=== PATIENT | female | born 1975 | race Caucasian/White ===

== ENCOUNTER 2017-05-19 18:51 | Emergency (ER) | payer MEDICAID ==
[~2017-05-19] VITALS: Ht 170.2 cm; Wt 104.3 kg
[~2017-05-19 18:51] MED LIST: BUSPAR 5MG TAB5 MG PO; CIPRO 500MG TA500 MG PO; COLCRYS0.6 M1 PO; CYMBALTA30 MG PO; DARVOCET-N 1001 EACH PO; DOXEPIN 25MG CA25 MG PO; FIORICET1 CAP PO; FLAGYL500 M1 PO; FLEXERIL10 MG PO; GABAPENTIN 400400 MG PO; GABAPENTIN 600600 MG PO; GABAPENTIN300 MG PO; HYDROCODONE/ACE1 TA5 PO; INDOMETHACIN50 MG PO; KETOROLAC 10MG10 MG PO; LAMICTAL 100 M100 MG PO; LEVOTHYROXINE0.05 MG PO; LISINOPRIL/HCTZ1 TA3 PO; LITHIUM CARB 1150 MG PO; LORTAB 5/500 501 TAB PO; LYRICA 100 MG100 MG PO; MACROBID100 M3 PO; MEDROL 4MG. DOSE4 MG PO; METOPROLOL SUCC50 M1 PO; MOBIC15 MG PO; NAPROSYN 500MG500 MG PO; NEURONTIN400 M1 PO; NEXIUM40 MG PO; NORCO 325 MG-51 TAB PO; PERCOCET1 TAB PO; PHENERGAN 25MG.25 M1 PO; PREDNISONE 20MG20 MG PO; PRILOSEC40 MG PO; TESSALON PERLE100 MG PO; TIZANIDINE HCL 44 MG NG; TOPROL XL 100M100 MG PO; TRAMADOL 50MG T50 M1 PO; TYLENOL W/CODEI1 TA2 PO; VALIUM 10MG TAB10 MG PO; VALIUM2 MG PO; VIBRAMYCIN 100100 MG PO; VOLTAREN50 MG PO; XANAX 1MG TABLET1 MG PO; ZOFRAN4 MG PO; Zofran4 MG PO
--- NOTE | 2017-05-19 18:57 | Emergency Room Report ---
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 Clinical Suspician of Infection? Mental Status: Sepsis Risk: Have you (or family members/close friends) recently traveled outside the [place]? If Yes, where/when: Have you had exposure to infectious disease within the past month? TB? Other? Specify: Source patient, RN notes reviewed Exam Limitations no limitations ALLERGIES Coded Allergies: amoxicillin (From AUGMENTIN) (Mild, 06/30/16) clavulanic acid (From AUGMENTIN) (Mild, 06/30/16) morphine (06/30/16) Home Medications Reported Medications Gabapentin (Neurontin) 400 MG PO TID Metoprolol Succinate Xl (Metoprolol ER 50MG) 50 MG PO BID Omeprazole (Prilosec 40mg Cap) 40 MG PO DAILY Diazepam (Valium 10MG) 10 MG PO TID Lisinopril & Hctz (Lisinopril-Hctz 10-12.5 MG Tab) 1 TAB PO DAILY DULOXETINE HCL (Cymbalta 30MG) 60 MG PO DAILY [place] Carbonate ([place] Carb 150MG. Capsule) 150 MG PO TID Levothyroxine Sodium (Levothyroxine) 0.25 MG PO DAILY TIZANIDINE HCL (Tizanidine Hcl 4 Mg Tablet) 4 MG NG Q8H History Medical History General CAD? No Angina: No MO: No Hypertension? Yes Hyperlipidemia? Yes CHF? No DVT? No PE? No COPD? No Asthma? No Anemia? No GERD? Yes Gastric ulcers? No GI Bleed? No Hernia? No Thyroid Problems? No Hypothyroidism? No CVA? No Seizures? No Diabetes? No Renal Insuffiency? No End Stage Renal Disease? No UTI? Yes Stones? No BPH? No GB Disease: Yes Nephritic Syndrome? No Asplenia? No Hepatitis? No Sickle Cell Disease? No Arthritis? No Migraines? No Cataracts? No Glaucoma? No MRSA? No HIV? No TB? No Anxiety? Yes Depression? Yes Cancer? Yes Site: CERVICAL More? Yes Additional hx: PREVIOUS DRUG ADDICTION Immunization Hx DT/Tetanus Unknown Flu 2YRSorMore Pneumonia NEVER Surgical Hx Previous Surgery?Y T&A APPY D&C X 2 LAP X 2 CYSTO X 2 Cholecystectomy Hysterect BLADDER TACK KNEE SURGERY COLONOSCOPY Family History Family Hx Diabetes Yes CAD Yes Hypertension Yes Hyperlipidemia Yes Cancer Yes TB No Social History Smoking Hx Packs/day 1 1/2 - 2 Packs Alcohol Alcohol: No Review of Systems All Other Systems Reviewed and Negative Physical Exam Vital Signs Vital Signs Date Time Temp Pulse Resp B/P Pulse O2 O2 Flow FiO2 Ox Delivery Rate 05/19 1928 20 05/19 1855 98.5 11 20 167/79 98 General Appearance normal appearance, WD/WN, mild distress Respiratory Status No: respiratory distress. 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 Yes Garth was queried for this patient? Yes Reference #: [id number] Reason not queried - Garth system downtime Risks/benefits of using a controlled substance for treatment were not discussed w/pt Results/Orders Current Medication Orders Sig/Fatemeh Start time Last Medication Dose Route Stop Time Status Admin Lidocaine HCl 10 ML ONCE ONE 05/19 1930 DC SC 05/19 1931 Lidocaine HCl 0 .STK-MED ONE 05/19 1925 DC .ROUTE Ondansetron HCl 0 .STK-MED ONE 05/19 1925 DC .ROUTE Hydromorphone HCl 0 .STK-MED ONE 05/19 1924 DCr .ROUTE Hydromorphone HCl 1 MG ONCE ONE 05/19 1915 DCr 05/19 IM 05/19 Ondansetron HCl 4 MG ONCE ONE 05/19 1915 DC 05/19 IM 05/19 Orders Procedure Date/time Status PROCEDURE TRAY SET UP 05/19 1918 Active PREPARE CONSENT 05/19 1918 Active CULTURE, WOUND 05/19 1918 Active Procedures Incision and Drainage Incision and Drainage Risks/benefits discussed with pt/guardian? Yes Problem type Abcess, Cyst Location pubic mons Size cm 3.0 Anesthesia Lidocaine 1% Blade Size 11 I & D Procedure Simple. Progress Anesthetized with 1% lidocaine and incised with # 11 Blade. Wound was cultured and then packed with 1" Iodoform gauze about 4 inches and sterile dressing applied Eye Procedure Eye Procedure Risks/benefits discussed with pt/guardian? Yes Departure Departure Time of Disposition 2008 Disposition DC Home or Self Care(routine) Clinical Impression Primary Impression: Abscess of abdominal wall Condition STABLE Referrals [facility], [facility] (Family): 2 Days-Call Office Additional Instructions advised to change dressing daily and return to the ED in 2 days to remove packing. Advised that she may still have to see a surgeon to remove the entire cyst Discharge Counseling Counseled pt/family regarding diagnosis, medications/RX, home care, follow up needs Prescriptions Current Visit Scripts HYDROCODONE 5MG/APAP 325MG (Hydrocodon-Acetaminophen 5-325) 1 TAB PO Q4HP PRN pain #12 TAB SULFAMETHOXAZOLE W/TRIMETHOPRI (Bactrim Ds Tab) 1 TABLET PO BID #10 TAB ED Critical Care Critical Care No If Critical Care minutes are documented, the time involved in the performance of seperately reportable procedures was not counted toward critical care time documented. I directly delivered medical care to this critically ill and/or injured patient. Timely evaluation and treatment was necessary to address the significant organ system(s) dysfunction present in this patient. at 2013
--- NOTE | 2017-05-19 18:57 | Emergency Room Report ---
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 Clinical Suspician of Infection? Mental Status: Sepsis Risk: Have you (or family members/close friends) recently traveled outside the [place]? If Yes, where/when: Have you had exposure to infectious disease within the past month? TB? Other? Specify: Source patient, RN notes reviewed Exam Limitations no limitations ALLERGIES Coded Allergies: amoxicillin (From AUGMENTIN) (Mild, 06/30/16) clavulanic acid (From AUGMENTIN) (Mild, 06/30/16) morphine (06/30/16) Home Medications Reported Medications Gabapentin (Neurontin) 400 MG PO TID Metoprolol Succinate Xl (Metoprolol ER 50MG) 50 MG PO BID Omeprazole (Prilosec 40mg Cap) 40 MG PO DAILY Diazepam (Valium 10MG) 10 MG PO TID Lisinopril & Hctz (Lisinopril-Hctz 10-12.5 MG Tab) 1 TAB PO DAILY DULOXETINE HCL (Cymbalta 30MG) 60 MG PO DAILY [place] Carbonate ([place] Carb 150MG. Capsule) 150 MG PO TID Levothyroxine Sodium (Levothyroxine) 0.25 MG PO DAILY TIZANIDINE HCL (Tizanidine Hcl 4 Mg Tablet) 4 MG NG Q8H History Medical History General CAD? No Angina: No CT: No Hypertension? Yes Hyperlipidemia? Yes CHF? No DVT? No PE? No COPD? No Asthma? No Anemia? No GERD? Yes Gastric ulcers? No GI Bleed? No Hernia? No Thyroid Problems? No Hypothyroidism? No CVA? No Seizures? No Diabetes? No Renal Insuffiency? No End Stage Renal Disease? No UTI? Yes Stones? No BPH? No GB Disease: Yes Nephritic Syndrome? No Asplenia? No Hepatitis? No Sickle Cell Disease? No Arthritis? No Migraines? No Cataracts? No Glaucoma? No MRSA? No HIV? No TB? No Anxiety? Yes Depression? Yes Cancer? Yes Site: CERVICAL More? Yes Additional hx: PREVIOUS DRUG ADDICTION Immunization Hx DT/Tetanus Unknown Flu 2YRSorMore Pneumonia NEVER Surgical Hx Previous Surgery?Y T&A APPY D&C X 2 LAP X 2 CYSTO X 2 Cholecystectomy Hysterect BLADDER TACK KNEE SURGERY COLONOSCOPY Family History Family Hx Diabetes Yes CAD Yes Hypertension Yes Hyperlipidemia Yes Cancer Yes TB No Social History Smoking Hx Packs/day 1 1/2 - 2 Packs Alcohol Alcohol: No Review of Systems All Other Systems Reviewed and Negative Physical Exam Vital Signs Vital Signs Date Time Temp Pulse Resp B/P Pulse O2 O2 Flow FiO2 Ox Delivery Rate 05/19 1928 20 05/19 1855 98.5 11 20 167/79 98 General Appearance normal appearance, WD/WN, mild distress Respiratory Status No: respiratory distress. 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 Yes Garth was queried for this patient? Yes Reference #: [id number] Reason not queried - Garth system downtime Risks/benefits of using a controlled substance for treatment were not discussed w/pt Results/Orders Current Medication Orders Sig/Fatemeh Start time Last Medication Dose Route Stop Time Status Admin Lidocaine HCl 10 ML ONCE ONE 05/19 1930 DC SC 05/19 1931 Lidocaine HCl 0 .STK-MED ONE 05/19 1925 DC .ROUTE Ondansetron HCl 0 .STK-MED ONE 05/19 1925 DC .ROUTE Hydromorphone HCl 0 .STK-MED ONE 05/19 1924 DCr .ROUTE Hydromorphone HCl 1 MG ONCE ONE 05/19 1915 DCr 05/19 IM 05/19 Ondansetron HCl 4 MG ONCE ONE 05/19 1915 DC 05/19 IM 05/19 Orders Procedure Date/time Status PROCEDURE TRAY SET UP 05/19 1918 Active PREPARE CONSENT 05/19 1918 Active CULTURE, WOUND 05/19 1918 Active Procedures Incision and Drainage Incision and Drainage Risks/benefits discussed with pt/guardian? Yes Problem type Abcess, Cyst Location pubic mons Size cm 3.0 Anesthesia Lidocaine 1% Blade Size 11 I & D Procedure Simple. Progress Anesthetized with 1% lidocaine and incised with # 11 Blade. Wound was cultured and then packed with 1" Iodoform gauze about 4 inches and sterile dressing applied Eye Procedure Eye Procedure Risks/benefits discussed with pt/guardian? Yes Departure Departure Time of Disposition 2008 Disposition DC Home or Self Care(routine) Clinical Impression Primary Impression: Abscess of abdominal wall Condition STABLE Referrals [facility], [facility] (Family): 2 Days-Call Office Additional Instructions advised to change dressing daily and return to the ED in 2 days to remove packing. Advised that she may still have to see a surgeon to remove the entire cyst Discharge Counseling Counseled pt/family regarding diagnosis, medications/RX, home care, follow up needs Prescriptions Current Visit Scripts HYDROCODONE 5MG/APAP 325MG (Hydrocodon-Acetaminophen 5-325) 1 TAB PO Q4HP PRN pain #12 TAB SULFAMETHOXAZOLE W/TRIMETHOPRI (Bactrim Ds Tab) 1 TABLET PO BID #10 TAB ED Critical Care Critical Care No If Critical Care minutes are documented, the time involved in the performance of seperately reportable procedures was not counted toward critical care time documented. I directly delivered medical care to this critically ill and/or injured patient. Timely evaluation and treatment was necessary to address the significant organ system(s) dysfunction present in this patient. at 2013
--- OUTSIDE RECORDS SUMMARY | 2017-05-19 19:27 | External Medical Summary Rpt ---
Author Author , RADHA Mendenhall FRANCEJUAN Address Unknown Phone [email or web address] Care Team Providers Care Medical Reviewer Name Role Phone [employer] Unavailable Unavailable INC, [employer] Unavailable Unavailable INC, [employer] ALLRAN JR MAGO, ALLRAN Unavailable Unavailable JR MAGO ELLY WILKERSON MD, PSC, Unavailable Unavailable ELLY WILKERSON MD, PSC ARNOLD THEODORE, ARNOLD Unavailable Unavailable THEODORE ARNOLD THEODORE, ARNOLD Unavailable Unavailable THEODORE Naun Magdaleno MD, Unavailable Unavailable YVETTE Garnica MD Unavailable Unavailable YVETTE FRANKLIN Unavailable Unavailable MAUREEN GARCIA TER, GARCIA TER Unavailable Unavailable BELLA ALL, BELLA ALL Unavailable Unavailable CASE JUS, CASE JUS Unavailable Unavailable CHEESEYUNIER VLADIMIR, Unavailable Unavailable [facility] Unavailable Unavailable ADAMS, ORONO [facility] Unavailable Unavailable [facility], Unavailable [facility], Unavailable Unavailable [facility] CECILIA DENNIS, Unavailable Unavailable CECILIA DENNIS CECILIA DENNIS, Unavailable Unavailable CECILIA DENNIS TRISTEN HINDS PA-C Unavailable Unavailable TRISTEN RAMSEY PA-C DUFF FRED, DUFF FRED Unavailable Unavailable FRYMAN EUG, FRYMAN Unavailable Unavailable EUG PRICE LAURENCE, PRICE Unavailable Unavailable LAURENCE [facility], Unavailable Unavailable [facility] GILBERT SYD, GILBERT Unavailable Unavailable SYD NI DAWSON, NI Unavailable Unavailable DAWSON [facility] Unavailable Unavailable INC, [facility] Unavailable Unavailable HOSPITAL P, [facility], Unavailable Unavailable [facility] BELLO CEC, BELLO Unavailable Unavailable CEC DUKE TRA, DUKE TRA Unavailable Unavailable RADHA FRED, RADHA Unavailable Unavailable FRED KEDING, KEDING Unavailable Unavailable KEDING, KEDING Unavailable Unavailable KEDING FRED, KEDING Unavailable Unavailable FRED KEDING FRED, KEDING Unavailable Unavailable FRED [facility] Un[facility] Unavailable GROUP PS, [facility] Un[facility], [facility] KEMP BECK, KEMP Unavailable Unavailable BECK ELKE JR DWI, ELKE Unavailable Unavailable JR DWI SEYMOUR THEODORE, SEYMOUR Unavailable Unavailable THEODORE ELIAS GRE, Unavailable Unavailable ELIAS GRE ELIAS GRE, Unavailable Unavailable ELI[facility] GRE [facility]available [facility], [facility] PICKLESIMER JR JOSSELINE, Unavailable Unavailable PICKLESIMER JR JOSSELINE RENUSCH SUMMER, RENUSCH Unavailable Unavailable SUMMER SCALF, SCALF Unavailable Unavailable AARON, AARON Unavailable Unavailable BEAUCHAMP VLADIMIR, BEAUCHAMP VLADIMIR Unavailable Unavailable BEAUCHAMP OMER, BEAUCHAMP OMER Unavailable Unavailable HALEY, HALEY Unavailable Unavailable [facility] Unavailable [facility], [facility], Unavailable Unavailable [facility] STONE ROX[facility], [facility] Unavailable Unavailable [facility] Un[facility] Unavailable [facility], [facility] Unavailable Unavailable CENTER, [facility] WALKER FOR, WALKER Unavailable Unavailable FOR Purpose Continuity of Care Document - 02-03-2008 through 2016 Problems Code Diagnosis DOS Provider Status [id number] OTHER LONG 02-28-2017 [facility] CURRENT INC DRUG THERAPY M545 LOW BACK 12-21-2016 [facility] PAIN E039 HYPOTHYROID 11-20-2016 [facility] UNSPECIFIED INC E559 VITAMIN D 11-20-2016 [facility] UNSPECIFIED INC R05 COUGH 10-19-2016 [facility] R1030 LOWER 10-04-2016 [facility]IN UNSPECIFIED R109 UNSPECIFIED 10-04-2016 [facility] PS R197 DIARRHEA 10-04-2016 [facility] PS R1032 LEFT LOWER 07-24-2016 [facility] PAIN GROUP K5909 OTHER 07-10-2016 [facility] DIGESTIVE [facility] CENTER N1330 UNSPECIFIED 06-30-2016 [facility] HYDRONEPHRO IMAGING ASS SIS N134 HYDROURETER 06-30-2016 [facility] N289 DISORDER OF 06-30-2016 [facility] URETER [facility] UNSPECIFIED N3000 ACUTE 06-30-2016 [facility] CYSTITIS [facility] WITHOUT PLLC HEMATURIA N390 URINARY 06-30-2016 [facility]CT [facility] INFECTION PLLC SITE NOT SPECIFIED R1031 RIGHT LOWER 06-30-2016 [facility] K529 NONINFECTIV 06-19-2016 [facility] CARE CENTER ITIS & COLITIS UNS K635 POLYP OF 06-19-2016 [facility] E118 TYPE 2 05-06-2016 [facility] MELLITUS INC W/UNS COMPLICATIO NS E876 HYPOKALEMIA 05-06-2016 [facility] I10 ESSENTIAL 05-06-2016 [facility] HYPERTENSIO INC N R1012 LEFT UPPER 05-06-2016 [facility] PAIN PLLC Z720 TOBACCO USE 05-06-2016 [facility] INC M5416 RADICULOPAT 04-25-2016 [facility] IBARRA HY LUMBAR REGION R194 CHANGE IN 03-21-2016 [facility] BOWEL HABIT PHYSICIANS GROUP [id number] PERSONAL 03-21-2016 [facility] HISTORY OF PHYSICIANS COLONIC GROUP POLYPS K219 GASTRO-ESOP 03-14-2016 [facility] P WITHOUT ESOPHAGITIS R1084 GENERALIZED 03-14-2016 [facility] K5792 DIVERTICULI 03-12-2016 [facility] T[facility] PART PHYSICIANS, UNS W/O PLLC PERF/ABSC W/O BLEED Z0100 ENCOUNTER 03-08-2016 [facility] EXAM EYES & GRE VISION W/O ABNORMAL FIND B370 CANDIDAL 02-21-2016 [facility] STOMATITIS PHYSICIANS GROUP Z23 ENCOUNTER 02-21-2016 [facility] FOR PHYSICIANS IMMUNIZATIO GROUP N M542 CERVICALGIA 02-16-2016 [facility] IBARRA R51 HEADACHE 02-02-2016 [facility] T04446 HEMIPLEGIC 01-05-2016 [facility] MIGRAINE PHYSICIANS INTRACT W/O GROUP STAT MIGRAINOSUS [id number] MIGRAINE 12-28-2015 [facility] NOT [facility] INTRACT W/O INC STATUS MIGRAINOSUS [id number] MIGRAINE 12-20-2015 [facility] W/O AURA PHYSICIANS, NOT INTRACT PLLC W/STAT MIGRAINOSUS B25181 PAIN IN 12-08-2015 [facility] RIGHT KNEE PHYSICIANS GROUP B97111 PAIN IN 12-08-2015 [facility] LEFT KNEE PHYSICIANS GROUP J0190 ACUTE 11-27-2015 [facility] SINUSITIS PHYSICIANS UNSPECIFIED GROUP R112 NAUSEA WITH 11-27-2015 [facility] VOMITING PHYSICIANS UNSPECIFIED GROUP M461 SACROILIITI 11-23-2015 ELLY WILKERSON S NOT , PSC ELSEWHERE CLASSIFIED M5116 INTERVERTEB 11-23-2015 [facility] D/O INC W/RADICULOP ATHY LUMB RGN M5136 OTH 11-23-2015 ELLY WILKERSON INTERVERTEB , PSC RAL DISC DEGEN LUMBAR REGION M797 FIBROMYALGI 09-21-2015 [facility] A PHYSICIANS GROUP 7231 CERVICALGIA 07-01-2015 [place] FRED 7242 LUMBAGO 07-01-2015 [place] FRED 7246 DISORDERS 07-01-2015 [place] FRED OF SACRUM 85050 DISPLCMT 06-28-2015 [facility] INTERVERT NEUROSURGIC DISC W/O AL MYELOPATHY 11354 DEGEN 06-28-2015 [facility]/L[facility]B [facility]RA[facility] OSACRAL NEUROSURGIC INTERVERTEB AL RAL DISC 9532 INJURY TO 06-28-2015 [facility] [place] [address] ALTERED 05-23-2015 [facility] PHYSICIANS, STATUS PLLC 4019 UNSPECIFIED 05-17-2015 [facility] ESSENTIAL [facility] HYPERTENSIO INC N 49259 PAIN IN 05-17-2015 [facility] JOINT, PHYSICIANS LOWER LEG GROUP V5869 LONG-TERM 05-17-2015 [facility] (CURRENT) [facility] USE OF INC OTHER MEDICATIONS 39482 OTHER 05-06-2015 [facility] ABNORMAL [facility] GLUCOSE INC 7243 SCIATICA 04-21-2015 [place] FRED 9597 INJURY 02-23-2015 [facility] OTHER&UNSPE TECHNOLOGIE CIFIED KNEE S INC LEG ANKLE&FOOT 30292 UNSPECIFIED 02-11-2015 [facility] VAGINITIS PHYSICIANS AND GROUP VULVOVAGINI TIS V7231 ROUTINE 02-11-2015 [facility] AL EXAMINATION V7641 SCREENING 02-11-2015 [facility] FOR PHYSICIANS MALIGNANT GROUP NEOPLASM OF THE RECTUM 4610 ACUTE 01-23-2015 [facility] MAXILLARY PHYSICIANS SINUSITIS GROUP 4659 ACUTE URIS 01-23-2015 [facility] OF PHYSICIANS UNSPECIFIED GROUP SITE 78405 ABDOMINAL 12-22-2014 [facility] PAIN, LEFT MEDICAL UPPER IMAGING ASS QU[facility]RANT 80928 ABDOMINAL 12-22-2014 [facility] TENDERNESS MEDICAL LEFT UPPER IMAGING ASS QUADRANT 4619 ACUTE 11-23-2014 [facility] SINUSITIS, PHYSICIANS UNSPECIFIED GROUP 92894 WHEEZING 11-23-2014 [facility] PHYSICIANS GROUP 7862 COUGH 11-23-2014 [facility] PHYSICIANS GROUP 4611 ACUTE 11-20-2014 [facility] FRONTAL PHYSICIANS SINUSITIS GROUP 4660 ACUTE 10-16-2014 [facility] BRONCHITIS PHYSICIANS GROUP 4240 MITRAL 10-02-2014 [place] [facility] DISORDERS INC 7852 UNDIAGNOSED 10-02-2014 [facility] 7244 THORACIC/EM 05-20-[address] MBOSACRAL SURGERY NEURITIS/RA CENTER DICULITIS UNSPEC 52994 GENERALIZED 04-05-2014 [facility] ANXIETY [facility] DISORDER 7291 UNSPECIFIED 04-05-2014 [facility] MYALGIA [facility] MYOSITIS 7245 UNSPECIFIED 04-04-2014 [facility] BACKACHE 38765 PAIN IN 03-31-2014 [facility] JOINT PELVIC REGION AND THIGH 88351 SPINAL STEN 03-28-2014 [facility] LUMB REG DENNIS W/O NEUROGENIC CLAUDICATIO N 274.00 274.00 03-29-2013 [facility] Allergies, Adverse Reactions, Alerts Type Allergy to substance Adverse Reaction to Substance Substance Reaction Severity NO KNOWN ALLERGIES Unknown Unknown Clinical Alert Notifications Alert Diabetes: no A1C in the last 6 months Diabetes: no eye exam in the last 365 days Diabetes: no influenza vaccine in the last 365 days Diabetes: no lipid panel in the last 365 days Diabetes: no urine protein screening in the last 365 days Medications Na ND Rx Da Fi Fi Am Da Di Ph RX Ph St me C No te ll ll ou ys ag ar # ys at rm s nt no ma ic us Or Da si cy ia de te s n re d 00 05 06 30 30 00 HO Ac TA 53 -2 -3 .0 00 ME ti IA 63 5- 0- 00 06 TO ve N 33 20 20 07 WN D3 40 17 17 95 1 31 PH 1, AR 00 MA 0 CY UN IT OF TA CY BL NT ET HI AN A TI 29 05 06 90 30 00 HO Ac ZA 30 -2 -3 .0 00 ME ti NI 00 5- 0- 00 06 TO ve DI 16 20 20 07 WN NE 91 17 17 91 0 39 PH HC AR L MA 4 CY MG OF TA BL CY ET NT HI AN A GA 45 05 06 90 30 00 HO Ac BA 96 -2 -3 .0 00 ME ti PE 30 5- 0- 00 06 TO ve NT 55 20 20 08 WN IN 75 17 17 53 0 81 PH 40 AR 0 MA MG CY CA OF PS UL CY E NT HI AN A TO 68 05 06 30 30 00 HO Ac PI 46 -2 -3 .0 00 ME ti RA 20 5- 0- 00 06 TO ve MA 10 20 20 08 WN TE 96 17 17 53 0 80 PH 10 AR 0 MA MG CY TA OF BL ET CY NT HI AN A DI 51 05 06 38 19 00 HO Ac AZ 86 -2 -3 .0 00 ME ti EP 20 6- 0- 00 04 TO ve AM 06 20 20 02 WN 5 31 17 17 29 0 50 PH MG AR MA TA CY BL ET OF CY NT HI AN A DU 68 05 06 30 30 00 HO Ac LO 00 -2 -3 .0 00 ME ti XE 10 5- 0- 00 06 TO ve TI 25 20 20 08 WN NE 70 17 17 53 4 79 PH HC AR L MA DR CY 60 OF MG CY NT CA HI P AN A LE 00 05 06 30 30 00 HO Ac VO 52 -2 -3 .0 00 ME ti TH 71 5- 0- 00 06 TO ve YR 34 20 20 08 WN OX 10 17 17 53 IN 1 78 PH E AR 25 MA CY MC G OF TA BL CY ET NT HI AN A ME 68 05 06 30 30 00 HO Ac TO 00 -1 -1 .0 00 ME ti AK 10 2- 6- 00 06 TO ve OL 11 20 20 08 WN OL 90 17 17 53 0 76 PH [place] AR CC MA CY ER OF 10 0 CY MG NT HI TA AN B A LI 68 05 06 30 30 00 HO Ac SI 18 -1 -1 .0 00 ME ti NO 00 2- 6- 00 06 TO ve AK 51 20 20 08 WN IL 80 17 17 53 -H [address] AR Z MA 10 CY -1 2. OF 5 MG CY NT TA HI B AN A QU 68 05 06 30 30 00 HO Ac ET 00 -1 -1 .0 00 ME ti IA 10 2- 6- 00 06 TO ve PI 18 20 20 08 WN NE 40 17 17 53 0 83 PH FU AR MA MA RA CY TE OF 10 0 CY MG NT HI TA AN B A LI 68 05 06 90 30 00 HO Ac TH 46 -1 -1 .0 00 ME ti IU 20 2- 6- 00 06 TO ve M 22 20 20 08 WN CA 00 17 17 53 RB 1 82 PH ON AR AT MA E CY 15 0 OF MG CY CA NT P HI AN A HY 43 04 05 18 30 00 HO Ac OS 19 -2 -2 0. 00 ME ti CY 90 6- 6- 00 06 TO ve AM 01 20 20 0 08 WN IN 10 17 17 12 E 1 22 PH 0. AR 12 MA 5 CY MG OF TA B CY SL NT HI AN A GA 45 04 05 90 30 00 HO Ac BA 96 -2 -2 .0 00 ME ti PE 30 6- 6- 00 06 TO ve NT 55 20 20 08 WN IN 75 17 17 53 0 81 PH 40 AR 0 MA MG CY CA OF PS UL CY E NT HI AN A TO 68 04 05 30 30 00 HO Ac PI 46 -2 -2 .0 00 ME ti RA 20 6- 6- 00 06 TO ve MA 10 20 20 08 WN TE 96 17 17 53 0 80 PH 10 AR 0 MA MG CY TA OF BL ET CY NT HI AN A LE 00 04 05 30 30 00 HO Ac VO 52 -2 -2 .0 00 ME ti TH 71 6- 6- 00 06 TO ve YR 34 20 20 08 WN OX 10 17 17 53 IN 1 78 PH E AR 25 MA CY MC G OF TA BL CY ET NT HI AN A DU 68 04 05 30 30 00 HO Ac LO 00 -2 -2 .0 00 ME ti XE 10 6- 6- 00 06 TO ve TI 25 20 20 08 WN NE 70 17 17 53 4 79 PH HC AR L MA DR CY 60 OF MG CY NT CA HI P AN A 51 04 05 8. 28 00 HO Ac T 99 -2 -2 00 00 ME ti D2 10 6- 6- 0 06 TO ve 60 20 20 07 WN 1. 40 17 17 95 25 1 30 PH AR MG MA CY (5 0, OF 00 0 CY UN NT IT HI ) AN A 00 04 05 30 30 00 HO Ac TA 53 -2 -2 .0 00 ME ti IA 63 6- 6- 00 06 TO ve N 33 20 20 07 WN D3 40 17 17 95 1 31 PH 1, AR 00 MA 0 CY UN IT OF TA CY BL NT ET HI AN A OM 46 04 05 60 30 00 HO Ac EP 12 -2 -2 .0 00 ME ti RA 20 6- 6- 00 06 TO ve ZO 02 20 20 08 WN LE 90 17 [address] AR MA 20 CY MG OF TA CY BL NT ET HI AN A DI 51 04 05 60 30 00 HO Ac AZ 86 -1 -1 .0 00 ME ti EP 20 9- 9- 00 04 TO ve AM 06 20 20 02 WN 5 31 17 17 23 0 56 PH MG AR MA TA CY BL ET OF CY NT HI AN A QU 68 04 05 30 30 00 HO Ac ET 00 -1 -1 .0 00 ME ti IA 10 0- 2- 00 06 TO ve PI 18 20 20 08 WN NE 40 17 17 47 0 18 PH FU AR MA MA RA CY TE OF 10 0 CY MG NT HI TA AN B A LI 68 04 05 90 30 00 HO Ac TH 46 -1 -1 .0 00 ME ti IU 20 0- 2- 00 06 TO ve M 22 20 20 08 WN CA 00 17 17 47 RB 1 17 PH ON AR AT MA E CY 15 0 OF MG CY CA NT P HI AN A LI 68 04 05 30 30 00 HO Ac SI 18 -1 -1 .0 00 ME ti NO 00 0- 2- 00 06 TO ve AK 51 20 20 08 WN IL 80 17 17 47 -H [address] AR Z MA 10 CY -1 2. OF 5 MG CY NT TA HI B AN A ME 68 04 05 30 30 00 HO Ac TO 00 -1 -1 .0 00 ME ti AK 10 0- 2- 00 06 TO ve OL 11 20 20 08 WN OL 90 17 17 47 0 04 PH [place] AR CC MA CY ER OF 10 0 CY MG NT HI TA AN B A 51 03 04 8. 28 00 HO Ac T 99 -2 -2 00 00 ME ti D2 10 8- 8- 0 06 TO ve 60 20 20 07 WN 1. 40 17 17 95 25 1 30 PH AR MG MA CY (5 0, OF 00 0 CY UN NT IT HI ) AN A DU 68 03 04 30 30 00 HO Ac LO 00 -2 -2 .0 00 ME ti XE 10 8- 8- 00 06 TO ve TI 25 20 20 07 WN NE 70 17 17 91 4 42 PH HC AR L MA DR CY 60 OF MG CY NT CA HI P AN A LE 00 03 04 30 30 00 HO Ac VO 52 -2 -2 .0 00 ME ti TH 71 8- 8- 00 06 TO ve YR 34 20 20 07 WN OX 10 17 17 91 IN 1 43 PH E AR 25 MA CY MC G OF TA BL CY ET NT HI AN A GA 45 03 04 90 30 00 HO Ac BA 96 -2 -2 .0 00 ME ti PE 30 8- 8- 00 06 TO ve NT 55 20 20 07 WN IN 75 17 17 91 0 41 PH 40 AR 0 MA MG CY CA OF PS UL CY E NT HI AN A TO 68 03 04 30 30 00 HO Ac PI 46 -2 -2 .0 00 ME ti RA 20 8- 8- 00 06 TO ve MA 10 20 20 07 WN TE 96 17 17 91 0 40 PH 10 AR 0 MA MG CY TA OF BL ET CY NT HI AN A OM 46 03 04 60 30 00 HO Ac EP 12 -2 -2 .0 00 ME ti RA 20 8- 8- 00 06 TO ve ZO 02 20 20 07 WN LE 90 17 [address] AR MA 20 CY MG OF TA CY BL NT ET HI AN A HY 43 03 04 18 30 00 HO Ac OS 19 -2 -2 0. 00 ME ti CY 90 8- 8- 00 06 TO ve AM 01 20 20 0 08 WN IN 10 17 17 12 E 1 22 PH 0. AR 12 MA 5 CY MG OF TA B CY SL NT HI AN A 00 03 04 30 30 00 HO Ac TA 53 -2 -2 .0 00 ME ti IA 63 8- 8- 00 06 TO ve N 33 20 20 07 WN D3 40 17 17 95 1 31 PH 1, AR 00 MA 0 CY UN IT OF TA CY BL NT ET HI AN A QU 68 03 04 30 30 00 HO Ac ET 00 -1 -1 .0 00 ME ti IA 10 0- 4- 00 06 TO ve PI 18 20 20 07 WN NE 40 17 17 91 0 31 PH FU AR MA MA RA CY TE OF 10 0 CY MG NT HI TA AN B A DI 51 03 04 90 30 00 HO Ac AZ 86 -1 -1 .0 00 ME ti EP 20 0- 4- 00 04 TO ve AM 06 20 20 02 WN 41 17 17 09 10 0 52 PH AR MG MA CY TA BL OF ET CY NT HI AN A LI 68 03 04 90 30 00 HO Ac TH 46 -1 -1 .0 00 ME ti IU 20 0- 4- 00 06 TO ve M 22 20 20 07 WN CA 00 17 17 91 RB 1 33 PH ON AR AT MA E CY 15 0 OF MG CY CA NT P HI AN A 51 02 03 8. 28 00 HO Ac T 99 -2 -3 00 00 ME ti D2 10 8- 1- 0 06 TO ve 60 20 20 07 WN 1. 40 17 17 95 25 1 30 PH AR MG MA CY (5 0, OF 00 0 CY UN NT IT HI ) AN A GA 45 02 03 90 30 00 HO Ac BA 96 -2 -3 .0 00 ME ti PE 30 8- 1- 00 06 TO ve NT 55 20 20 07 WN IN 75 17 17 91 0 41 PH 40 AR 0 MA MG CY CA OF PS UL CY E NT HI AN A DU 68 02 03 30 30 00 HO Ac LO 00 -2 -3 .0 00 ME ti XE 10 8- 1- 00 06 TO ve TI 25 20 20 07 WN NE 70 17 17 91 4 42 PH HC AR L MA DR CY 60 OF MG CY NT CA HI P AN A TO 68 02 03 30 30 00 HO Ac PI 46 -2 -3 .0 00 ME ti RA 20 8- 1- 00 06 TO ve MA 10 20 20 07 WN TE 96 17 17 91 0 40 PH 10 AR 0 MA MG CY TA OF BL ET CY NT HI AN A LE 00 02 03 30 30 00 HO Ac VO 52 -2 -3 .0 00 ME ti TH 71 8- 1- 00 06 TO ve YR 34 20 20 07 WN OX 10 17 17 91 IN 1 43 PH E AR 25 MA CY MC G OF TA BL CY ET NT HI AN A 00 02 03 30 30 00 HO Ac TA 53 -2 -3 .0 00 ME ti IA 63 8- 1- 00 06 TO ve N 33 20 20 07 WN D3 40 17 17 95 1 31 PH 1, AR 00 MA 0 CY UN IT OF TA CY BL NT ET HI AN A DI 51 02 03 90 30 00 HO Ac AZ 86 -1 -1 .0 00 ME ti EP 20 0- 7- 00 04 TO ve AM 06 20 20 02 WN 41 17 17 09 10 0 52 PH AR MG MA CY TA BL OF ET CY NT HI AN A HY 51 02 03 18 30 00 HO Ac OS 52 -1 -1 0. 00 ME ti CY 50 0- 7- 00 06 TO ve AM 11 20 20 0 08 WN IN 30 17 17 12 E 1 22 PH 0. AR 12 MA 5 CY MG OF TA B CY SL NT HI AN A OM 46 02 03 60 30 00 HO Ac EP 12 -0 -1 .0 00 ME ti RA 20 9- 06 TO ve ZO 02 20 20 07 WN LE 90 17 [address] AR MA 20 CY MG OF TA CY BL NT ET HI AN A QU 60 02 03 30 30 00 HO Ac ET 50 -0 -1 .0 00 ME ti IA 53 9- 7- 06 TO ve PI 13 20 20 07 WN NE 30 17 17 91 1 31 PH FU AR MA MA RA CY TE OF 10 0 CY MG NT HI TA AN B A LI 68 02 03 90 30 00 HO Ac TH 46 -0 -1 .0 00 ME ti IU 20 9- 7- 06 TO ve M 22 20 20 07 WN CA 00 17 17 91 RB 1 33 PH ON AR AT MA E CY 15 0 OF MG CY CA NT P HI AN A ME 68 02 03 30 30 00 HO Ac TO 00 -0 -0 .0 00 ME ti AK 10 1- 3- 06 TO ve OL 11 20 20 07 WN OL 90 17 17 37 0 36 PH [place] AR CC MA CY ER OF 10 0 CY MG NT HI TA AN B A TO 68 02 03 30 30 00 HO Ac PI 46 -0 -0 .0 00 ME ti RA 20 1- 3- 06 TO ve MA 10 20 20 07 WN TE 96 17 17 91 0 40 PH 10 AR 0 MA MG CY TA OF BL ET CY NT HI AN A LE 00 02 03 30 30 00 HO Ac VO 52 -0 -0 .0 00 ME ti TH 71 1- 3- 06 TO ve YR 34 20 20 07 WN OX 10 17 17 91 IN 1 43 PH E AR 25 MA CY MC G OF TA BL CY ET NT HI AN A GA 45 02 03 90 30 00 HO Ac BA 96 -0 -0 .0 00 ME ti PE 30 1- 3- 06 TO ve NT 55 20 20 07 WN IN 75 17 17 91 0 41 PH 40 AR 0 MA MG CY CA OF PS UL CY E NT HI AN A LI 68 02 03 30 30 00 HO Ac SI 18 -0 -0 .0 00 ME ti NO 00 1- 3- 06 TO ve AK 51 20 20 07 WN IL 80 17 17 37 -H [address] AR Z MA 10 CY -1 2. OF 5 MG CY NT TA HI B AN A TI 29 02 03 90 30 00 HO Ac ZA 30 -0 -0 .0 00 ME ti NI 00 1- 3- 06 TO ve DI 16 20 20 07 WN NE 91 17 17 37 0 37 PH HC AR L MA 4 CY MG OF TA BL CY ET NT HI AN A DU 47 02 03 30 30 00 HO Ac LO 33 -0 -0 .0 00 ME ti XE 50 1- 3- 00 06 TO ve TI 38 20 20 07 WN NE 31 17 17 91 8 42 PH HC AR L MA DR CY 60 OF MG CY NT CA HI P AN A PO 62 01 02 52 30 00 HO Ac LY 17 -1 -1 7. 00 ME ti ET 50 3- 7- 00 06 TO ve HY 44 20 20 0 07 WN LE 23 17 17 94 NE 1 72 PH AR GL MA YC CY OL OF 33 50 CY NT PO HI WD AN A LI 68 01 02 90 30 00 HO Ac TH 46 -1 -1 .0 00 ME ti IU 20 3- 7- 00 06 TO ve M 22 20 20 07 WN CA 00 17 17 91 RB 1 33 PH ON AR AT MA E CY 15 0 OF MG CY CA NT P HI AN A 51 01 02 8. 28 00 HO Ac T 99 -1 -1 00 00 ME ti D2 10 6- 7- 0 06 TO ve 60 20 20 07 WN 1. 40 17 17 95 25 1 30 PH AR MG MA CY (5 0, OF 00 0 CY UN NT IT HI ) AN A 00 01 02 30 30 00 HO Ac TA 53 -1 -1 .0 00 ME ti IA 63 6- 7- 00 06 TO ve N 33 20 20 07 WN D3 40 17 17 95 1 31 PH 1, AR 00 MA 0 CY UN IT OF TA CY BL NT ET HI AN A DI 51 01 02 90 30 00 HO Ac AZ 86 -1 -1 .0 00 ME ti EP 20 3- 7- 00 04 TO ve AM 06 20 20 02 WN 41 17 17 09 10 0 52 PH AR MG MA CY TA BL OF ET CY NT HI AN A QU 60 01 02 30 30 00 HO Ac ET 50 -0 -1 .0 00 ME ti IA 53 9- 0- 00 06 TO ve PI 13 20 20 07 WN NE 30 17 17 91 1 31 PH FU AR MA MA RA CY TE OF 10 0 CY MG NT HI TA AN B A FL 68 01 02 10 10 00 HO Ac UC 00 -0 -1 .0 00 ME ti ON 10 9- 0- 00 06 TO ve AZ 25 20 20 07 WN OL 40 17 17 91 E 4 30 PH 20 AR 0 MA MG CY TA OF BL ET CY NT HI AN A OM 46 01 02 60 30 00 HO Ac EP 12 -0 -1 .0 00 ME ti RA 20 9- 0- 00 06 TO ve ZO 02 20 20 07 WN LE 90 17 [address] AR MA 20 CY MG OF TA CY BL NT ET HI AN A LI 68 01 02 30 30 00 HO Ac SI 18 -0 -0 .0 00 ME ti NO 00 3- 3- 00 06 TO ve AK 51 20 20 07 WN IL 80 17 17 37 -H [address] AR Z MA 10 CY -1 2. OF 5 MG CY NT TA HI B AN A QU 60 01 02 30 30 00 HO Ac ET 50 -0 -0 .0 00 ME ti IA 53 3- 3- 00 06 TO ve PI 13 20 20 07 WN NE 20 17 17 88 1 11 PH FU AR MA MA RA CY TE OF 50 CY MG NT HI TA AN B A TO 68 01 02 30 30 00 HO Ac PI 46 -0 -0 .0 00 ME ti RA 20 3- 3- 00 06 TO ve MA 10 20 20 07 WN TE 96 17 17 37 0 38 PH 10 AR 0 MA MG CY TA OF BL ET CY NT HI AN A DU 47 01 02 30 30 00 HO Ac LO 33 -0 -0 .0 00 ME ti XE 50 3- 3- 00 06 TO ve TI 38 20 20 07 WN NE 31 17 17 37 8 42 PH HC AR L MA DR CY 60 OF MG CY NT CA HI P AN A GA 45 01 02 90 30 00 HO Ac BA 96 -0 -0 .0 00 ME ti PE 30 3- 3- 00 06 TO ve NT 55 20 20 07 WN IN 75 17 17 37 0 39 PH 40 AR 0 MA MG CY CA OF PS UL CY E NT HI AN A ME 68 01 02 30 30 00 HO Ac TO 00 -0 -0 .0 00 ME ti AK 10 3- 3- 00 06 TO ve OL 11 20 20 07 WN OL 90 17 17 37 0 36 PH [place] AR CC MA CY ER OF 10 0 CY MG NT HI TA AN B A LE 00 01 02 30 30 00 HO Ac VO 52 -0 -0 .0 00 ME ti TH 71 3- 3- 00 06 TO ve YR 34 20 20 07 WN OX 10 17 17 37 IN 1 43 PH E AR 25 MA CY MC G OF TA BL CY ET NT HI AN A AK 68 12 01 20 5 00 HO Ac OM 38 -2 -2 .0 00 ME ti ET 20 8- 7- 00 06 TO ve GARCIA 04 20 20 07 WN ZI 00 16 17 84 NE 1 25 PH AR 12 MA .5 CY MG OF TA CY BL NT ET HI AN A LI 68 12 01 60 30 00 HO Ac TH 46 -1 -2 .0 00 ME ti IU 20 5- 0- 00 06 TO ve M 22 20 20 07 WN CA 00 16 17 37 RB 1 41 PH ON AR AT MA E CY 15 0 OF MG CY CA NT P HI AN A TI 29 12 01 90 30 00 HO Ac ZA 30 -1 -2 .0 00 ME ti NI 00 5- 0- 00 06 TO ve DI 16 20 20 07 WN NE 91 16 17 37 0 37 PH HC AR L MA 4 CY MG OF TA BL CY ET NT HI AN A DI 51 12 01 90 30 00 HO Ac AZ 86 -1 -2 .0 00 ME ti EP 20 5- 0- 00 04 TO ve AM 06 20 20 02 WN 41 16 17 06 10 0 66 PH AR MG MA CY TA BL OF ET CY NT HI AN A AK 59 12 01 10 5 00 HO Ac ED 74 -0 -1 .0 00 ME ti NI 60 8- 3- 00 06 TO ve SO 17 20 20 07 WN NE 50 16 17 71 9 94 PH 20 AR MA MG CY TA OF BL ET CY NT HI AN A AZ 68 12 01 6. 5 00 HO Ac IT 18 -0 -1 00 00 ME ti HR 00 8- 3- 0 06 TO ve OM 16 20 20 07 WN YC 01 16 17 71 IN 3 93 PH AR 25 MA 0 CY MG OF TA BL CY ET NT HI AN A AK 00 12 01 20 10 00 HO Ac OM 60 -0 -1 0. 00 ME ti ET 31 8- 3- 00 04 TO ve GARCIA 58 20 20 0 02 WN ZI 55 16 17 05 NE 8 76 PH -C AR OD MA EI CY NE OF SY RU CY P NT HI AN A DI 00 12 01 20 10 00 HO Ac PH 18 -0 -1 .0 00 ME ti EN 50 8- 3- 00 06 TO ve HY 64 [address] 81 16 17 71 AM 0 92 PH IN AR E MA 25 CY MG OF CA CY PS NT UL HI E AN A QU 60 12 01 30 30 00 HO Ac ET 50 -0 -0 .0 00 ME ti IA 53 06 TO ve PI 13 20 20 07 WN NE 20 16 17 49 1 25 PH FU AR MA MA RA CY TE OF 50 CY MG NT HI TA AN B A GA 45 12 01 90 30 00 HO Ac BA 96 -0 -0 .0 00 ME ti PE 30 06 TO ve NT 55 20 20 07 WN IN 75 16 17 37 0 39 PH 40 AR 0 MA MG CY CA OF PS UL CY E NT HI AN A AK 68 12 01 20 5 00 HO Ac OM 38 -0 -0 .0 00 ME ti ET 20 06 TO ve GARCIA 04 20 20 07 WN ZI 00 16 17 68 NE 1 43 PH AR 12 MA .5 CY MG OF TA CY BL NT ET HI AN A ME 68 12 30 30 00 HO Ac TO 00 -0 -0 .0 00 ME ti AK 10 06 TO ve OL 11 20 20 07 WN OL 90 16 17 37 0 36 PH [place] AR CC MA CY ER OF 10 0 CY MG NT HI TA AN B A DU 47 12 30 30 00 HO Ac LO 33 -0 -0 .0 00 ME ti XE 50 06 TO ve TI 38 20 20 07 WN NE 31 16 17 37 8 [address] PH HC AR L MA DR CY 60 OF MG CY NT CA HI P AN A LE 00 12 30 30 00 HO Ac VO 52 -0 -0 .0 00 ME ti TH 71 06 TO ve YR 34 20 20 07 WN OX 10 16 17 37 IN 1 43 PH E AR 25 MA CY MC G OF TA BL CY ET NT HI AN A LI 68 12 30 30 00 HO Ac SI 18 -0 -0 .0 00 ME ti NO 00 06 TO ve AK 51 20 20 07 WN IL 80 16 17 37 -H [address] AR Z MA 10 CY -1 2. OF 5 MG CY NT TA HI B AN A TO 68 12 30 30 00 HO Ac PI 46 -0 -0 .0 00 ME ti RA 20 06 TO ve MA 10 20 20 07 WN TE 96 16 17 37 0 38 PH 10 AR 0 MA MG CY TA OF BL ET CY NT HI AN A BU 55 05 0 No TO 39 -1 RP 00 8- Lo GARCIA 18 20 ng NO 40 13 er L 1 2 Ac MG ti /M ve L AL De 00 05 0 No xa 51 -1 me 74 8- Lo th 90 20 ng as 12 13 er on 5 e Ac 4M ti G/ ve Ml Sd v 53 02 04 00 90 30 CL 16 No Ac 74 -2 -0 .0 IN 57 t ti 60 7- 7- 00 IC 50 Av ve 13 20 20 ai 70 08 08 PH la 5 AR bl MA e CY 00 02 04 00 60 20 CL 16 No Ac 55 -2 -0 .0 IN 57 t ti 50 7- 7- 00 IC 51 Av ve 58 20 20 ai 50 08 08 PH la 2 AR bl MA e CY AK 68 02 03 00 15 2 CL 16 No Ac OM 38 -0 -2 .0 IN 38 t ti ET 20 1- 6- 00 IC 27 Av ve GARCIA 04 20 20 ai ZI 00 08 08 PH la NE 1 AR bl MA e 12 CY .5 MG TA BL ET AM 00 01 03 00 30 10 CL 16 No Ac OX 78 -3 -2 .0 IN 37 t ti IC 12 1- 6- 00 IC 62 Av ve IL 61 20 20 ai LI 30 08 08 PH la N 5 AR bl 50 MA e 0 CY MG CA PS UL E AL 59 02 03 00 90 30 CL 16 No Ac AK 76 -0 -2 .0 IN 44 t ti AZ 23 8- 6- 00 IC 53 Av ve OL 72 20 20 ai AM 00 08 08 PH la 3 AR bl 0. MA e 5 CY MG TA BL ET AL 59 01 03 00 90 30 CL 16 No Ac AK 76 -0 -2 .0 IN 20 t ti AZ 23 4- 4- 00 IC 38 Av ve OL 72 20 20 ai AM 00 08 08 PH la 3 AR bl 0. MA e 5 CY MG TA BL ET Immunization Name Date Rout CVX Reac Dose Comm Prov Is Faci e tion ent ider Refu lity Give sed n TDAP 04-1 115 GAIN No HMH 1-20 EY PHYS VACC 16 LAURENCE ICIA INE NS 7 GROU YRS/ P > IM Vital Signs 03-29-2013 19:10 Name Value Interpretat Reference Comment ion Range Body 98.1 [degF] Temperature BP 81 mm[Hg] Diastolic BP Systolic 133 mm[Hg] Heart 102 /min Rate/Pulse O2% 95 % Respiratory 19 /min Rate 03-29-2013 19:09 Name Value Interpretat Reference Comment ion Range Body 98.1 [degF] Temperature BP 81 mm[Hg] Diastolic BP Systolic 133 mm[Hg] Heart 102 /min Rate/Pulse O2% 95 % Respiratory 19 /min Rate Results Labs Lab Lab Date Result Refere Interp Status Commen Order Detail nces retati t Range on URIC ACID (03-29-2013 18:50) URIC 4.3 2.6-7.2 complet ACID 013 mg/dL ed 18:50 Procedures Procedure DOS Code Location Performer Comment DRUG TEST G0480 [facility] [address] [facility] INC METH P DAY 1-7 DRUG CL DRUG TEST 05369 [facility] PRSMV [facility] QUAL DIR INC INC OPTICAL OBS PER DAY DRUG TEST 13724 [facility] PRSMV [facility] INSTRMNT INC INC CHEMISTRY ANALYZERS COMPREHEN 84105 [facility] SIVE 7 [facility] [address] [facility] THYROID 7 [facility] STIMULATI INC INC NG HORMONE TSH DRUG TEST G0480 [facility] DEFINITV [address] ID INC INC METH P DAY 1-7 DRUG CL 25 97456 [facility] HYDROXY 7 [facility] INCLUDES INC [place] [address] [facility] FREE [facility] THYROXINE INC INC BLOOD 37833 [facility] COUNT 7 [facility] COMPLETE INC INC AUTO&AUTO DIFRNTL WBC INJECTION J0696 [facility] STONE ROXY 6 PHYSICIAN CEFTRIAXO S GROUP NE SODIUM PER 250 MG RADIOLOGI 41654 [place] CECILIA C EXAM 6 MEDICAL DENNIS CHEST 2 IMAGING VIEWS ASS FRONTAL&L ATERAL INJECTION J1040 [facility] STONE ROXY 6 PHYSICIAN METHYLPRE S GROUP DNISOLONE ACETATE 80 MG THERAPEUT 10044 [facility] STONE ROXY IC 6 PHYSICIAN PROPHYLAC S GROUP TIC/DX INJECTION SUBQ/IM ANES 14934 [place] AARON LOWER 6 ANESTHESI INTESTINE A [place] [address] [facility] [place] SCALF ABDOMEN & 6 RADIOLOGY PELVIS W/O CONTRAST MATERIAL IMMUNOASS 08343 [facility] AY 6 [facility] ANALYTE INC INC QUAL/SEMI QUAL MULTIPLE STEP BLOOD 23504 [facility] COUNT 6 [facility] COMPLETE INC INC AUTO&[place] [address] L[facility] PA[facility] THYROID 6 [facility] STIMULATI INC INC NG HORMONE TSH COMPREHEN 43620 [facility] SIVE 6 [facility] METABOLIC INC INC PANEL FLUORESCE 21355 [facility] NT 6 [facility] NONNFCT INC INC AGT ANTB SCREEN EA ANTIBODY RADEX 45667 [facility] [place] NI ABDOMEN 1 6 RADIOLOGY [place] ANTEROPOS TERIOR VIEW DRUG TST G0477 [facility] L[facility]A PRESUMP;C 6 [facility] PBL BEING [place] [address] [place] [facility] & 6 MEDICAL PELVIS IMAGING W/[place] [address] [facility]IVAS ABDOMEN & 6 REGIONAL REGIONAL PELVIS MEDICAL MEDICAL W/CONTRAS CENTE CENTE T MATERIAL HI OSM Q9963 [facility] CONTRST 6 REGIONAL REGIONAL MATL MEDICAL MEDICAL [phone] CENTE CENTE MG/ML IODINE CONC ML LOCM Q9967 ROB RIVAS [phone] REGIONAL REGIONAL MG/ML MEDICAL MEDICAL IODINE CENTE CENT[place] [address] P&[facility] LABS, [place] SURG 6 [facility] PATHOLOGY GROSS&LAURENCE ROSCOPIC EXAM UNCLASSIF J3490 L[facility]A PAULINO IED DRUGS 6 [facility] INC INC ANES 01577 [facility] 6 ANESTH INTESTINE OF THE BLUE ENDOSCOPY DISTAL [place] 52333 [facility] MICHELLE RAMIRES PY 6 PHYSICIAN MAGO W/BIOPSY S GROUP SINGLE/MU LTIPLE DRUG TST G0477 [facility] PA[facility]INO PRESUMP;C 6 [facility] PBL BEING INC [place] [address] L[facility] PA[facility]INO LIPASE 6 [facility] INC INC BLOOD 47263 [facility] PA[facility]INO COUNT 6 [facility] COMPLETE INC INC AUTO&AUTO DIFRNTL WBC INJECTION J2405 [facility] PA[facility]INO 6 [facility] ONDANSETR INC INC ON HCL PER 1 MG THER 56942 L[facility] PAULINO PROPH/DX 6 [facility] NJX IV INC INC PUSH SINGLE/1S T SBST/DRUG THERAPEUT 28074 L[facility] PAULINO IC 6 [facility] INJECTION INC INC IV PUSH EACH NEW DRUG COMPREHEN 34873 [facility]INO SIVE 6 [facility] [place] [address] L[facility] PA[facility]INO AMYLASE 6 [facility] INC INC UNCLASSIF J3490 L[facility] PAULINO IED DRUGS 6 [facility] INC INC CHIROPRAC 32222 [place] TIC 6 FRED FRED MANIPULAT HORACIO [place] SPINAL 1-2 REGIONS CHIROPRAC 27581 [place] TIC 6 FRED FRED MANIPULAT HORACIO [place] SPINAL 1-2 REGIONS CHIROPRAC 26883 [place] TIC 6 FRED FRED MANIPULAT HORACIO [place] SPINAL 1-2 REGIONS CHIROPRAC 62614 [place] TIC 6 FRED FRED MANIPULAT HORACIO [place] SPINAL 1-2 REGIONS CHIROPRAC 79820 [place] TIC 6 FRED FRED MANIPULAT HORACIO [place] SPINAL 1-2 REGIONS CHIROPRAC 95060 [place] TIC 6 FRED FRED MANIPULAT HORACIO TX SPINAL 1-2 REGIONS ECG 08205 LORA BEDOYA JR ROUTINE 6 [facility] W/LEAST P 12 LDS I&[place] [address] PSYCHIATRIC ALL ABDOMEN & 6 MEDICAL PELVIS IMAGING W/O ASS CONTRAST MATERIAL DETERMINA 15954 [facility] 6 GRE GRE REFRACTIV E STATE OPHTH 86052 [facility] 6 GRE GRE XM&EVAL COMPRE NEW PT 1/> VST IM ADM 38294 [facility] PRICE PRQ ID 6 PHYSICIAN LAURENCE SUBQ/IM S GROUP NJXS 1 VACCINE TDAP 88447 [facility] VACCINE 7 6 PHYSICIAN LAUR[place] YRS/> IM S GROUP CHIROPRA 88941 WILLIAM GONGORACYN TIC 6 FRED FRED MANIPULAT HORACIO [place] SPINAL 1-2 REGIONS CHIROPRA 37530 ROLANCYN WILLIAM TIC 6 FRED FRED MANIPULAT [place]ORACIO [place] SPINAL 1-2 [place] [address] L[facility] PAULINO INFUSION 6 [facility] THERAPY/P INC INC ROPHYLAXI S /DX 1ST TO 1 HR UNCLASSIF J3490 L[facility]A PAULINO IED DRUGS 6 [facility] INC INC MRI BRAIN 49692 L[facility] PA[facility]INO BRAIN 6 [facility] STEM W/O INC INC CONTRAST MATERIAL THERAPEUT 77489 [facility] PRICE IC 6 PHYSICIAN [place] PROPHYLAC S GROUP TIC/DX INJECTION SUBQ/IM INJECTION J1885 [facility] PRICE 6 PHYSICIAN [place] KETOROLAC S GROUP TROMETHAM INE PER 15 MG INJECTION J2550 [facility] PRICE 6 PHYSICIAN [place]UR[place] PROMETHAZ S GROUP INE HCL UP TO 50 MG INJECTION J1040 [facility] PRICE 6 PHYSICIAN [place]UR[place] METHYLPRE S GROUP DNISOLONE ACETATE 80 MG [facility] 04459 WILLIAM THOMAS TIC 6 FRED FRED MANIPULAT HORACIO TX SPINAL 1-2 REGIONS UNCLASSIF J3490 LORA PAULINO IED DRUGS 6 [facility] INC INC THERAPEUT 33319 L[facility] PAULINO IC 6 [facility] PROPHYLAC INC INC TIC/DX INJECTION SUBQ/IM THERAPEUT 95895 [facility] PRICE IC 6 PHYSICIAN LAUR[place] PROPHYLAC S GROUP TIC/DX INJECTION SUBQ/IM INJECTION J1885 [facility] PRICE 6 PHYSICIAN LAURENCE KETOROLAC S GROUP TROMETHAM INE PER 15 MG INJECTION J2550 [facility] PRICE 6 PHYSICIAN LAURENCE PROMETHAZ S GROUP INE HCL UP TO 50 MG INJECTION J2550 [facility] RAMON 6 PHYSICIAN STONE PROMETHAZ S GROUP PA-C ROXY INE HCL UP TO 50 MG INJECTION J1040 [facility] TRISTEN 6 PHYSICIAN STONE METHYLPRE S GROUP PA-C ROXY DNISOLONE ACETATE 80 MG INJECTION J1885 [facility] RAMON 6 PHYSICIAN STONE KETOROLAC S GROUP PA-C ROXY TROMETHAM INE PER 15 MG INJECTION J1200 [facility] RAMON 6 PHYSICIAN STONE DIPHENHYD S GROUP PA-C ROXY RAMINE HCL UP TO 50 MG THERAPEUT 13506 [facility] RAMON IC 6 PHYSICIAN STONE PROPHYLAC S GROUP PA-C ROXY TIC/DX INJECTION SUBQ/IM CHIROPRAC 61690 WILLIAM THOMAS TIC 6 FRED FRED MANIPULAT HORACIO [place] SPINAL 1-2 REGIONS THERAPEUT 83513 [facility] PRICE IC 6 PHYSICIAN LAURENCE PROPHYLAC S GROUP TIC/DX INJECTION SUBQ/IM INJECTION J1200 [facility] PRICE 6 PHYSICIAN [place]URENCE DIPHENHYD S GROUP RAMINE HCL UP TO 50 MG INJECTION J1885 [facility] PRICE 6 PHYSICIAN LAURENCE KETOROLAC S GROUP TROMETHAM INE PER 15 MG INJECTION J2550 [facility] PRICE 6 PHYSICIAN LAURENCE PROMETHAZ S GROUP INE HCL UP TO 50 MG CHIROPRAC 87353 WILLIAM THOMAS TIC 6 FRED FRED MANIPULAT HORACIO TX SPINAL 1-2 REGIONS INJECTION J1885 [facility] PRICE 6 PHYSICIAN LAURENCE KETOROLAC S GROUP TROMETHAM INE PER 15 MG THERAPEUT 72251 [facility] PRICE IC 6 PHYSICIAN LAURENCE PROPHYLAC S GROUP TIC/DX INJECTION SUBQ/IM THERAPEUT 37216 [facility] GARCIA TER IC 6 PHYSICIAN PROPHYLAC S GROUP TIC/DX INJECTION SUBQ/IM INJECTION J1040 [facility] GARCIA TER 6 PHYSICIAN METHYLPRE S GROUP DNISOLONE ACETATE 80 MG THERAPEUT 68734 [facility] PRICE IC 6 PHYSICIAN LAURENCE PROPHYLAC S GROUP TIC/DX INJECTION SUBQ/IM INJECTION J1885 [facility] PRICE 6 PHYSICIAN LAURENCE KETOROLAC S GROUP TROMETHAM INE PER 15 MG CHIROPRAC 40506 WILLIAM THOMAS TIC 6 FRED FRED MANIPULAT HORACIO TX SPINAL 1-2 REGIONS RADIOLOGI 35012 L[facility] Doherty EXAM 5 [facility] KNEE INC INC COMPLETE 4/MORE VIEWS INJECTION J1885 [facility] PRICE 5 PHYSICIAN LAURENCE KETOROLAC S GROUP TROMETHAM INE PER 15 MG THERAPEUT 63747 [facility] PRICE IC 5 PHYSICIAN LAURENCE PROPHYLAC S GROUP TIC/DX INJECTION SUBQ/IM CHIROPRA 91568 [place] TIC 5 FRED FRED MANIPULAT HORACIO TX SPINAL 1-2 REGIONS CHIROPRA 14724 [place] TIC 5 FRED FRED MANIPULAT HORACIO TX SPINAL 1-2 REGIONS CHIROPRA 59664 [place] TIC 5 FRED FRED MANIPULAT HORACIO TX SPINAL 1-2 REGIONS CHIROPRA 64372 [place] TIC 5 FRED FRED MANIPULAT HORACIO TX SPINAL 1-2 REGIONS CHIROPRA 16087 [place] TIC 5 FRED FRED MANIPULAT HORACIO TX SPINAL 1-2 REGIONS CHIROPRA 47041 [place] TIC 5 FRED FRED MANIPULAT HORACIO TX SPINAL 3-4 REGIONS CHIROPRA 22353 [place] TIC 5 FRED FRED MANIPULAT HORACIO TX SPINAL 3-4 REGIONS CHIROPRA 22852 [place] TIC 5 FRED FRED MANIPULAT HORACIO TX SPINAL 3-4 REGIONS CHIROPRA 67787 [place] TIC 5 FRED FRED MANIPULAT HORACIO TX SPINAL 3-4 REGIONS APPL 97412 [place] MODALITY 5 FRED FRED 1/> AREAS TRACTION MECHANICA L THERAPEUT 40443 [place] IC PX 1/> 5 FRED FRED AREAS EACH 15 MIN EXERCISES THERAPEUT 38170 [place] IC PX 1/> 5 FRED FRED AREAS EACH 15 MIN EXERCISES APPL 64226 [place] MODALITY 5 FRED FRED 1/> AREAS TRACTION MECHANICA L CHIROPRAC 64668 [place] TIC 5 FRED FRED MANIPULAT HORACIO TX SPINAL 3-4 REGIONS APPL 62618 [place] MODALITY 5 FRED FRED 1/> AREAS TRACTION MECHANICA L INJECTION J1885 [facility] PRICE 5 PHYSICIAN LAURENCE KETOROLAC S GROUP TROMETHAM INE PER 15 MG THERAPEUT 93763 [facility] IC 5 PHYSICIAN LAURENCE PROPHYLAC S GROUP TIC/DX INJECTION SUBQ/IM THERAPEUT 98709 [place] IC PX 1/> 5 FRED FRED AREAS EACH 15 MIN EXERCISES COLLECTIO 54012 L[facility] PA[facility]INO N VENOUS 5 [facility] BLOOD INC INC VENIPUNCT URE POTASSIUM 71183 L[facility] PAULINO SERUM 5 [facility] PLASMA/WH INC INC OLE BLOOD THERAPEUT 31162 [place] IC PX 1/> 5 FRED FRED AREAS EACH 15 MIN EXERCISES CHIROPRAC 02292 [place] TIC 5 FRED FRED MANIPULAT HORACIO TX SPINAL 3-4 REGIONS APPL 02610 [place] MODALITY 5 FRED FRED 1/> AREAS TRACTION MECHANICA L APPL 99560 [place] MODALITY 5 FRED FRED 1/> AREAS TRACTION MECHANICA L CHIROPRAC 26603 [place] TIC 5 FRED FRED MANIPULAT HORACIO TX SPINAL 3-4 REGIONS THERAPEUT 36799 [place] IC PX 1/> 5 FRED FRED AREAS EACH 15 MIN EXERCISES COMPREHEN 92964 [facility]INO SIVE 5 [facility] METABOLIC INC INC PANEL BLOOD 80492 L[facility] PAULINO COUNT 5 [facility] COMPLETE INC INC AUTO&AUTO DIFRNTL WBC LIPID 89337 L[facility] PAULINO PANEL 5 [facility] INC INC HEMOGLOBI 52645 L[facility] PAULINO N 5 [facility] GLYCOSYLA INC INC MEENA A1C APPL 50150 [place] MODALITY 5 FRED FRED 1/> AREAS TRACTION MECHANICA L THERAPEUT 02184 [place] IC PX 1/> 5 FRED FRED AREAS EACH 15 MIN EXERCISES CHIROPRAC 90518 [place] TIC 5 FRED FRED MANIPULAT HORCAIO TX SPINAL 3-4 REGIONS CHIROPRAC 78846 [place] TIC 5 FRED FRED MANIPULAT HORACIO TX SPINAL 3-4 REGIONS THERAPEUT 92258 [place] IC PX 1/> 5 FRED FRED AREAS EACH 15 MIN EXERCISES APPL 60040 [place] MODALITY 5 FRED FRED 1/> AREAS TRACTION MECHANICA L THERAPEUT 90320 [place] IC PX 1/> 5 FRED FRED AREAS EACH 15 MIN EXERCISES APPL 37638 [place] MODALITY 5 FRED FRED 1/> AREAS TRACTION MECHANICA L APPL 27600 [place] MODALITY 5 FRED FRED 1/> AREAS TRACTION MECHANICA L THERAPEUT 11651 [place] IC PX 1/> 5 FRED FRED AREAS EACH 15 MIN EXERCISES THERAPEUT 36053 [place] IC PX 1/> 5 FRED FRED AREAS EACH 15 MIN EXERCISES CHIROPRAC 17362 [place] TIC 5 FRED FRED MANIPULAT HORACIO TX SPINAL 3-4 REGIONS APPL 21005 [place] MODALITY 5 FRED FRED 1/> AREAS TRACTION MECHANICA L CHIROPRAC 62167 [place] TIC 5 FRED FRED MANIPULAT HORACIO TX SPINAL 3-4 REGIONS CHIROPRAC 93753 [place] TIC 5 FRED FRED MANIPULAT HORACIO TX SPINAL 3-4 REGIONS CHIROPRAC 29369 [place] TIC 5 FRED FRED MANIPULAT HORACIO TX SPINAL 3-4 REGIONS CHIROPRA 39850 [place] TIC 5 FRED FRED MANIPULAT HORACIO TX SPINAL 3-4 REGIONS CHIROPRAC 85944 [place] TIC 5 FRED FRED MANIPULAT HORACIO TX SPINAL 3-4 REGIONS APPL 79663 [place] MODALITY 5 FRED FRED 1/> AREAS TRACTION MECHANICA L THERAPEUT 38474 [place] IC PX 1/> 5 FRED FRED AREAS EACH 15 MIN EXERCISES THERAPEUT 81266 [place] IC PX 1/> 5 FRED FRED AREAS EACH 15 MIN EXERCISES APPL 80466 [place] MODALITY 5 FRED FRED 1/> AREAS TRACTION MECHANICA L CHIROPRAC 28351 [place] TIC 5 FRED FRED MANIPULAT HORACIO TX SPINAL 3-4 REGIONS CHIROPRAC 09599 [place] TIC 5 FRED FRED MANIPULAT HORACIO TX SPINAL 3-4 REGIONS APPL 63888 [place] MODALITY 5 FRED FRED 1/> AREAS TRACTION MECHANICA L THERAPEUT 60266 [place] IC PX 1/> 5 FRED FRED AREAS EACH 15 MIN EXERCISES THERAPEUT 55917 [place] IC PX 1/> 5 FRED FRED AREAS EACH 15 MIN EXERCISES APPL 63707 [place] MODALITY 5 FRED FRED 1/> AREAS TRACTION MECHANICA L CHIROPRAC 12079 [place] TIC 5 FRED FRED MANIPULAT HORACIO TX SPINAL 3-4 REGIONS CHIROPRA 63017 [place] TIC 5 FRED FRED MANIPULAT HORACIO TX SPINAL 3-4 REGIONS APPL 39968 [place] MODALITY 5 FRED FRED 1/> AREAS TRACTION MECHANICA L THERAPEUT 93987 [place] IC PX 1/> 5 FRED FRED AREAS EACH 15 MIN EXERCISES THERAPEUT 60596 [place] IC PX 1/> 5 FRED FRED AREAS EACH 15 MIN EXERCISES APPL 43265 [place] MODALITY 5 FRED FRED 1/> AREAS TRACTION MECHANICA L CHIROPRAC 82488 [place] TIC 5 FRED FRED MANIPULAT HORACIO TX SPINAL 3-4 REGIONS CHIROPRA 87055 [place] TIC 5 FRED FRED MANIPULAT HORACIO TX SPINAL 3-4 REGIONS APPL 50059 [place] MODALITY 5 FRED FRED 1/> AREAS TRACTION MECHANICA L THERAPEUT 68509 [place] IC PX 1/> 5 FRED FRED AREAS EACH 15 MIN EXERCISES THERAPEUT 70983 [place] IC PX 1/> 5 FRED FRED AREAS EACH 15 MIN EXERCISES APPL 37894 [place] MODALITY 5 FRED FRED 1/> AREAS TRACTION MECHANICA L CHIROPRAC 52380 [place] TIC 5 FRED FRED MANIPULAT HORACIO TX SPINAL 3-4 REGIONS BASIC 60022 L[facility]A PAULINO METABOLIC 5 [facility] PANEL INC INC CALCIUM TOTAL CHIROPRAC 17345 [place] TIC 5 FRED FRED MANIPULAT HORACIO TX SPINAL 3-4 REGIONS APPL 52276 [place] MODALITY 5 FRED FRED 1/> AREAS TRACTION MECHANICA L THERAPEUT 54653 [place] IC PX 1/> 5 FRED FRED AREAS EACH 15 MIN EXERCISES THERAPEUT 90728 [place] IC PX 1/> 5 FRED FRED AREAS EACH 15 MIN EXERCISES RADEX 78643 [place] SPINE 5 FRED FRED CERVICAL 2 OR 3 VIEWS APPL 24618 [place] MODALITY 5 FRED FRED 1/> AREAS TRACTION MECHANICA L CHIROPRAC 19753 [place] TIC 5 FRED FRED MANIPULAT HORACIO TX SPINAL 3-4 REGIONS INJECTION J1885 [facility] PRICE 5 PHYSICIAN LAURENCE KETOROLAC S GROUP TROMETHAM INE PER 15 MG THERAPEUT 17927 [facility] IC 5 PHYSICIAN LAURENCE PROPHYLAC S GROUP TIC/DX INJECTION SUBQ/IM RADIOLOGI 49287 [place] [facility] MEDICAL MAUREEN EXAMINATI IMAGING ON KNEE 3 ASS VIEWS KNEE L1830 [facility] 5 TECHNOLOG TECHNOLOG IMMOBLIZE IES INC IES INC R CANVAS LONGTUDNL PREFAB BASIC 32702 LORA PAULINO METABOLIC 5 [facility] [place] [address] LORA PAULINO THYROID 5 [facility] STIMULATI INC INC NG HORMONE TSH BLOOD 84865 [facility] OCCULT 5 PHYSICIAN PHYSICIAN PEROXIDAS S GROUP S GROUP E ACTV QUAL FECES 1-3 SPEC HEMOGLOBI 50300 L[facility]A PAULINO N 5 [facility] GLYCOSYLA INC INC MEENA A1C CYTP C/V 43604 [facility], PICKLESIM [employer] ER JR JOSSELINE LYR [place] [address] L[facility] PAULINO FREE 5 [facility] THYROXINE INC INC INJECTION J1100 [facility] PRICE 5 PHYSICIAN LAURENCE DEXAMETHO S GROUP SONE SODIUM PHOSPHATE 1 MG THERAPEUT 09274 [facility] IC 5 PHYSICIAN LAURENCE PROPHYLAC S GROUP TIC/DX INJECTION SUBQ/[place] [address] L[facility] PAULINO THYROID 5 [facility] STIMULATI INC INC NG HORMONE TSH COMPREHEN 88465 [facility] PA[facility]INO SIVE 5 [facility] [address] [facility] PAULINO FREE 5 [facility] THYROXINE INC INC HEPATITIS 64401 [facility] A 5 [facility] ANTIBODY INC INC HAAB BLOOD 67015 [facility] PAULINO COUNT 5 [facility] COMPLETE INC INC AUTO&AUTO DIFRNTL WBC HEPATITIS 40218 L[facility] PAULINO B CORE 5 [facility] ANTIBODY INC INC HBCAB TOTAL HEPATITIS 28317 L[facility] Stringer SURF 5 [facility] [address] L[facility] PAULINO HEPATITIS 5 [facility] B INC INC SURFACE ANTIGEN 25 87639 L[facility] PAULINO HYDROXY 5 [facility] INCLUDES INC INC FRACTIONS IF PERFORMED HEPATITIS 83412 [facility] PAULINO C 5 [facility] ANTIBODY INC INC RADIOLOGI 78981 [facility] PAULINO C EXAM 5 [facility] CHEST 2 INC INC VIEWS FRONTAL&L ATERAL COLLECTIO 84137 L[facility] PAULINO N VENOUS 5 [facility] BLOOD INC INC VENIPUNCT URE RADEX ABD 84826 [place] [facility] COMPL 5 MEDICAL DENNIS AQT ABD IMAGING W/S/E/D ASS VIEWS 1 VIEW CH IAADIADOO 53382 [facility] FRYMAN 5 PHYSICIAN EUG INFLUENZA S GROUP THERAPEUT 59508 [facility] IC 4 PHYSICIAN PHYSICIAN PROPHYLAC S GROUP S GROUP TIC/DX INJECTION SUBQ/IM INJECTION J1040 [facility] PRICE 4 PHYSICIAN LAURENCE METHYLPRE S GROUP DNISOLONE ACETATE 80 MG ECHO 86546 [facility] 2D SERV W/WOM-MOD FOUNDATIO E COMPL N SPEC&COLR D NJX 05527 STONE STONE DX/THER [address] SBST SURGERY SURGERY EPIDURAL/ CENTER CENTER SUBARACH LUMBAR/SA CRAL FLUOR 44150 JUSTO KEMP NEEDLE/CA 4 BECK BECK TH SPINE/PAR ASPINAL DX/THER ADDON MRI 91631 DUKE TRA DUKE TRA SPINAL 4 CANAL L[place] [address] THERAPY/P ROPHYLAXI S /DX 1ST TO 1 HR THERAPEUT [address] INJECTION IV PUSH EACH NEW DRUG URNLS DIP [address] STICK/TAB LET REAGENT AUTO MICROSCOP Y BLOOD [address] COMPLETE AUTOMATED INJECTION J[address] DEXAMETHO SONE SODIUM PHOSPHATE 1 MG INJECTION J2270 [address] SULFATE UP TO 10 MG INJECTION J2800 [address] METHOCARB JORGE UP TO 10 ML INJECTION J2550 [address] PROMETHAZ INE HCL UP TO 50 MG INJECTION J2405 [address] ONDANSETR ON HCL PER 1 MG THER 30486 [facility] PROPH/DX [address] [place] [address] NJX EA SEQL IV PUSH SBST/DRUG FAC BASIC [address] PANEL CALCIUM TOTAL RADEX 89820 CECILIA CECILIA SPINE 4 DENNIS DENNIS LUMBOSACR AL MINIMUM 4 VIEWS RADEX HIP 29348 CECILIA CECILIA 4 DENNIS DENNIS UNILATERA L 1 VIEW Encounters Encounter Start End Date Code Location Performer Type Date [facility] - 7 7 [facility] V[facility] - 7 7 [facility] INC T OFFICE 08529 [facility] GUZMAN RAMSEY OUTPATIEN 6 6 PHYSICIAN T VISIT S GROUP 25 MINUTES [facility] - 6 6 [facility] INC T OFFICE 93831 GASTROENT CASE JUS OUTPATIEN 6 6 EROLOGY T VISIT AND 25 HEPATOL MINUTES [facility] - 6 6 [facility] INC T OFFICE 18619 GASTROENT CASE JUS OUTPATIEN 6 6 EROLOGY T NEW [facility] OFF[facility] 92403 [facility] MICHELLE RAMIRES OUTPATIEN 6 6 PHYSICIAN MAGO T VISIT S GROUP 10 MINUTES OFFICE 22798 ROB PHAN 6 6 DIGESTIVE CEC T VISIT CARE 15 CENTER MINUTES EMERGENCY 44114 MARCIA THRASHER 6 6 PHYSICIAN LAURENCE DEPART[facility] T VISIT MODERATE SEVERITY [facility]OSP[facility] ROB - 6 6 [facility] OFFICE 70769 ROB MONSALVE OUTPATIEN 6 6 DIGESTIVE CEC T NEW 60 CARE MINUTES CENTER OFFICE 17916 [facility] GUZMAN RAMSEY OUTPATIEN 6 6 PHYSICIAN T VISIT S GROUP 15 MINUTES [facility] - 6 6 [facility] INC [facility] - 6 6 [facility] INC T EMERGENCY 52821 [facility] 6 6 [facility] DEPARTMEN INC T VISIT HIGH/URGE NT SEVERITY OFFICE 79208 [facility] MICHELLE RAMIRES OUTPATIEN 6 6 PHYSICIAN MAGO T NEW 30 S GROUP MINUTES OFFICE 99336 [facility] RAMON OUTPATIEN 6 6 PHYSICIAN STONE T VISIT S GROUP PA-C ROXY 15 MINUTES OFFICE [id number] [facility] OUTPATIEN 6 6 PHYSICIAN STONE T VISIT S GROUP PA-C ROXY 25 MINUTES OFFICE 83040 [facility] OUTPATIEN 6 6 PHYSICIAN STONE T VISIT S GROUP PA-C ROXY 15 MINUTES EMERGENCY 76929 MARCIA THRASHER DEPT 6 6 PHYSICIAN LAURENCE VISIT S, PLLC HIGH SEVERITY& THREAT FUNCJ EMERGENCY 17426 MARCIA MCKEEH DEPT 6 6 PHYSICIAN SUMMER VISIT S, PLLC HIGH SEVERITY& THREAT FUNCJ OFFICE 67631 [facility] PRICE OUTPATIEN 6 6 PHYSICIAN LAURENCE T VISIT S GROUP 25 MINUTES OFFICE 37537 SURY BEAUCHAMP VLADIMIR CONSULTAT 6 6 N ION NEUROLOGY NEW/ESTAB PATIENT 60 MIN OFFICE 97079 [facility] PRICE OUTPATIEN 6 6 PHYSICIAN LAURENCE T VISIT S GROUP 10 MINUTES [facility] - 6 6 [facility] OUTPAT[facility] T OFFICE 15582 [facility] PRICE OUTPATIEN 6 6 PHYSICIAN LAURENCE T VISIT S GROUP 10 MINUTES [facility] - 6 6 [facility] OUTPATIEN INC T OFFICE 96960 [facility] PRICE OUTPATIEN 6 6 PHYSICIAN LAURENCE T VISIT S GROUP 15 MINUTES OFFICE 11397 [facility] OUTPATIEN 6 6 PHYSICIAN STONE T VISIT S GROUP PA-C ROXY 15 MINUTES EMERGENCY 87085 MARCIA CESPEDES DEPT 6 6 PHYSICIAN FOR VISIT S, PLLC HIGH SEVERITY& THREAT FUNCJ OFFICE 08143 [facility] OUTPATIEN 6 6 PHYSICIAN STONE T VISIT S GROUP PA-C ROXY 10 MINUTES OFFICE 38826 [facility] PRICE OUTPATIEN 6 6 PHYSICIAN LAURENCE T VISIT S GROUP 15 MINUTES OFFICE 16066 [facility] GARCIA TER OUTPATIEN 6 6 PHYSICIAN T VISIT S GROUP 15 MINUTES OFFICE 21628 ELLYLM FRANKS FRED OUTPATIEN 6 6 MD RHEA, T NEW 30 PSC MINUTES OFFICE 04546 [facility] PRICE OUTPATIEN 6 6 PHYSICIAN LAURENCE T VISIT S GROUP 15 MINUTES [facility] T OFFICE 88115 [facility] 6 6 [facility] T VISIT INC 10 MINUTES OFFICE 85053 [facility] OUT[facility]IEN 6 6 FRED FRED T VISIT 15 MINUTES [facility] INC T OFFICE 50151 [facility] PRICE OUTPATIEN 5 5 PHYSICIAN LAURENCE T VISIT S GROUP 10 MINUTES OFFICE 28493 [facility] PRICE OUTPATIEN 5 5 PHYSICIAN LAURENCE T VISIT S GROUP 10 MINUTES OFFICE 21944 [facility] OUTPATIEN 5 5 BRAIN SYD T NEW 45 NEUROSURG MINUTES ICAL EMERGENCY 68992 MARCIA CARDOSOEY 5 5 PHYSICIAN LAURENCE DEPARTMEN S, PLLC T VISIT HIGH/URGE NT SEVERITY [facility] OUTPATI[facility] T OFFICE 46947 [facility] PRICE OUTPATIEN 5 5 PHYSICIAN LAURENCE T VISIT S GROUP 15 MINUTES [facility] OUTPATI[facility] INC T OFFICE 04418 [facility] [place] OUT[facility] 5 5 FRED FRED T VISIT 15 MINUTES [facility] OUTPATI[facility] T OFFICE 48069 [facility] [place] OUTPATIEN 5 5 FRED FRED T NEW 30 MINUTES OFFICE 53247 [facility] PRICE OUTPATIEN 5 5 PHYSICIAN LAURENCE T VISIT S GROUP 15 MINUTES [facility] 5 5 [facility] OUTPATIEN INC T PERIODIC 83115 [facility] PRICE PREVENTIV 5 5 PHYSICIAN LAURENCE E MED EST S GROUP PATIENT 40-64YRS OFFICE 21415 [facility] PRICE OUTPATIEN 5 5 PHYSICIAN LAURENCE T VISIT S GROUP 15 MINUTES [facility] OUTPATIEN INC T OFFICE 94047 [facility] RADHA OUTPATIEN 5 5 PHYSICIAN FRED T VISIT S GROUP 15 MINUTES OFFICE 83880 [facility] FRYMAN OUTPATIEN 5 5 PHYSICIAN EUG T VISIT S GROUP 15 MINUTES [facility] OUTPATI[facility] INC T OFFICE 62854 [facility]KE TRA OUTPATIEN 4 4 T VISIT 15 MINUTES OFFICE 75907 DUKE TRA DUKE TRA OUTPATIEN 4 4 T VISIT 15 MINUTES EMERGENCY 54100 EDMUND [facility] DEPT 4 4 VLADIMIR VLADIMIR VISIT HIGH SEVERITY& THREAT [facility] [address] OUTPATIEN T EMERGENCY [id number] DEPARTMEN T VISIT MODERATE SEVERITY OFFICE 89144 ILYA CARABALLO OUTPATIEN 4 4 THEODORE THEODORE T VISIT 15 MINUTES OFFICE 11259 DUKE TRA DUKE TRA CONSULTAT 4 4 ION NEW/ESTAB PATIENT 40 MIN OFFICE 20595 ILYA CARABALLO OUTPATIEN 4 4 THEODORE THEODORE T VISIT 15 MINUTES Emergency DIRK Magdaleno MD (ER) 3 18:30 3 19:10 [facility]
--- OUTSIDE RECORDS SUMMARY | 2017-05-19 19:27 | External Medical Summary Rpt ---
Author Author , RADHA Mendenhall FRANCEJUAN Address Unknown Phone [email or web address] Care Team Providers Care Planned Giving Officer Name Role Phone [employer] Unavailable Unavailable [...] Unavailable [facility] Unavailable Unavailable [place] Unavailable Unavailable [facility], Unavailable Unavailable [facility], Unavailable Unavailable [facility] CECILIA DENNIS, Unavailable Unavailable CECILIA DENNIS CECILIA DENNIS, Unavailable Unavailable CECILIA DENNIS TRISTEN HINDS PA-C Unavailable Unavailable TRISTEN RAMSEY PA-C DUFF FRED, DUFF FRED Unavailable Unavailable FRYMAN EUG, FRYMAN Unavailable Unavailable EUG PRICE LAURENCE, PRICE Unavailable Unavailable LAURENCE [facility], Unavailable Unavailable [facility] GILBERT SYD, GILBERT Unavailable Unavailable SYD NI DAWSON, NI Unavailable Unavailable DAWSON [facility] Unavailable Unavailable INC, [facility] Unavailable Unavailable HOSPITAL P, [facility], Unavailable Unavailable [facility] BELLO CEC, BELLO Unavailable Unavailable CEC DUKE TRA, DUKE TRA Unavailable Unavailable RADHA FRED, RADHA Unavailable Unavailable FRED KEDING, KEDING Unavailable Unavailable KEDING, KEDING Unavailable Unavailable KEDING FRED, KEDING Unavailable Unavailable FRED KED[place] FRED, KEDING Unavailable Unavailable FRED [facility] Un[facility] Unavailable GROUP PS, [facility] Un[facility], [facility] KEMP BECK, KEMP Unavailable [...] Unavailable Unavailable [facility], Unavailable Unavailable [facility], [facility] Unavailable Un[facility] Un[facility] Unavailable Unavailable [facility]ENTER, [facility] WALKER FOR, WALKER Unavailable Unavailable FOR Purpose Continuity of Care Document - 02-03-2008 through 2016 Problems Code Diagnosis DOS Provider Status [id number] OTHER LONG 02-28-2017 [facility] CURRENT INC DRUG THERAPY M545 LOW BACK 12-21-2016 [facility] PAIN E039 HYPOTHYROID 11-20-2016 [facility] UNSPECIFIED INC E559 VITAMIN D 11-20-2016 [facility]ICIENCY [facility] UNSPECIFIED INC R05 COUGH 10-19-2016 [facility] R1030 LOWER 10-04-2016 [facility] PAIN UNSPECIFIED R109 UNSPECIFIED 10-04-2016 [place] [facility] PS R197 DIARRHEA 10-04-2016 [place] [facility]PEC[facility]IED [facility]IA GROUP PS R1032 LEFT LOWER 07-24-2016 [facility] GROUP K5909 OTHER 07-10-2016 [facility] N1330 UNSPECIFIED 06-30-2016 [facility] HYDRONEPHRO [facility] ASS SIS N134 HYDROURETER 06-30-2016 [facility] N289 DISORDER OF 06-30-2016 [facility] U[facility]TER [facility] UNSPECIFIED N3000 ACUTE 06-30-2016 [facility] CYSTITIS [facility], WITHOUT PLLC HEMATURIA N390 URINARY 06-30-2016 [facility] TRACT [facility], INFECTION PLLC SITE NOT SPECIFIED R1031 RIGHT LOWER 06-30-2016 [facility] K529 NONINFECTIV 06-19-2016 [facility] ITIS & COLITIS UNS K635 POLYP OF 06-19-2016 [facility] E118 TYPE 2 05-06-2016 [facility] MELLITUS INC W/UNS COMPLICATIO NS E876 HYPOKALEMIA 05-06-2016 [facility] PLLC I10 ESSENTIAL 05-06-2016 [facility] HYPERTENSIO INC N R1012 LEFT UPPER 05-06-2016 [facility] PAIN [facility] Z720 TOBACCO USE 05-06-2016 [facility] M5416 RADICULOPAT 04-25-2016 WILLIAM IBARRA HY LUMBAR REGION R194 CHANGE IN 03-21-2016 [facility]ANS GROUP [id number] PERSONAL 03-21-2016 [facility] HISTORY OF PHYSICIANS COLONIC GROUP POLYPS K219 GASTRO-ESOP 03-14-2016 [facility] WITHOUT ESOPHAGITIS R1084 GENERALIZED 03-14-2016 [facility] K5792 DIVERTICULI 03-12-2016 [facility] TIS PART PHYSICIANS, UNS W/O PLLC PERF/ABSC W/O BLEED Z0100 ENCOUNTER 03-08-2016 [facility] EXAM EYES & GRE VISION W/O ABNORMAL FIND B370 CANDIDAL 02-21-2016 [facility] STOMATITIS [facility]ICIANS GROUP Z23 ENCOUNTER 02-21-2016 [facility] IMMUNIZATIO GROUP N M542 CERVICALGIA 02-16-2016 WILL[facility] IBARRA R51 HEADACHE 02-02-2016 [facility] S17813 HEMIPLEGIC 01-05-2016 [facility] MIGRAINE PHYSICIANS INTRACT W/O GROUP STAT MIGRAINOSUS L79550 MIGRAINE 12-28-2015 [facility] UNS NOT [facility] INTRACT W/O INC STATUS MIGRAINOSUS J95692 MIGRAINE 12-20-2015 [facility] W/O AURA PHYSICIANS, NOT INTRACT PLLC W/STAT MIGRAINOSUS J61992 PAIN IN 12-08-2015 [facility] RIGHT KNEE PHYSICIANS GROUP F74103 PAIN IN 12-08-2015 [facility] LEFT KNEE PHYSICIANS GROUP J0190 ACUTE 11-27-2015 [facility] SINUSITIS PHYSICIANS UNSPECIFIED GROUP R112 NAUSEA WITH 11-27-2015 [facility] VOMITING PHYSICIANS UNSPECIFIED GROUP M461 SACROILIITI 11-23-2015 ELLY WILKERSON S NOT , PSC ELSEWHERE CLASSIFIED M5116 INTERVERTEB 11-23-2015 [facility] DISC [facility] D/O INC W/RADICULOP ATHY LUMB RGN M5136 OTH 11-23-2015 [facility] WILKERSON INTERVERTEB , PSC RAL DISC DEGEN LUMBAR REGION M797 FIBROMYALGI 09-21-2015 [facility] A [facility]YS[facility]ANS GROUP 7231 CERVICALGIA 07-01-2015 [place] FRED 7242 LUMBAGO 07-01-2015 [place] FRED 7246 DISORDERS 07-01-2015 [place] FRED OF SACRUM 07336 DISPLCMT 06-28-2015 [facility] INTERVERT NEUROSURGIC DISC W/O AL MYELOPATHY 38623 DEGEN 06-28-2015 [facility]UMBAR/LUMB BRAIN OSACRAL NEUROSURGIC INTERVERTEB AL RAL DISC 9532 INJURY TO 06-28-2015 [facility] [address] ALTERED 05-23-2015 [facility] STATUS [facility] 4019 UNSPECIFIED 05-17-2015 [facility] ESSENTIAL [facility] HYPERTENSIO INC N 64967 PAIN IN 05-17-2015 [facility] JOINT, PHYSICIANS LOWER LEG GROUP V5869 LONG-TERM 05-17-2015 [facility] (CURRENT) [facility] USE OF INC OTHER MEDICATIONS 84888 OTHER 05-06-2015 [facility] ABNORMAL [facility] GLUCOSE INC 7243 SCIATICA 04-21-2015 [place] FRED 9597 INJURY 02-23-2015 [facility] OTHER&UNSPE TECHNOLOGIE CIFIED KNEE S INC LEG ANKLE&FOOT 65680 UNSPECIFIED 02-11-2015 [facility] VAGINITIS PHYSICIANS AND GROUP VULVOVAGINI TIS V7231 ROUTINE 02-11-2015 [facility] AL EXAMINATION V7641 SCREENING 02-11-2015 [facility] MALIGNANT GROUP NEOPLASM OF THE RECTUM 4610 ACUTE 01-23-2015 [facility] MAXILLARY PHYSICIANS SINUSITIS GROUP 4659 ACUTE URIS 01-23-2015 [facility] UNSPECIFIED GROUP SITE 64707 ABDOMINAL 12-22-2014 [facility], LEFT MEDICAL UPPER IMAGING ASS [facility] 03615 ABDOMINAL 12-22-2014 [facility] LEFT UPPER IMAGING ASS [facility] 4619 ACUTE 11-23-2014 [facility] SINUSITIS, PHYSICIANS UNSPECIFIED GROUP 51177 WHEEZING 11-23-2014 [facility] 7862 COUGH 11-23-2014 [facility] 4611 ACUTE 11-20-2014 [facility] FRONTAL PHYSICIANS SINUSITIS GROUP 4660 ACUTE 10-16-2014 [facility] BRONCHITIS PHYSICIANS GROUP 4240 MITRAL 10-02-2014 [facility] DISORDERS INC 7852 UNDIAGNOSED 10-02-2014 [facility] 7244 THORACIC/EM 05-20-[address] MBOSACRAL SURGERY NEURITIS/RA CENTER DICULITIS UNSPEC 18196 GENERALIZED 04-05-2014 [facility] ANXIETY [facility] DISORDER 7291 UNSPECIFIED 04-05-2014 [facility] MYALGIA [facility] MY[facility] 7245 UNSPECIFIED 04-04-2014 [facility] JAIMES BACKACHE 05050 PAIN IN 03-31-2014 [facility] JAIMES JOINT PELVIC REGION AND THIGH 87453 SPINAL STEN 03-28-2014 [facility] LUMB REG DENNIS W/O NEUROGENIC CLAUDICATIO N 274.00 274.00 03-29-2013 [facility] UNSPECIFIED Allergies, Adverse Reactions, Alerts Type [...] 53 -2 -3 .0 00 ME ti VA 63 5- 0- 00 06 TO ve [...] 00 -1 -1 .0 00 ME ti IL 10 2- 6- 00 06 TO ve OL 11 20 20 08 WN OL 90 17 17 53 0 76 PH [place] AR CC MA CY ER OF 10 0 CY MG NT HI TA AN B A LI 68 05 06 30 30 00 HO Ac SI 18 -1 -1 .0 00 ME ti NO 00 2- 6- 00 06 TO ve IL 51 20 20 08 WN IL 80 [...] 53 -2 -2 .0 00 ME ti VA 63 6- 6- 00 06 TO ve [...] 00 0- 2- 00 06 TO ve IL 51 20 20 08 WN IL 80 17 17 47 -H [address] AR Z MA 10 CY -1 2. OF 5 MG CY NT TA HI B AN A ME 68 04 05 30 30 00 HO Ac TO 00 -1 -1 .0 00 ME ti IL 10 0- 2- 00 06 TO ve [...] 53 -2 -2 .0 00 ME ti VA 63 8- 8- 00 06 TO ve [...] 53 -2 -3 .0 00 ME ti VA 63 8- 1- 00 06 TO ve [...] 00 -0 -0 .0 00 ME ti IL 10 1- 3- 06 TO ve OL [...] NO 00 1- 3- 06 TO ve IL 51 20 20 07 WN IL 80 [...] 53 -1 -1 .0 00 ME ti VA 63 6- 7- 00 06 TO ve [...] 00 3- 3- 00 06 TO ve IL 51 20 20 07 WN IL 80 [...] 00 -0 -0 .0 00 ME ti IL 10 3- 3- 00 06 TO ve [...] BL CY ET NT HI AN A IL 68 12 01 20 5 00 HO [...] OF ET CY NT HI AN A IL 59 12 01 10 5 00 HO [...] BL CY ET NT HI AN A IL 00 12 01 20 10 00 HO [...] UL CY E NT HI AN A IL 68 12 01 20 5 00 HO [...] 00 -0 -0 .0 00 ME ti IL 10 06 TO ve OL 11 20 [...] ME ti NO 00 06 TO ve IL 51 20 20 07 WN IL 80 [...] la 2 AR bl MA e CY IL 68 02 03 00 15 2 CL [...] 00 90 30 CL 16 No Ac IL 76 -0 -2 .0 IN 44 t ti AZ 23 8- 6- 00 IC 53 Av ve OL 72 20 20 ai AM 00 08 08 PH la 3 AR bl 0. MA e 5 CY MG TA BL ET AL 59 01 03 00 90 30 CL 16 No Ac IL 76 -0 -2 .0 IN 20 t [...] P DAY 1-7 DRUG CL DRUG TEST 30689 [facility] PRSMV 7 [facility] QUAL DIR INC INC OPTICAL OBS PER DAY DRUG TEST 94850 [facility] PRSMV 7 [facility] INSTRMNT INC INC CHEMISTRY ANALYZERS COMPREHEN 62318 [facility] SIVE 7 [facility] [address] [facility] THYROID 7 [facility] STIMULATI INC INC NG HORMONE TSH DRUG TEST G0480 [facility] DEFINITV [address] ID INC INC METH P DAY 1-7 DRUG CL 25 96162 [facility] HYDROXY 7 [facility] INCLUDES [place] [address] [facility] FREE 7 [facility] THYROXINE INC INC BLOOD 50464 [facility] COUNT 7 [facility] COMPLETE INC INC AUTO&AUTO DIFRNTL WBC INJECTION J0696 [facility] 6 PHYSICIAN CEFTRIAXO S GROUP NE SODIUM PER 250 MG RADIOLOGI 00157 [place] [facility] C EXAM 6 MEDICAL DENNIS CHEST 2 IMAGING VIEWS ASS FRONTAL&L ATERAL INJECTION J1040 [facility] 6 PHYSICIAN METHYLPRE S GROUP DNISOLONE ACETATE 80 MG THERAPEUT 70308 [facility] IC 6 PHYSICIAN PROPHYLAC S GROUP TIC/DX INJECTION SUBQ/IM ANES 28533 [place] AARON LOWER 6 ANESTHESI INTESTINE A [place] [address] [facility] [place] [facility]ALF ABDOMEN & 6 RADIOLOGY PELVIS W/O CONTRAST MATERIAL IMMUNOASS 13967 [facility] AY 6 [facility] ANALYTE INC INC QUAL/SEMI QUAL MULTIPLE STEP BLOOD 81110 [facility] COUNT 6 [facility] COMPLETE INC INC AUTO&[place] [address] [facility] THYROID 6 [facility] STIMULATI INC INC NG HORMONE TSH COMPREHEN 49489 [facility] SIVE 6 [facility] METABOLIC INC INC PANEL FLUORESCE 13139 [facility] NT 6 [facility] NONNFCT INC INC AGT ANTB SCREEN EA ANTIBODY RADEX 31595 [facility] [place] ABDOMEN 1 6 RADIOLOGY [place]SON ANTEROPOS TERIOR VIEW DRUG TST G0477 [facility] PRESUMP;C 6 [facility] PBL [place] [address] [place] [facility] & 6 MEDICAL PELVIS IMAGING W/[place] [address] ROB RIVAS ABDOMEN & 6 REGIONAL REGIONAL PELVIS MEDICAL MEDICAL W/CONTRAS CENTE CENTE T MATERIAL HI OSM Q9963 ROB RIV[facility] CONTRST 6 REGIONAL REGIONAL MATL MEDICAL MEDICAL [phone] CENTE CENTE MG/ML IODINE CONC ML LOCM Q9967 ROB RIVAS [phone] REGIONAL REGIONAL MG/ML MEDICAL MEDICAL IODINE CENTE [place] [address] [facility] SURG 6 [facility] PATHOLOGY GROSS&LAURENCE ROSCOPIC EXAM UNCLASSIF J3490 [facility] IED DRUGS 6 [facility] INC INC ANES 75188 [facility] 6 ANESTH INTESTINE OF THE BLUE ENDOSCOPY DISTAL [facility] COLONOSCO 20084 [facility] MICHELLE RAMIRES PY 6 PHYSICIAN MAGO W/BIOPSY S GROUP SINGLE/MU LTIPLE DRUG TST G0477 [facility] PRESUMP;C 6 [facility] PBL BEING INC [place] [address] [facility] LIPASE 6 [facility] INC INC BLOOD 06091 [facility] COUNT 6 [facility] COMPLETE INC INC AUTO&AUTO DIFRNTL WBC INJECTION J2405 [facility] 6 [facility] ONDANSETR INC INC ON HCL PER 1 MG THER 86180 [facility] PROPH/DX 6 [facility] NJX IV INC INC PUSH SINGLE/1S T SBST/DRUG THERAPEUT 46029 [facility] IC 6 [facility] INJECTION INC INC IV PUSH EACH NEW DRUG COMPREHEN 80360 [facility] SIVE 6 [facility] [address] [facility] AMYLASE 6 [facility] INC INC UNCLASSIF J3490 [facility] IED DRUGS 6 [facility] INC INC CHIROPRAC 66986 [facility] KED[facility] TIC 6 FRED FRED MANIPULAT HORACIO TX SPINAL 1-2 REGIONS CHIROPRAC 13478 [facility] [place] TIC 6 FRED FRED MANIPULAT HORACIO [place] SPINAL 1-2 REGIONS CHIROPRAC 23895 [facility] [place] TIC 6 FRED FRED MANIPULAT HORACIO TX SPINAL 1-2 REGIONS CHIROPRAC 65947 [facility] [place] TIC 6 FRED FRED MANIPULAT HORACIO TX SPINAL 1-2 REGIONS CHIROPRAC 10165 [facility] [place] TIC 6 FRED FRED MANIPULAT HORACIO TX SPINAL 1-2 REGIONS CHIROPRAC 85852 [facility] [place] TIC 6 FRED FRED MANIPULAT HORACIO TX SPINAL 1-2 REGIONS ECG 00711 [facility] BEDOYA JR ROUTINE 6 [facility] W/LEAST P 12 LDS I&[place] [address] [facility] ALL ABDOMEN & 6 MEDICAL PELVIS IMAGING W/O ASS CONTRAST MATERIAL DETERMINA 87260 [facility] [place] 6 GRE GRE REFRACTIV E STATE OPHTH 69236 [facility] 6 GRE GRE XM&EVAL COMPRE NEW PT 1/> VST IM ADM 10850 [facility] PRICE PRQ ID 6 PHYSICIAN LAURENCE SUBQ/IM S GROUP NJXS 1 VACCINE TDAP 51754 [facility] V[facility] 7 6 PHYSICIAN LAURENCE YRS/> IM S GROUP CHIROPRA 43589 WILLIAM GONGORACYN TIC 6 FRED FRED MANIPULAT HORACIO TX SPINAL 1-2 REGIONS CHIROPRA 20099 ROLANCYN WILLIAM TIC 6 FRED FRED MANIPULAT [place]ORACIO [place] SPINAL 1-2 [place] [address] [facility] INFUSION 6 [facility] THERAPY/P INC INC ROPHYLAXI S /DX 1ST TO 1 HR UNCLASSIF J3490 [facility] IED DRUGS 6 [facility] INC INC MRI BRAIN 58756 [facility] BRAIN 6 [facility] STEM W/O INC INC CONTRAST MATERIAL THERAPEUT 74762 [facility] PRICE IC 6 PHYSICIAN LAURENCE PROPHYLAC S GROUP TIC/DX INJECTION SUBQ/IM INJECTION J1885 [facility] PRICE 6 PHYSICIAN LAURENCE KETOROLAC S GROUP TROMETHAM INE PER 15 MG INJECTION J2550 [facility] PRICE 6 PHYSICIAN LAURENCE PROMETHAZ S GROUP INE HCL UP TO 50 MG INJECTION J1040 [facility] PRICE 6 PHYSICIAN LAURENCE METHYLPRE S GROUP DNISOLONE ACETATE 80 MG [facility] 36115 WILLIAM THOMAS TIC 6 FRED FRED MANIPULAT HORACIO TX SPINAL 1-2 REGIONS UNCLASSIF J3490 [facility] IED DRUGS 6 [facility] INC INC THERAPEUT 92950 [facility] IC 6 [facility] PROPHYLAC INC INC TIC/DX INJECTION SUBQ/IM THERAPEUT 21990 [facility] PRICE IC 6 PHYSICIAN LAURENCE PROPHYLAC S GROUP TIC/DX INJECTION SUBQ/IM INJECTION J1885 [facility] PRICE 6 PHYSICIAN LAURENCE KETOROLAC S GROUP TROMETHAM INE PER 15 MG INJECTION J2550 [facility] PRICE 6 PHYSICIAN LAURENCE PROMETHAZ S GROUP INE HCL UP TO 50 MG INJECTION J2550 [facility] RAMON 6 PHYSICIAN STONE PROMETHAZ S GROUP PA-C ROXY INE HCL UP TO 50 MG INJECTION J1040 [facility] TRISTEN 6 PHYSICIAN STONE METHYLPRE S GROUP PA-C ROXY DNISOLONE ACETATE 80 MG INJECTION J1885 [facility] RAMON 6 PHYSICIAN STONE KETOROLAC S GROUP PA-C ROXY TROMETHAM INE PER 15 MG INJECTION J1200 [facility] RAMON 6 PHYSICIAN STONE DIPHENHYD S GROUP PA-C ROXY RAMINE HCL UP TO 50 MG THERAPEUT 21900 [facility] RAMON IC 6 PHYSICIAN STONE PROPHYLAC S GROUP PA-C ROXY TIC/DX INJECTION SUBQ/IM CHIROPRAC 85875 WILLIAM THOMAS TIC 6 FRED FRED MANIPULAT HORACIO TX SPINAL 1-2 REGIONS THERAPEUT 15297 [facility] PRICE IC 6 PHYSICIAN LAURENCE PROPHYLAC S GROUP TIC/DX INJECTION SUBQ/IM INJECTION J1200 [facility] PRICE 6 PHYSICIAN LAURENCE DIPHENHYD S GROUP RAMINE HCL UP TO 50 MG INJECTION J1885 [facility] PRICE 6 PHYSICIAN LAURENCE KETOROLAC S GROUP TROMETHAM INE PER 15 MG INJECTION J2550 [facility] PRICE 6 PHYSICIAN LAURENCE PROMETHAZ S GROUP INE HCL UP TO 50 MG CHIROPRAC 24600 WILLIAM THOMAS TIC 6 FRED FRED MANIPULAT HORACIO TX SPINAL 1-2 REGIONS INJECTION J1885 [facility] PRICE 6 PHYSICIAN LAURENCE KETOROLAC S GROUP TROMETHAM INE PER 15 MG THERAPEUT 81390 [facility] PRICE IC 6 PHYSICIAN LAURENCE PROPHYLAC S GROUP TIC/DX INJECTION SUBQ/IM THERAPEUT [address] [facility] [address] IC 6 PHYSICIAN PROPHYLAC S GROUP TIC/DX INJECTION SUBQ/IM INJECTION J1040 [facility] [address] 6 PHYSICIAN METHYLPRE S GROUP DNISOLONE ACETATE 80 MG THERAPEUT 35632 [facility] PRICE IC 6 PHYSICIAN LAURENCE PROPHYLAC S GROUP TIC/DX INJECTION SUBQ/IM INJECTION J1885 [facility] PRICE 6 PHYSICIAN LAURENCE KETOROLAC S GROUP TROMETHAM INE PER 15 MG CHIROPRAC 25277 WILLIAM THOMAS TIC 6 FRED FRED MANIPULAT HORACIO TX SPINAL 1-2 REGIONS RADIOLOGI 29952 [facility] Do[facility] EXAM 5 [facility] KNEE INC INC COMPLETE 4/MORE VIEWS INJECTION J1885 [facility] PRICE 5 PHYSICIAN LAURENCE KETOROLAC S GROUP TROMETHAM INE PER 15 MG THERAPEUT 71015 [facility] PRICE IC 5 PHYSICIAN LAURENCE PROPHYLAC S GROUP TIC/DX INJECTION SUBQ/IM CHIROPRA 63296 [facility] TIC 5 FRED FRED MANIPULAT HORACIO TX SPINAL 1-2 REGIONS CHIROPRA 16560 [facility] TIC 5 FRED FRED MANIPULAT HORACIO TX SPINAL 1-2 REGIONS CHIROPRA 27144 [facility] [place] TIC 5 FRED FRED MANIPULAT HORACIO TX SPINAL 1-2 REGIONS CHIROPRA 70729 [facility] [place] TIC 5 FRED FRED MANIPULAT HORACIO TX SPINAL 1-2 REGIONS CHIROPRA 13871 [facility] TIC 5 FRED FRED MANIPULAT HORACIO TX SPINAL 1-2 REGIONS CHIROPRA 85126 [facility] TIC 5 FRED FRED MANIPULAT HORACIO TX SPINAL 3-4 REGIONS CHIROPRA 56373 [facility] [place] TIC 5 FRED FRED MANIPULAT HORACIO TX SPINAL 3-4 REGIONS CHIROPRA 62008 [facility] TIC 5 FRED FRED MANIPULAT HORACIO TX SPINAL 3-4 REGIONS CHIROPRA 65477 [facility] TIC 5 FRED FRED MANIPULAT HORACIO TX SPINAL 3-4 REGIONS APPL 70004 [facility] MODALITY 5 FRED FRED 1/> AREAS TRACTION MECHANICA L THERAPEUT 73584 [facility] [place] IC PX 1/> 5 FRED FRED AREAS EACH 15 MIN EXERCISES THERAPEUT 37355 [facility] [place] IC PX 1/> 5 FRED FRED AREAS EACH 15 MIN EXERCISES APPL 25871 [facility] [place] MODALITY 5 FRED FRED 1/> AREAS TRACTION MECHANICA L CHIROPRAC 74651 [facility] [place] TIC 5 FRED FRED MANIPULAT HORACIO TX SPINAL 3-4 REGIONS APPL 32775 [facility] MODALITY 5 FRED FRED 1/> AREAS TRACTION MECHANICA L INJECTION J1885 [facility] PRICE 5 PHYSICIAN LAURENCE KETOROLAC S GROUP TROMETHAM INE PER 15 MG THERAPEUT 36341 [facility] 5 PHYSICIAN LAURENCE PROPHYLAC S GROUP TIC/DX INJECTION SUBQ/IM THERAPEUT 88418 [facility] [place] IC PX 1/> 5 FRED FRED AREAS EACH 15 MIN EXERCISES COLLECTIO 85116 [facility] N VENOUS 5 [facility] BLOOD INC INC VENIPUNCT URE POTASSIUM 53974 [facility] SERUM 5 [facility] PLASMA/WH INC INC OLE BLOOD THERAPEUT 31410 [facility] [place] IC PX 1/> 5 FRED FRED AREAS EACH 15 MIN EXERCISES CHIROPRAC 48360 [facility] [place] TIC 5 FRED FRED MANIPULAT HORACIO TX SPINAL 3-4 REGIONS APPL 13819 [facility] [place] MODALITY 5 FRED FRED 1/> AREAS TRACTION MECHANICA L APPL 39926 [facility] [place] MODALITY 5 FRED FRED 1/> AREAS TRACTION MECHANICA L CHIROPRAC 73987 [facility] [place] TIC 5 FRED FRED MANIPULAT HORACIO TX SPINAL 3-4 REGIONS THERAPEUT 37930 [facility] [place] IC PX 1/> 5 FRED FRED AREAS EACH 15 MIN EXERCISES COMPREHEN 27133 [facility] SIVE 5 [facility] METABOLIC INC INC PANEL BLOOD 94496 [facility] COUNT 5 [facility] COMPLETE INC INC AUTO&AUTO DIFRNTL WBC LIPID 93091 [facility]INO PANEL 5 [facility] INC INC HEMOGLOBI [id number] [facility] PAULINO N 5 [facility] GLYCOSYLA INC INC MEENA A1C APPL 55692 [place] MODALITY 5 FRED FRED 1/> AREAS TRACTION MECHANICA L THERAPEUT 55043 [place] PX 1/> 5 FRED FRED AREAS EACH 15 MIN EXERCISES CHIROPRAC 42367 [place] TIC 5 FRED FRED MANIPULAT HORACIO [place] SPINAL 3-4 REGIONS CHIROPRAC 43089 [place] TIC 5 FRED FRED MANIPULAT HORACIO TX SPINAL 3-4 REGIONS THERAPEUT 54284 [place] PX 1/> 5 FRED FRED AREAS EACH 15 MIN EXERCISES APPL 37785 [place] MODALITY 5 FRED FRED 1/> AREAS TRACTION MECHANICA L THERAPEUT 07342 [place] PX 1/> 5 FRED FRED AREAS EACH 15 MIN EXERCISES APPL 17701 [place] MODALITY 5 FRED FRED 1/> AREAS TRACTION MECHANICA L APPL 80324 [place] MODALITY 5 FRED FRED 1/> AREAS TRACTION MECHANICA L THERAPEUT 05900 [place] PX 1/> 5 FRED FRED AREAS EACH 15 MIN EXERCISES THERAPEUT 97568 [place] PX 1/> 5 FRED FRED AREAS EACH 15 MIN EXERCISES CHIROPRAC 07997 [place] TIC 5 FRED FRED MANIPULAT HORACIO TX SPINAL 3-4 REGIONS APPL 42553 [place] MODALITY 5 FRED FRED 1/> AREAS TRACTION MECHANICA L CHIROPRAC 02769 [place] TIC 5 FRED FRED MANIPULAT HORACIO TX SPINAL 3-4 REGIONS CHIROPRAC 64860 [place] TIC 5 FRED FRED MANIPULAT HORACIO TX SPINAL 3-4 REGIONS CHIROPRAC 31077 [place] TIC 5 FRED FRED MANIPULAT HORACIO TX SPINAL 3-4 REGIONS CHIROPRA 10820 [place] TIC 5 FRED FRED MANIPULAT HORACIO TX SPINAL 3-4 REGIONS CHIROPRAC 91606 [place] TIC 5 FRED FRED MANIPULAT HORACIO [place] SPINAL 3-4 REGIONS APPL 92256 [place] MODALITY 5 FRED FRED 1/> AREAS TRACTION MECHANICA L THERAPEUT 25962 [place] PX 1/> 5 FRED FRED AREAS EACH 15 MIN EXERCISES THERAPEUT 29344 [place] PX 1/> 5 FRED FRED AREAS EACH 15 MIN EXERCISES APPL 30286 [place] MODALITY 5 FRED FRED 1/> AREAS TRACTION MECHANICA L CHIROPRAC 60991 [place] TIC 5 FRED FRED MANIPULAT HORACIO [place] SPINAL 3-4 REGIONS CHIROPRAC 79244 [place] TIC 5 FRED FRED MANIPULAT HORACIO [place] SPINAL 3-4 REGIONS APPL 18879 [place] MODALITY 5 FRED FRED 1/> AREAS TRACTION MECHANICA L THERAPEUT 03543 [place] PX 1/> 5 FRED FRED AREAS EACH 15 MIN EXERCISES THERAPEUT 70490 [place] PX 1/> 5 FRED FRED AREAS EACH 15 MIN EXERCISES APPL 55318 [place] MODALITY 5 FRED FRED 1/> AREAS TRACTION MECHANICA L CHIROPRAC 40156 [place] TIC 5 FRED FRED MANIPULAT HORACIO [place] SPINAL 3-4 REGIONS CHIROPRA 68831 [place] TIC 5 FRED FRED MANIPULAT HORACIO [place] SPINAL 3-4 REGIONS APPL 71979 [place] MODALITY 5 FRED FRED 1/> AREAS TRACTION MECHANICA L THERAPEUT 65793 [place] PX 1/> 5 FRED FRED AREAS EACH 15 MIN EXERCISES THERAPEUT 02190 [place] PX 1/> 5 FRED FRED AREAS EACH 15 MIN EXERCISES APPL 25408 [place] MODALITY 5 FRED FRED 1/> AREAS TRACTION MECHANICA L CHIROPRAC 04448 [place] TIC 5 FRED FRED MANIPULAT HORACIO [place] SPINAL 3-4 REGIONS CHIROPRA 01098 [place] TIC 5 FRED FRED MANIPULAT HORACIO [place] SPINAL 3-4 REGIONS APPL 30511 [facility] MODALITY 5 FRED FRED 1/> AREAS TRACTION MECHANICA L THERAPEUT 48607 [facility] [place] IC PX 1/> 5 FRED FRED AREAS EACH 15 MIN EXERCISES THERAPEUT 56230 [facility] IC PX 1/> 5 FRED FRED AREAS EACH 15 MIN EXERCISES APPL 70323 [facility] MODALITY 5 FRED FRED 1/> AREAS TRACTION MECHANICA L CHIROPRAC 48537 [facility] TIC 5 FRED FRED MANIPULAT HORACIO TX SPINAL 3-4 REGIONS BASIC 44325 [facility]OLIC [facility] PANEL INC INC CALCIUM TOTAL CHIROPRAC 82824 [facility] TIC 5 FRED FRED MANIPULAT HORACIO TX SPINAL 3-4 REGIONS APPL 93366 [facility] MODALITY 5 FRED FRED 1/> AREAS TRACTION MECHANICA L THERAPEUT 29378 [facility] IC PX 1/> 5 FRED FRED AREAS EACH 15 MIN EXERCISES THERAPEUT 20396 [facility] IC PX 1/> 5 FRED FRED AREAS EACH 15 MIN EXERCISES RADEX 94207 [facility] SPINE 5 FRDE FRED CERVICAL 2 OR 3 VIEWS APPL 68103 [facility] MODALITY 5 FRED FRED 1/> AREAS TRACTION MECHANICA L CHIROPRAC 50163 [facility] TIC 5 FRED FRED MANIPULAT HORACIO TX SPINAL 3-4 REGIONS INJECTION J1885 [facility] PRICE 5 PHYSICIAN LA[facility] KETOROLAC S GROUP TROMETHAM INE PER 15 MG THERAPEUT 60466 [facility] IC 5 PHYSICIAN LAURENCE PROPHYLAC S GROUP TIC/DX INJECTION SUBQ/IM RADIOLOGI 71721 [place] [facility] EXAMIN[facility] IMAGING ON KNEE 3 ASS VIEWS KNEE L1830 [facility] 5 TECHNOLOG TECHNOLOG IMMOBLIZE IES INC IES INC R CANVAS LONGTUDNL PREFAB BASIC 65645 [facility]ABOLIC 5 [facility] [place] [address] [facility] THYROID 5 [facility] STIMULATI INC INC NG HORMONE TSH BLOOD 24455 [facility] OCCULT 5 PHYSICIAN PHYSICIAN PEROXIDAS S GROUP S GROUP E ACTV QUAL FECES 1-3 SPEC HEMOGLOBI 98415 [facility] N [facility] GLYCOSYLA INC INC MEENA A1C CYTP C/V 46709 [facility], PICKLESIM AUTO THIN 5 [facility] ER JR JOSSELINE LYR [place] [address] [facility] FREE 5 [facility] THYROXINE INC INC INJECTION J1100 [facility] PRICE 5 PHYSICIAN LAUR[facility] DEXAMETHO S GROUP SONE SODIUM PHOSPHATE 1 MG THERAPEUT 38360 [facility] IC 5 PHYSICIAN LAURENCE PROPHYLAC S GROUP TIC/DX INJECTION SUBQ/[place] [address] [facility] THYROID 5 [facility] STIMULATI INC INC NG HORMONE TSH COMPREHEN 84867 [facility] SIVE 5 [facility] [address] [facility] FREE [facility] THYROXINE INC INC HEPATITIS 05245 [facility] A [facility] ANTIBODY INC INC HAAB BLOOD 03139 [facility] COUNT 5 [facility] COMPLETE INC INC AUTO&AUTO DIFRNTL WBC HEPATITIS 40132 [facility] B CORE 5 [facility] ANTIBODY INC INC HBCAB TOTAL HEPATITIS 08159 [facility]er SURF 5 [facility] [address] [facility] HEPATITIS 5 [facility] B INC INC SURFACE ANTIGEN 25 92335 [facility] HYDROXY 5 [facility] INCLUDES INC INC FRACTIONS IF PERFORMED HEPATITIS 69959 [facility] C 5 [facility] ANTIBODY INC INC RADIOLOGI 41726 [facility] C EXAM 5 [facility] CHEST 2 INC INC VIEWS FRONTAL&L ATERAL COLLECTIO 90419 [facility] N VENOUS 5 [facility] BLOOD INC INC VENIPUNCT URE RADEX ABD 65313 [place] [facility] COMPL 5 MEDICAL DENNIS AQT ABD IMAGING W/S/E/D ASS VIEWS 1 VIEW CH IAADIADOO 68147 [facility] FRYMAN 5 PHYSICIAN EUG INFLUENZA S GROUP THERAPEUT 77819 [facility] IC 4 PHYSICIAN PHYSICIAN PROPHYLAC S GROUP S GROUP TIC/DX INJECTION SUBQ/IM INJECTION J1040 [facility] PRICE 4 PHYSICIAN LAURENCE METHYLPRE S GROUP DNISOLONE ACETATE 80 MG ECHO 27792 [facility] MEDICAL 2D SERV W/WOM-MOD FOUNDATIO E COMPL N SPEC&COLR D NJX 60935 STONE STONE DX/THER [address] SBST SURGERY SURGERY EPIDURAL/ CENTER CENTER SUBARACH LUMBAR/SA CRAL FLUOR 65318 JUSTO KEMP NEEDLE/CA 4 BECK BECK TH SPINE/PAR ASPINAL DX/THER ADDON MRI 96258 DUKE TRA DUKE TRA SPINAL 4 CANAL L[place] [address] THERAPY/P ROPHYLAXI S /DX 1ST TO 1 HR THERAPEUT [address] INJECTION IV PUSH EACH NEW DRUG URNLS DIP [address] STICK/TAB LET REAGENT AUTO MICROSCOP Y BLOOD [address] COMPLETE AUTOMATED INJECTION J[address] DEXAMETHO SONE SODIUM PHOSPHATE 1 MG INJECTION J2270 [address] SULFATE UP TO 10 MG INJECTION J2800 [address] METHOCARB JORGE UP TO 10 ML INJECTION J2550 [address] PROMETHAZ INE HCL UP TO 50 MG INJECTION J2405 [address] ONDANSETR ON HCL PER 1 MG THER 12944 [facility] PROPH/DX [address] [place] [address] NJX EA SEQL IV PUSH SBST/DRUG FAC BASIC [address] PANEL CALCIUM TOTAL RADEX 26492 [facility] SPINE 4 DENNIS DENNIS LUMBOSACR AL MINIMUM 4 VIEWS RADEX HIP 54270 [facility] CECILIA 4 DENNIS DENNIS UNILATERA L 1 VIEW Encounters Encounter Start End Date Code Location Performer Type Date [facility] - 7 7 [facility] T [facility] 12027 [facility] T VISIT 15 MINUTES [facility] - 7 7 [facility] OUTPATIEN INC T OFFICE 85416 [facility] GUZMAN RAMSEY OUTPATIEN 6 6 PHYSICIAN T VISIT S GROUP 25 MINUTES [facility] - 6 6 [facility] OUTPATIEN INC T OFFICE 75484 GASTROENT CASE JUS OUTPATIEN 6 6 EROLOGY T VISIT AND 25 HEPATOL MINUTES [facility] - 6 6 [facility]PATIEN INC T OFFICE 53268 GASTROENT CASE JUS OUTPATIEN 6 6 EROLOGY T NEW [facility] AND [facility] - 6 6 [facility] T OFFICE 54671 [facility] MICHELLE RAMIRES OUTPATIEN 6 6 PHYSICIAN MAGO T VISIT S GROUP 10 MINUTES OFFICE 31214 ROB PHAN 6 6 DIGESTIVE CEC T VISIT CARE 15 CENTER MINUTES EMERGENCY 88743 MARCIA THRASHER 6 6 PHYSICIAN LAURENCE DEPARTMEN S, PLLC T VISIT MODERATE SEVERITY [facility]OSP[facility] ROB - 6 6 [facility]PATIEN [facility]ICAL T CENTE OFFICE 52256 ROB MONSALVE OUTPATIEN 6 6 DIGESTIVE CEC T NEW 60 CARE MINUTES CENTER OFFICE 02790 [facility] GUZMAN RAMSEY OUTPATIEN 6 6 PHYSICIAN T VISIT S GROUP 15 MINUTES [facility] - 6 6 [facility] OUTPATIEN INC [facility] - 6 6 [facility] OUTPATIEN INC T EMERGENCY 31330 [facility] 6 6 [facility] DEPARTMEN INC T VISIT HIGH/URGE NT SEVERITY OFFICE 33731 [facility] MICHELLE RAMIRES OUTPATIEN 6 6 PHYSICIAN MAGO T NEW 30 S GROUP MINUTES OFFICE 43904 [facility] RAMON OUTPATIEN 6 6 PHYSICIAN STONE T VISIT S GROUP PA-C ROXY 15 MINUTES OFFICE 34011 [facility] RAMON OUTPATIEN 6 6 PHYSICIAN STONE T VISIT S GROUP PA-C ROXY 25 MINUTES OFFICE 12668 [facility] RAMON OUTPATIEN 6 6 PHYSICIAN STONE T VISIT S GROUP PA-C ROXY 15 MINUTES EMERGENCY 90540 MARCIA THRASHER DEPT 6 6 PHYSICIAN LAURENCE VISIT S, PLLC HIGH SEVERITY& THREAT FUNCJ EMERGENCY 30280 MARCIA MCKEEH DEPT 6 6 PHYSICIAN SUMMER VISIT S, PLLC HIGH SEVERITY& THREAT FUNCJ OFFICE 36985 [facility] PRICE OUTPATIEN 6 6 PHYSICIAN LAURENCE T VISIT S GROUP 25 MINUTES OFFICE 90300 SURY BEAUCHAMP VLADIMIR CONSULTAT 6 6 N ION NEUROLOGY NEW/ESTAB PATIENT 60 MIN OFFICE 47524 [facility] PRICE OUTPATIEN 6 6 PHYSICIAN LAURENCE T VISIT S GROUP 10 MINUTES [facility] - 6 6 [facility] 6 6 [facility] OUT[facility] INC T OFFICE 78986 [facility] PRICE OUTPATIEN 6 6 PHYSICIAN LAURENCE T VISIT S GROUP 10 MINUTES [facility] - 6 6 [facility] OUTPATIEN INC T OFFICE 46745 [facility] PRICE OUTPATIEN 6 6 PHYSICIAN LAURENCE T VISIT S GROUP 15 MINUTES OFFICE 23639 [facility] RAMON OUTPATIEN 6 6 PHYSICIAN STONE T VISIT S GROUP PA-C ROXY 15 MINUTES EMERGENCY 30270 MARCIA CESPEDES DEPT 6 6 PHYSICIAN FOR VISIT S, PLLC HIGH SEVERITY& THREAT FUNCJ OFFICE 34102 [facility] RAMON OUTPATIEN 6 6 PHYSICIAN STONE T VISIT S GROUP PA-C ROXY 10 MINUTES OFFICE 77769 [facility] PRICE OUTPATIEN 6 6 PHYSICIAN LAURENCE T VISIT S GROUP 15 MINUTES OFFICE [address] [facility] GARCIA TER OUTPATIEN 6 6 PHYSICIAN T VISIT S GROUP 15 MINUTES OFFICE 32709 ELLYLM FRANKS FRED OUTPATIEN 6 6 MD RHEA, T NEW 30 PSC MINUTES OFFICE 54456 [facility] PRICE OUTPATIEN 6 6 PHYSICIAN LAURENCE T VISIT S GROUP 15 MINUTES [facility] - 6 6 [facility] OUTPAT[facility]EN INC T OFFICE 99532 [facility] OUT[facility] 6 6 [facility] T VISIT INC 10 MINUTES OFFICE 59183 [facility] OUT[facility]IEN 6 6 FRED FRED T VISIT 15 MINUTES [facility] - 5 5 [facility] OUTPATIEN INC T OFFICE 87037 [facility] PRICE OUTPATIEN 5 5 PHYSICIAN LAURENCE T VISIT S GROUP 10 MINUTES OFFICE 57239 [facility] PRICE OUTPATIEN 5 5 PHYSICIAN LAURENCE T VISIT S GROUP 10 MINUTES OFFICE 61617 [facility] & GILBERT OUTPATIEN 5 5 BRAIN SYD T NEW 45 NEUROSURG MINUTES ICAL EMERGENCY 37654 MARCIA CARDOSOEY 5 5 PHYSICIAN LAURENCE DEPARTMEN S, PLLC T VISIT HIGH/URGE NT SEVERITY [facility] 5 5 [facility] OUTPATIEN INC T OFFICE 96592 [facility] PRICE OUTPATIEN 5 5 PHYSICIAN LAURENCE T VISIT S GROUP 15 MINUTES [facility] - 5 5 [facility] OUTPATIEN INC T OFFICE 81152 [facility] OUT[facility]EN 5 5 FRED FRED T VISIT 15 MINUTES [facility] - 5 5 [facility] OUTPATIEN INC T OFFICE 19588 [facility] OUTPATIEN 5 5 FRED FRED T NEW 30 MINUTES OFFICE 29850 [facility] PRICE OUTPATIEN 5 5 PHYSICIAN LAURENCE T VISIT S GROUP 15 MINUTES [facility] - 5 5 [facility] OUTPATI[facility] INC T PERIODIC 10988 [facility] PRICE PREVENTIV 5 5 PHYSICIAN LAURENCE E MED EST S GROUP PATIENT 40-64YRS OFFICE 34001 [facility] PRICE OUTPATIEN 5 5 PHYSICIAN LAURENCE T VISIT S GROUP 15 MINUTES [facility]OSPITAL LOAR - 5 5 [facility] OUTPATIEN INC T OFFICE 75715 [facility] RADHA OUTPATIEN 5 5 PHYSICIAN FRED T VISIT S GROUP 15 MINUTES OFFICE 70698 [facility] FRYMAN OUTPATIEN 5 5 PHYSICIAN EUG T VISIT S GROUP 15 MINUTES [facility] - 4 4 [facility] OUTPATIEN INC T OFFICE 76530 DUKE TRA DUKE TRA OUTPATIEN 4 4 T VISIT 15 MINUTES OFFICE 99228 DUKE TRA DUKE TRA OUTPATIEN 4 4 T VISIT 15 MINUTES EMERGENCY 88637 EDMUND CHRISTIANSONCASTANA DEPT 4 4 VLADIMIR VLADIMIR VISIT HIGH SEVERITY& THREAT [facility] [address] OUTPATIEN T EMERGENCY [address] DEPARTMEN T VISIT MODERATE SEVERITY OFFICE 69254 ILYA CARABALLO OUTPATIEN 4 4 THEODORE THEODORE T VISIT 15 MINUTES OFFICE 68278 DUKE TRA DUKE TRA CONSULTAT 4 4 ION NEW/ESTAB PATIENT 40 MIN OFFICE 53142 ILYA CARABALLO OUTPATIEN 4 4 THEODORE THEODORE T VISIT 15 MINUTES Emergency DIRK Magdaleno MD (ER) 3 18:30 3 19:10 [facility]
--- OUTSIDE RECORDS SUMMARY | 2017-05-19 19:34 | External Medical Summary Rpt ---
Author Author , RADHA GARCIA Address Unknown Phone [email or web address] Care Team Providers Care Director Private Name Role Phone [employer] Unavailable Unavailable INC, [employer] Unavailable Unavailable INC, [employer] ALLRAN JR MAGO, ALLRAN Unavailable Unavailable JR MAGO ELLY WILKERSON MD, PSC, Unavailable Unavailable ELLY WILKERSON MD, PSC ARNOLD THEODORE, ARNOLD Unavailable Unavailable THEODORE ARNOLD THEODORE, ARNOLD Unavailable Unavailable THEODORE BEINEKE, BEINEKE Unavailable Unavailable BEINEKE MAUREEN, BEINEKE Unavailable Unavailable MAUREEN GARCIA TER, GARCIA TER Unavailable Unavailable BELLA ALL, BELLA ALL Unavailable Unavailable CASE JUS, CASE JUS Unavailable Unavailable EDMUND GILBERT, Unavailable Unavailable EDMUND GILBERT [facility] Unavailable Unavailable [facility] Unavailable Unavailable [facility], Unavailable [facility], Unavailable Unavailable [facility] CECILIA DENNIS, Unavailable Unavailable CECILIA DENNIS CECILIA DENNIS, Unavailable Unavailable CECILIA DENNIS TRISTEN HINDS PA-C Unavailable Unavailable TRISTEN RAMSEY-C ROXY DUFF FRED, DUFF FRED Unavailable Unavailable FRYMAN EUG, FRYMAN Unavailable Unavailable EUG PRICE LAURENCE, PRICE Unavailable Unavailable LAURENCE [facility], Unavailable Unavailable [facility] GILBERT SYD, GILBERT Unavailable Unavailable SYD NI DAWSON, NI Unavailable Unavailable DAWSON [facility] Unavailable Unavailable INC, [facility] Unavailable Unavailable HOSPITAL P, [facility] P [facility], [facility]available Unavailable [facility] BELLO CEC, BELLO Unavailable Unavailable CEC DUKE TRA, DUKE TRA Unavailable Unavailable RADHA FRED, RADHA Unavailable Unavailable FRED KEDING, KEDING Unavailable Unavailable KEDING, KEDING Unavailable Unavailable KEDING FRED, KEDING Unavailable Unavailable FRED KEDING FRED, KEDING Unavailable Unavailable FRED [facility] Unavailable Unavailable GROUP PS, [facility] Un[facility] Unavailable [facility], [facility] Un[facility] JUSTO SALAZAR Unavailable Unavailable BECK ELKE JR DWI, ELKE Unavailable Unavailable JR DWI SEYMOUR THEODORE, SEYMOUR Unavailable Unavailable THEODORE ELIAS GRE, Unavailable Unavailable ELIAS GRE ELIAS GRE, Unavailable Unavailable ELIAS GRE [facility], [facility] PICKLESIMER JR JOSSELINE, Unavailable Unavailable PICKLUIS JR JOSSELINE RENUSCH SUMMER, RENUSCH Unavailable Unavailable SUMMER SCALF, SCALF Unavailable Unavailable SETTLES II LAYO, Unavailable Unavailable [facility]TL[facility] II LAYO AARON, AARON Unavailable Unavailable BEAUCHAMP VLADIMIR, BEAUCHAMP VLADIMIR Unavailable Unavailable HALEY, HALEY Unavailable Unavailable [facility]available [facility], Unavailable Unavailable [facility] STONE ROXY, STONE ROXY Unavailable Unavailable [facility] Un[facility], [facility] WALKER FOR, WALKER Unavailable Unavailable FOR Purpose Continuity of Care Document - 02-03-2008 through 2016 Problems Code Diagnosis DOS Provider Status [id number] OTHER LONG 02-28-2017 [facility] CURRENT INC DRUG THERAPY M545 LOW BACK 12-21-2016 [place] PAIN E039 HYPOTHYROID 11-20-2016 [facility] UNSPECIFIED INC E559 VITAMIN D 11-20-2016 [facility]ENC[facility] UNSPECIFIED INC R05 COUGH 10-19-2016 [facility] R1030 LOWER 10-04-2016 [facility] [place] [facility] PAIN UNSPECIFIED R109 UNSPECIFIED 10-04-2016 [facility] PS R197 DIARRHEA 10-04-2016 [facility] U[facility]PEC[facility]IED [facility] GROUP PS R1032 LEFT LOWER 07-24-2016 [facility] PAIN GROUP K5909 OTHER 07-10-2016 [facility] N1330 UNSPECIFIED 06-30-2016 [facility] HYDRONEPHRO [facility] SIS N134 HYDROURETER 06-30-2016 [facility] N289 DISORDER OF 06-30-2016 [facility] URETER [facility] UNSPECIFIED N3000 ACUTE 06-30-2016 [facility] CYSTITIS [facility], WITHOUT PLLC HEMATURIA N390 URINARY 06-30-2016 [facility]CT [facility] INFECTION PLLC SITE NOT SPECIFIED R1031 RIGHT LOWER 06-30-2016 [facility] K529 NONINFECTIV 06-19-2016 [facility] ITIS & COLITIS UNS K635 POLYP OF 06-19-2016 [facility] E118 TYPE 2 05-06-2016 [facility] MELLITUS INC W/UNS COMPLICATIO NS E876 HYPOKALEMIA 05-06-2016 [facility] I10 ESSENTIAL 05-06-2016 [facility] HYPERTENSIO INC N R1012 LEFT UPPER 05-06-2016 [facility] PAIN PLLC Z720 TOBACCO USE 05-06-2016 [facility] INC M5416 RADICULOPAT 04-25-2016 WILLIAM IBARRA HY LUMBAR REGION R194 CHANGE IN 03-21-2016 [facility] BOWEL HABIT PHYSICIANS GROUP [id number] PERSONAL 03-21-2016 [facility] HISTORY OF PHYSICIANS COLONIC GROUP POLYPS K219 GASTRO-ESOP 03-14-2016 [facility] P WITHOUT ESOPHAGITIS R1084 GENERALIZED 03-14-2016 [facility] K5792 DIVERTICULI 03-12-2016 [facility] TIS PART PHYSICIANS, UNS W/O PLLC PERF/ABSC W/O BLEED Z0100 ENCOUNTER 03-08-2016 ELIAS EXAM EYES & GRE VISION W/O ABNORMAL FIND B370 CANDIDAL 02-21-2016 [facility] STOMATITIS PHYSICIANS GROUP Z23 ENCOUNTER 02-21-2016 [facility] FOR PHYSICIANS IMMUNIZATIO GROUP N M542 CERVICALGIA 02-16-2016 WILLIAM IBARRA R51 HEADACHE 02-02-2016 [facility] M83815 HEMIPLEGIC 01-05-2016 [facility] MIGRAINE PHYSICIANS INTRACT W/O GROUP STAT MIGRAINOSUS J25712 MIGRAINE 12-28-2015 [facility] UNS NOT [facility] INTRACT W/O INC STATUS MIGRAINOSUS O81245 MIGRAINE 12-20-2015 [facility] W/O AURA PHYSICIANS, NOT INTRACT PLLC W/STAT MIGRAINOSUS E73895 PAIN IN 12-08-2015 [facility] RIGHT KNEE PHYSICIANS GROUP S00718 PAIN IN 12-08-2015 [facility] LEFT KNEE PHYSICIANS GROUP J0190 ACUTE 11-27-2015 [facility] SINUSITIS PHYSICIANS UNSPECIFIED GROUP R112 NAUSEA WITH 11-27-2015 [facility] VOMITING PHYSICIANS UNSPECIFIED GROUP M461 SACROILIITI 11-23-2015 Samantha ROLON NOT , PSC ELSEWHERE CLASSIFIED M5116 INTERVERTEB 11-23-2015 [facility] D/O INC W/RADICULOP ATHY LUMB RGN M5136 OT 11-23-2015 LACY ORLON MD, PSC RAL DISC DEGEN LUMBAR REGION M797 FIBROMYALGI 09-21-2015 [facility] A PHYSICIANS GROUP 7231 CERVICALGIA 07-01-2015 [place] FRED 7242 LUMBAGO 07-01-2015 [place] FRED 7246 DISORDERS 07-01-2015 WILLIAM IBARRA OF SACRUM 30387 DISPLCMT 06-28-2015 [facility] INTERVERT NEUROSURGIC DISC W/O AL MYELOPATHY 13710 DEGEN 06-28-2015 [facility]/LUMB BRAIN OSACRAL NEUROSURGIC INTERVERTEB AL RAL DISC 9532 INJURY TO 06-28-2015 [facility] [place] [address] ALTERED 05-23-2015 [facility] PHYSICIANS, STATUS PLLC 4019 UNSPECIFIED 05-17-2015 [facility] ESSENTIAL [facility] HYPERTENSIO INC N 52333 PAIN IN 05-17-2015 [facility] JOINT, PHYSICIANS LOWER LEG GROUP V5869 LONG-TERM 05-17-2015 [facility] (CURRENT) [facility] USE OF INC OTHER MEDICATIONS 06472 OTHER 05-06-2015 [facility] ABNORMAL [facility] GLUCOSE INC 7243 SCIATICA 04-21-2015 WILLIAM FRED 9597 INJURY 02-23-2015 [facility] OTHER&UNSPE TECHNOLOGIE CIFIED KNEE S INC LEG ANKLE&FOOT 32759 UNSPECIFIED 02-11-2015 [facility] VAGINITIS PHYSICIANS AND GROUP VULVOVAGINI TIS V7231 ROUTINE 02-11-2015 [facility] AL EXAMINATION V7641 SCREENING 02-11-2015 [facility] FOR [facility]YS[facility]IANS MALIGNANT GROUP NEOPLASM OF THE RECTUM 4610 ACUTE 01-23-2015 [facility] MAXILLARY PHYSICIANS SINUSITIS GROUP 4659 ACUTE URIS 01-23-2015 [facility] OF PHYSICIANS UNSPECIFIED GROUP SITE 73911 ABDOMINAL 12-22-2014 [facility], LEFT MEDICAL UPPER IMAGING ASS QUADRANT 43291 ABDOMINAL 12-22-2014 [place] [facility] LEFT UPPER IMAGING ASS QUADRANT 4619 ACUTE 11-23-2014 [facility] SINUSITIS, PHYSICIANS UNSPECIFIED GROUP 38590 WHEEZING 11-23-2014 [facility] PHYSICIANS GROUP 7862 COUGH 11-23-2014 [facility] PHYSIC[facility]ANS GROUP 4611 ACUTE 11-20-2014 [facility] FRONTAL PHYSICIANS SINUSITIS GROUP 4660 ACUTE 10-16-2014 [facility] BRONCHITIS PHYSICIANS GROUP 4240 MITRAL 10-02-2014 [facility] DISORDERS INC 7852 UNDIAGNOSED 10-02-2014 [facility] 7244 THORACIC/EM 05-20-[address] [facility] NEURITIS/RA CENTER DICULITIS UNSPEC 89234 GENERALIZED 04-05-2014 [facility] ANXIETY [facility] DISORDER 7291 UNSPECIFIED 04-05-2014 [facility] MYALGIA [facility] 7245 UNSPECIFIED 04-04-2014 ILYA JAIMES BACKACHE 06458 PAIN IN 03-31-2014 [facility] JOINT PELVIC REGION AND THIGH 51973 SPINAL STEN 03-28-2014 [facility] LUMB REG DENNIS W/O NEUROGENIC CLAUDICATIO N Medications Na ND Rx Da Fi Fi Am Da Di Ph RX Ph St me C No te ll ll ou ys ag ar # ys at rm s nt no ma ic us Or Da si cy ia de te s n re d DU 68 05 06 30 30 00 [...] CY ET NT HI AN A 00 05 06 30 30 00 HO Ac TA 53 -2 -3 .0 00 ME ti CO 63 5- 0- 00 06 TO ve [...] CY NT HI AN A QU 68 05 06 30 [...] NT P HI AN A ME 68 05 06 30 30 00 HO Ac TO 00 -1 -1 .0 00 ME ti ND 10 2- 6- 00 06 TO ve OL 11 20 20 08 WN OL 90 17 17 53 0 76 PH [place] AR CC MA CY ER OF 10 0 CY MG NT HI TA AN B A LI 68 05 06 30 30 00 HO Ac SI 18 -1 -1 .0 00 ME ti NO 00 2- 6- 00 06 TO ve ND 51 20 20 08 WN IL 80 17 17 53 -H [address] AR Z MA 10 CY -1 2. OF 5 MG CY NT TA HI B AN A TO 68 04 05 30 [...] 53 -2 -2 .0 00 ME ti CO 63 6- 6- 00 06 TO ve [...] NT ET HI AN A HY 43 04 05 [...] UL CY E NT HI AN A DI 51 04 05 60 30 00 HO Ac AZ 86 -1 -1 .0 00 ME ti EP 20 9- 9- 00 04 TO ve AM 06 20 20 02 WN 5 31 17 17 23 0 56 PH MG AR MA TA CY BL ET OF CY NT HI AN A ME 68 04 05 30 30 00 HO Ac TO 00 -1 -1 .0 00 ME ti ND 10 0- 2- 00 06 TO ve OL 11 20 20 08 WN OL 90 17 17 47 0 04 PH [place] AR CC MA CY ER OF 10 0 CY MG NT HI TA AN B A LI 68 04 05 30 30 00 HO Ac SI 18 -1 -1 .0 00 ME ti NO 00 0- 2- 00 06 TO ve ND 51 20 20 08 WN IL 80 17 17 47 -H [address] AR Z MA 10 CY -1 2. OF 5 MG CY NT TA HI B AN A LI 68 04 05 90 30 00 HO Ac TH 46 -1 -1 .0 00 ME ti IU 20 0- 2- 00 06 TO ve M 22 20 20 08 WN CA 00 17 17 47 RB 1 17 PH ON AR AT MA E CY 15 0 OF MG CY CA NT P HI AN A QU 68 04 05 30 30 00 HO Ac ET 00 -1 -1 .0 00 ME ti IA 10 0- 2- 00 06 TO ve PI 18 20 20 08 WN NE 40 17 17 47 0 18 PH FU AR MA MA RA CY TE OF 10 0 CY MG NT HI TA AN B A DU 68 03 04 30 30 [...] 53 -2 -2 .0 00 ME ti CO 63 8- 8- 00 06 TO ve N 33 20 20 07 WN D3 40 17 17 95 1 31 PH 1, AR 00 MA 0 CY UN IT OF TA CY BL NT ET HI AN A 51 03 04 8. 28 00 HO Ac T 99 -2 -2 00 00 ME ti D2 10 8- 8- 0 06 TO ve 60 20 20 07 WN 1. 40 17 17 95 25 1 30 PH AR MG MA CY (5 0, OF 00 0 CY UN NT IT HI ) AN A DI 51 03 04 90 30 [...] CY CA NT P HI AN A QU 68 03 04 30 30 00 HO Ac ET 00 -1 -1 .0 00 ME ti IA 10 0- 4- 00 06 TO ve PI 18 20 20 07 WN NE 40 17 17 91 0 31 PH FU AR MA MA RA CY TE OF 10 0 CY MG NT HI TA AN B A 00 02 03 30 30 00 HO Ac TA 53 -2 -3 .0 00 ME ti CO 63 8- 1- 00 06 TO ve N 33 20 20 07 WN D3 40 17 17 95 1 31 PH 1, AR 00 MA 0 CY UN IT OF TA CY BL NT ET HI AN A 51 02 03 8. [...] BL CY ET NT HI AN A HY 51 02 03 18 30 00 HO Ac OS 52 -1 -1 0. 00 ME ti CY 50 0- 7- 00 06 TO ve AM 11 20 20 0 08 WN IN 30 17 17 12 E 1 22 PH 0. AR 12 MA 5 CY MG OF TA B CY SL NT HI AN A DI 51 02 03 90 30 00 HO Ac AZ 86 -1 -1 .0 00 ME ti EP 20 0- 7- 00 04 TO ve AM 06 20 20 02 WN 41 17 17 09 10 0 52 PH AR MG MA CY TA BL OF ET CY NT HI AN A QU 60 02 03 30 30 00 HO Ac ET 50 -0 -1 .0 00 ME ti IA 53 9- 7- 00 06 TO ve PI 13 20 20 07 WN NE 30 17 17 91 1 31 PH FU AR MA MA RA CY TE OF 10 0 CY MG NT HI TA AN B A LI 68 02 03 90 30 00 HO Ac TH 46 -0 -1 .0 00 ME ti IU 20 9- 7- 00 06 TO ve M 22 20 20 07 WN CA 00 17 17 91 RB 1 33 PH ON AR AT MA E CY 15 0 OF MG CY CA NT P HI AN A OM 46 02 03 60 30 00 HO Ac EP 12 -0 -1 .0 00 ME ti RA 20 9- 7- 00 06 TO ve ZO 02 20 20 07 WN LE 90 17 [address] AR MA 20 CY MG OF TA CY BL NT ET HI AN A GA 45 02 03 [...] .0 00 ME ti NO 00 3- 06 TO ve ND 51 20 20 07 WN IL 80 [...] .0 00 ME ti XE 50 3- 06 TO ve TI 38 20 20 07 WN NE 31 17 17 91 8 42 PH HC AR L MA DR CY 60 OF MG CY NT CA HI P AN A ME 68 02 03 30 30 00 HO Ac TO 00 -0 -0 .0 00 ME ti ND 10 3- 06 TO ve OL 11 20 20 07 WN OL 90 17 17 37 0 36 PH [place] AR CC MA CY ER OF 10 0 CY MG NT HI TA AN B A TO 68 02 03 30 30 00 HO Ac PI 46 -0 -0 .0 00 ME ti RA 20 3- 06 TO ve MA 10 20 20 07 WN TE 96 17 17 91 0 40 PH 10 AR 0 MA MG CY TA OF BL ET CY NT HI AN A LE 00 02 03 30 30 00 HO Ac VO 52 -0 -0 .0 00 ME ti TH 71 1 3- 06 TO ve YR 34 20 20 07 WN OX 10 17 17 91 IN 1 43 PH E AR 25 MA CY MC G OF TA BL CY ET NT HI AN A PO 62 01 02 52 30 00 HO Ac LY 17 -1 -1 7. 00 ME ti ET 50 3- 7- 06 TO ve HY 44 20 20 0 07 WN LE 23 17 17 94 NE 1 72 PH AR GL MA YC CY OL OF 33 50 CY NT PO HI WD AN A DI 51 01 02 90 30 00 HO Ac AZ 86 -1 -1 .0 00 ME ti EP 20 3 7- 00 04 TO ve AM 06 20 20 02 WN 41 17 17 09 10 0 52 PH AR MG MA CY TA BL OF ET CY NT HI AN A LI 68 01 02 90 [...] 53 -1 -1 .0 00 ME ti CO 63 6- 7- 00 06 TO ve N 33 20 20 07 WN D3 40 17 17 95 1 31 PH 1, AR 00 MA 0 CY UN IT OF TA CY BL NT ET HI AN A OM 46 01 02 60 30 00 HO Ac EP 12 -0 -1 .0 00 ME ti RA 20 9- 0- 00 06 TO ve ZO 02 20 20 07 WN LE 90 17 17 91 4 35 PH AR MA 20 CY MG OF TA CY BL NT ET HI AN A QU 60 01 02 [...] BL ET CY NT HI AN A GA 45 01 02 90 30 00 HO Ac BA 96 -0 -0 .0 00 ME ti PE 30 3- 3- 00 06 TO ve NT 55 20 20 07 WN IN 75 17 17 37 0 39 PH 40 AR 0 MA MG CY CA OF PS UL CY E NT HI AN A DU 47 01 02 30 30 00 HO Ac LO 33 -0 -0 .0 00 ME ti XE 50 3- 3- 00 06 TO ve TI 38 20 20 07 WN NE 31 17 17 37 8 42 PH HC AR L MA DR CY 60 OF MG CY NT CA HI P AN A TO 68 01 02 30 30 00 HO Ac PI 46 -0 -0 .0 00 ME ti RA 20 3- 3- 00 06 TO ve MA 10 20 20 07 WN TE 96 17 17 37 0 38 PH 10 AR 0 MA MG CY TA OF BL ET CY NT HI AN A ME 68 01 02 30 30 00 HO Ac TO 00 -0 -0 .0 00 ME ti ND 10 3- 3- 00 06 TO ve [...] ET NT HI AN A LI 68 01 02 30 30 00 HO Ac SI 18 -0 -0 .0 00 ME ti NO 00 3- 3- 00 06 TO ve ND 51 20 20 07 WN IL 80 [...] 88 1 11 PH FU AR MA ADELINE RA CY TE OF 50 CY MG NT HI TA AN B A ND 68 12 01 20 5 00 HO [...] OF ET CY NT HI AN A DI 00 12 01 20 10 00 HO Ac PH 18 -0 -1 .0 00 ME ti EN 50 8- 3- 00 06 TO ve HY 64 [address] 81 16 17 71 AM 0 92 PH IN AR E MA 25 CY MG OF CA CY PS NT UL HI E AN A AZ 68 12 01 6. 5 00 HO Ac IT 18 -0 -1 00 00 ME ti HR 00 8- 3- 0 06 TO ve OM 16 20 20 07 WN YC 01 16 17 71 IN 3 93 PH AR 25 MA 0 CY MG OF TA BL CY ET NT HI AN A ND 59 12 01 10 5 00 HO Ac ED 74 -0 -1 .0 00 ME ti NI 60 8- 3- 00 06 TO ve SO 17 20 20 07 WN NE 50 16 17 71 9 94 PH 20 AR MA MG CY TA OF BL ET CY NT HI AN A ND 00 12 01 20 10 00 HO Ac OM 60 -0 -1 0. 00 ME ti ET 31 8- 3- 00 04 TO ve GARCIA 58 20 20 0 02 WN ZI 55 16 17 05 NE 8 76 PH -C AR OD MA EI CY NE OF SY RU CY P NT HI AN A ME 68 12 01 30 30 00 HO Ac TO 00 -0 -0 .0 00 ME ti ND 10 5- 9- 00 06 TO ve OL 11 20 20 07 WN OL 90 16 17 37 0 36 PH [place] AR CC MA CY ER OF 10 0 CY MG NT HI TA AN B A ND 68 12 01 20 5 00 HO Ac OM 38 -0 -0 .0 00 ME ti ET 20 5- 9- 00 06 TO ve GARCIA 04 20 20 07 WN ZI 00 16 17 68 NE 1 43 PH AR 12 MA .5 CY MG OF TA CY BL NT ET HI AN A GA 45 12 01 90 30 00 HO Ac BA 96 -0 -0 .0 00 ME ti PE 30 5- 9- 00 06 TO ve NT 55 20 20 07 WN IN 75 16 17 37 0 39 PH 40 AR 0 MA MG CY CA OF PS UL CY E NT HI AN A QU 60 12 01 30 30 00 HO Ac ET 50 -0 -0 .0 00 ME ti IA 53 5- 9- 00 06 TO ve PI 13 20 20 07 WN NE 20 16 17 49 1 25 PH FU AR MA MA RA CY TE OF 50 CY MG NT HI TA AN B A TO 68 12 30 30 00 HO Ac PI 46 -0 -0 .0 00 ME ti RA 20 5- 9- 00 06 TO ve MA 10 20 20 07 WN TE 96 16 17 37 0 38 PH 10 AR 0 MA MG CY TA OF BL ET CY NT HI AN A LI 68 12 30 30 00 HO Ac SI 18 -0 -0 .0 00 ME ti NO 00 5- 9- 00 06 TO ve ND 51 20 20 07 WN IL 80 16 17 37 -H [address] AR Z MA 10 CY -1 2. OF 5 MG CY NT TA HI B AN A LE 00 12 30 30 00 HO Ac VO 52 -0 -0 .0 00 ME ti TH 71 5- 9- 00 06 TO ve YR 34 20 20 07 WN OX 10 16 17 37 IN 1 43 PH E AR 25 MA CY MC G OF TA BL CY ET NT HI AN A DU 47 12 30 30 00 HO Ac LO 33 -0 -0 .0 00 ME ti XE 50 5- 9- 00 06 TO ve TI 38 20 20 07 WN NE 31 16 17 37 8 42 PH HC AR L MA DR CY 60 OF MG CY NT CA HI P AN A 00 02 04 00 60 20 CL 16 No Ac 55 -2 -0 .0 IN 57 t ti 50 7- 7- 00 IC 51 Av ve 58 20 20 ai 50 08 08 PH la 2 AR bl MA e CY 53 02 04 00 90 30 CL 16 No Ac 74 -2 -0 .0 IN 57 t ti 60 7- 7- 00 IC 50 Av ve 13 20 20 ai 70 08 08 PH la 5 AR bl MA e CY AL 59 02 03 00 90 30 CL 16 No Ac ND 76 -0 -2 .0 IN 44 t ti AZ 23 8- 6- 00 IC 53 Av ve OL 72 20 20 ai AM 00 08 08 PH la 3 AR bl 0. MA e 5 CY MG TA BL ET ND 68 02 03 00 15 2 CL [...] MG CA PS UL E AL 59 01 03 00 90 30 CL 16 No Ac ND 76 -0 -2 .0 IN 20 t ti AZ 23 4- 4- 00 IC 38 Av ve OL 72 20 20 ai AM 00 08 08 PH la 3 AR bl 0. MA e 5 CY MG TA BL ET Immunization Name Date Rout CVX Reac Dose Comm Prov Is Faci e tion ent ider Refu lity Give sed n TDAP 04- 115 GAIN No HMH 1-20 EY PHYS VACC 16 LAURENCE ICIA INE NS 7 GROU YRS/ P > IM Procedures Procedure DOS Code Location Performer Comment DRUG TEST 50285 [facility] PRSMV [facility] QUAL DIR INC INC OPTICAL OBS PER DAY DRUG TEST G0480 [facility] DEFINITV [address] [facility] [address] ID INC INC METH P DAY 1-7 DRUG CL DRUG TEST G0480 [facility] DEFINITV [address] [facility] [address] ID INC INC METH P DAY 1-7 [place] [address] [facility] FREE 7 [facility] THYROXINE INC INC BLOOD 81089 [facility] COUNT 7 [facility] COMPLETE INC INC AUTO&[place] [address] [facility] THYROID 7 [facility] STIMULATI INC INC NG HORMONE TSH DRUG TEST 94118 [facility] PRSMV 7 [facility] INSTRMNT INC INC CHEMISTRY ANALYZERS COMPREHEN 38545 [facility] SIVE 7 [facility] METABOLIC INC INC PANEL 25 53184 [facility] HYDROXY 7 [facility] INCLUDES INC INC FRACTIONS IF PERFORMED RADIOLOGI 69021 [facility] C EXAM 6 [facility] CHEST 2 INC INC VIEWS FRONTAL&L ATERAL INJECTION J0696 [facility] GUZMAN RAMSEY 6 PHYSICIAN CEFTRIAXO S GROUP NE SODIUM PER 250 MG INJECTION J1040 [facility] [place] 6 PHYSICIAN METHYLPRE S GROUP DNISOLONE ACETATE 80 MG THERAPEUT 13892 [facility] [place] IC 6 PHYSICIAN PROPHYLAC S GROUP TIC/DX INJECTION SUBQ/[place] [address] [facility] [place] SCALF ABDOMEN & 6 RADIOLOGY PELVIS W/O CONTRAST MATERIAL ANES 12365 [facility] A[facility] LOWER 6 ANESTHESI INTESTINE A GROUP PS ENDOSCOPY DISTAL DUODENUM IMMUNOASS 15611 [facility] AY 6 [facility] ANALYTE INC INC QUAL/SEMI QUAL MULTIPLE STEP COMPREHEN 32609 [facility] SIVE 6 [facility] METABOLIC INC INC PANEL BLOOD 39417 [facility] COUNT 6 [facility] COMPLETE INC INC AUTO&[place] [address] [facility] THYROID 6 [facility] STIMULATI INC INC NG HORMONE TSH FLUORESCE 27651 [facility] NT 6 [facility] NONNFCT INC INC AGT ANTB SCREEN EA ANTIBODY RADEX 98968 [facility] [place] NI ABDOMEN 1 6 RADIOLOGY [place] ANTEROPOS TERIOR VIEW DRUG TST G0477 [facility] PRESUMP;C 6 [facility] PBL BEING [place] [address] [place] [facility] ABDOMEN & 6 MEDICAL PELVIS IMAGING W/[place] [address] [facility] ABDOMEN & 6 N II LAYO PELVIS RADIOLOGY W/CONTRAS GROUP P T MATERIAL HI OSM Q9963 [facility] CONTRST 6 REGIONAL REGIONAL MAT MEDICAL MEDICAL [phone] [facility] MG/ML IODINE CONC ML LOCM Q9967 ROB RIVAS [phone] REGIONAL REGIONAL MG/ML MEDICAL MEDICAL IODINE [facility]ENT[place] [address] [facility] [place] SURG 6 [facility] PATHOLOGY GROSS&LAURENCE ROSCOPIC EXAM COLONOSCO 21487 [facility] PY 6 [facility] W/BIOPSY INC INC SINGLE/MU LTIPLE UNCLASSIF J3490 [facility] IED DRUGS 6 [facility] INC INC ANES 21828 [facility] LOWER 6 ANESTH INTESTINE OF THE BLUE ENDOSCOPY DISTAL DUODENUM UNCLASSIF J3490 [facility] IED DRUGS 6 [place] [address] [facility] AMYLASE 6 [facility] INC INC INJECTION J2405 [facility] 6 [facility] ONDANSETR INC INC ON HCL PER 1 MG COMPREHEN 71865 [facility] SIVE 6 [facility] [address] [facility] LIPASE 6 [facility] INC INC THERAPEUT 12560 [facility] IC 6 [facility] INJECTION INC INC IV PUSH EACH NEW DRUG BLOOD 95086 [facility] COUNT 6 [facility] COMPLETE INC INC AUTO&AUTO DIFRNTL WBC DRUG TST G0477 [facility] PRESUMP;C 6 [facility] PBL BEING INC INC READ DC OPT OBV ONLY THER 38746 [facility] MAG[facility]ON PROPH/DX 6 [facility] NJX IV INC INC PUSH SINGLE/1S T SBST/DRUG CHIROPRAC 90366 [facility] TIC 6 FRED FRED MANIPULAT HORACIO TX SPINAL 1-2 REGIONS CHIROPRAC 49290 [place] TIC 6 FRED FRED MANIPULAT HORACIO TX SPINAL 1-2 REGIONS CHIROPRAC 47949 [facility] TIC 6 FRED FRED MANIPULAT HORACIO TX SPINAL 1-2 REGIONS CHIROPRAC 56461 [facility] TIC 6 FRED FRED MANIPULAT HORACIO TX SPINAL 1-2 REGIONS CHIROPRAC 91770 [place] TIC 6 FRED FRED MANIPULAT HORACIO TX SPINAL 1-2 REGIONS CHIROPRAC 23409 [place] TIC 6 FRED FRED MANIPULAT HORACIO TX SPINAL 1-2 REGIONS ECG 59444 LORA BEDOYA JR ROUTINE 6 [facility] W/LEAST P 12 LDS I&[place] [address] [place] [facility] ALL ABDOMEN & 6 MEDICAL PELVIS IMAGING W/O ASS CONTRAST MATERIAL DETERMINA 53601 [facility]FFIN [facility] 6 GRE GRE REFRACTIV E STATE OPHTH 96109 [facility] GRE GRE XM&EVAL COMPRE NEW PT 1/> VST IM ADM 96085 [facility] PRQ ID 6 PHYSICIAN LAURENCE SUBQ/IM S GROUP NJXS 1 VACCINE TDAP 66116 [facility] VACCINE 7 6 PHYSICIAN LAURENCE YRS/> IM S GROUP CHIROPRAC 75734 [facility] TIC 6 FRED FRED MANIPULAT HORACIO TX SPINAL 1-2 REGIONS CHIROPRAC 90373 [facility] TIC 6 FRED FRED MANIPULAT HORACIO TX SPINAL 1-2 REGIONS UNCLASSIF [id number] [facility] IED DRUGS 6 [place] [address] [facility] INFUSION 6 [facility] THERAPY/P INC INC ROPHYLAXI S /DX 1ST TO 1 HR MRI BRAIN 19815 [facility] BRAIN 6 [facility] STEM W/O INC INC CONTRAST MATERIAL INJECTION [id number] [facility] PRICE 6 PHYSICIAN LAURENCE KETOROLAC S GROUP TROMETHAM INE PER 15 MG INJECTION J1040 [facility] PRICE 6 PHYSICIAN LAURENCE METHYLPRE S GROUP DNISOLONE ACETATE [address] [facility] [address] [facility] TIC 6 FRED FRED MANIPULAT HORACIO TX SPINAL 1-2 REGIONS INJECTION J2550 [facility] PRICE 6 PHYSICIAN LAURENCE PROMETHAZ S GROUP INE HCL UP TO 50 MG THERAPEUT 03560 [facility] IC 6 PHYSICIAN LAURENCE PROPHYLAC S GROUP TIC/DX INJECTION SUBQ/IM THERAPEUT 34078 [facility] IC 6 [facility] PROPHYLAC INC INC TIC/DX INJECTION SUBQ/IM UNCLASSIF [id number] [facility] IED DRUGS 6 [facility] INC INC INJECTION J1885 [facility] PRICE 6 PHYSICIAN LAURENCE KETOROLAC S GROUP TROMETHAM INE PER 15 MG INJECTION J2550 [facility] PRICE 6 PHYSICIAN LAURENCE PROMETHAZ S GROUP INE HCL UP TO 50 MG THERAPEUT 27397 [facility] PRICE IC 6 PHYSICIAN LAURENCE PROPHYLAC S GROUP TIC/DX INJECTION SUBQ/IM THERAPEUT 39570 [facility] [facility] TRISTEN IC 6 PHYSICIAN STONE PROPHYLAC S GROUP PA-C ROXY TIC/DX INJECTION SUBQ/IM INJECTION J2550 [facility] RAMON 6 PHYSICIAN STONE PROMETHAZ S GROUP PA-C ROXY INE HCL UP TO 50 MG CHIROPRAC 46335 WILLIAM THOMAS TIC 6 FRED FRED MANIPULAT HORACIO TX SPINAL 1-2 REGIONS INJECTION J1040 [facility] TRISTEN 6 PHYSICIAN STONE METHYLPRE S GROUP PA-C ROXY DNISOLONE ACETATE 80 MG INJECTION J1885 [facility] TRISTEN 6 PHYSICIAN STONE KETOROLAC S GROUP PA-C ROXY TROMETHAM INE PER 15 MG INJECTION J1200 [facility] TRISTEN 6 PHYSICIAN STONE DIPHENHYD S GROUP PA-C ROXY RAMINE HCL UP TO 50 MG INJECTION J1200 [facility] PRICE 6 PHYSICIAN LAURENCE DIPHENHYD S GROUP RAMINE HCL UP TO 50 MG INJECTION J1885 [facility] PRICE 6 PHYSICIAN LAURENCE KETOROLAC S GROUP TROMETHAM INE PER 15 MG INJECTION J2550 [facility] PRICE 6 PHYSICIAN LAURENCE PROMETHAZ S GROUP INE HCL UP TO 50 MG THERAPEUT 36201 [facility] PRICE IC 6 PHYSICIAN LAURENCE PROPHYLAC S GROUP TIC/DX INJECTION SUBQ/IM CHIROPRAC 72790 WILLIAM THOMAS TIC 6 FRED FRED MANIPULAT HORACIO TX SPINAL 1-2 REGIONS INJECTION J1885 [facility] PRICE 6 PHYSICIAN LAURENCE KETOROLAC S GROUP TROMETHAM INE PER 15 MG THERAPEUT 52482 [facility] PRICE IC 6 PHYSICIAN LAURENCE PROPHYLAC S GROUP TIC/DX INJECTION SUBQ/IM THERAPEUT 77899 [facility] JOSE MCCORMICK IC 6 PHYSICIAN PROPHYLAC S GROUP TIC/DX INJECTION SUBQ/IM INJECTION J1040 [facility] JOSE MCCORMICK 6 PHYSICIAN METHYLPRE S GROUP DNISOLONE ACETATE 80 MG INJECTION J1885 [facility] PRICE 6 PHYSICIAN LAURENCE KETOROLAC S GROUP TROMETHAM INE PER 15 MG THERAPEUT 75856 [facility] PRICE IC 6 PHYSICIAN LAURENCE PROPHYLAC S GROUP TIC/DX INJECTION SUBQ/IM CHIROPRAC 20941 [facility] TIC 6 FRED FRED MANIPULAT HORACIO TX SPINAL 1-2 REGIONS RADIOLOGI 13100 [facility] Doherty EXAM 5 [facility] KNEE INC INC COMPLETE 4/MORE VIEWS INJECTION J1885 [facility] PRICE 5 PHYSICIAN LAURENCE KETOROLAC S GROUP TROMETHAM INE PER 15 MG THERAPEUT 02118 [facility] PRICE IC 5 PHYSICIAN LAURENCE PROPHYLAC S GROUP TIC/DX INJECTION SUBQ/IM CHIROPRAC 99014 [facility] TIC 5 FRED FRED MANIPULAT HORACIO TX SPINAL 1-2 REGIONS CHIROPRA 98897 [facility] [place] TIC 5 FRED FRED MANIPULAT HORACIO TX SPINAL 1-2 REGIONS CHIROPRA 33432 [facility] [place] TIC 5 FRED FRED MANIPULAT HORACIO TX SPINAL 1-2 REGIONS CHIROPRAC 29944 [facility] [place] TIC 5 FRED FRED MANIPULAT HORACIO TX SPINAL 1-2 REGIONS CHIROPRA 62136 [facility] TIC 5 FRED FRED MANIPULAT HORACIO TX SPINAL 1-2 REGIONS CHIROPRAC 74693 [facility] TIC 5 FRED FRED MANIPULAT HORACIO TX SPINAL 3-4 REGIONS CHIROPRA 84450 [facility] TIC 5 FRED FRED MANIPULAT HORACIO TX SPINAL 3-4 REGIONS CHIROPRAC 74604 [place] TIC 5 FRED FRED MANIPULAT HORACIO TX SPINAL 3-4 REGIONS CHIROPRAC 11329 [place] TIC 5 FRED FRED MANIPULAT HORACIO TX SPINAL 3-4 REGIONS APPL 67608 [facility] MODALITY 5 FRED FRDE 1/> AREAS TRACTION MECHANICA L THERAPEUT 05012 [facility] IC PX 1/> 5 FRED FRED AREAS EACH 15 MIN EXERCISES THERAPEUT 96880 [facility] [place] IC PX 1/> 5 FRED FRED AREAS EACH 15 MIN EXERCISES APPL 55486 [facility] MODALITY 5 FRED FRED 1/> AREAS TRACTION MECHANICA L CHIROPRAC 97082 [place] TIC 5 FRED FRED MANIPULAT HORACIO TX SPINAL 3-4 REGIONS COLLECTIO 45590 L[facility]A PAULINO N VENOUS 5 [facility] BLOOD INC INC VENIPUNCT URE INJECTION J1885 [facility] PRICE 5 PHYSICIAN LAURENCE KETOROLAC S GROUP TROMETHAM INE PER 15 MG THERAPEUT 60339 [facility] PRICE IC 5 PHYSICIAN LAURENCE PROPHYLAC S GROUP TIC/DX INJECTION SUBQ/IM APPL 95917 [facility] MODALITY 5 FRED FRED 1/> AREAS TRACTION MECHANICA L THERAPEUT 07261 [facility] IC PX 1/> 5 FRED FRED AREAS EACH 15 MIN EXERCISES POTASSIUM 04593 [facility] PA[facility]INO SERUM 5 [facility] PLASMA/WH INC INC OLE BLOOD THERAPEUT 67999 [facility] [place] IC PX 1/> 5 FRED FRED AREAS EACH 15 MIN EXERCISES CHIROPRAC 89125 [place] TIC 5 FRED FRED MANIPULAT HORACIO TX SPINAL 3-4 REGIONS APPL 50319 [place] MODALITY 5 FRED FRED 1/> AREAS TRACTION MECHANICA L APPL 25959 [place] MODALITY 5 FRED FRED 1/> AREAS TRACTION MECHANICA L CHIROPRAC 35199 [place] TIC 5 FRED FRED MANIPULAT HORACIO TX SPINAL 3-4 REGIONS COMPREHEN 71399 [facility] SIVE 5 [facility] METABOLIC INC INC PANEL HEMOGLOBI 50214 [facility] N 5 [facility] GLYCOSYLA INC INC MEENA A1C LIPID 98607 [facility] PA[facility] PANEL 5 [facility] INC INC THERAPEUT 77065 [facility] IC PX 1/> 5 FRED FRED AREAS EACH 15 MIN EXERCISES BLOOD 78233 [facility] PA[facility] COUNT 5 [facility] COMPLETE INC INC AUTO&AUTO DIFRNTL WBC THERAPEUT 19271 [facility] IC PX 1/> 5 FRED FRED AREAS EACH 15 MIN EXERCISES CHIROPRAC 79078 [place] TIC 5 FRED FRED MANIPULAT HORACIO TX SPINAL 3-4 REGIONS APPL 66245 [place] MODALITY 5 FRED FRED 1/> AREAS TRACTION MECHANICA L APPL 26328 [place] MODALITY 5 FRED FRED 1/> AREAS TRACTION MECHANICA L CHIROPRAC 18990 [place] TIC 5 FRED FRED MANIPULAT HORACIO TX SPINAL 3-4 REGIONS THERAPEUT 52057 [facility] IC PX 1/> 5 FRED FRED AREAS EACH 15 MIN EXERCISES THERAPEUT 68599 [place] IC PX 1/> 5 FRED FRED AREAS EACH 15 MIN EXERCISES APPL 12751 [place] MODALITY 5 FRED FRED 1/> AREAS TRACTION MECHANICA L APPL 62567 [place] MODALITY 5 FRED FRED 1/> AREAS TRACTION MECHANICA L THERAPEUT 19347 [facility] IC PX 1/> 5 FRED FRED AREAS EACH 15 MIN EXERCISES THERAPEUT 76588 [facility] IC PX 1/> 5 FRED FRED AREAS EACH 15 MIN EXERCISES APPL 26360 [place] MODALITY 5 FRED FRED 1/> AREAS TRACTION MECHANICA L CHIROPRAC 09351 [place] TIC 5 FRED FRED MANIPULAT HORACIO TX SPINAL 3-4 REGIONS CHIROPRAC 97028 [place] TIC 5 FRED FRED MANIPULAT HORACIO TX SPINAL 3-4 REGIONS CHIROPRAC 25043 [place] TIC 5 FRED FRED MANIPULAT HORACIO TX SPINAL 3-4 REGIONS CHIROPRAC 10997 [place] TIC 5 FRED FRED MANIPULAT HORACIO TX SPINAL 3-4 REGIONS CHIROPRAC 73879 [place] TIC 5 FRED FRED MANIPULAT HORACIO TX SPINAL 3-4 REGIONS CHIROPRAC 31430 [place] TIC 5 FRED FRED MANIPULAT HORACIO TX SPINAL 3-4 REGIONS APPL 84502 [facility] MODALITY 5 FRED FRED 1/> AREAS TRACTION MECHANICA L THERAPEUT 35491 [facility] IC PX 1/> 5 FRED FRED AREAS EACH 15 MIN EXERCISES THERAPEUT 10078 [place] IC PX 1/> 5 FRED FRED AREAS EACH 15 MIN EXERCISES APPL 96252 [place] MODALITY 5 FRED FRED 1/> AREAS TRACTION MECHANICA L CHIROPRAC 73652 [place] TIC 5 FRED FRED MANIPULAT HORACIO TX SPINAL 3-4 REGIONS CHIROPRAC 17808 [place] TIC 5 FRED FRED MANIPULAT HORACIO TX SPINAL 3-4 REGIONS APPL 93831 [facility] MODALITY 5 FRED FRED 1/> AREAS TRACTION MECHANICA L THERAPEUT 55445 [facility] [place] IC PX 1/> 5 FRED FRED AREAS EACH 15 MIN EXERCISES THERAPEUT 06678 [place] IC PX 1/> 5 FRED FRED AREAS EACH 15 MIN EXERCISES APPL 67331 [place] MODALITY 5 FRED FRED 1/> AREAS TRACTION MECHANICA L CHIROPRAC 48273 [place] TIC 5 FRED FRED MANIPULAT HORACIO TX SPINAL 3-4 REGIONS CHIROPRAC 52830 [place] TIC 5 FRED FRED MANIPULAT HORACIO TX SPINAL 3-4 REGIONS APPL 52471 [facility] MODALITY 5 FRED FRED 1/> AREAS TRACTION MECHANICA L THERAPEUT 84408 [facility] [place] IC PX 1/> 5 FRED FRED AREAS EACH 15 MIN EXERCISES THERAPEUT 92146 [facility] IC PX 1/> 5 FRED FRED AREAS EACH 15 MIN EXERCISES APPL 45589 [facility] MODALITY 5 FRED FRED 1/> AREAS TRACTION MECHANICA L CHIROPRAC 37562 [place] TIC 5 FRED FRED MANIPULAT HORACIO TX SPINAL 3-4 REGIONS CHIROPRAC 69961 [place] TIC 5 FRED FRED MANIPULAT HORACIO TX SPINAL 3-4 REGIONS APPL 67873 [facility] MODALITY 5 FRED FRED 1/> AREAS TRACTION MECHANICA L THERAPEUT 76597 [facility] [place] IC PX 1/> 5 FRED FRED AREAS EACH 15 MIN EXERCISES THERAPEUT 96040 [facility] IC PX 1/> 5 FRED FRED AREAS EACH 15 MIN EXERCISES APPL 66811 [facility] MODALITY 5 FRED FRED 1/> AREAS TRACTION MECHANICA L CHIROPRAC 82551 [facility] TIC 5 FRED FRED MANIPULAT HORACIO TX SPINAL 3-4 REGIONS BASIC 89341 [facility] PAULINO METABOLIC 5 [facility] PANEL INC INC CALCIUM TOTAL CHIROPRAC 41186 [facility] TIC 5 FRED FRED MANIPULAT HORACIO TX SPINAL 3-4 REGIONS APPL 94920 [facility] [place] MODALITY 5 FRED FRED 1/> AREAS TRACTION MECHANICA L THERAPEUT 50614 [facility] [place] IC PX 1/> 5 FRED FRED AREAS EACH 15 MIN EXERCISES THERAPEUT 36537 [facility] [place] IC PX 1/> 5 FRED FRED AREAS EACH 15 MIN EXERCISES APPL 65031 [facility] MODALITY 5 FRED FRED 1/> AREAS TRACTION MECHANICA L CHIROPRAC 77268 [place] TIC 5 FRED FRED MANIPULAT HORACIO TX SPINAL 3-4 REGIONS RADEX 10632 [facility] SPINE 5 FRED FRED CERVICAL 2 OR 3 VIEWS INJECTION J1885 [facility] PRICE 5 PHYSICIAN LAURENCE KETOROLAC S GROUP TROMETHAM INE PER 15 MG THERAPEUT 66601 [facility]IC[facility] LAURENCE PROPHYLAC S GROUP TIC/DX INJECTION SUBQ/IM RADIOLOGI 81536 [place] [facility] MEDICAL MAUREEN EXAMINATI IMAGING ON KNEE 3 ASS VIEWS KNEE L1830 [facility] 5 TECHNOLOG TECHNOLOG IMMOBLIZE IES INC IES INC R CANVAS LONGTUDNL PREFAB CYTP C/V 66163 [facility], PICKLESIM [facility]O [facility] 5 [facility] ER JR JOSSELINE LYR [place] [address] [facility] PA[facility]INO FREE [facility] [place] [address] [facility] PA[facility]INO THYROID 5 [facility] STIMULATI INC INC NG HORMONE TSH BLOOD 19014 [facility]ULT 5 PHYSICIAN PHYSICIAN PEROXIDAS S GROUP S GROUP E ACTV QUAL FECES 1-3 SPEC HEMOGLOBI 19347 [facility] N 5 [facility] GLYCOSYLA INC INC MEENA A1C BASIC 49148 [facility] METABOLIC [facility] PANEL INC INC CALCIUM TOTAL THERAPEUT 47524 [facility] PRICE IC 5 PHYSICIAN LAURENCE PROPHYLAC S GROUP TIC/DX INJECTION SUBQ/IM INJECTION J1100 [facility] PRICE 5 PHYSICIAN LAURENCE DEXAMETHO S GROUP SONE SODIUM PHOSPHATE 1 MG 25 10680 [facility] PA[facility] HYDROXY 5 [facility] INCLUDES INC INC FRACTIONS IF PERFORMED COMPREHEN 10292 [facility] SIVE 5 [facility] METABOLIC INC INC PANEL COLLECTIO 41199 L[facility] PA[facility] N VENOUS 5 [facility] BLOOD INC INC VENIPUNCT URE RADIOLOGI 62505 [facility] Doherty EXAM [facility] CHEST 2 INC INC VIEWS FRONTAL&[place] [address] [facility] PA[facility] THYROID 5 [facility] STIMULAT[place] [address] [facility] PA[facility] FREE 5 [facility] THYROXINE INC INC BLOOD 11267 [facility] COUNT 5 [facility] COMPLETE INC INC AUTO&AUTO DIFRNTL WBC HEPATITIS 00130 [facility] C 5 [facility] ANTIBODY INC INC HEPATITIS 50649 L[facility] B CORE 5 [facility] ANTIBODY INC INC HBCAB TOTAL HEPATITIS 18400 [facility] Stringer SURF 5 [facility] [address] L[facility] PA[facility] HEPATITIS 5 [facility] B INC INC SURFACE ANTIGEN HEPATITIS 96590 [facility] A 5 [facility] ANTIBODY INC INC HAAB RADEX ABD 33231 [place] CECILIA COMPL 5 MEDICAL DENNIS AQT ABD IMAGING W/S/E/D ASS VIEWS 1 VIEW CH IAADIADOO 60868 [facility] FRYMAN 5 PHYSICIAN EUG INFLUENZA S GROUP INJECTION J1040 [facility] PRICE 4 PHYSICIAN LAURENCE METHYLPRE S GROUP DNISOLONE ACETATE 80 MG THERAPEUT 52120 [facility] IC 4 PHYSICIAN PHYSICIAN PROPHYLAC S GROUP S GROUP TIC/DX INJECTION SUBQ/IM ECHO 11883 [facility] PA[facility]INO TTHRC R-T 4 [facility] 2D INC INC W/WOM-MOD E COMPL SPEC&COLR D NJX 16819 [facility] KEMP DX/THER 4 BECK BECK SBST EPIDURAL/ SUBARACH LUMBAR/SA CRAL FLUOR 67923 [facility] KEMP NEEDLE/CA 4 BECK BECK TH SPINE/PAR ASPINAL DX/THER ADDON MRI 93187 DUKE TRA DUKE TRA SPINAL 4 CANAL LUMBAR W/O CONTRAST MATERIAL INJECTION J2270 [address] SULFATE UP TO 10 MG URNLS DIP [address] STICK/[place] [address] THERAPY/P ROPHYLAXI S /DX 1ST TO 1 HR THER 78554 [facility] PROPH/DX [address] [place] [address] NJX EA SEQL IV PUSH SBST/DRUG FAC BASIC [address] PANEL CALCIUM TOTAL INJECTION J1100 [address] DEXAMETHO SONE SODIUM PHOSPHATE 1 MG INJECTION J[address] METHOCARB JORGE UP TO 10 ML INJECTION J2405 [address] ONDANSETR ON HCL PER 1 MG INJECTION J2550 [address] PROMETHAZ INE HCL UP TO 50 MG THERAPEUT [address] INJECTION IV PUSH EACH NEW DRUG BLOOD [address] COMPLETE AUTOMATED RADEX 36753 CEC[facility] CECILIA SPINE 4 DENNIS DENNIS LUMBOSACR AL MINIMUM 4 VIEWS RADEX HIP 69701 CECILIA CECILIA 4 DENNIS DENNIS UNILATERA L 1 VIEW Encounters Encounter Start End Date Code Location Performer Type Date [facility] 7 7 [facility] OUTPATIEN [facility] T OFFICE 87453 WILLIAM THOMAS OUTPATIEN 7 7 T VISIT 15 MINUTES [facility] - 7 7 [facility] OUTPATIEN [facility] - 6 6 [facility] T OFFICE 22074 [facility] STONE ROXY OUTPATIEN 6 6 PHYSICIAN T VISIT S GROUP 25 MINUTES OFFICE 98866 [facility] JUS OUTPATIEN 6 6 EROLOGY T VISIT AND 25 HEPATOL MINUTES [facility] - 6 6 [facility] 92433 GASTROENT CASE JUS OUTPATIEN 6 6 EROLOGY T NEW 45 AND [facility]UT[facility] N [facility]PATIEN [facility] - 6 6 [facility] T OFFICE 59787 [facility] MICHELLE JR OUTPATIEN 6 6 PHYSICIAN MAGO T VISIT S GROUP 10 MINUTES OFFICE 72232 ROB PHAN 6 6 DIGESTIVE CEC T VISIT CARE 15 CENTER MINUTES EMERGENCY 64552 MARCIA THRASHER 6 6 PHYSICIAN LAURENCE DEPARTMEN S, PLLC T VISIT MODERATE SEVERITY HOSPITAL ROB - 6 6 REGIONAL OUTPATIEN MEDICAL T CENTE OFFICE 75201 ROB MONSALVE OUTPATIEN 6 6 DIGESTIVE CEC T NEW 60 CARE MINUTES CENTER OFFICE 11205 [facility] STONE ROXY OUTPATIEN 6 6 PHYSICIAN T VISIT S GROUP 15 MINUTES [facility] - 6 6 [facility] OUTPATIEN [facility] T EMERGENCY 34574 [facility] 6 6 [facility] DEPARTMEN INC T VISIT HIGH/URGE NT SEVERITY [facility] - 6 6 [facility] OUTPATIEN INC T OFFICE 36854 [facility] MICHELLE JR OUTPATIEN 6 6 PHYSICIAN MAGO T NEW 30 S GROUP MINUTES OFFICE 93298 [facility] TRISTEN OUTPATIEN 6 6 PHYSICIAN STONE T VISIT S GROUP PA-C ROYX 15 MINUTES OFFICE 46422 [facility] RAMON OUTPATIEN 6 6 PHYSICIAN STONE T VISIT S GROUP PA-C ROXY 25 MINUTES OFFICE 77973 [facility] RAMON OUTPATIEN 6 6 PHYSICIAN STONE T VISIT S GROUP PA-C ROXY 15 MINUTES EMERGENCY 42244 MARCIA THRASHER DEPT 6 6 PHYSICIAN LAURENCE VISIT S, PLLC HIGH SEVERITY& THREAT FUNCJ EMERGENCY 42665 MARCIA RENUSCH DEPT 6 6 PHYSICIAN SUMMER VISIT S, PLLC HIGH SEVERITY& THREAT FUNCJ OFFICE 17524 [facility] PRICE OUTPATIEN 6 6 PHYSICIAN LAURENCE T VISIT S GROUP 25 MINUTES OFFICE 22148 SURY GILBERT CONSULTAT 6 6 N ION NEUROLOGY NEW/ESTAB PATIENT 60 MIN OFFICE 89482 [facility] PRICE OUTPATIEN 6 6 PHYSICIAN LAURENCE T VISIT S GROUP 10 MINUTES [facility] - 6 6 [facility] OUTPATIEN INC T [facility] - 6 6 [facility] OUTPATIEN INC T OFFICE 53720 [facility] PRICE OUTPATIEN 6 6 PHYSICIAN LAURENCE T VISIT S GROUP 10 MINUTES [facility]OSP[facility] - 6 6 [facility] OUTPATIEN INC T OFFICE 51678 [facility] PRICE OUTPATIEN 6 6 PHYSICIAN LAURENCE T VISIT S GROUP 15 MINUTES OFFICE 01207 [facility] RAMON OUTPATIEN 6 6 PHYSICIAN STONE T VISIT S GROUP PETE ROXY 15 MINUTES OFFICE 88087 [facility] RAMON OUTPATIEN 6 6 PHYSICIAN STONE T VISIT S GROUP PETE ROXY 10 MINUTES EMERGENCY 96233 MARCIA CESPEDES DEPT 6 6 PH[facility]IC[facility] V[facility]& THREAT FUNCJ OFFICE 80046 [facility] PRICE OUTPATIEN 6 6 PHYSICIAN LAURENCE T VISIT S GROUP 15 MINUTES OFFICE 03592 [facility] GARCIA TER OUTPATIEN 6 6 PHYSICIAN T VISIT S GROUP 15 MINUTES OFFICE 53585 [facility] PRICE OUTPATIEN 6 6 PHYSICIAN LAURENCE T VISIT S GROUP 15 MINUTES OFFICE 68817 [facility] OUTPATIEN 6 6 [facility] T VISIT INC 10 MINUTES [facility] - 6 6 [facility] OUTPATIEN INC T OFFICE 27397 ELLY TINY FRED OUTPATIEN 6 6 MD RHEA, T NEW 30 PSC MINUTES OFFICE 53237 WILLIAM THOMAS OUTPATIEN 6 6 FRED FRED T VISIT 15 MINUTES [facility] - 5 5 [facility] OUTPATIEN INC T OFFICE 95994 [facility] PRICE OUTPATIEN 5 5 PHYSICIAN LAURENCE T VISIT S GROUP 10 MINUTES OFFICE 46378 [facility] PRICE OUTPATIEN 5 5 PHYSICIAN LAURENCE T VISIT S GROUP 10 MINUTES OFFICE 89648 SPINE & GILBERT OUTPATIEN 5 5 BRAIN SYD T NEW 45 NEUROSURG MINUTES ICAL EMERGENCY 74315 MARCIA THRASHER 5 5 PHYSICIAN LAURENCE DEPARTMEN S, [facility] T VISIT HIGH/URGE NT SEVERITY OFFICE 41128 [facility] PRICE OUTPATIEN 5 5 PHYSICIAN LAURENCE T VISIT S GROUP 15 MINUTES [facility] OUTPATIEN INC T [facility] - 5 5 [facility] OUTPATIEN INC T OFFICE 89907 [facility] OUTPATIEN 5 5 FRED FRED T VISIT 15 MINUTES [facility] - 5 5 [facility] OUTPATIEN INC T OFFICE 83019 [facility] [place] OUTPATIEN 5 5 FRED FRED T NEW 30 MINUTES OFFICE 90751 [facility] PRICE OUTPATIEN 5 5 PHYSICIAN LAURENCE T VISIT S GROUP 15 MINUTES [facility] - 5 5 [facility]PAT[facility] INC T [facility]IODIC 11530 [facility] 5 PHYSICIAN LAURENCE E MED EST S GROUP PATIENT 40-64YRS OFFICE 16455 [facility] PRICE OUTPATIEN 5 5 PHYSICIAN LAURENCE T VISIT S GROUP 15 MINUTES [facility] - 5 5 [facility] OUTPATIEN INC T OFFICE 51912 [facility] RADHA OUTPATIEN 5 5 PHYSICIAN FRED T VISIT S GROUP 15 MINUTES OFFICE 55944 [facility] FRYMAN OUTPATIEN 5 5 PHYSICIAN EUG T VISIT S GROUP 15 MINUTES [facility] - 4 4 [facility] OUTPATIEN INC T OFFICE 61167 DUKE TRA DUKE TRA OUTPATIEN 4 4 T VISIT 15 MINUTES OFFICE 73043 [facility]KE TRA DUKE TRA OUTPATIEN 4 4 T VISIT 15 MIN[address]ES [address] [address] OUTPATIEN T EMERGENCY 50157 EDMUND SHAFFER DEPT 4 4 VLADIMIR VLADIMIR VISIT HIGH SEVERITY& THREAT FUNCJ EMERGENCY [address] DEPARTMEN T VISIT MODERATE SEVERITY OFFICE 90645 ILYA CARABALLO OUTPATIEN 4 4 THEODORE THEODORE T VISIT 15 MINUTES OFFICE 70149 ILYA CARABALLO OUTPATIEN 4 4 THEODORE THEODORE T VISIT 15 MINUTES OFFICE 53212 DUKE TRA SRIKANTH TRA CONSULTAT 4 4 ION NEW/ESTAB PATIENT 40 MIN
--- OUTSIDE RECORDS SUMMARY | 2017-05-19 19:34 | External Medical Summary Rpt ---
Author Author , RADHA GARCIA Address Unknown Phone [email or web address] Team Providers Care Washing Machine Assembler Name Role Phone [employer] Unavailable Unavailable [...] EDMUND GILBERT [facility] Unavailable Unavailable [facility] Unavailable Unavailable [facility], Unavailable Unavailable [facility], Unavailable Unavailable [facility] CECILIA DENNIS, Unavailable Unavailable CECILIA DENNIS CECILIA DENNIS, Unavailable Unavailable CECILIA DENNIS TRISTEN HINDS PA-C Unavailable Unavailable TRSITEN RAMSEY-C ROXY DUFF FRED, DUFF FRED Unavailable Unavailable FRYMAN EUG, FRYMAN Unavailable Unavailable EUG PRICE LAURENCE, PRICE Unavailable Unavailable LAURENCE [facility], Unavailable Unavailable [facility] GILBERT SYD, GILBERT Unavailable Unavailable SYD NI DAWSON, NI Unavailable Unavailable DAWSON [facility] Unavailable Unavailable INC, [facility] Unavailable Unavailable [facility]PITAL P, [facility], Unavailable Unavailable [facility] BELLO CEC, BELLO Unavailable Unavailable CEC DUKE TRA, DUKE TRA Unavailable Unavailable RADHA FRED, RADHA Unavailable Unavailable FRED KEDING, KEDING Unavailable Unavailable KEDING, KEDING Unavailable Unavailable KEDING FRED, KEDING Unavailable Unavailable FRED KED[place] FRED, KEDING Unavailable Unavailable FRED [facility] Un[facility] Unavailable GROUP PS, [facility] Un[facility] JUSTO SALAZAR Unavailable Unavailable [...] Unavailable Unavailable [facility], Unavailable Unavailable [facility] STONE ROXY, STONE ROXY Unavailable Unavailable [facility] WALKER FOR, WALKER Unavailable Unavailable FOR Purpose Continuity of Care Document - 02-03-2008 through 2016 Problems Code Diagnosis DOS Provider Status [id number] OTHER LONG 02-28-2017 [facility] CURRENT INC DRUG THERAPY M545 LOW BACK 12-21-2016 [place] PAIN E039 HYPOTHYROID 11-20-2016 [facility] UNSPECIFIED INC E559 VITAMIN D 11-20-2016 [facility] UNSPECIFIED INC R05 COUGH 10-19-2016 [facility] R1030 LOWER 10-04-2016 [facility] PAIN UNSPECIFIED R109 UNSPECIFIED 10-04-2016 [facility] PS R197 DIARRHEA 10-04-2016 [facility] UNSPECIFIED [facility]ESTHESIA GROUP PS R1032 LEFT LOWER 07-24-2016 [facility]IN GROUP K5909 OTHER 07-10-2016 [facility] N1330 UNSPECIFIED 06-30-2016 [facility]DRONE[facility] SIS N134 HYDROURETER 06-30-2016 [facility] N289 DISORDER OF 06-30-2016 [facility] U[facility]TER [facility] UNSPECIFIED N3000 ACUTE 06-30-2016 [facility] CYSTITIS [facility], WITHOUT PLLC HEMATURIA N390 URINARY 06-30-2016 [facility] TRACT [facility], INFECTION PLLC SITE NOT SPECIFIED R1031 RIGHT LOWER 06-30-2016 [facility] K529 NONINFECTIV 06-19-2016 [facility] ITIS & COLITIS UNS K635 POLYP OF 06-19-2016 [facility] E118 TYPE 2 05-06-2016 [facility] MELLITUS INC W/UNS COMPLICATIO NS E876 HYPOKALEMIA 05-06-2016 [facility], PLLC I10 ESSENTIAL 05-06-2016 [facility] HYPERTENSIO INC N R1012 LEFT UPPER 05-06-2016 [facility] PAIN PLLC Z720 TOBACCO USE 05-06-2016 [facility] INC M5416 RADICULOPAT 04-25-2016 WILLIAM IBARRA HY LUMBAR REGION R194 CHANGE IN 03-21-2016 [facility] PHYSICIANS GROUP [id number] PERSONAL 03-21-2016 [facility] HISTORY OF PHYSICIANS COLONIC GROUP POLYPS K219 GASTRO-ESOP 03-14-2016 [facility] P WITHOUT ESOPHAGITIS R1084 GENERALIZED 03-14-2016 [facility] K5792 DIVERTICULI 03-12-2016 [facility] TIS PART PHYSICIANS, UNS W/O PLLC PERF/ABSC W/O BLEED Z0100 ENCOUNTER 03-08-2016 [facility] EXAM EYES & GRE VISION W/O ABNORMAL FIND B370 CANDIDAL 02-21-2016 [facility] STOMATITIS PHYSICIANS GROUP Z23 ENCOUNTER 02-21-2016 [facility] FOR [facility]YSICIANS IMMUNIZATIO GROUP N M542 CERVICALGIA 02-16-2016 WILLIAM IBARRA R51 HEADACHE 02-02-2016 [facility] E97126 HEMIPLEGIC 01-05-2016 [facility] MIGRAINE PHYSICIANS INTRACT W/O GROUP STAT MIGRAINOSUS [id number] MIGRAINE 12-28-2015 [facility] NOT [facility] INTRACT W/O INC STATUS MIGRAINOSUS [id number] MIGRAINE 12-20-2015 [facility] W/O AURA PHYSICIANS, NOT INTRACT PLLC W/STAT MIGRAINOSUS I42827 PAIN IN 12-08-2015 [facility] RIGHT KNEE PHYSICIANS GROUP O68560 PAIN IN 12-08-2015 [facility] LEFT KNEE PHYSICIANS GROUP J0190 ACUTE 11-27-2015 [facility] SINUSITIS PHYSICIANS UNSPECIFIED GROUP R112 NAUSEA WITH 11-27-2015 [facility] VOMITING PHYSICIANS UNSPECIFIED GROUP M461 SACROILIITI 11-23-2015 Samantha ROLON NOT , PSC ELSEWHERE CLASSIFIED M5116 INTERVERTEB 11-23-2015 [facility] D/O INC W/RADICULOP ATHY LUMB RGN M5136 OT 11-23-2015 LACY ROLON MD, PSC RAL DISC DEGEN LUMBAR REGION M797 FIBROMYALGI 09-21-2015 [facility] A PHYSICIANS GROUP 7231 CERVICALGIA 07-01-2015 [place] FRED 7242 LUMBAGO 07-01-2015 [place] FRED 7246 DISORDERS 07-01-2015 WILLIAM IBARRA OF SACR[facility] 25608 DISPLCMT 06-28-2015 [facility] INTERVERT NEUROSURGIC DISC W/O AL MYELOPATHY 47790 DEGEN 06-28-2015 [facility] LUMBAR/LUMB BRAIN OSACRAL NEUROSURGIC INTERVERTEB AL RAL DISC 9532 INJURY TO 06-28-2015 [facility] [place] [address] ALTERED 05-23-2015 [facility] PHYSICIANS, STATUS PLLC 4019 UNSPECIFIED 05-17-2015 [facility] HYPERTENSIO INC N 44745 PAIN IN 05-17-2015 [facility] JOINT, PHYSICIANS LOWER LEG GROUP V5869 LONG-TERM 05-17-2015 [facility] (CURRENT[facility] USE OF INC OTHER MEDICATIONS 23984 OTHER 05-06-2015 [facility] ABNORMAL [facility] GLUCOSE INC 7243 SCIATICA 04-21-2015 WILLIAM FRED 9597 INJURY 02-23-2015 [facility] OTHER&UNSPE TECHNOLOGIE CIFIED KNEE S INC LEG ANKLE&FOOT 62634 UNSPECIFIED 02-11-2015 [facility] VAGINITIS PHYSICIANS AND GROUP VULVOVAGINI TIS V7231 ROUTINE 02-11-2015 [facility] AL EXAMINATION V7641 SCREENING 02-11-2015 [facility] FOR [facility]IANS MALIGNANT GROUP NEOPLASM OF THE RECTUM 4610 ACUTE 01-23-2015 [facility] MAXILLARY PHYSICIANS SINUSITIS GROUP 4659 ACUTE URIS 01-23-2015 [facility] OF PHYSICIANS UNSPECIFIED GROUP SITE 12773 ABDOMINAL 12-22-2014 [facility] [place], LEFT MEDICAL UPPER IMAGING ASS [facility] 09647 ABDOMINAL 12-22-2014 [place] [facility] LEFT UPPER IMAG[facility] ASS [facility] 4619 ACUTE 11-23-2014 [facility] SINUSITIS, PHYSICIANS UNSPECIFIED GROUP 99371 WHEEZING 11-23-2014 [facility] 7862 COUGH 11-23-2014 [facility] 4611 ACUTE 11-20-2014 [facility] FRONTAL PHYSICIANS SINUSITIS GROUP 4660 ACUTE 10-16-2014 [facility] BRONCHITIS PHYSICIANS GROUP 4240 MITRAL 10-02-2014 [facility] DISORDERS INC 7852 UNDIAGNOSED 10-02-2014 [facility] 7244 THORACIC/EM 05-20-[address] [facility]ERY NEURITIS/RA CENTER DICULITIS UNSPEC 17711 GENERALIZED 04-05-2014 [facility] ANXIETY [facility] DISORDER 7291 UNSPECIFIED 04-05-2014 [facility] MYALGIA [facility] 7245 UNSPECIFIED 04-04-2014 ILYA JAIMES BACKACHE 15489 PAIN IN 03-31-2014 [facility] JOINT PELVIC REGION AND THIGH 49097 SPINAL STEN 03-28-2014 [facility] LUMB REG DENNIS [...] 00 -1 -1 .0 00 ME ti NH 10 2- 6- 00 06 TO ve OL 11 20 20 08 WN OL 90 17 17 53 0 76 PH [place] AR CC MA CY ER OF 10 0 CY MG NT HI TA AN B A LI 68 05 06 30 30 00 HO Ac SI 18 -1 -1 .0 00 ME ti NO 00 2- 6- 00 06 TO ve NH 51 20 20 08 WN IL 80 [...] 00 -1 -1 .0 00 ME ti NH 10 0- 2- 00 06 TO ve OL 11 20 20 08 WN OL 90 17 17 47 0 04 PH [place] AR CC MA CY ER OF 10 0 CY MG NT HI TA AN B A LI 68 04 05 30 30 00 HO Ac SI 18 -1 -1 .0 00 ME ti NO 00 0- 2- 00 06 TO ve NH 51 20 20 08 WN IL 80 [...] ti NO 00 3- 06 TO ve NH 51 20 20 07 WN IL 80 [...] 00 -0 -0 .0 00 ME ti NH 10 3- 06 TO ve OL 11 [...] 00 -0 -0 .0 00 ME ti NH 10 3- 3- 00 06 TO ve [...] 00 3- 3- 00 06 TO ve NH 51 20 20 07 WN IL 80 [...] MG NT HI TA AN B A NH 68 12 01 20 5 00 HO [...] BL CY ET NT HI AN A NH 59 12 01 10 5 00 HO Ac ED 74 -0 -1 .0 00 ME ti NI 60 8- 3- 00 06 TO ve SO 17 20 20 07 WN NE 50 16 17 71 9 94 PH 20 AR MA MG CY TA OF BL ET CY NT HI AN A NH 00 12 01 20 10 00 HO [...] 00 -0 -0 .0 00 ME ti NH 10 5- 9- 00 06 TO ve OL 11 20 20 07 WN OL 90 16 17 37 0 36 PH [place] AR CC MA CY ER OF 10 0 CY MG NT HI TA AN B A NH 68 12 01 20 5 00 HO [...] 00 5- 9- 00 06 TO ve NH 51 20 20 07 WN IL 80 [...] 00 90 30 CL 16 No Ac NH 76 -0 -2 .0 IN 44 t ti AZ 23 8- 6- 00 IC 53 Av ve OL 72 20 20 ai AM 00 08 08 PH la 3 AR bl 0. MA e 5 CY MG TA BL ET NH 68 02 03 00 15 2 CL [...] 00 90 30 CL 16 No Ac NH 76 -0 -2 .0 IN 20 t [...] DOS Code Location Performer Comment DRUG TEST 78041 [facility] PRSMV [facility] QUAL DIR INC INC OPTICAL OBS PER DAY DRUG TEST G0480 [facility] DEFINITV [address] ID INC INC METH P DAY 1-7 DRUG CL DRUG TEST G0480 [facility] DEFINITV [address] ID INC INC METH P DAY 1-7 [place] [address] [facility] FREE 7 [facility] THYROXINE INC INC BLOOD 28532 [facility] COUNT 7 [facility] COMPLETE INC INC AUTO&[place] [address] [facility] THYROID 7 [facility] STIMULATI INC INC NG HORMONE TSH DRUG TEST 46704 [facility] PRSMV 7 [facility] INSTRMNT INC INC CHEMISTRY ANALYZERS COMPREHEN 90358 [facility] SIVE 7 [facility] METABOLIC INC INC PANEL 25 59959 [facility] HYDROXY 7 [facility] INCLUDES INC INC FRACTIONS IF PERFORMED RADIOLOGI 94279 [facility] C EXAM 6 [facility] CHEST 2 INC INC VIEWS FRONTAL&L ATERAL INJECTION J0696 [facility] GUZMAN RAMSEY 6 PHYSICIAN CEFTRIAXO S GROUP NE SODIUM PER 250 MG INJECTION J1040 [facility] STONE ROXY 6 PHYSICIAN METHYLPRE S GROUP DNISOLONE ACETATE 80 MG THERAPEUT 29767 [facility] IC 6 PHYSICIAN PROPHYLAC S GROUP TIC/DX INJECTION SUBQ/[place] [address] [facility] SCALF ABDOMEN & 6 RADIOLOGY PELVIS W/O CONTRAST MATERIAL ANES 02865 [facility] AARON LOWER 6 ANESTHESI INTESTINE A GROUP PS ENDOSCOPY DISTAL DUODENUM IMMUNOASS 19654 [facility] AY 6 [facility] ANALYTE INC INC QUAL/SEMI QUAL MULTIPLE STEP COMPREHEN 22661 [facility] SIVE 6 [facility] METABOLIC INC INC PANEL BLOOD 21164 [facility] COUNT 6 [facility] COMPLETE INC INC AUTO&[place] [address] [facility] THYROID 6 [facility] STIMULATI INC INC NG HORMONE TSH FLUORESCE 60298 [facility] NT 6 [facility] NONNFCT INC INC AGT ANTB SCREEN EA ANTIBODY RADEX 96172 [facility] [place] NI ABDOMEN 1 6 RADIOLOGY DAWSON ANTEROPOS TERIOR VIEW DRUG TST G0477 [facility] PRESUMP;C 6 [facility] PBL BEING [place] [address] [facility] ABD[facility] & 6 MEDICAL PELVIS IMAGING W/[place] [address] [facility] ABDOMEN & 6 N II LAYO PELVIS RADIOLOGY W/CONTRAS GROUP P T MATERIAL HI OSM Q9963 ROB RIVAS CONTRST 6 REGIONAL REGIONAL MAT MEDICAL MEDICAL [phone] [facility] MG/ML IODINE CONC ML LOCM Q9967 ROB RIVAS [phone] REGIONAL REGIONAL MG/ML MEDICAL MEDICAL IODINE CENTE [place] [address] [facility] 6 [facility] GROSS&LAURENCE ROSCOPIC EXAM COLONOSCO 43577 [facility] PY 6 [facility] W/BIOPSY INC INC SINGLE/MU LTIPLE UNCLASSIF J3490 [facility] IED DRUGS 6 [facility] INC INC ANES 83924 [facility] LOWER 6 ANESTH INTESTINE OF THE BLUE ENDOSCOPY DISTAL DUODENUM UNCLASSIF J3490 [facility] IED DRUGS 6 [place] [address] [facility] AMYLASE 6 [facility] INC INC INJECTION J2405 L[facility]INO 6 [facility] ONDANSETR INC INC ON HCL PER 1 MG COMPREHEN 92851 [facility] SIVE 6 [facility] [place] [address] [facility] LIPASE 6 [facility] INC INC THERAPEUT 18777 [facility] IC 6 [facility] INJECTION INC INC IV PUSH EACH NEW DRUG BLOOD 20385 [facility] COUNT 6 [facility] COMPLETE INC INC AUTO&AUTO DIFRNTL WBC DRUG TST G0477 [facility] PRESUMP;C [address] [facility] PBL BEING INC INC READ DC OPT OBV ONLY THER 82191 [facility] MAGANAON PROPH/DX 6 [facility] NJX IV INC INC PUSH SINGLE/1S T SBST/DRUG CHIROPRAC 85131 [facility] TIC 6 FRED FRED MANIPULAT HORACIO TX SPINAL 1-2 REGIONS CHIROPRAC 31976 [place] TIC 6 FRED FRED MANIPULAT HORACIO TX SPINAL 1-2 REGIONS CHIROPRAC 16398 [place] TIC 6 FRED FRED MANIPULAT HORACIO TX SPINAL 1-2 REGIONS CHIROPRAC 34266 [place] TIC 6 FRED FRED MANIPULAT HORACIO TX SPINAL 1-2 REGIONS CHIROPRAC 73076 [place] TIC 6 FRED FRED MANIPULAT HORACIO TX SPINAL 1-2 REGIONS CHIROPRAC 84979 [facility] TIC 6 FRED FRED MANIPULAT HORACIO TX SPINAL 1-2 REGIONS ECG 54653 [facility] BEDOYA JR ROUTINE 6 [facility]LEAST P 12 LDS I&[place] [address] [place] BELLA ALL ABDOMEN & 6 MEDICAL PELVIS IMAGING W/O ASS CONTRAST MATERIAL DETERMINA 25964 [facility]FFIN [facility] 6 GRE GRE REFRACTIV E STATE OPHTH 99930 [facility] 6 GRE GRE XM&EVAL COMPRE NEW PT 1/> VST IM ADM 00486 [facility] PRQ ID 6 PHYSICIAN LAURENCE SUBQ/IM S GROUP NJXS 1 VACCINE TDAP 94893 [facility] VACCINE 7 6 PHYSICIAN LAURENCE YRS/> IM S GROUP CHIROPRAC 01746 [facility] THOMAS TIC 6 FRED FRED MANIPULAT HORACIO TX SPINAL 1-2 REGIONS CHIROPRAC 68317 [facility] TIC 6 FRED FRED MANIPULAT HORACIO [place] SPINAL 1-2 REGIONS UNCLASSIF J3490 [facility] IED DRUGS 6 [place] [address] [facility] INFUSION 6 [facility] THERAPY/P INC INC ROPHYLAXI S /DX 1ST TO 1 HR MRI BRAIN 93740 [facility] BRAIN 6 [facility] STEM W/O INC INC CONTRAST MATERIAL INJECTION J1885 [facility] PRICE 6 PHYSICIAN LAURENCE KETOROLAC S GROUP TROMETHAM INE PER 15 MG INJECTION J1040 [facility] PRICE 6 PHYSICIAN LAURENCE METHYLPRE S GROUP DNISOLONE ACETATE 80 MG [facility] 10319 WILLIAM THOMAS TIC 6 FRED FRED MANIPULAT HORACIO TX SPINAL 1-2 REGIONS INJECTION J2550 [facility] PRICE 6 PHYSICIAN LAURENCE PROMETHAZ S GROUP INE HCL UP TO 50 MG THERAPEUT 40863 [facility] IC 6 PHYSICIAN LAURENCE PROPHYLAC S GROUP TIC/DX INJECTION SUBQ/IM THERAPEUT 21241 [facility] IC 6 [facility] PROPHYLAC INC INC TIC/DX INJECTION SUBQ/IM UNCLASSIF J3490 [facility] IED DRUGS 6 [facility] INC INC INJECTION J1885 [facility] PRICE 6 PHYSICIAN LAURENCE KETOROLAC S GROUP TROMETHAM INE PER 15 MG INJECTION J2550 [facility] PRICE 6 PHYSICIAN LAURENCE PROMETHAZ S GROUP INE HCL UP TO 50 MG THERAPEUT 68264 [facility] PRICE IC 6 PHYSICIAN LAURENCE PROPHYLAC S GROUP TIC/DX INJECTION SUBQ/IM THERAPEUT 44337 [facility] TRISTEN IC 6 PHYSICIAN STONE PROPHYLAC S GROUP PA-C ROXY TIC/DX INJECTION SUBQ/IM INJECTION J2550 [facility] RAMON 6 PHYSICIAN STONE PROMETHAZ S GROUP PA-C ROXY INE HCL UP TO 50 MG CHIROPRAC 95562 [facility] TIC 6 FRED FRED MANIPULAT HORACIO TX SPINAL 1-2 REGIONS INJECTION J1040 [facility] TRISTEN 6 PHYSICIAN STONE METHYLPRE S GROUP PA-C ROXY DNISOLONE ACETATE 80 MG INJECTION J1885 [facility] TRISTEN 6 PHYSICIAN STONE KETOROLAC S GROUP PA-C ROXY TROMETHAM INE PER 15 MG INJECTION J1200 [facility] TRISTEN 6 PHYSICIAN STONE DIPHENHYD S GROUP PA-C ROXY RAMINE HCL UP TO 50 MG INJECTION J1200 [facility] PRICE 6 PHYSICIAN LAURENCE DIPHENHYD S GROUP RAMINE HCL UP TO 50 MG INJECTION J1885 [facility] PRICE 6 PHYSICIAN LAURENCE KETOROLAC S GROUP TROMETHAM INE PER 15 MG INJECTION J2550 [facility] PRICE 6 PHYSICIAN LAURENCE PROMETHAZ S GROUP INE HCL UP TO 50 MG THERAPEUT 09917 [facility] PRICE IC 6 PHYSICIAN LAURENCE PROPHYLAC S GROUP TIC/DX INJECTION SUBQ/IM CHIROPRAC 77480 [facility] TIC 6 FRED FRED MANIPULAT HORACIO TX SPINAL 1-2 REGIONS INJECTION J1885 [facility] PRICE 6 PHYSICIAN LAURENCE KETOROLAC S GROUP TROMETHAM INE PER 15 MG THERAPEUT 81234 [facility] PRICE IC 6 PHYSICIAN LAURENCE PROPHYLAC S GROUP TIC/DX INJECTION SUBQ/IM THERAPEUT 34838 [facility] JOSE MCCORMICK IC 6 PHYSICIAN PROPHYLAC S GROUP TIC/DX INJECTION SUBQ/IM INJECTION J1040 [facility] JOSE MCCORMICK 6 PHYSICIAN METHYLPRE S GROUP DNISOLONE ACETATE 80 MG INJECTION J1885 [facility] PRICE 6 PHYSICIAN LAURENCE KETOROLAC S GROUP TROMETHAM INE PER 15 MG THERAPEUT 48513 [facility] PRICE IC 6 PHYSICIAN LAURENCE PROPHYLAC S GROUP TIC/DX INJECTION SUBQ/IM CHIROPRAC 28463 [facility] TIC 6 FRED FRED MANIPULAT HORACIO TX SPINAL 1-2 REGIONS RADIOLOGI 33149 [facility] Doherty EXAM [address] [facility] KNEE INC INC COMPLETE 4/MORE VIEWS INJECTION J1885 [facility] PRICE 5 PHYSICIAN LAURENCE KETOROLAC S GROUP TROMETHAM INE PER 15 MG THERAPEUT 48516 [facility] PRICE IC 5 PHYSICIAN LAURENCE PROPHYLAC S GROUP TIC/DX INJECTION SUBQ/IM CHIROPRAC 66651 [facility] TIC 5 FRED FRED MANIPULAT HORACIO TX SPINAL 1-2 REGIONS CHIROPRA 19738 [facility] [place] TIC 5 FRED FRED MANIPULAT HORACIO TX SPINAL 1-2 REGIONS CHIROPRA 10322 [facility] [place] TIC 5 FRED FRED MANIPULAT HORACIO TX SPINAL 1-2 REGIONS CHIROPRAC 70392 [facility] [place] TIC 5 FRED FRED MANIPULAT HORACIO TX SPINAL 1-2 REGIONS CHIROPRA 81283 [facility] TIC 5 FRED FRED MANIPULAT HORACIO TX SPINAL 1-2 REGIONS CHIROPRAC 23855 [facility] [place] TIC 5 FRED FRED MANIPULAT HORACIO TX SPINAL 3-4 REGIONS CHIROPRA 82095 [facility] TIC 5 FRED FRED MANIPULAT HORACIO TX SPINAL 3-4 REGIONS CHIROPRAC 05784 [facility] TIC 5 FRED FRED MANIPULAT HORACIO TX SPINAL 3-4 REGIONS CHIROPRAC 10466 [facility] TIC 5 FRED FRED MANIPULAT HORACIO TX SPINAL 3-4 REGIONS APPL 55559 [facility] [place] MODALITY 5 FRED FRED 1/> AREAS TRACTION MECHANICA L THERAPEUT 68485 [facility] [place] IC PX 1/> 5 FRED FRED AREAS EACH 15 MIN EXERCISES THERAPEUT 15075 [facility] [place] IC PX 1/> 5 FRED FRED AREAS EACH 15 MIN EXERCISES APPL 76429 [facility] MODALITY 5 FRED FRED 1/> AREAS TRACTION MECHANICA L CHIROPRAC 22241 [place] TIC 5 FRED FRED MANIPULAT HORACIO TX SPINAL 3-4 REGIONS COLLECTIO 88314 [facility] N VENOUS 5 [facility] BLOOD INC INC VENIPUNCT URE INJECTION J1885 [facility] PRICE 5 PHYSICIAN LAURENCE KETOROLAC S GROUP TROMETHAM INE PER 15 MG THERAPEUT 20925 [facility] PRICE IC 5 PHYSICIAN LAURENCE PROPHYLAC S GROUP TIC/DX INJECTION SUBQ/IM APPL 34567 [facility] [place] MODALITY 5 FRED FRED 1/> AREAS TRACTION MECHANICA L THERAPEUT 31648 [facility] IC PX 1/> 5 FRED FRED AREAS EACH 15 MIN EXERCISES POTASSIUM 90603 [facility] SERUM [address] [facility] PLASMA/WH INC INC OLE BLOOD THERAPEUT 57046 [facility] [place] IC PX 1/> 5 FRED FRED AREAS EACH 15 MIN EXERCISES CHIROPRAC 94697 [facility] [place] TIC 5 FRED FRED MANIPULAT OHRACIO TX SPINAL 3-4 REGIONS APPL 50405 [facility] MODALITY 5 FRED FRED 1/> AREAS TRACTION MECHANICA L APPL 11084 [facility] [place] MODALITY 5 FRED FRED 1/> AREAS TRACTION MECHANICA L CHIROPRAC 82380 [facility] TIC 5 FRED FRED MANIPULAT HORACIO TX SPINAL 3-4 REGIONS COMPREHEN 63660 [facility] SIVE 5 [facility] METABOLIC INC INC PANEL HEMOGLOBI 78080 [facility] N 5 [facility] GLYCOSYLA INC INC MEENA A1C LIPID 53527 [facility] PANEL 5 [facility] INC INC THERAPEUT 20612 [facility] IC PX 1/> 5 FRED FRED AREAS EACH 15 MIN EXERCISES BLOOD 11480 [facility] COUNT 5 [facility] COMPLETE INC INC AUTO&AUTO DIFRNTL WBC THERAPEUT 59008 [facility] [place] IC PX 1/> 5 FRED FRED AREAS EACH 15 MIN EXERCISES CHIROPRAC 79170 [facility] [place] TIC 5 FRED FRED MANIPULAT HORACIO TX SPINAL 3-4 REGIONS APPL 75194 [facility] MODALITY 5 FRED FRED 1/> AREAS TRACTION MECHANICA L APPL 58349 [facility] [place] MODALITY 5 FRED FRED 1/> AREAS TRACTION MECHANICA L CHIROPRAC 01373 [facility] TIC 5 FRED FRED MANIPULAT HORACIO TX SPINAL 3-4 REGIONS THERAPEUT 13288 [facility] IC PX 1/> 5 FRED RFED AREAS EACH 15 MIN EXERCISES THERAPEUT 20467 [facility] [place] IC PX 1/> 5 FRED FRED AREAS EACH 15 MIN EXERCISES APPL 81235 [place] MODALITY 5 FRED FRED 1/> AREAS TRACTION MECHANICA L APPL 70356 [place] MODALITY 5 FRED FRED 1/> AREAS TRACTION MECHANICA L THERAPEUT 25667 [place] IC PX 1/> 5 FRED FRED AREAS EACH 15 MIN EXERCISES THERAPEUT 91764 [place] IC PX 1/> 5 FRED FRED AREAS EACH 15 MIN EXERCISES APPL 34657 [place] MODALITY 5 FRED FRED 1/> AREAS TRACTION MECHANICA L CHIROPRAC 43513 [place] TIC 5 FRED FRED MANIPULAT HORACIO TX SPINAL 3-4 REGIONS CHIROPRAC 60027 [place] TIC 5 FRED FRED MANIPULAT HORACIO TX SPINAL 3-4 REGIONS CHIROPRAC 99659 [place] TIC 5 FRED FRED MANIPULAT HORACIO [place] SPINAL 3-4 REGIONS CHIROPRAC 69540 [place] TIC 5 FRED FRED MANIPULAT HORACIO TX SPINAL 3-4 REGIONS CHIROPRAC 93001 [place] TIC 5 FRED FRED MANIPULAT HORACIO [place] SPINAL 3-4 REGIONS CHIROPRAC 73227 [place] TIC 5 FRED FRED MANIPULAT HORACIO TX SPINAL 3-4 REGIONS APPL 76221 [place] MODALITY 5 FRED FRED 1/> AREAS TRACTION MECHANICA L THERAPEUT 28499 [place] PX 1/> 5 FRED FRED AREAS EACH 15 MIN EXERCISES THERAPEUT 86414 [place] PX 1/> 5 FRED FRED AREAS EACH 15 MIN EXERCISES APPL 20344 [place] MODALITY 5 FRED FRED 1/> AREAS TRACTION MECHANICA L CHIROPRAC 17047 [place] TIC 5 FRED FRED MANIPULAT HORACIO TX SPINAL 3-4 REGIONS CHIROPRAC 13476 [place] TIC 5 FRED FRED MANIPULAT HORACIO [place] SPINAL 3-4 REGIONS APPL 84671 [place] MODALITY 5 FRED FRED 1/> AREAS TRACTION MECHANICA L THERAPEUT 84720 [place] PX 1/> 5 FRED FRED AREAS EACH 15 MIN EXERCISES THERAPEUT 90037 [place] PX 1/> 5 FRED FRED AREAS EACH 15 MIN EXERCISES APPL 11788 [place] MODALITY 5 FRED FRED 1/> AREAS TRACTION MECHANICA L CHIROPRAC 75090 [place] TIC 5 FRED FRED MANIPULAT HORACIO TX SPINAL 3-4 REGIONS CHIROPRAC 34834 [place] TIC 5 FRED FRED MANIPULAT HORACIO [place] SPINAL 3-4 REGIONS APPL 05336 [place] MODALITY 5 FRED FRED 1/> AREAS TRACTION MECHANICA L THERAPEUT 55154 [place] PX 1/> 5 FRED FRED AREAS EACH 15 MIN EXERCISES THERAPEUT 82353 [place] PX 1/> 5 FRED FRED AREAS EACH 15 MIN EXERCISES APPL 96321 [place] MODALITY 5 FRED FRED 1/> AREAS TRACTION MECHANICA L CHIROPRAC 37422 [place] TIC 5 FRED FRED MANIPULAT HORACIO [place] SPINAL 3-4 REGIONS CHIROPRAC 93026 [place] TIC 5 FRED FRED MANIPULAT HORACIO [place] SPINAL 3-4 REGIONS APPL 33562 [place] MODALITY 5 FRED FRED 1/> AREAS TRACTION MECHANICA L THERAPEUT 13054 [place] PX 1/> 5 FRED FRED AREAS EACH 15 MIN EXERCISES THERAPEUT 94296 [place] PX 1/> 5 FRED FRED AREAS EACH 15 MIN EXERCISES APPL 45862 [place] MODALITY 5 FRED FRED 1/> AREAS TRACTION MECHANICA L CHIROPRAC 33643 [place] TIC 5 FRED FRED MANIPULAT HORACIO TX SPINAL 3-4 REGIONS BASIC 63516 [facility] METABOLIC [facility] PANEL INC INC CALCIUM TOTAL CHIROPRAC 78127 [place] TIC 5 FRED FRDE MANIPULAT HORACIO [place] SPINAL 3-4 REGIONS APPL 46291 [place] MODALITY 5 FRED FRED 1/> AREAS TRACTION MECHANICA L THERAPEUT 86499 [place] PX 1/> 5 FRED FRED AREAS EACH 15 MIN EXERCISES THERAPEUT 06690 [place] IC PX 1/> 5 FRED FRED AREAS EACH 15 MIN EXERCISES APPL [address] [place] MODALITY 5 FRED FRED 1/> AREAS TRACTION MECHANICA L CHIROPRAC 28007 [place] TIC 5 FRED FRED MANIPULAT HORACIO [place] SPINAL 3-4 REGIONS RADEX 08384 [place] SPINE 5 FRED FRED CERVICAL 2 OR 3 VIEWS INJECTION J1885 [facility] PRICE 5 PHYSICIAN LAURENCE KETOROLAC S GROUP TROMETHAM INE PER 15 MG THERAPEUT 29118 [facility] LA[facility] PROPHYLAC S GROUP TIC/DX INJECTION SUBQ/IM RADIOLOGI 12747 [place] [facility] MEDICAL MAUREEN EXAMINATI IMAGING ON KNEE 3 ASS VIEWS KNEE L1830 [facility] 5 TECHNOLOG TECHNOLOG IMMOBLIZE IES INC IES INC R CANVAS LONGTUDNL PREFAB CYTP C/V 79864 P&[facility] LABS, PICKLESIM AUTO THIN 5 LLC ER JR JOSSELINE LYR [place] [address] [facility] [place] [address] [facility] THYROID 5 [facility] STIMULATI INC INC NG HORMONE TSH BLOOD 79710 [facility] OCCULT 5 PHYSICIAN PHYSICIAN PEROXIDAS S GROUP S GROUP E ACTV QUAL FECES 1-3 SPEC HEMOGLOBI 43834 [facility] N [facility] GLYCOSYLA INC INC MEENA A1C BASIC 80453 [facility] METABOLIC 5 [facility] PANEL INC INC CALCIUM TOTAL THERAPEUT 30931 [facility] PRICE IC 5 PHYSICIAN LAURENCE PROPHYLAC S GROUP TIC/DX INJECTION SUBQ/IM INJECTION J1100 [facility] PRICE 5 PHYSICIAN LAURENCE DEXAMETHO S GROUP SONE SODIUM PHOSPHATE 1 MG 25 90193 [facility] HYDROXY 5 [facility] INCLUDES INC INC FRACTIONS IF PERFORMED COMPREHEN 91349 [facility] SIVE 5 [facility] METABOLIC INC INC PANEL COLLECTIO 26921 [facility] N VENOUS 5 [facility] BLOOD INC INC VENIPUNCT URE RADIOLOGI 86061 [facility] Doherty EXAM [facility] CHEST 2 INC INC VIEWS FRONTAL&[place] [address] [facility] THYROID 5 [facility] [place] [address] [facility] FREE [facility] THYROXINE INC INC BLOOD 22908 [facility] COUNT 5 [facility] COMPLETE INC INC AUTO&AUTO DIFRNTL WBC HEPATITIS 32135 [facility] C [facility] ANTIBODY INC INC HEPATITIS 16328 [facility] B CORE 5 [facility] ANTIBODY INC INC HBCAB TOTAL HEPATITIS 96301 [facility] Stringer SURF 5 [facility] [place] [address] [facility] HEPATITIS 5 [facility] B INC INC SURFACE ANTIGEN HEPATITIS 77642 [facility] A [facility] ANTIBODY INC INC HAAB RADEX ABD 76614 [place] CECILIA COMPL 5 MEDICAL DENNIS AQT ABD IMAGING W/S/E/D ASS VIEWS 1 VIEW CH IAADIADOO 19953 [facility] FRYMAN 5 PHYSICIAN EUG INFLUENZA S GROUP INJECTION J1040 [facility] PRICE 4 PHYSICIAN [place] METHYLPRE S GROUP DNISOLONE ACETATE 80 MG THERAPEUT 53962 [facility] IC 4 PHYSICIAN PHYSICIAN PROPHYLAC S GROUP S GROUP TIC/DX INJECTION SUBQ/IM ECHO 56287 [facility] TTHRC R-T 4 [facility] 2D INC INC W/WOM-MOD E COMPL SPEC&COLR D NJX 16857 JUSTO KEMP DX/THER 4 BECK BECK SBST EPIDURAL/ SUBARACH LUMBAR/SA CRAL FLUOR 58296 JUSTO KEMP NEEDLE/CA 4 BECK BECK TH SPINE/PAR ASPINAL DX/THER ADDON MRI 94692 [address] SPINAL 4 CANAL LUMBAR W/O CONTRAST MATERIAL INJECTION J2270 [address] SULFATE UP TO 10 MG URNLS DIP [address] STICK/[place] [address] THERAPY/P ROPHYLAXI S /DX 1ST TO 1 HR THER 58608 [facility] PROPH/DX [address] [place] [address] NJX EA SEQL IV PUSH SBST/DRUG FAC BASIC [address] PANEL CALCIUM TOTAL INJECTION J1100 [address] DEXAMETHO SONE SODIUM PHOSPHATE 1 MG INJECTION J[address] METHOCARB JORGE UP TO 10 ML INJECTION J2405 [address] ONDANSETR ON HCL PER 1 MG INJECTION J2550 [address] PROMETHAZ INE HCL UP TO 50 MG THERAPEUT [address] INJECTION IV PUSH EACH NEW DRUG BLOOD [address] COMPLETE AUTOMATED RADEX 89304 CECILIA CECILIA SPINE 4 DENNIS DENNIS LUMBOSACR AL MINIMUM 4 VIEWS RADEX HIP 08487 CECILIA CECILIA 4 DENNIS DENNIS UNILATERA L 1 VIEW Encounters Encounter Start End Date Code Location Performer Type Date [facility] LORA - 7 7 [facility] OUTPATIEN [facility] T OFFICE 21016 WILLIAM THOMAS OUTPATIEN 7 7 T VISIT 15 MINUTES [facility] LORA - 7 7 [facility] OUTPATIEN [facility] L[facility] - 6 6 [facility] T OFFICE 44391 [facility] STONE ROXY OUTPATIEN 6 6 PHYSICIAN T VISIT S GROUP 25 MINUTES OFFICE 00157 GASTROENT CASE JUS OUTPATIEN 6 6 EROLOGY T VISIT AND 25 HEPATOL MINUTES [facility] LORA - 6 6 [facility] 03255 GASTROENT CASE JUS OUTPATIEN 6 6 EROLOGY T NEW 45 AND MINUTES [facility] - 6 6 N OUTPATIEN COMMUNTIY T [facility] LORA - 6 6 [facility] T OFFICE 90146 [facility] MICHELLE JR OUTPATIEN 6 6 PHYSICIAN MAGO T VISIT S GROUP 10 MINUTES OFFICE 92523 ROB PHAN 6 6 DIGESTIVE CEC T VISIT CARE 15 CENTER MINUTES EMERGENCY 51819 MARCIA THRASHER 6 6 PHYSICIAN LAURENCE DEPARTMEN S, PLLC T VISIT MODERATE SEVERITY HOSPITAL ROB - 6 6 REGIONAL OUTPATIEN MEDICAL T CENTE OFFICE 55579 ROB MONSALVE OUTPATIEN 6 6 DIGESTIVE CEC T NEW 60 CARE MINUTES CENTER OFFICE 00263 [facility] STONE ROXY OUTPATIEN 6 6 PHYSICIAN T VISIT S GROUP 15 MINUTES HOSPITAL [facility] - 6 6 [facility] OUTPATIEN [facility] T EMERGENCY 52343 [facility] 6 6 [facility] DEPARTMEN INC T VISIT HIGH/URGE NT SEVERITY [facility]OSPITAL [facility] - 6 6 [facility] OUTPATIEN INC T OFFICE 35601 [facility] MICHELLE JR OUTPATIEN 6 6 PHYSICIAN MAGO T NEW 30 S GROUP MINUTES OFFICE 13846 [facility] TRISTEN OUTPATIEN 6 6 PHYSICIAN STONE T VISIT S GROUP PA-C ROXY 15 MINUTES OFFICE 95266 [facility] RAMON OUTPATIEN 6 6 PHYSICIAN STONE T VISIT S GROUP PA-C ROXY 25 MINUTES OFFICE 95785 [facility] RAMON OUTPATIEN 6 6 PHYSICIAN STONE T VISIT S GROUP PA-C ROXY 15 MINUTES EMERGENCY 17467 MARCIA THRASHER DEPT 6 6 PHYSICIAN LAURENCE VISIT S, PLLC HIGH SEVERITY& THREAT FUNCJ EMERGENCY 51523 MARCIA RENUSCH DEPT 6 6 PHYSICIAN SUMMER VISIT S, PLLC HIGH SEVERITY& THREAT FUNCJ OFFICE 59597 [facility] PRICE OUTPATIEN 6 6 PHYSICIAN LAURENCE T VISIT S GROUP 25 MINUTES OFFICE 31900 SURY GILBERT CONSULTAT 6 6 N ION NEUROLOGY NEW/ESTAB PATIENT 60 MIN OFFICE 22368 [facility] PRICE OUTPATIEN 6 6 PHYSICIAN LAURENCE T VISIT S GROUP 10 MINUTES [facility]OSPITAL [facility] - 6 6 [facility] OUTPATIEN INC T [facility] - 6 6 [facility] OUTPATIEN INC T OFFICE 69926 [facility] PRICE OUTPATIEN 6 6 PHYSICIAN LAURENCE T VISIT S GROUP 10 MINUTES HOSPITAL [facility] - 6 6 [facility] OUTPATIEN INC T OFFICE 45086 [facility] PRICE OUTPATIEN 6 6 PHYSICIAN LAURENCE T VISIT S GROUP 15 MINUTES OFFICE 76912 [facility] RAMON OUTPATIEN 6 6 PHYSICIAN STONE T VISIT S GROUP PETE ROXY 15 MINUTES OFFICE 27274 [facility] RAMON OUTPATIEN 6 6 PHYSICIAN STONE T VISIT S GROUP PETE ROXY 10 MINUTES EMERGENCY 29798 MARCIA CESPEDES DEPT 6 6 [facility]& THREAT FUNCJ OFFICE 90071 [facility] PRICE OUTPATIEN 6 6 PHYSICIAN LAURENCE T VISIT S GROUP 15 MINUTES OFFICE [address]94 [facility] GARCIA TER OUTPATIEN 6 6 PHYSICIAN T VISIT S GROUP 15 MINUTES OFFICE 79506 [facility] PRICE OUTPATIEN 6 6 PHYSICIAN LAURENCE T VISIT S GROUP 15 MINUTES OFFICE 81305 [facility] OUTPATIEN 6 6 [facility] T VISIT INC 10 MINUTES [facility]OSPITAL [facility] - 6 6 [facility] OUTPATIEN INC T OFFICE 61368 ELLY TINY FRED OUTPATIEN 6 6 MD RHEA, T NEW 30 PSC MINUTES OFFICE 73300 WILLIAM THOMAS OUTPATIEN 6 6 FRED FRED T VISIT 15 MINUTES HOSPITAL [facility] - 5 5 [facility] OUTPATIEN INC T OFFICE 68572 [facility] PRICE OUTPATIEN 5 5 PHYSICIAN LAURENCE T VISIT S GROUP 10 MINUTES OFFICE 41486 [facility] PRICE OUTPATIEN 5 5 PHYSICIAN LAURENCE T VISIT S GROUP 10 MINUTES OFFICE 43235 SPINE & GILBERT OUTPATIEN 5 5 BRAIN SYD T NEW 45 NEUROSURG MINUTES ICAL EMERGENCY 14385 MARCIA THRASHER 5 5 PHYSICIAN LAURENCE DEPARTMEN S, [facility] T VISIT HIGH/URGE NT SEVERITY OFFICE 52311 [facility] PRICE OUTPATIEN 5 5 PHYSICIAN LAURENCE T VISIT S GROUP 15 MINUTES HOSPITAL [facility] - 5 5 [facility] OUTPATIEN INC T [facility]OSP[facility] - 5 5 [facility] OUTPATIEN INC T OFFICE 91012 [place] [facility] OUTPATIEN 5 5 FRED FRED T VISIT 15 MINUTES [facility]OSPITAL [facility] - 5 5 [facility] OUTPATIEN INC T OFFICE 95915 [place] OUTPATIEN 5 5 FRED FRED T NEW 30 MINUTES OFFICE 01051 [facility] PRICE OUTPATIEN 5 5 PHYSICIAN LAURENCE T VISIT S GROUP 15 MINUTES [facility]OSPITAL [facility] - 5 5 [facility]PATIEN INC T PERIODIC 00203 [facility] 5 PHYSICIAN LAURENCE E MED EST S GROUP PATIENT 40-64YRS OFFICE 74405 [facility] PRICE OUTPATIEN 5 5 PHYSICIAN LAURENCE T VISIT S GROUP 15 MINUTES [facility]OSPITAL [facility] - 5 5 [facility] OUTPATIEN INC T OFFICE 76011 [facility] RADHA OUTPATIEN 5 5 PHYSICIAN FRED T VISIT S GROUP 15 MINUTES OFFICE 04193 [facility] FRYMAN OUTPATIEN 5 5 PHYSICIAN EUG T VISIT S GROUP 15 MINUTES [facility]OSPITAL [facility] - 4 4 [facility] OUTPATIEN INC T OFFICE [address] [facility] OUTPATIEN 4 4 T VISIT 15 MINUTES OFFICE 30345 [facility] [address] DU[facility] TRA OUTPATIEN 4 4 T VISIT [address] OUTPATIEN T EMERGENCY 45758 EDMUND SHAFFER DEPT 4 4 VLADIMIR VLADIMIR VISIT HIGH SEVERITY& THREAT FUNCJ EMERGENCY [address] DEPARTMEN T VISIT MODERATE SEVERITY OFFICE 13144 ILYA CARABALLO OUTPATIEN 4 4 THEODORE THEODORE T VISIT 15 MINUTES OFFICE 64328 ILYA CARABALLO OUTPATIEN 4 4 THEODORE THEODORE T VISIT 15 MINUTES OFFICE 44372 [facility] SRIKANTH TRA CONSULTAT 4 4 ION NEW/ESTAB PATIENT 40 MIN
--- OUTSIDE RECORDS SUMMARY | 2017-05-19 19:35 | External Medical Summary Rpt ---
Demographics Preferred Language Moldovan Marital Status Unknown Quaker Affiliation Unknown Race Unknown Ethnic Group Unknown Author Author MARQUEZ Address Unknown Phone Immunization No patient found.
--- OUTSIDE RECORDS SUMMARY | 2017-05-19 19:35 | External Medical Summary Rpt ---
Demographics Preferred Language Bruneian Marital Status Unknown Amish Affiliation Unknown Race Unknown Ethnic Group Unknown Author Author MARQUEZ Address Unknown Phone Immunization No patient found.
[2017-05-19] MEDS ORDERED: HYDROCODONE-APA1 TA1 PO (20:12)
[2017-05-19] MEDS ORDERED: BACTRIM DS 8001 TA1 PO (20:13)
[2017-05-19] MEDS ORDERED: SEPTRA DS 800 M1 TAB PO (20:22)
[2017-05-19 20:24] VITALS: BP 167/79
[2017-05-21] MEDS ORDERED: HYDROCODONE-APA1 TA1 PO (13:12)
== END 2017-05-19 20:25 | disposition home or self-care (01) ==
LOC: ER 18:51
PROC: 0U9MXZZ Drainage of Vulva, External Approach (ICD-10-PCS; principal; 2017-05-19)
DX: N76.4 Abscess of vulva (principal); I10 Essential (primary) hypertension; K21.9 Gastro-esophageal reflux disease without esophagitis; F41.8 Other specified anxiety disorders; Z72.0 Tobacco use
CPT/HCPCS: J2405

== ENCOUNTER → 2017-08-17 | Emergency (ER) | payer MEDICAID ==
[~2017-08-17] VITALS: Ht 170.2 cm; Wt 95.3 kg
--- NOTE | 2017-08-17 10:45 | Emergency Room Report ---
History of Present Illness Time Seen by 103Ana Presenting Problem in Triage Pt arrived:Walked Presenting Problem:PT HAS WOUND UNDER ABD FOLD THAT IS OPEN AND BLED EARLIER THIS DATE; AND CAUSED HER TO HAVE EXTREME DISCOMFORT. 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 N Clinical Suspician of Infection? N Mental Status: 1 - Regular (Normal Baseline) Sepsis Risk:Low Sepsis Risk Have you (or family members/close friends) recently traveled outside the [place]? N If Yes, where/when: Have you had exposure to infectious disease within the past month? TB? Other? Specify: Comment The patient complains of excruciating pain and an open bleeding wound in the suprapubic area. She was seen in this emergency department on May 19 for an abscess in that area and had incision and drainage. She was referred to surgery for follow-up. She says that she saw Dr. Kent who did not feel she needed any further exploration or surgical procedures. She says her symptoms completely went away but on Sunday 6 days ago she started having pain and a hard knot in that area once again. She says the pain is been excruciating, radiates down her RIGHT leg and into her back. She is having to sleep in a recliner instead of her bed. She says she cannot wear underwear because of the severe tenderness. Last night the area broke open and has been bleeding since. She says the blood was dark and smelled bad. Symptoms are accompanied by nausea and diaphoresis. History in his I see the patient, she is requesting pain medication and nausea medicine. ALLERGIES Coded Allergies: amoxicillin (From AUGMENTIN) (Mild, 08/17/17) clavulanic acid (From AUGMENTIN) (Mild, 08/17/17) morphine (08/17/17) Home Medications Active Scripts HYDROCODONE 5MG/APAP 325MG (Hydrocodon-Acetaminophen 5-325) 1 TAB PO Q4HP PRN pain #12 TAB Prov: 05/19/17 SULFAMETHOXAZOLE W/TRIMETHOPRI (Bactrim Ds Tab) 1 TABLET PO BID #10 TAB Prov: 05/19/17 HYDROCODONE 5MG/APAP 325MG (Hydrocodon-Acetaminophen 5-325) 1 TAB PO Q4HP PRN pain #16 TAB Prov: 05/21/17 SULFAMETHOXAZOLE/TRIMETHOPRIM (Sulfamethoxazole-Tmp Ds Tablet) 1 TAB PO BID #20 TAB Prov: 05/19/17 Reported Medications Gabapentin (Neurontin) 400 MG PO TID Metoprolol Succinate Xl (Metoprolol ER 50MG) 50 MG PO BID Omeprazole (Prilosec 40mg Cap) 40 MG PO DAILY Diazepam (Valium 10MG) 10 MG PO TID Lisinopril & Hctz (Lisinopril-Hctz 10-12.5 MG Tab) 1 TAB PO DAILY DULOXETINE HCL (Cymbalta 30MG) 60 MG PO DAILY Everly Carbonate (Everly Carb 150MG. Capsule) 150 MG PO TID Levothyroxine Sodium (Levothyroxine) 0.25 MG PO DAILY TIZANIDINE HCL (Tizanidine Hcl 4 Mg Tablet) 4 MG NG Q8H History Medical History General CAD? No Angina: No IN: No Hypertension? Yes Hyperlipidemia? Yes CHF? No DVT? No PE? No COPD? No Asthma? No Anemia? No GERD? Yes Gastric ulcers? No GI Bleed? No Hernia? No Thyroid Problems? No Hypothyroidism? No CVA? No Seizures? No Diabetes? No Renal Insuffiency? No End Stage Renal Disease? No UTI? Yes Stones? No BPH? No GB Disease: Yes Nephritic Syndrome? No Asplenia? No Hepatitis? No Sickle Cell Disease? No Arthritis? No Migraines? No Cataracts? No Glaucoma? No MRSA? No HIV? No TB? No Anxiety? Yes Depression? Yes Cancer? Yes Site: CERVICAL More? 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 She was seen here on May 19 and return to couple of days later for packing removal. She also returned on May 26 complaining of severe pain in that area. She was requesting Dilaudid, which she had gotten on her initial visit at the time of incision and drainage. The emergency physician at that time declined. She was also complaining of nausea and diaphoresis then as well. Review of Systems All Other Systems Reviewed and Negative Constitutional diaphoresis Gastrointestinal nausea Musculoskeletal see HPI, back pain Skin see HPI Physical Exam Vital Signs Vital Signs Date Time Temp Pulse Resp B/P Pulse O2 O2 Flow FiO2 Ox Delivery Rate 08/17 1331 16 08/17 1145 98.3 78 18 142/88 99 08/17 1134 18 08/17 1033 98.3 78 18 145/79 99 General Appearance mild distress Eye Exam - bilateral eye normal exam, bilateral eye PERRL, bilateral eye EOMI Ear, Nose, Throat hearing grossly normal, normal ENT inspection Neck normal inspection, non-tender, supple, full range of motion Respiratory Status Yes: trachea midline, chest symmetrical, non tender chest. No: respiratory distress. Lung Sounds bilateral: normal breath sounds, lungs clear. Cardiovascular normal exam, regular rate/rhythm, no peripheral edema, no gallop, no JVD, no murmur, no rub, normal peripheral pulses Peripheral Pulses Pulses normal Yes Gastrointestinal normal bowel sounds, soft, no organomegaly, 1.5 cm transverse open wound in the suprapubic area. Small amount of bloody drainage. No erythema. Mild induration. No purulence expressed. Exquisitely tender. 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 Medical Decision Making LABS/Meds/Orders Pt receiving controlled substance in ED? Yes Garth was queried for this patient? Yes Comment [id number] rxs. last opiate rx 05/24/17. Results/Orders Laboratory Tests 08/17/17 1046: Sodium 136, Potassium 3.7, Chloride 98, Carbon Dioxide 24, BUN 17, Creatinine 1.1 H, Estimated Creat Clear 100, Estimated GFR (MDRD) 54 L, Glucose 172 H, Calcium 9.8, Total Bilirubin 0.4, AST 32, ALT 46, Alkaline Phosphatase 93, Total Protein 8.0, Albumin 3.9, Globulin 4.1 H, Albumin/Globulin Ratio 1.0 L, WBC 13.2 H, RBC 4.32, Hgb 13.3, Hct 41.5, MCV 95.9, RDW 12.9, Plt Count 310, MPV 8.3, Gran % 69.9, Gran # 9.2 H, Lymphocytes % 23.3, Monocytes % 4.1, Eosinophils % 2.2, Basophils % 0.5, Lymphocytes # 3.1, Monocytes # 0.6, Eosinophils # 0.3, Basophils # 0.1, PUBS MCHC 32.0, MCH 30.7 Current Medication Orders Sig/Fatemeh Start time Last Medication Dose Route Stop Time Status Admin Hydrocodone Bitart/ 1 TAB ONCE ONE 08/17 1330 DCr 08/17 Acetaminophen PO 08/17 1331 1331 Hydrocodone Bitart/ 0 .STK-MED ONE 08/17 1326 DCr Acetaminophen PO Iopamidol 75 ML ONCE ONE 08/17 1245 DC 08/17 IV 08/17 1246 1236 Sodium Chloride 10 ML PRN PRN 08/17 1245 DC 08/17 IV 08/17 1406 1236 Hydromorphone HCl 1 MG ONCE ONE 08/17 1130 DCr 08/17 IV 08/17 1131 1134 Ondansetron HCl 4 MG ONCE ONE 08/17 1130 DC 08/17 IV 08/17 1131 1135 Hydromorphone HCl 0 .STK-MED ONE 08/17 1128 DCr .ROUTE Ondansetron HCl 0 .STK-MED ONE 08/17 1128 DC .ROUTE Sodium Chloride 10 ML PRN PRN 08/17 1100 AC IV 08/18 1056 Orders Procedure Date/time Status DIET-NOTHING BY MOUTH 08/[address] ABD/PELVIS REQ 08/17 112 Complete CULTURE, WOUND 08/17 1122 Active IV SALINE LOCK 08/17 1056 Active CULTURE, BLOOD 08/17 1056 Active CBC WITH AUTO DIFF 08/17 105 Complete CHEM 12 PROFILE 08/17 1056 Complete XRAY/CT/US XRAY/CT/US CT abdomen, pelvis Comment CT scan interpreted by radiologist: No robinson abscess. Some inflammatory changes and some subcutaneous air due to the open wound. No intra-abdominal process. Progress - 1315: The patient states that "in CT they almost killed me" she states "I can't even tell that I had the pain medication". She wants another shot prior to discharge. I offered a [place]. Her complaints and requests for pain medication or out of proportion to her findings. Departure Departure Disposition DC Home or Self Care(routine) Clinical Impression Primary Impression: Cellulitis of abdominal wall Condition STABLE Referrals PRITI MCMAHON (PCP/Family) Patient Instructions DI for Cellulitis -- Adult Additional Instructions Follow-up with your primary care provider next week. Prescriptions Current Visit Scripts HYDROCODONE/ACETAMINOPHEN ([place] 5-325 Tablet) 1 TAB PO Q6HP PRN pain #10 TAB Clindamycin Hcl (Clindamycin 300MG) 300 MG PO QID #40 CAP Ondansetron (Zofran 4MG Odt) 4 MG PO Q8HP PRN NAUSEA AND VOMITING #10 ODT ED Critical Care Critical Care No at 1409
--- NOTE | 2017-08-17 10:45 | Emergency Room Report ---
History of Present Illness Time Seen by [id number] Presenting Problem in Triage Pt arrived:Walked Presenting Problem:PT HAS WOUND UNDER ABD FOLD THAT IS OPEN AND BLED EARLIER THIS DATE; AND CAUSED HER TO HAVE EXTREME DISCOMFORT. 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 N Clinical Suspician of Infection? N Mental Status: 1 - Regular (Normal Baseline) Sepsis Risk:Low Sepsis Risk Have you (or family members/close friends) recently traveled outside the [place]? N If Yes, where/when: Have you had exposure to infectious disease within the past month? TB? Other? Specify: Comment The patient complains of excruciating pain and an open bleeding wound in the suprapubic area. She was seen in this emergency department on May 19 for an abscess in that area and had incision and drainage. She was referred to surgery for follow-up. She says that she saw Dr. Kent who did not feel she needed any further exploration or surgical procedures. She says her symptoms completely went away but on Sunday 6 days ago she started having pain and a hard knot in that area once again. She says the pain is been excruciating, radiates down her RIGHT leg and into her back. She is having to sleep in a recliner instead of her bed. She says she cannot wear underwear because of the severe tenderness. Last night the area broke open and has been bleeding since. She says the blood was dark and smelled bad. Symptoms are accompanied by nausea and diaphoresis. History in his I see the patient, she is requesting pain medication and nausea medicine. ALLERGIES Coded Allergies: amoxicillin (From AUGMENTIN) (Mild, 08/17/17) clavulanic acid (From AUGMENTIN) (Mild, 08/17/17) morphine (08/17/17) Home Medications Active Scripts HYDROCODONE 5MG/APAP 325MG (Hydrocodon-Acetaminophen 5-325) 1 TAB PO Q4HP PRN pain #12 TAB Prov: 05/19/17 SULFAMETHOXAZOLE W/TRIMETHOPRI (Bactrim Ds Tab) 1 TABLET PO BID #10 TAB Prov: 05/19/17 HYDROCODONE 5MG/APAP 325MG (Hydrocodon-Acetaminophen 5-325) 1 TAB PO Q4HP PRN pain #16 TAB Prov: 05/21/17 SULFAMETHOXAZOLE/TRIMETHOPRIM (Sulfamethoxazole-Tmp Ds Tablet) 1 TAB PO BID #20 TAB Prov: 05/19/17 Reported Medications Gabapentin (Neurontin) 400 MG PO TID Metoprolol Succinate Xl (Metoprolol ER 50MG) 50 MG PO BID Omeprazole (Prilosec 40mg Cap) 40 MG PO DAILY Diazepam (Valium 10MG) 10 MG PO TID Lisinopril & Hctz (Lisinopril-Hctz 10-12.5 MG Tab) 1 TAB PO DAILY DULOXETINE HCL (Cymbalta 30MG) 60 MG PO DAILY [place] Carbonate ([place] Carb 150MG. Capsule) 150 MG PO TID Levothyroxine Sodium (Levothyroxine) 0.25 MG PO DAILY TIZANIDINE HCL (Tizanidine Hcl 4 Mg Tablet) 4 MG NG Q8H History Medical History General CAD? No Angina: No AR: No Hypertension? Yes Hyperlipidemia? Yes CHF? No DVT? No PE? No COPD? No Asthma? No Anemia? No GERD? Yes Gastric ulcers? No GI Bleed? No Hernia? No Thyroid Problems? No Hypothyroidism? No CVA? No Seizures? No Diabetes? No Renal Insuffiency? No End Stage Renal Disease? No UTI? Yes Stones? No BPH? No GB Disease: Yes Nephritic Syndrome? No Asplenia? No Hepatitis? No Sickle Cell Disease? No Arthritis? No Migraines? No Cataracts? No Glaucoma? No MRSA? No HIV? No TB? No Anxiety? Yes Depression? Yes Cancer? Yes Site: CERVICAL More? 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 She was seen here on May 19 and return to couple of days later for packing removal. She also returned on May 26 complaining of severe pain in that area. She was requesting Dilaudid, which she had gotten on her initial visit at the time of incision and drainage. The emergency physician at that time declined. She was also complaining of nausea and diaphoresis then as well. Review of Systems All Other Systems Reviewed and Negative Constitutional diaphoresis Gastrointestinal nausea Musculoskeletal see HPI, back pain Skin see HPI Physical Exam Vital Signs Vital Signs Date Time Temp Pulse Resp B/P Pulse O2 O2 Flow FiO2 Ox Delivery Rate 08/17 1331 16 08/17 1145 98.3 78 18 142/88 99 08/17 1134 18 08/17 1033 98.3 78 18 145/79 99 General Appearance mild distress Eye Exam - bilateral eye normal exam, bilateral eye PERRL, bilateral eye EOMI Ear, Nose, Throat hearing grossly normal, normal ENT inspection Neck normal inspection, non-tender, supple, full range of motion Respiratory Status Yes: trachea midline, chest symmetrical, non tender chest. No: respiratory distress. Lung Sounds bilateral: normal breath sounds, lungs clear. Cardiovascular normal exam, regular rate/rhythm, no peripheral edema, no gallop, no JVD, no murmur, no rub, normal peripheral pulses Peripheral Pulses Pulses normal Yes Gastrointestinal normal bowel sounds, soft, no organomegaly, 1.5 cm transverse open wound in the suprapubic area. Small amount of bloody drainage. No erythema. Mild induration. No purulence expressed. Exquisitely tender. 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 Medical Decision Making LABS/Meds/Orders Pt receiving controlled substance in ED? Yes Garth was queried for this patient? Yes Comment [id number] rxs. last opiate rx 05/24/17. Results/Orders Laboratory Tests 08/17/17 1046: Sodium 136, Potassium 3.7, Chloride 98, Carbon Dioxide 24, BUN 17, Creatinine 1.1 H, Estimated Creat Clear 100, Estimated GFR (MDRD) 54 L, Glucose 172 H, Calcium 9.8, Total Bilirubin 0.4, AST 32, ALT 46, Alkaline Phosphatase 93, Total Protein 8.0, Albumin 3.9, Globulin 4.1 H, Albumin/Globulin Ratio 1.0 L, WBC 13.2 H, RBC 4.32, Hgb 13.3, Hct 41.5, MCV 95.9, RDW 12.9, Plt Count 310, MPV 8.3, Gran % 69.9, Gran # 9.2 H, Lymphocytes % 23.3, Monocytes % 4.1, Eosinophils % 2.2, Basophils % 0.5, Lymphocytes # 3.1, Monocytes # 0.6, Eosinophils # 0.3, Basophils # 0.1, PUBS MCHC 32.0, MCH 30.7 Current Medication Orders Sig/Fatemeh Start time Last Medication Dose Route Stop Time Status Admin Hydrocodone Bitart/ 1 TAB ONCE ONE 08/17 1330 DCr 08/17 Acetaminophen PO 08/17 1331 1331 Hydrocodone Bitart/ 0 .STK-MED ONE 08/17 1326 DCr Acetaminophen PO Iopamidol 75 ML ONCE ONE 08/17 1245 DC 08/17 IV 08/17 1246 1236 Sodium Chloride 10 ML PRN PRN 08/17 1245 DC 08/17 IV 08/17 1406 1236 Hydromorphone HCl 1 MG ONCE ONE 08/17 1130 DCr 08/17 IV 08/17 1131 1134 Ondansetron HCl 4 MG ONCE ONE 08/17 1130 DC 08/17 IV 08/17 1131 1135 Hydromorphone HCl 0 .STK-MED ONE 08/17 1128 DCr .ROUTE Ondansetron HCl 0 .STK-MED ONE 08/17 1128 DC .ROUTE Sodium Chloride 10 ML PRN PRN 08/17 1100 AC IV 08/18 1056 Orders Procedure Date/time Status DIET-NOTHING BY MOUTH 08/[address] ABD/PELVIS REQ 08/17 112 Complete CULTURE, WOUND 08/17 1122 Active IV SALINE LOCK 08/17 1056 Active CULTURE, BLOOD 08/17 1056 Active CBC WITH AUTO DIFF 08/17 105 Complete CHEM 12 PROFILE 08/17 1056 Complete XRAY/CT/US XRAY/CT/US CT abdomen, pelvis Comment CT scan interpreted by radiologist: No robinson abscess. Some inflammatory changes and some subcutaneous air due to the open wound. No intra-abdominal process. Progress - 1315: The patient states that "in CT they almost killed me" she states "I can't even tell that I had the pain medication". She wants another shot prior to discharge. I offered a [place]. Her complaints and requests for pain medication or out of proportion to her findings. Departure Departure Disposition DC Home or Self Care(routine) Clinical Impression Primary Impression: Cellulitis of abdominal wall Condition STABLE Referrals PRITI MCMAHON (PCP/Family) Patient Instructions DI for Cellulitis -- Adult Additional Instructions Follow-up with your primary care provider next week. Prescriptions Current Visit Scripts HYDROCODONE/ACETAMINOPHEN ([place] 5-325 Tablet) 1 TAB PO Q6HP PRN pain #10 TAB Clindamycin Hcl (Clindamycin 300MG) 300 MG PO QID #40 CAP Ondansetron (Zofran 4MG Odt) 4 MG PO Q8HP PRN NAUSEA AND VOMITING #10 ODT ED Critical Care Critical Care No at 140
[2017-08-17 11:02] LABS: HEMOGLOBIN 13.3 g/dL (12.2-16.2); LYMPH # 3.1 K/mm3 (0.7-4.5); LYMPH % 23.3 % (10-50.0)
[2017-08-17 11:45] VITALS: BP 142/88
--- NOTE | 2017-08-17 13:15 | RADIOLOGY REPORT PS360 ---
CT ABD PELVIS W/ CONTRAST COMPARISON: CT scan abdomen pelvis 06/30/2016 HISTORY: Patient has wound in the suprapubic area which has been last recently now having some pain TECHNIQUE: Multiaxial scans obtained from the hemidiaphragms the pelvic floor and were performed without IV contrast only. Sagittal and coronal reformats were evaluated as well. FINDINGS: The lower lung sims are clear. The liver spleen stomach and pancreas appear normal. There has been a previous cholecystectomy. The adrenal glands are normal. 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 Small bowel is normal. I do not definite identify the appendix but there are no pericecal inflammatory changes. There is a moderate amount stool in the ascending and transverse colon. There are a few scattered diverticuli of the sigmoid colon with is no diverticulitis. There has been a hysterectomy. The urinary bladder is partially decompressed but otherwise normal. There is a subtle hazy area of increased attenuation in the subcutaneous fat of the suprapubic area suggesting cellulitis. There is a small tubular hypodensity which may be secondary to a tract from the recent lancing of this apparent superficial wound. There is no definite abscess identified. IMPRESSION: 1. Findings suggesting mild diffuse cellulitis minimal subcutaneous inflammatory change but no true abscess is identified in the suprapubic area. No other significant acute abnormality seen
--- OUTSIDE RECORDS SUMMARY | 2017-08-24 03:33 | External Medical Summary Rpt | CCD ---
Author Author , RADHA GARCIA Address Unknown Phone Care Team Providers Care Tag Maker Name Role Phone [employer] Unavailable Unavailable INC, [employer] Unavailable Unavailable INC, [employer] ALLRAN JR, ALLRAN JR Unavailable Unavailable ALLRAN JR MAGO, ALLRAN Unavailable Unavailable JR [...] Unavailable Unavailable EDMUND GILBERT, Unavailable Unavailable EDMUND [facility] Unavailable Unavailable [facility] Unavailable Unavailable [facility], Unavailable [facility], Unavailable Unavailable [facility] CECILIA DENNIS, Unavailable Unavailable CECILIA DENNIS CECILIA DENNIS, Unavailable Unavailable CECILIA DENNIS TRISTEN HINDS PA-C Unavailable Unavailable TRISTEN RAMSEY PA-C DUFF FRED, DUFF FRED Unavailable Unavailable FRYMAN EUG, FRYMAN Unavailable Unavailable EUG JR MOREL FULLER, Unavailable Unavailable JR PRICE LAURENCE, PRICE Unavailable Unavailable LAURENCE [facility], Unavailable Unavailable [facility] GILISIS VELARDE, GILBERT Unavailable Unavailable SYD NI DAWSON, NI Unavailable Unavailable DAWSON [facility] Unavailable Unavailable INC, [facility] Unavailable Unavailable HOSPITAL P, [facility], Unavailable Unavailable [facility] BELLO MADRID, BELLO Unavailable Unavailable JULIUS WOO, WOO Unavailable Unavailable DUKE TRA, DUKE TRA Unavailable Unavailable RADHA FRED, RADHA Unavailable Unavailable FRED KEDING, KEDING Unavailable Unavailable KEDING, KEDING Unavailable Unavailable KEDING FRED, KEDING Unavailable Unavailable FRED [place] FRED, KEDING Unavailable Unavailable [facility], [facility] KEMP BECK, KEMP Unavailable Unavailable BECK ELKE JR DWI, ELKE Unavailable Unavailable JR DWI SEYMOUR THEODORE, SEYMOUR Unavailable Unavailable THEOODRE ELIAS GRE, Unavailable Unavailable ELIAS GRE ELI[facility] GRE, Unavailable Unavailable ELI[facility] GRE [facility], [facility] PICKLUIS JR JOSSELINE, Unavailable Unavailable PICKLESIMER JR JOSSELINE RENUSCH SUMMER, RENUSCH Unavailable Unavailable SUMMER SCALF, SCALF Unavailable Unavailable AARON, AARON Unavailable Unavailable BEAUCHAMP VLADIMIR, BEAUCHAMP VLADIMIR Unavailable Unavailable BEAUCHAMP OMER, BEAUCHAMP OMER Unavailable Unavailable SOTINGEANU MAUREEN, Unavailable Unavailable SOTINGEANU MAUREEN HALEY, HALEY Unavailable Unavailable [facility]available [facility], Unavailable Unavailable [facility] STONE, STONE Unavailable Unavailable STONE ROXY, STONE ROXY Unavailable Unavailable [facility] Unavailable Unavailable [facility]ENTER, [facility] WALKER FOR, WALKER Unavailable Unavailable FOR Purpose Continuity of Care Document - 02-03-2008 through 2016 Problems Code Diagnosis DOS Provider Status E559 VITAMIN D 06-27-2017 [facility] UNSPECIFIED INC I10 ESSENTIAL 06-27-2017 [facility] HYPERTENSIO INC N M797 FIBROMYALGI 06-27-2017 [facility] INC [id number] OTHER LONG 06-27-2017 [facility] CURRENT INC DRUG THERAPY N764 ABSCESS OF 05-26-2017 [facility] INC Z4800 ENCOUNTER 05-26-2017 [facility]ANGE/ALEJANDRO [facility], ALISON NONSURG PLLC WOUND DRESSING L0291 CUTANEOUS 05-25-2017 [facility] ABSCESS PHYSICIANS UNSPECIFIED GROUP N739 FEMALE 05-24-2017 [facility] PELVIC PHYSICIANS INFLAMMATOR GROUP Y DISEASE UNSPECIFIED Q37186 CUTANEOUS 05-19-2017 [facility] ABSCESS OF [facility]YSICIANS, ABDOMINAL PLLC WALL M545 LOW BACK 12-21-2016 [place] PAIN E039 HYPOTHYROID 11-20-2016 [facility] UNSPECIFIED INC R05 COUGH 10-19-2016 [facility] R1030 LOWER 10-04-2016 [facility] PA[facility] UNSPECIFIED R109 UNSPECIFIED 10-04-2016 [facility] PS R197 DIARRHEA 10-04-2016 [facility] PS R1032 LEFT LOWER 07-24-2016 [facility] QUADRANT PHYSICIANS PAIN GROUP K5909 OTHER 07-10-2016 [facility] N1330 UNSPECIFIED 06-30-2016 [facility] HYDRONEPHRO IMAGING ASS SIS N134 HYDROURETER 06-30-2016 [facility] N289 DISORDER OF 06-30-2016 [facility], URETER PLLC UNSPECIFIED N3000 ACUTE 06-30-2016 [facility] CYSTITIS [facility], WITHOUT PLLC HEMATURIA N390 URINARY 06-30-2016 [facility] TRACT [facility], INFECTION PLLC SITE NOT SPECIFIED R1031 RIGHT LOWER 06-30-2016 [facility] K529 NONINFECTIV 06-19-2016 ROB Ad[facility] ITIS & COLITIS UNS K635 POLYP OF 06-19-2016 [facility] COLON [facility] E118 TYPE 2 05-06-[address] [place] [place] [facility]ET[facility] MELLITUS INC W/UNS COMPLICATIO NS E876 HYPOKALEMIA 05-06-2016 [facility] R1012 LEFT UPPER 05-06-2016 [facility], PAIN PLLC Z720 TOBACCO USE 05-06-2016 [facility] H[facility] INC M5416 RADICULOPAT 04-25-2016 [place] FRED HY LUMBAR REGION R194 CHANGE IN 03-21-2016 [facility] BOWEL HABIT PHYSICIANS GROUP [id number] PERSONAL 03-21-2016 [facility] HISTORY OF PHYSICIANS COLONIC GROUP POLYPS K219 GASTRO-ESOP 03-14-2016 [facility] P WITHOUT ESOPHAGITIS R1084 GENERALIZED 03-14-2016 [facility] K5792 DIVERTICULI 03-12-2016 [facility] TIS PART PHYSICIANS, UNS W/O PLLC PERF/ABSC W/O BLEED R110 NAUSEA 03-12-2016 [facility] Z0100 ENCOUNTER 03-08-2016 [facility] EXAM EYES & GRE VISION W/O ABNORMAL FIND B370 CANDIDAL 02-21-2016 [facility] STOMATITIS PHYSICIANS GROUP Z23 ENCOUNTER 02-21-2016 [facility] FOR PHYSICIANS IMMUNIZATIO GROUP N M542 CERVICALGIA 02-16-2016 [place] FRED R51 HEADACHE 02-02-2016 [facility] F65488 HEMIPLEGIC 01-05-2016 [facility] MIGRAINE PHYSICIANS INTRACT W/O GROUP STAT MIGRAINOSUS Q99009 MIGRAINE 12-28-2015 [facility] INTRACT W/O INC STATUS MIGRAINOSUS T63108 MIGRAINE 12-20-2015 [facility] W/O AURA PHYSICIANS, NOT INTRACT PLLC W/STAT MIGRAINOSUS C19489 PAIN IN 12-08-2015 [facility] RIGHT KNEE PHYSICIANS GROUP [id number] PAIN IN 12-08-2015 [facility] LEFT KNEE PHYSICIANS GROUP J0190 ACUTE 11-27-2015 [facility] SINUSITIS PHYSICIANS UNSPECIFIED GROUP R112 NAUSEA WITH 11-27-2015 [facility] VOMITING PHYSICIANS UNSPECIFIED GROUP M461 SACROILIITI 11-23-2015 Samantha ROLON NOT , PSC ELSEWHERE CLASSIFIED M5116 INTERVERTEB 11-23-2015 [facility] D/O INC W/RADICULOP ATHY LUMB RGN M5136 OTH 11-23-2015 ELLY WILKERSON INTERVERTEB , PSC RAL DISC DEGEN LUMBAR REGION 7231 CERVICALGIA 07-01-2015 [place] FRED 7242 LUMBAGO 07-01-2015 [facility] FRED 7246 DISORDERS 07-01-2015 WILLIAM FRED OF SACRUM 12296 DISPLCMT 06-28-2015 [facility] INTERVERT NEUROSURGIC DISC W/O AL MYELOPATHY 62631 DEGEN 06-28-2015 [facility]/LUMB BRAIN OSACRAL NEUROSURGIC INTERVERTEB AL RAL DISC 9532 INJURY TO 06-28-2015 [facility] [place] [address] ALTERED 05-23-2015 [facility] MENTAL [facility], STATUS PLLC 4019 UNSPECIFIED 05-17-2015 [facility] HYPERTENSIO INC N 08692 PAIN IN 05-17-2015 [facility] JOINT, PHYSICIANS LOWER LEG GROUP V5869 LONG-TERM 05-17-2015 [facility] (CURRENT[facility] USE OF INC OTHER MEDICATIONS 16040 OTHER 05-06-2015 [facility] GLUCOSE INC 7243 SCIATICA 04-21-2015 [facility] FRED 9597 INJURY 02-23-2015 [facility] OTHER&UNSPE TECHNOLOGIE CIFIED KNEE S INC LEG ANKLE&FOOT 39849 UNSPECIFIED 02-11-2015 [facility] VAGINITIS PHYSICIANS AND GROUP VULVOVAGINI TIS V7231 ROUTINE 02-11-2015 [facility] AL EXAMINATION V7641 SCREENING 02-11-2015 [facility] FOR PHYSICIANS MALIGNANT GROUP NEOPLASM OF THE RECTUM 4610 ACUTE 01-23-2015 [facility] MAXILLARY PHYSICIANS SINUSITIS GROUP 4659 ACUTE URIS 01-23-2015 [facility] OF PHYSICIANS UNSPECIFIED GROUP SITE 82661 ABDOMINAL 12-22-2014 [place] PA[facility], LEFT MEDICAL UPPER IMAGING ASS QUADRANT 17938 ABDOMINAL 12-22-2014 [facility] LEFT UPPER IMAGING ASS QUADRANT 4619 ACUTE 11-23-2014 [facility] SINUSITIS, PHYSICIANS UNSPECIFIED GROUP 46514 WHEEZING 11-23-2014 [facility] PHYSICIANS GROUP 7862 COUGH 11-23-2014 [facility] PHYSICIANS GROUP 4611 ACUTE 11-20-2014 [facility] FRONTAL PHYSICIANS SINUSITIS GROUP 4660 ACUTE 10-16-2014 [facility] BRONCHITIS PHYSICIANS GROUP [address] MITRAL 10-02-[address] [place] [place] [facility] DISORDERS INC 7852 UNDIAGNOSED 10-02-2014 [facility] CARDIAC SERV [facility] 7244 THORACIC/EM 05-20-[address] MBOSACRAL SURGERY NEURITIS/RA CENTER DICULITIS UNSPEC 52728 GENERALIZED 04-05-2014 [facility] DISORDER 7291 UNSPECIFIED 04-05-2014 [facility] MYALGIA [facility] 7245 UNSPECIFIED 04-04-2014 [facility] BACKACHE 55198 PAIN IN 03-31-2014 [facility] JOINT PELVIC REGION AND THIGH 78198 SPINAL STEN 03-28-2014 [facility] LUMB REG DENNIS W/O NEUROGENIC CLAUDICATIO N 274.00 274.00 03-29-2013 [facility] Allergies, Adverse Reactions, Alerts [...] ia de te s n re d DI 59 08 09 40 10 00 HO Ac PH 76 -1 -2 .0 00 ME ti EN 21 8- 2- 00 04 TO ve OX 06 20 20 02 WN YL 10 17 17 42 AT 1 42 PH E- AR AT MA RO CY P 2. OF 5- 0. CY 02 NT 5 HI AN A OR 68 08 09 20 5 00 HO Ac OM 38 -1 -2 .0 00 ME ti ET 20 8- 2- 00 06 TO ve GARCIA 04 20 20 09 WN ZI 00 17 17 26 NE 1 78 PH AR 12 MA .5 CY MG OF TA CY BL NT ET HI AN A LO 45 08 09 30 30 00 HO Ac RA 80 -1 -2 .0 00 ME ti TA 20 8- 2- 00 06 TO ve DI 65 20 20 09 WN NE 08 17 17 26 7 79 PH 10 AR MA MG CY TA OF BL ET CY NT HI AN A DI 51 08 09 90 30 00 HO Ac AZ 86 -1 -1 .0 00 ME ti EP 20 1- 5- 00 04 TO ve AM 06 20 20 02 WN 5 31 17 17 32 0 28 PH MG AR MA TA CY BL ET OF CY NT HI AN A GA 45 08 09 90 30 00 HO Ac BA 96 -1 -1 .0 00 ME ti PE 30 1- 5- 00 06 TO ve NT 55 20 20 08 WN IN 75 17 17 88 0 70 PH 40 AR 0 MA MG CY CA OF PS UL CY E NT HI AN A 51 08 09 8. 28 00 HO Ac T 99 -1 -1 00 00 ME ti D2 10 1- 5- 0 06 TO ve 60 20 20 08 WN 1. 40 17 17 88 25 1 77 PH AR MG MA CY (5 0, OF 00 0 CY UN NT IT HI ) AN A LE 00 08 09 30 30 00 HO Ac VO 52 -1 -1 .0 00 ME ti TH 71 1- 5- 00 06 TO ve YR 34 20 20 08 WN OX 10 17 17 88 IN 1 74 PH E AR 25 MA CY MC G OF TA BL CY ET NT HI AN A LI 31 08 09 90 30 00 HO Ac TH 72 -1 -1 .0 00 ME ti IU 20 1- 5- 00 06 TO ve M 54 20 20 08 WN CA 40 17 17 88 RB 1 76 PH ON AR AT MA E CY 15 0 OF MG CY CA NT P HI AN A TO 68 08 09 30 30 00 HO Ac PI 46 -1 -1 .0 00 ME ti RA 20 1- 5- 00 06 TO ve MA 10 20 20 08 WN TE 96 17 17 88 0 71 PH 10 AR 0 MA MG CY TA OF BL ET CY NT HI AN A LI 68 08 09 30 30 00 HO Ac SI 18 -1 -1 .0 00 ME ti NO 00 1- 5- 00 06 TO ve OR 51 20 20 08 WN IL 80 17 17 53 -H [address] AR Z MA 10 CY -1 2. OF 5 MG CY NT TA HI B AN A ME 68 08 09 30 30 00 HO Ac TO 00 -1 -1 .0 00 ME ti OR 10 1- 5- 00 06 TO ve OL 11 20 20 08 WN OL 90 17 17 53 0 76 PH [place] AR CC MA CY ER OF 10 0 CY MG NT HI TA AN B A DU 68 08 09 30 30 00 HO Ac LO 00 -1 -1 .0 00 ME ti XE 10 1- 5- 00 06 TO ve TI 25 20 20 08 WN NE 70 17 17 88 4 72 PH HC AR L MA DR CY 60 OF MG CY NT CA HI P AN A TI 29 08 09 90 30 00 HO Ac ZA 30 -1 -1 .0 00 ME ti NI 00 1- 5- 00 06 TO ve DI 16 20 20 07 WN NE 91 17 17 91 0 39 PH HC AR L MA 4 CY MG OF TA BL CY ET NT HI AN A 00 08 09 30 30 00 HO Ac TA 53 -1 -1 .0 00 ME ti ME 63 4- 5- 00 06 TO ve N 33 20 20 09 WN D3 40 17 17 23 1 88 PH 1, AR 00 MA 0 CY UN IT OF TA CY BL NT ET HI AN A ON 45 07 08 10 10 00 HO Ac DA 96 -2 -2 .0 00 ME ti NS 30 1- 5- 00 06 TO ve ET 53 20 20 09 WN RO 93 17 17 11 N 0 50 PH HC AR L MA 8 CY MG OF TA BL CY ET NT HI AN A DI 51 07 08 90 30 00 HO Ac AZ 86 -1 -1 .0 00 ME ti EP 20 3- 8- 00 04 TO ve AM 06 20 20 02 WN 5 31 17 17 32 0 28 PH MG AR MA TA CY BL ET OF CY NT HI AN A OM 62 07 08 60 30 00 HO Ac EP 17 -1 -1 .0 00 ME ti RA 50 3- 8- 00 06 TO ve ZO 11 20 20 08 WN LE 84 17 [address] AR MA 20 CY MG OF CA CY PS NT UL HI E AN A 51 07 08 8. 28 00 HO Ac T 99 -1 -1 00 00 ME ti D2 10 3- 8- 0 06 TO ve 60 20 20 08 WN 1. 40 17 17 88 25 1 77 PH AR MG MA CY (5 0, OF 00 0 CY UN NT IT HI ) AN A LI 31 07 08 90 30 00 HO Ac TH 72 -1 -1 .0 00 ME ti IU 20 3- 8- 00 06 TO ve M 54 20 20 08 WN CA 40 17 17 53 RB 1 82 PH ON AR AT MA E CY 15 0 OF MG CY CA NT P HI AN A LI 68 07 08 30 30 00 HO Ac SI 18 -1 -1 .0 00 ME ti NO 00 3- 8- 00 06 TO ve OR 51 20 20 08 WN IL 80 17 17 53 -H [address] AR Z MA 10 CY -1 2. OF 5 MG CY NT TA HI B AN A ME 68 07 08 30 30 00 HO Ac TO 00 -1 -1 .0 00 ME ti OR 10 3- 8- 00 06 TO ve OL 11 20 20 08 WN OL 90 17 17 53 0 76 PH [place] AR CC MA CY ER OF 10 0 CY MG NT HI TA AN B A HY 00 07 08 [address] 60 -1 -1 .0 00 ME ti OC 33 3- 8- 00 02 TO ve OD 89 20 20 01 WN ON 03 17 17 41 -A 2 39 PH CE AR TA MA ME CY NO PH OF EN CY 5- NT 32 HI 5 AN A C[place] 65 07 08 20 10 00 WA Ac LF 86 -0 -1 .0 00 L- ti AM 20 9- 1- 00 07 MA ve ET 42 20 20 49 RT HO 00 17 17 77 XA 5 87 PH ZO AR LE MA -T CY MP #5 DS 91 TA BL ET HY 00 07 08 [address] 40 -0 -1 .0 00 L- ti OC 60 9- 1- 00 02 MA ve OD 12 20 20 24 RT ON 30 17 17 10 -A 1 43 PH CE AR TA MA ME CY NO PH #5 EN 91 5- 32 5 AM 00 07 08 30 10 00 HO Ac OX 78 -0 -1 .0 00 ME ti IC 12 7- 1- 00 06 TO ve IL 61 20 20 09 WN LI 30 17 17 03 N 5 08 PH 50 AR 0 MA MG CY CA OF PS UL CY E NT HI AN A OX 65 06 07 10 2 00 HO Ac YC 16 -2 -2 .0 00 ME ti OD 20 8- 8- 00 02 TO ve ON 20 20 20 01 WN -A 75 17 17 40 CE 0 02 PH TA AR ME MA NO CY PH EN OF 7. CY 5- NT 32 HI 5 AN A GA 45 06 07 90 30 00 HO Ac BA 96 -2 -2 .0 00 ME ti PE 30 6- 8- 00 06 TO ve NT 55 20 20 08 WN IN 75 17 17 53 0 81 PH 40 AR 0 MA MG CY CA OF PS UL CY E NT HI AN A TI 29 06 07 90 30 00 HO Ac ZA 30 -2 -2 .0 00 ME ti NI 00 6- 8- 00 06 TO ve DI 16 20 20 07 WN NE 91 17 17 91 0 39 PH HC AR L MA 4 CY MG OF TA BL CY ET NT HI AN A LE 00 06 07 30 30 00 HO Ac VO 52 -2 -2 .0 00 ME ti TH 71 6- 8- 06 TO ve YR 34 20 20 08 WN OX 10 17 17 53 IN 1 78 PH E AR 25 MA CY MC G OF TA BL CY ET NT HI AN A 00 06 07 30 30 00 HO Ac TA 53 -2 -2 .0 00 ME ti ME 63 6- 8- 00 06 TO ve N 33 20 20 07 WN D3 40 17 17 95 1 31 PH 1, AR 00 MA 0 CY UN IT OF TA CY BL NT ET HI AN A TO 68 06 07 30 30 00 HO Ac PI 46 -2 -2 .0 00 ME ti RA 20 6- 8- 00 06 TO ve MA 10 20 20 08 WN TE 96 17 17 53 0 80 PH 10 AR 0 MA MG CY TA OF BL ET CY NT HI AN A DU 68 06 07 30 30 00 HO Ac LO 00 -2 -2 .0 00 ME ti XE 10 6- 8- 00 06 TO ve TI 25 20 20 08 WN NE 70 17 17 53 4 79 PH HC AR L MA DR CY 60 OF MG CY NT CA HI P AN A QU 68 06 07 30 30 00 HO Ac ET 00 -2 -2 .0 00 ME ti IA 10 6- 8- 06 TO ve PI 18 20 20 08 WN NE 20 17 17 88 3 75 PH FU AR MA MA RA CY TE OF 20 0 CY MG NT HI TA AN B A DI 51 06 07 90 30 00 HO Ac AZ 86 -1 -1 .0 00 ME ti EP 20 4- 4- 00 04 TO ve AM 06 20 20 02 WN 5 31 17 17 32 0 28 PH MG AR MA TA CY BL ET OF CY NT HI AN A LI 68 06 07 30 30 00 HO Ac SI 18 -1 -1 .0 00 ME ti NO 00 2- 4- 00 06 TO ve OR 51 20 20 08 WN IL 80 17 17 53 -H [address] AR Z MA 10 CY -1 2. OF 5 MG CY NT TA HI B AN A QU 68 06 07 30 30 00 HO Ac ET 00 -1 -1 .0 00 ME ti IA 10 2- 4- 00 06 TO ve PI 18 20 20 08 WN NE 40 17 17 53 0 83 PH FU AR MA MA RA CY TE OF 10 0 CY MG NT HI TA AN B A ME 68 06 07 30 30 00 HO Ac TO 00 -1 -1 .0 00 ME ti OR 10 2- 4- 00 06 TO ve OL 11 20 20 08 WN OL 90 17 17 53 0 76 PH [place] AR CC MA CY ER OF 10 0 CY MG NT HI TA AN B A LI 68 06 07 90 30 00 HO Ac TH 46 -1 -1 .0 00 ME ti IU 20 2- 4- 00 06 TO ve M 22 20 20 08 WN CA 00 17 17 53 RB 1 82 PH ON AR AT MA E CY 15 0 OF MG CY CA NT P HI AN A OR 59 06 07 10 5 00 HO Ac ED 74 -1 -1 .0 00 ME ti NI 60 3- 4- 00 06 TO ve SO 17 20 20 08 WN NE 50 17 17 88 9 73 PH 20 AR MA MG CY TA OF BL ET CY NT HI AN A 51 06 07 8. 28 00 HO Ac T 99 -1 -1 00 00 ME ti D2 10 3- 4- 0 06 TO ve 60 20 20 08 WN 1. 40 17 17 88 25 1 77 PH AR MG MA CY (5 0, OF 00 0 CY UN NT IT HI ) AN A OM 60 06 07 60 30 00 HO Ac EP 50 -1 -1 .0 00 ME ti RA 50 3- 4- 00 06 TO ve ZO 06 20 20 08 WN LE 50 17 [address] AR MA 20 CY MG OF CA CY PS NT UL HI E AN A OR 68 06 07 20 5 00 HO Ac OM 38 -1 -1 .0 00 ME ti ET 20 4- 4- 00 06 TO ve GARCIA 04 20 20 08 WN ZI 00 17 17 89 NE 1 30 PH AR 12 MA .5 CY MG OF TA CY BL NT ET HI AN A DI 51 05 06 [...] 53 -2 -3 .0 00 ME ti ME 63 5- 0- 00 06 TO ve [...] BL ET CY NT HI AN A QU 68 [...] 00 -1 -1 .0 00 ME ti OR 10 2- 6- 00 06 TO ve OL 11 20 20 08 WN OL 90 17 17 53 0 76 PH [place] AR CC MA CY ER OF 10 0 CY MG NT HI TA AN B A LI 68 05 06 30 30 00 HO Ac SI 18 -1 -1 .0 00 ME ti NO 00 2- 6- 00 06 TO ve OR 51 20 20 08 WN [place] 80 17 17 53 -H [address] AR Z MA 10 CY -1 2. OF 5 MG CY NT TA HI B AN A HY 43 04 05 18 30 00 HO Ac OS 19 -2 -2 0. 00 ME ti CY 90 6- 6- 00 06 TO ve AM 01 20 20 0 08 WN IN 10 17 17 12 E 1 22 PH 0. AR 12 MA 5 CY MG OF TA B CY SL NT HI AN A OM 46 04 05 60 30 00 HO Ac EP 12 -2 -2 .0 00 ME ti RA 20 6- 6- 00 06 TO ve ZO 02 20 20 08 WN LE 90 17 [address] AR MA 20 CY MG OF TA CY BL NT ET HI AN A 00 04 05 30 30 00 HO Ac TA 53 -2 -2 .0 00 ME ti ME 63 6- 6- 00 06 TO ve N 33 20 20 07 WN D3 40 17 17 95 1 31 PH 1, AR 00 MA 0 CY UN IT OF TA CY BL NT ET HI AN A 51 04 05 8. 28 00 HO Ac T 99 -2 -2 00 00 ME ti D2 10 6- 6- 0 06 TO ve 60 20 20 07 WN 1. 40 17 17 95 25 1 30 PH AR MG MA CY (5 0, OF 00 0 CY UN NT IT HI ) AN A DU 68 04 05 30 30 00 HO Ac LO 00 -2 -2 .0 00 ME ti XE 10 6- 6- 00 06 TO ve TI 25 20 20 08 WN NE 70 17 17 53 4 79 PH HC AR L MA DR CY 60 OF MG CY NT CA HI P AN A LE 00 04 05 30 30 00 HO Ac VO 52 -2 -2 .0 00 ME ti TH 71 6- 6- 00 06 TO ve YR 34 20 20 08 WN OX 10 17 17 53 IN 1 78 PH E AR 25 MA CY MC G OF TA BL CY ET NT HI AN A TO 68 04 05 30 30 00 HO Ac PI 46 -2 -2 .0 00 ME ti RA 20 6- 6- 00 06 TO ve MA 10 20 20 08 WN TE 96 17 17 53 0 80 PH 10 AR 0 MA MG CY TA OF BL ET CY NT HI AN A GA 45 04 [...] 00 -1 -1 .0 00 ME ti OR 10 0- 2- 00 06 TO ve OL 11 20 20 08 WN OL 90 17 17 47 0 04 PH [place] AR CC MA CY ER OF 10 0 CY MG NT HI TA AN B A LI 68 04 05 30 30 00 HO Ac SI 18 -1 -1 .0 00 ME ti NO 00 0- 2- 00 06 TO ve OR 51 20 20 08 WN [place] 80 [...] NT HI TA AN B A 00 03 04 30 30 00 HO Ac TA 53 -2 -2 .0 00 ME ti ME 63 8- 8- 00 06 TO ve [...] B CY SL NT HI AN A QU 68 03 04 30 30 00 HO Ac ET 00 -1 -1 .0 00 ME ti IA 10 0- 4- 00 06 TO ve PI 18 20 20 07 WN NE 40 17 17 91 0 31 PH FU AR MA MA RA CY TE OF 10 0 CY MG NT HI TA AN B A LI 68 03 04 90 30 00 HO Ac TH 46 -1 -1 .0 00 ME ti IU 20 0- 4- 00 06 TO ve M 22 20 20 07 WN CA 00 17 17 91 RB 1 33 PH ON AR AT MA E CY 15 0 OF MG CY CA NT P HI AN A DI 51 03 04 90 30 00 HO Ac AZ 86 -1 -1 .0 00 ME ti EP 20 0- 4- 00 04 TO ve AM 06 20 20 02 WN 41 17 17 09 10 0 52 PH AR MG MA CY TA BL OF ET CY NT HI AN A 00 02 03 30 30 00 HO Ac TA 53 -2 -3 .0 00 ME ti ME 63 8- 1- 00 06 TO ve [...] ET NT HI AN A DI 51 02 [...] BL NT ET HI AN A HY 51 02 03 18 30 00 HO Ac OS 52 -1 -1 0. 00 ME ti CY 50 0- 7- 00 06 TO ve AM 11 20 20 0 08 WN IN 30 17 17 12 E 1 22 PH 0. AR 12 MA 5 CY MG OF TA B CY SL NT HI AN A GA 45 02 03 90 30 00 HO Ac BA 96 -0 -0 .0 00 ME ti PE 30 1- 3- 00 06 TO ve NT 55 20 20 07 WN IN 75 17 17 91 0 41 PH 40 AR 0 MA MG CY CA OF PS UL CY E NT HI AN A LI 68 02 03 30 30 00 HO Ac SI 18 -0 -0 .0 00 ME ti NO 00 1- 3- 00 06 TO ve OR 51 20 20 07 WN [place] 80 17 17 37 -H [address] AR Z MA 10 CY -1 2. OF 5 MG CY NT TA HI B AN A TI 29 02 03 90 30 00 HO Ac ZA 30 -0 -0 .0 00 ME ti NI 00 1- 3- 00 06 TO ve DI 16 20 [...] 00 -0 -0 .0 00 ME ti OR 10 1- 3- 00 06 TO ve OL 11 20 20 07 WN OL 90 17 17 37 0 36 PH [place] AR CC MA CY ER OF 10 0 CY MG NT HI TA AN B A TO 68 02 03 30 30 00 HO Ac PI 46 -0 -0 .0 00 ME ti RA 20 1- 3- 00 06 TO ve MA 10 20 20 07 WN TE 96 17 17 91 0 40 PH 10 AR 0 MA MG CY TA OF BL ET CY NT HI AN A LE 00 02 03 30 30 00 HO Ac VO 52 -0 -0 .0 00 ME ti TH 71 1- 3- 00 06 TO ve YR 34 20 20 07 WN OX 10 17 17 91 IN 1 43 PH E AR 25 MA CY MC G OF TA BL CY ET NT HI AN A DI 51 01 02 [...] 53 -1 -1 .0 00 ME ti ME 63 6- 7- 00 06 TO ve N 33 20 20 07 WN D3 40 17 17 95 1 31 PH 1, AR 00 MA 0 CY UN IT OF TA CY BL NT ET HI AN A PO 62 01 02 52 30 00 HO Ac LY 17 -1 -1 7. 00 ME ti ET 50 3- 7- 00 06 TO ve HY 44 20 20 0 07 WN LE 23 17 17 94 NE 1 72 PH AR GL MA YC CY OL OF 33 50 CY NT PO HI WD AN A FL 68 01 02 10 10 [...] HI TA AN B A GA 45 01 02 90 30 [...] 37 8 42 PH HC AR L ADELINE DR CY 60 OF MG CY NT [...] 00 -0 -0 .0 00 ME ti OR 10 3- 3- 00 06 TO ve [...] 00 3- 3- 00 06 TO ve OR 51 20 20 07 WN IL 80 [...] MG NT HI TA AN B A OR 68 12 01 20 5 00 HO [...] BL CY ET NT HI AN A OR 59 12 01 10 5 00 HO Ac ED 74 -0 -1 .0 00 ME ti NI 60 8- 3- 00 06 TO ve SO 17 20 20 07 WN NE 50 16 17 71 9 94 PH 20 AR MA MG CY TA OF BL ET CY NT HI AN A OR 00 12 01 20 10 00 HO Ac OM 60 -0 -1 0. 00 ME ti ET 31 8- 3- 00 04 TO ve GARCIA 58 20 20 0 02 WN ZI 55 16 17 05 NE 8 76 PH -C AR OD MA EI CY NE OF SY RU CY P NT HI AN A GA 45 12 01 [...] TA AN B A TO 68 12 01 30 30 00 HO Ac PI 46 -0 -0 .0 00 ME ti RA 20 5- 9- 00 06 TO ve MA 10 20 20 07 WN TE 96 16 17 37 0 38 PH 10 AR 0 MA MG CY TA OF BL ET CY NT HI AN A LI 68 12 01 30 30 00 HO Ac SI 18 -0 -0 .0 00 ME ti NO 00 5- 9- 00 06 TO ve OR 51 20 20 07 WN IL 80 16 17 37 -H [address] AR Z MA 10 CY -1 2. OF 5 MG CY NT TA HI B AN A LE 00 12 01 30 30 00 HO Ac VO 52 -0 -0 .0 00 ME ti TH 71 5- 9- 00 06 TO ve YR 34 20 20 07 WN OX 10 16 17 37 IN 1 43 PH E AR 25 MA CY MC G OF TA BL CY ET NT HI AN A DU 47 12 01 30 30 00 HO Ac LO 33 -0 -0 .0 00 ME ti XE 50 5- 9- 00 06 TO ve TI 38 20 20 07 WN NE 31 16 17 37 8 42 PH HC AR L MA DR CY 60 OF MG CY NT CA HI P AN A ME 68 12 01 30 30 00 HO Ac TO 00 -0 -0 .0 00 ME ti OR 10 5- 9- 00 06 TO ve OL 11 20 20 07 WN OL 90 16 17 37 0 36 PH [place] AR CC MA CY ER OF 10 0 CY MG NT HI TA AN B A OR 68 12 01 20 5 00 HO Ac OM 38 -0 -0 .0 00 ME ti ET 20 5- 9- 00 06 TO ve GARCIA 04 20 20 07 WN ZI 00 16 17 68 NE 1 43 PH AR 12 MA .5 CY MG OF TA CY BL NT ET HI AN A BU 55 05 0 [...] la 2 AR bl MA e CY AL 59 02 03 00 90 30 CL 16 No Ac OR 76 -0 -2 .0 IN 44 t ti AZ 23 8- 6- 00 IC 53 Av ve OL 72 20 20 ai AM 00 08 08 PH la 3 AR bl 0. MA e 5 CY MG TA BL ET OR 68 02 03 00 15 2 CL 16 No Ac OM 38 -0 -2 .0 IN 38 t ti ET 20 1- 6- 00 IC 27 Av ve GARICA 04 20 20 ai ZI 00 08 [...] 00 90 30 CL 16 No Ac OR 76 -0 -2 .0 IN 20 t [...] Order Detail nces retati t Range on Drugs identified in Urine by Screen method (06-27-2017 11:00) Ampheta NEGATIV <1000 complet mine 017 E ed [Presen 11:00 ce] in Urine by Screen method 11-Hydr NEGATIV <50 complet oxy 017 E ed delta-9 11:00 tetrahy drocann abinol [Presen ce] in Unspeci fied specime n Bacteria identified in Wound by Culture (05-19-2017 20:10) Bacteri Staphyl complet a 017 ococcus ed identif 20:10 ied in epiderm Wound idis by Culture URIC ACID (03-29-2013 18:50) URIC 4.3 2.6-7.2 complet ACID 013 mg/dL ed 18:50 Procedures Procedure DOS Code Location Performer Comment 25 [id number] [facility]Y [facility] INCLUDES INC INC FRACTIONS IF PERFORMED CYANOCOBA [id number] [facility] RENUKA [facility] VITAMIN INC INC B-12 BLOOD 95003 [facility] COUNT [facility] COMPLETE INC INC AUTO&[place] [address] [facility] ACID INC INC SERUM COMPREHEN 14279 [facility] SIVE [facility] METABOLIC INC INC PANEL DRUG TEST 29605 [facility] PRSMV 7 [facility] QUAL DIR INC INC OPTICAL OBS PER DAY HEPATITIS 67811 [facility] A [facility] ANTIBODY INC INC HAAB LIPID 87883 [facility] PANEL 7 [facility] INC INC HEPATITIS 26724 [facility] C [facility] ANTIBODY INC INC HEPATITIS 49698 L[facility] B CORE [facility] [place] [address] [facility] HEPATITIS 7 [facility] B INC INC SURFACE ANTIGEN THERAPEUT 76063 [facility] IC 7 [facility] PROPHYLAC INC INC TIC/DX INJECTION SUBQ/IM INCISION 25123 MARCIA MOREL, & 7 PHYSICIAN JR DRAINAGE S, [facility] ABSCESS COMPLICAT ED/MULTIP LE DRUG TEST 40405 [facility] PRSMV 7 [facility] QUAL DIR INC INC OPTICAL OBS PER DAY DRUG TEST G0480 [facility] DEFINITV [address] [facility] [address] [address] ID INC INC METH P DAY 1-7 DRUG CL CHIROPRAC 19143 [facility] THOMAS TIC 7 [facility] SPINAL 1-2 REGIONS DRUG TEST 04976 [facility] PRSMV 7 [facility] INSTRMNT INC INC CHEMISTRY ANALYZERS COMPREHEN 87050 [facility] SIVE 7 [facility] METABOLIC INC INC PANEL BLOOD 23911 [facility] COUNT 7 [facility] COMPLETE INC INC AUTO&[place] [address] [facility] FREE 7 [facility] [place] [address] [facility] THYROID 7 [facility] STIMULATI INC INC NG HORMONE TSH 25 92819 [facility] HYDROXY 7 [facility] INCLUDES INC INC FRACTIONS IF PERFORMED DRUG TEST G0480 [facility] DEFINITV [address] [address] [address] ID INC INC METH P DAY 1-7 DRUG CL THERAPEUT 79712 [facility] STONE ROXY IC 6 PHYSICIAN PROPHYLAC S GROUP TIC/DX INJECTION SUBQ/IM RADIOLOGI 46198 [place] C[place] C EXAM 6 MEDICAL DENNIS CHEST 2 IMAGING VIEWS ASS FRONTAL&L ATERAL INJECTION J1040 [facility] STONE ROXY 6 PHYSICIAN METHYLPRE S GROUP DNISOLONE ACETATE 80 MG INJECTION J0696 [facility] STONE ROXY 6 PHYSICIAN CEFTRIAXO S GROUP NE SODIUM [place] [address] [place] [address] [facility] [place] SCALF ABDOMEN & 6 RADIOLOGY PELVIS W/O CONTRAST MATERIAL ANES 39849 [facility] LOWER 6 ANESTHESI INTESTINE A GROUP PS ENDOSCOPY DISTAL DUODENUM FLUORESCE 86824 [facility] NT 6 [facility] NONNFCT INC INC AGT ANTB SCREEN EA ANTIBODY IMMUNOASS 92917 [facility] AY 6 [facility] ANALYTE INC INC QUAL/SEMI QUAL MULTIPLE STEP BLOOD 70217 [facility] COUNT 6 [facility] COMPLETE INC INC AUTO&[place] [address] [facility] THYROID 6 [facility] STIMULATI INC INC NG HORMONE TSH COMPREHEN 16458 [facility] SIVE 6 [facility] METABOLIC INC INC PANEL RADEX 97635 [facility] [place] ABDOMEN 1 6 RADIOLOGY DAWSON ANTEROPOS TERIOR VIEW DRUG TST G0477 [facility] PRESUMP;C 6 [facility] PBL BEING INC [place] [address] [place] [facility] ABDOMEN & 6 MEDICAL PELVIS IMAGING W/[place] [address] [facility]IVAS ABDOMEN & 6 REGIONAL REGIONAL PELVIS MEDICAL MEDICAL W/CONTRAS CENTE CENTE T MATERIAL LOCM Q9967 ROB RIVAS [phone] REGIONAL REGIONAL MG/ML MEDICAL MEDICAL IODINE CENTE CENTE CONCENTRA TION PER ML HI OSM Q9963 ROB R[facility] CONTRST 6 REGIONAL REGIONAL MATL MEDICAL MEDICAL [phone] CENTE CENTE MG/ML IODINE CONC ML ANES 06897 [facility] LOWER 6 ANESTH INTESTINE OF THE BLUE ENDOSCOPY DISTAL DUODENUM COLONOSCO 96994 [facility] PY 6 [facility] W/BIOPSY INC INC [place]ING[place] [address] P&C LABS, SEYMOUR SURG 6 [facility] PATHOLOGY GROSS&LAURENCE ROSCOPIC EXAM THERAPEUT 25674 [facility] IC 6 [facility] INJECTION INC INC IV PUSH EACH NEW DRUG COMPREHEN 69535 [facility] SIVE 6 [facility] METABOLIC INC INC PANEL INJECTION J2405 [facility]INO 6 [facility] ONDANSETR INC INC ON HCL PER 1 MG BLOOD 27607 [facility] COUNT 6 [facility] COMPLETE INC INC AUTO&[place] [address] L[facility] PA[facility]INO AMYLASE 6 [place] [address] L[facility] LIPASE 6 [facility] INC INC THER 79212 [facility] PROPH/DX 6 [facility] NJX IV INC INC PUSH SINGLE/1S T SBST/DRUG DRUG TST G0477 [facility] PRESUMP;C 6 [facility] PBL BEING INC INC READ DC OPT OBV ONLY UNCLASSIF J3490 [facility] IED DRUGS 6 [facility] INC INC CHIROPRAC 02712 [facility] TIC 6 FRED FRED MANIP[facility]AT HORACIO [place] SPINAL 1-2 REGIONS CHIROPRAC 64722 [facility] TIC 6 FRED FRED MANIPULAT HORACIO [place] SPINAL 1-2 REGIONS CHIROPRAC 80629 [facility] TIC 6 FRED FRED MANIPULAT HORACIO [place] SPINAL 1-2 REGIONS CHIROPRAC 71382 [facility] TIC 6 FRED FRED MANIPULAT HORACIO [place] SPINAL 1-2 REGIONS CHIROPRAC 82850 [facility] TIC 6 FRED FRED MANIPULAT HORACIO [place] SPINAL 1-2 REGIONS CHIROPRA 05966 [facility] TIC 6 FRED FRED [place]IPULAT [place]ORAC[place] SPINAL 1-[address] [place] [address] [place] BELLA ALL ABDOMEN & 6 MEDICAL PELVIS IMAGING W/O ASS CONTRAST MATERIAL ECG 56226 LORA BEDOYA JR ROUTINE 6 [facility] W/LEAST P 12 LDS I&[place] [address] [place] [facility] & 6 MEDICAL PELVIS IMAGING W/O ASS CONTRAST MATERIAL OPHTH 73491 [facility] 6 GRE GRE XM&EVAL COMPRE NEW PT 1/> VST DETERMINA 07310 [facility] 6 GRE GRE REFRACTIV E STATE IM ADM 19188 [facility] PRICE PRQ ID 6 PHYSICIAN LAURENCE SUBQ/IM S GROUP NJXS 1 VACCINE TDAP 98106 [facility] VACCINE 7 6 PHYSICIAN LAURENCE YRS/> IM S GROUP CHIROPRAC 65145 [facility] TIC 6 FRED FRED MANIPULAT HORACIO TX SPINAL 1-2 REGIONS CHIROPRA 24651 [facility] THOMAS TIC 6 FRED FRED MANIPULAT [place]ORACIO [place] SPINAL 1-2 [place] [address] [facility] INFUSION 6 [facility] THERAPY/P INC INC ROPHYLAXI S /DX 1ST TO 1 HR MRI BRAIN 53330 [facility] BRAIN 6 [facility] STEM W/O INC INC CONTRAST MATERIAL INJECTION J1885 [facility] PRICE 6 PHYSICIAN LAURENCE KETOROLAC S GROUP TROMETHAM INE PER 15 MG INJECTION J1040 [facility] PRICE 6 PHYSICIAN LAURENCE METHYLPRE S GROUP DNISOLONE ACETATE 80 MG CHIROPRA 52985 [facility] TIC 6 FRED FRED MANIPULAT HORACIO [place] SPINAL 1-2 REGIONS INJECTION J2550 [facility] PRICE 6 PHYSICIAN LAURENCE PROMETHAZ S GROUP INE HCL UP TO 50 MG THERAPEUT 27001 [facility] PRICE IC 6 PHYSICIAN LAURENCE PROPHYLAC S GROUP TIC/DX INJECTION SUBQ/IM THERAPEUT 49667 [facility] IC 6 [facility] PROPHYLAC INC INC TIC/DX INJECTION SUBQ/IM UNCLASSIF J3490 [facility] PA[facility]INO IED DRUGS 6 [facility] INC INC INJECTION J1885 [facility] PRICE 6 PHYSICIAN LAURENCE KETOROLAC S GROUP TROMETHAM INE PER 15 MG THERAPEUT 54032 [facility] PRICE IC 6 PHYSICIAN LAURENCE PROPHYLAC S GROUP TIC/DX INJECTION SUBQ/IM INJECTION J2550 [facility] PRICE 6 PHYSICIAN LAURENCE PROMETHAZ S GROUP INE HCL UP TO 50 MG INJECTION J2550 [facility] TRISTEN 6 PHYSICIAN STONE PROMETHAZ S GROUP PA-C ROXY INE HCL UP TO 50 MG CHIROPRAC 92534 [facility] TIC 6 FRED FRED MANIPULAT HORACIO [place] SPINAL 1-2 REGIONS INJECTION J1040 [facility] TRISTEN 6 PHYSICIAN STONE METHYLPRE S GROUP PA-C ROXY DNISOLONE ACETATE 80 MG THERAPEUT 01794 [facility] TRISTEN IC 6 PHYSICIAN STONE PROPHYLAC S GROUP PA-C ROXY TIC/DX INJECTION SUBQ/IM INJECTION J1885 [facility] TRISTEN 6 PHYSICIAN STONE KETOROLAC S GROUP PA-C ROXY TROMETHAM INE PER 15 MG INJECTION J1200 [facility] TRISTEN 6 PHYSICIAN STONE DIPHENHYD S GROUP PA-C ROXY RAMINE HCL UP TO 50 MG INJECTION J1885 [facility] PRICE 6 PHYSICIAN LAURENCE KETOROLAC S GROUP TROMETHAM INE PER 15 MG INJECTION J1200 [facility] PRICE 6 PHYSICIAN LAURENCE DIPHENHYD S GROUP RAMINE HCL UP TO 50 MG THERAPEUT 07678 [facility] PRICE IC 6 PHYSICIAN LAURENCE PROPHYLAC S GROUP TIC/DX INJECTION SUBQ/IM INJECTION J2550 [facility] PRICE 6 PHYSICIAN LAURENCE PROMETHAZ S GROUP INE HCL UP TO 50 MG CHIROPRAC 87365 [facility] TIC 6 FRED FRED MANIPULAT HORACIO TX SPINAL 1-2 REGIONS THERAPEUT 10104 [facility] PRICE IC 6 PHYSICIAN LAURENCE PROPHYLAC S GROUP TIC/DX INJECTION SUBQ/IM INJECTION J1885 [facility] PRICE 6 PHYSICIAN LAURENCE KETOROLAC S GROUP TROMETHAM INE PER 15 MG THERAPEUT 32822 [facility] GARCIA TER IC 6 PHYSICIAN PROPHYLAC S GROUP TIC/DX INJECTION SUBQ/IM INJECTION J1040 [facility] GARCIA TER 6 PHYSICIAN METHYLPRE S GROUP DNISOLONE ACETATE 80 MG THERAPEUT 75569 [facility] PRICE IC 6 PHYSICIAN LAURENCE PROPHYLAC S GROUP TIC/DX INJECTION SUBQ/IM INJECTION J1885 [facility] PRICE 6 PHYSICIAN LAURENCE KETOROLAC S GROUP TROMETHAM INE PER 15 MG CHIROPRAC 03032 [facility] TIC 6 FRED FRED MANIPULAT HORACIO TX SPINAL 1-2 REGIONS RADIOLOGI 98599 [facility] Doherty EXAM 5 [facility] KNEE INC INC COMPLETE 4/MORE VIEWS THERAPEUT 58575 [facility] PRICE IC 5 PHYSICIAN LAURENCE PROPHYLAC S GROUP TIC/DX INJECTION SUBQ/IM INJECTION J1885 [facility] PRICE 5 PHYSICIAN LAURENCE KETOROLAC S GROUP TROMETHAM INE PER 15 MG CHIROPRAC 30282 [facility] TIC 5 FRED FRED MANIPULAT HORACIO TX SPINAL 1-2 REGIONS CHIROPRAC 74735 [facility] TIC 5 FRED FRED MANIPULAT HORACIO TX SPINAL 1-2 REGIONS CHIROPRA 07198 [facility] TIC 5 FRED FRED MANIPULAT HORACIO TX SPINAL 1-2 REGIONS CHIROPRAC 08420 [place] TIC 5 FRED FRED MANIPULAT HORACIO TX SPINAL 1-2 REGIONS CHIROPRAC 06904 [facility] TIC 5 FRED FRED MANIPULAT HORACIO TX SPINAL 1-2 REGIONS CHIROPRAC 64285 [facility] TIC 5 FRED FRED MANIPULAT HORACIO TX SPINAL 3-4 REGIONS CHIROPRAC 84450 [place] TIC 5 FRED FRED MANIPULAT HORACIO TX SPINAL 3-4 REGIONS CHIROPRAC 96646 [place] TIC 5 FRED FRED MANIPULAT HORACIO TX SPINAL 3-4 REGIONS CHIROPRAC 03524 [facility] TIC 5 FRED FRED MANIPULAT HORACIO TX SPINAL 3-4 REGIONS THERAPEUT 18474 [facility] IC PX 1/> 5 FRED FRED AREAS EACH 15 MIN EXERCISES APPL 69070 [facility] MODALITY 5 FRED FRED 1/> AREAS TRACTION MECHANICA L APPL 36592 [place] MODALITY 5 FRED FRED 1/> AREAS TRACTION MECHANICA L THERAPEUT 54771 [place] IC PX 1/> 5 FRED FRED AREAS EACH 15 MIN EXERCISES CHIROPRAC 26018 [facility] TIC 5 FRED FRED MANIPULAT HORACIO TX SPINAL 3-4 REGIONS INJECTION J1885 [facility] PRICE 5 PHYSICIAN LAURENCE KETOROLAC S GROUP TROMETHAM INE PER 15 MG THERAPEUT 72665 [facility] IC PX 1/> 5 FRED FRED AREAS EACH 15 MIN EXERCISES POTASSIUM 26376 L[facility]A PAULINO SERUM 5 [facility] HOSP PLASMA/WH INC INC OLE BLOOD THERAPEUT 65007 [facility] PRICE IC 5 PHYSICIAN LAURENCE PROPHYLAC S GROUP TIC/DX INJECTION SUBQ/IM APPL 07140 [facility] MODALITY 5 FRED FRED 1/> AREAS TRACTION MECHANICA L COLLECTIO 91980 L[facility]A PAULINO N VENOUS 5 [facility] BLOOD INC INC VENIPUNCT URE APPL 32390 [place] MODALITY 5 FRED FRED 1/> AREAS TRACTION MECHANICA L CHIROPRAC 73315 [place] TIC 5 FRED FRED MANIPULAT HORACIO TX SPINAL 3-4 REGIONS THERAPEUT 45493 [place] IC PX 1/> 5 FRED FRED AREAS EACH 15 MIN EXERCISES THERAPEUT 38744 [place] IC PX 1/> 5 FRED FRED AREAS EACH 15 MIN EXERCISES CHIROPRAC 59579 [place] TIC 5 FRED FRED MANIPULAT HORACIO TX SPINAL 3-4 REGIONS APPL 81481 [place] MODALITY 5 FRED FRED 1/> AREAS TRACTION MECHANICA L COMPREHEN 22084 [facility] SIVE 5 [facility] METABOLIC INC INC PANEL LIPID 85532 [facility] PANEL 5 [facility] INC INC BLOOD 67037 [facility] COUNT 5 [facility] COMPLETE INC INC AUTO&AUTO DIFRNTL WBC HEMOGLOBI 55751 [facility] N 5 [facility] GLYCOSYLA INC INC MEENA A1C THERAPEUT 11194 [place] IC PX 1/> 5 FRED FRED AREAS EACH 15 MIN EXERCISES APPL 72078 [place] MODALITY 5 FRED FRED 1/> AREAS TRACTION MECHANICA L CHIROPRAC 67806 [place] TIC 5 FRED FRED MANIPULAT HORACIO TX SPINAL 3-4 REGIONS CHIROPRAC 53811 [place] TIC 5 FRED FRED MANIPULAT HORACIO TX SPINAL 3-4 REGIONS THERAPEUT 11803 [place] IC PX 1/> 5 FRED FRED AREAS EACH 15 MIN EXERCISES APPL 69176 [place] MODALITY 5 FRED FRED 1/> AREAS TRACTION MECHANICA L THERAPEUT 30111 [place] IC PX 1/> 5 FRED FRED AREAS EACH 15 MIN EXERCISES APPL 92473 [place] MODALITY 5 FRED FRED 1/> AREAS TRACTION MECHANICA L APPL 51482 [place] MODALITY 5 FRED FRED 1/> AREAS TRACTION MECHANICA L THERAPEUT 58433 [facility] IC PX 1/> 5 FRED FRED AREAS EACH 15 MIN EXERCISES THERAPEUT 85740 [facility] [place] IC PX 1/> 5 FRED FRED AREAS EACH 15 MIN EXERCISES APPL 20566 [place] MODALITY 5 FRED FRED 1/> AREAS TRACTION MECHANICA L CHIROPRAC 60039 [facility] TIC 5 FRED FRED MANIPULAT HORACIO TX SPINAL 3-4 REGIONS CHIROPRAC 51709 [place] TIC 5 FRED FRED MANIPULAT HORACIO TX SPINAL 3-4 REGIONS CHIROPRAC 31644 [place] TIC 5 FRED FRED MANIPULAT HORACIO TX SPINAL 3-4 REGIONS CHIROPRA 61860 [place] TIC 5 FRED FRED MANIPULAT HORACIO TX SPINAL 3-4 REGIONS CHIROPRAC 24754 [place] TIC 5 FRED FRED MANIPULAT HORACIO TX SPINAL 3-4 REGIONS CHIROPRAC 16343 [place] TIC 5 FRED FRED MANIPULAT HORACIO TX SPINAL 3-4 REGIONS THERAPEUT 72010 [place] IC PX 1/> 5 FRED FRED AREAS EACH 15 MIN EXERCISES APPL 13795 [place] MODALITY 5 FRED FRED 1/> AREAS TRACTION MECHANICA L APPL 54819 [place] MODALITY 5 FRED FRED 1/> AREAS TRACTION MECHANICA L THERAPEUT 64370 [facility] IC PX 1/> 5 FRED FRED AREAS EACH 15 MIN EXERCISES CHIROPRA 09077 [facility] TIC 5 FRED FRED MANIPULAT HORACIO TX SPINAL 3-4 REGIONS CHIROPRA 94921 [place] TIC 5 FRED FRED MANIPULAT HORACIO TX SPINAL 3-4 REGIONS THERAPEUT 00512 [place] IC PX 1/> 5 FRED FRED AREAS EACH 15 MIN EXERCISES APPL 16318 [place] MODALITY 5 FRED FRED 1/> AREAS TRACTION MECHANICA L APPL 95101 [place] MODALITY 5 FRED FRED 1/> AREAS TRACTION MECHANICA L THERAPEUT 49576 [place] IC PX 1/> 5 FRED FRED AREAS EACH 15 MIN EXERCISES CHIROPRA 97567 [place] TIC 5 FRED FRED MANIPULAT HORACIO TX SPINAL 3-4 REGIONS CHIROPRAC 92003 [place] TIC 5 FRED FRED MANIPULAT HORACIO TX SPINAL 3-4 REGIONS THERAPEUT 45779 [facility] IC PX 1/> 5 FRED FRED AREAS EACH 15 MIN EXERCISES APPL 11002 [place] MODALITY 5 FRED FRED 1/> AREAS TRACTION MECHANICA L APPL 03602 [place] MODALITY 5 FRED FRED 1/> AREAS TRACTION MECHANICA L CHIROPRAC 27738 [place] TIC 5 FRED FRED MANIPULAT HORACIO TX SPINAL 3-4 REGIONS THERAPEUT 28582 [place] IC PX 1/> 5 FRED FRED AREAS EACH 15 MIN EXERCISES THERAPEUT 65688 [place] IC PX 1/> 5 FRED FRED AREAS EACH 15 MIN EXERCISES CHIROPRAC 79177 [place] TIC 5 FRED FRED MANIPULAT HORACIO TX SPINAL 3-4 REGIONS APPL 01885 [place] MODALITY 5 FRED FRED 1/> AREAS TRACTION MECHANICA L APPL 23948 [place] MODALITY 5 FRED FRED 1/> AREAS TRACTION MECHANICA L CHIROPRAC 82237 [place] TIC 5 FRED FRED MANIPULAT HORACIO TX SPINAL 3-4 REGIONS THERAPEUT 98290 [facility] IC PX 1/> 5 FRED FRED AREAS EACH 15 MIN EXERCISES BASIC 63703 [facility] PAULINO METABOLIC 5 [facility] PANEL INC INC CALCIUM TOTAL CHIROPRAC 12686 [place] TIC 5 FRED FRED MANIPULAT HORACIO TX SPINAL 3-4 REGIONS THERAPEUT 80561 [facility] IC PX 1/> 5 FRED FRED AREAS EACH 15 MIN EXERCISES APPL 29696 [place] MODALITY 5 FRED FRED 1/> AREAS TRACTION MECHANICA L APPL 07690 [place] MODALITY 5 FRED FRED 1/> AREAS TRACTION MECHANICA L THERAPEUT 46475 [facility] IC PX 1/> 5 FRED FRED AREAS EACH 15 MIN EXERCISES RADEX 60077 [place] SPINE 5 FRED FRED CERVICAL 2 OR 3 VIEWS CHIROPRAC 98409 [place] TIC 5 FRED FRED MANIPULAT HORACIO TX SPINAL 3-4 REGIONS INJECTION J1885 [facility] PRICE 5 PHYSICIAN LAURENCE KETOROLAC S GROUP TROMETHAM INE PER 15 MG THERAPEUT 46636 [facility] PRICE MANZANO 5 PHYSICIAN LAURENCE PROPHYLAC S GROUP TIC/DX INJECTION SUBQ/IM RADIOLOGI 55111 [place] [facility] C 5 MEDICAL MAUREEN EXAMINATI IMAGING ON KNEE 3 ASS VIEWS KNEE L1830 [facility] 5 TECHNOLOG TECHNOLOG IMMOBLIZE IES INC IES INC R CANVAS LONGTUDNL PREFAB CYTP C/V 64232 [facility] LABS, PICKLESIM AUTO THIN 5 LLC ER JR JOSSELINE LYR PREPJ SCR MNL RESCR PHYS BASIC 11825 [facility] PAULINO METABOLIC 5 [facility] PANEL INC INC CALCIUM TOTAL BLOOD 58666 [facility] OCCULT 5 PHYSICIAN PHYSICIAN PEROXIDAS S GROUP S GROUP E ACTV QUAL FECES 1-3 SPEC HEMOGLOBI 41257 [facility] N 5 [facility] GLYCOSYLA [place] [address] L[facility] PAULINO THYROID 5 [facility] STIMULATI [place] [address] [facility] PAULINO FREE 5 [facility] THYROXINE INC INC THERAPEUT 18194 [facility] PRICE IC 5 PHYSICIAN LAURENCE PROPHYLAC S GROUP TIC/DX INJECTION SUBQ/IM INJECTION J1100 [facility] PRICE 5 PHYSICIAN LAURENCE DEXAMETHO S GROUP SONE SODIUM PHOSPHATE 1 MG HEPATITIS 96214 [facility] PA[facility] C 5 [facility] ANTIBODY INC INC RADEX ABD 76190 [place] COMPL 5 MEDICAL DENNIS AQT ABD IMAGING W/S/E/D ASS VIEWS 1 [place] [address] [facility] PAULINO HEPATITIS 5 [facility] B INC INC SURFACE ANTIGEN HEPATITIS 82943 [facility] PA[facility]INO B CORE 5 [facility] ANTIBODY INC INC HBCAB TOTAL HEPATITIS 24086 L[facility] PAULINO B SURF 5 [facility] ANTIBODY INC INC HBSAB 25 70957 [facility] PA[facility]INO HYDROXY 5 [facility] INCLUDES [place] [address] L[facility] PAULINO THYROID 5 [facility] STIMULATI [place] [address] [facility] PAULINO FREE 5 [facility] THYROXINE INC INC BLOOD 52971 [facility] PA[facility]INO COUNT 5 [facility] COMPLETE INC INC AUTO&AUTO DIFRNTL WBC RADIOLOGI 35971 [facility] PAULINO C EXAM 5 [facility] HOSP CHEST 2 INC INC VIEWS FRONTAL&L ATERAL COMPREHEN 95343 L[facility]A PAULINO SIVE 5 [facility] HOSP METABOLIC INC INC PANEL COLLECTIO 27383 L[facility] PAULINO N VENOUS 5 [facility] BLOOD INC INC VENIPUNCT URE HEPATITIS 21644 [facility] PAULINO A 5 [facility] HOSP ANTIBODY INC INC HAAB IAADIADOO 14523 [facility] FRYMAN 5 PHYSICIAN EUG INFLUENZA S GROUP INJECTION J1040 [facility] PRICE 4 PHYSICIAN LAURENCE METHYLPRE S GROUP DNISOLONE ACETATE 80 MG THERAPEUT 73348 [facility] IC 4 PHYSICIAN PHYSICIAN PROPHYLAC S GROUP S GROUP TIC/DX INJECTION SUBQ/IM ECHO 67893 [facility] 2D SERV W/WOM-MOD FOUNDATIO E COMPL N SPEC&COLR D NJX 27193 STONE STONE DX/THER [address] SBST SURGERY SURGERY EPIDURAL/ CENTER CENTER SUBARACH LUMBAR/SA CRAL FLUOR 37237 JUSTO KEMP NEEDLE/CA 4 BECK BECK TH SPINE/PAR ASPINAL DX/THER ADDON MRI 04309 DUKE TRA DUKE TRA SPINAL 4 CANAL LUMBAR W/O CONTRAST MATERIAL THER 36525 [facility] PROPH/DX [address] [place] [address] NJX EA SEQL IV PUSH SBST/DRUG FAC INJECTION J1100 [address] DEXAMETHO SONE SODIUM PHOSPHATE 1 MG BASIC [address] PANEL CALCIUM TOTAL URNLS DIP [address] STICK/TAB LET REAGENT AUTO MICROSCOP Y INJECTION J2270 [address] SULFATE UP TO [address] INJECTION IV PUSH EACH NEW DRUG INJECTION J2800 [address] METHOCARB JORGE UP TO 10 ML INJECTION J[address] PROMETHAZ INE HCL UP TO 50 MG INJECTION J2405 [address] ONSHARYNETR [place] H[place] 1 [place] [address] THERAPY/P ROPHYLAXI S /DX 1ST TO 1 HR BLOOD [address] COMPLETE AUTOMATED RADEX 18922 CECILIA CECILIA SPINE 4 DENNIS DENNIS LUMBOSACR AL MINIMUM 4 VIEWS RADEX HIP 90167 CECILIA CECILIA 4 DENNIS DENNIS UNILATERA L 1 VIEW Encounters Encounter Start End Date Code Location Performer Type Date [facility] 7 [facility] T EMERGENCY 62817 [facility] 7 7 [facility] DEPARTMEN INC T VISIT LOW/MODER SEVERITY EMERGENCY 78454 MARCIA WOO 7 7 PHYSICIAN CHERYL S PLLC T VISIT HIGH/URGE NT SEVERITY [facility] 7 [facility] T OFFICE 96442 [facility] ALLRAN JR OUTPATIEN 7 7 PHYSICIAN T VISIT S GROUP 15 MINUTES OFFICE 24815 [facility] GUZMAN OUTPATIEN 7 7 PHYSICIAN T VISIT S GROUP 15 MINUTES EMERGENCY 06432 [facility] 7 7 [facility]PARTMEN INC T VISIT LOW/MODER SEVERITY EMERGENCY 12604 Tayler JAMES 7 PHYSICIAN JR LUNA S PLLC T VISIT MODERATE SEVERITY [facility] 7 7 [facility] INC T EMERGENCY 50198 Tayler JAMES 7 PHYSICIAN JR LUNA S PLLC T VISIT HIGH/URGE NT SEVERITY [facility] - 7 7 [facility] OUTPATIEN INC T OFFICE 98403 WILLIAM THOMAS OUTRICKY 7 7 T VISIT 15 MINUTES [facility] [address] [facility] OUTPATIEN [facility] OFFICE 13182 [facility] STONE ROXY OUTPATIEN 6 6 PHYSICIAN T VISIT S GROUP 25 MINUTES OFFICE 74990 [facility] JUS OUTPATIEN 6 6 EROLOGY T VISIT AND 25 HEPATOL MINUTES [facility] [address] [facility] OUTPATIEN [facility] [place] - 6 6 N OUTPATIEN COMMUNTIY T HOSPITA OFFICE 34502 GASTROENT CASE JUS OUTPATIEN 6 6 EROLOGY T NEW 45 AND MINUTES HEPAT [facility] [address] [facility] OUTPATIEN [facility] OFFICE 79031 [facility] ALLRAN JR OUTPATIEN 6 6 PHYSICIAN MAGO T VISIT S GROUP 10 MINUTES OFFICE 81731 ROB MONSALVE OUTPATIEN 6 6 DIGESTIVE CEC T VISIT CARE 15 CENTER MINUTES EMERGENCY 75338 MARCIA THRASHER 6 6 PHYSICIAN LAURENCE DEPARTMEN S, PLLC T VISIT MODERATE SEVERITY HOSPITAL ROB - 6 6 [facility] OUTPATIEN MED[facility] T [facility]ENTE OFFICE 21890 ROB MONSALVE OUTPATIEN 6 6 DIGESTIVE CEC T NEW 60 CARE MINUTES CENTER OFFICE 84448 [facility] STONE [place] OUTPATIEN 6 6 PHYSICIAN T VISIT S GROUP 15 MINUTES [facility] [address] [facility] OUTPATIEN [facility] [place] [facility] [address] [facility] OUTPATIEN INC T EMERGENCY 88919 MARCIA SOLIS 6 6 PHYSICIAN U MAUREEN DEPARTMEN S, PLLC T VISIT HIGH/URGE NT SEVERITY OFFICE 55272 [facility] ALLRAN JR OUTPATIEN 6 6 PHYSICIAN MAGO T NEW 30 S GROUP MINUTES OFFICE 47403 [facility] TRISTEN OUTPATIEN 6 6 PHYSICIAN STONE T VISIT S GROUP PA-C ROXY 15 MINUTES OFFICE 49324 [facility] RAMON OUTPATIEN 6 6 PHYSICIAN STONE T VISIT S GROUP PA-C ROXY 25 MINUTES OFFICE 56573 [facility] RAMON OUTPATIEN 6 6 PHYSICIAN STONE T VISIT S GROUP PA-C ROXY 15 MINUTES EMERGENCY 72067 MARCIA THRASHER DEPT 6 6 PHYSICIAN LAURENCE VISIT S, PLLC HIGH SEVERITY& THREAT FUNCJ EMERGENCY 92025 MARCIA MCKEE DEPT 6 6 PHYSICIAN SUMMER VISIT S, PLLC HIGH SEVERITY& THREAT FUNCJ OFFICE 39952 [facility] PRICE OUTPATIEN 6 6 PHYSICIAN LAURENCE T VISIT S GROUP 25 MINUTES OFFICE 49338 [facility] CONSULTAT 6 6 N ION NEUROLOGY NEW/ESTAB PATIENT 60 MIN [facility] INC T OFFICE 24542 [facility] PRICE OUTPATIEN 6 6 PHYSICIAN LAURENCE T VISIT S GROUP 10 MINUTES [facility] 6 [facility] OUTPATIEN INC T OFFICE 53995 [facility] PRICE OUTPATIEN 6 6 PHYSICIAN LAURENCE T VISIT S GROUP 10 MINUTES [facility] OUTPATI[facility] INC T OFFICE 20779 [facility] PRICE OUTPATIEN 6 6 PHYSICIAN LAURENCE T VISIT S GROUP 15 MINUTES OFFICE 25774 [facility] RAMON OUTPATIEN 6 6 PHYSICIAN STONE T VISIT S GROUP PA-C ROXY 15 MINUTES EMERGENCY [id number] MARCIA CESPEDES DEPT 6 6 PHYSICIAN FOR VISIT S, PLLC HIGH SEVERITY& THREAT FUNCJ OFFICE 22797 [facility] OUTPATIEN 6 6 PHYSICIAN STONE T VISIT S GROUP PA-C ROXY 10 MINUTES OFFICE 91620 [facility] PRICE OUTPATIEN 6 6 PHYSICIAN LAURENCE T VISIT S GROUP 15 MINUTES OFFICE 08204 [facility] GARCIA TER OUTPATIEN 6 6 PHYSICIAN T VISIT S GROUP 15 MINUTES [facility] - [facility] T OFFICE 89773 [facility] 6 6 [facility] T VISIT INC 10 MINUTES OFFICE 46851 ELLY TINY FRED OUTPATIEN 6 6 MD RHEA, T NEW 30 PSC MINUTES OFFICE 48304 [facility] PRICE OUTPATIEN 6 6 PHYSICIAN LAURENCE T VISIT S GROUP 15 MINUTES OFFICE 18278 [facility] OUTPATIEN 6 6 FRED FRED T VISIT 15 MINUTES [facility] - [facility] 5 [facility] T OFFICE 26776 [facility] PRICE OUTPATIEN 5 5 PHYSICIAN LAURENCE T VISIT S GROUP 10 MINUTES OFFICE 57229 [facility] PRICE OUTPATIEN 5 5 PHYSICIAN LAURENCE T VISIT S GROUP 10 MINUTES OFFICE 97629 [facility] OUTPATIEN 5 5 BRAIN SYD T NEW 45 NEUROSURG MINUTES ICAL EMERGENCY 46529 [facility] PRICE 5 5 PHYSICIAN LAURENCE DEPARTMEN S, [facility] HIGH/URGE NT SEVERITY OFFICE 16324 [facility] PRICE OUTPATIEN 5 5 PHYSICIAN LAURENCE T VISIT S GROUP 15 MINUTES [facility] T [facility] - [facility] 5 [facility] T OFFICE 28109 [facility] OUTPATIEN 5 5 FRED FRED T VISIT 15 MINUTES [facility] - 5 [facility] T OFFICE 60472 [facility] [place] OUTPATIEN 5 5 FRED FRED T NEW 30 MINUTES OFFICE 46219 [facility] PRICE OUTPATIEN 5 5 PHYSICIAN LAURENCE T VISIT S GROUP 15 MINUTES [facility] - [facility] 5 [facility] T PERIODIC 78810 [facility] PRICE PREVENTIV 5 5 PHYSICIAN LAURENCE E MED EST S GROUP PATIENT 40-64YRS OFFICE 57054 [facility] PRICE OUTPATIEN 5 5 PHYSICIAN LAURENCE T VISIT S GROUP 15 MINUTES [facility] - 5 5 [facility] T OFFICE 38915 [facility] RADHA OUTPATIEN 5 5 PHYSICIAN FRED T VISIT S GROUP 15 MINUTES OFFICE 19449 [facility] FRYMAN OUTPATIEN 5 5 PHYSICIAN EUG T VISIT S GROUP 15 MINUTES [facility] T OFFICE 04487 [facility] OUTPATIEN 4 4 T VISIT 15 MINUTES OFFICE 23896 [facility] OUTPATIEN 4 4 T VISIT 15 MINUTES [address] [address] OUTPATI T EMERGENCY 95244 [facility] 4 4 VLADIMIR VLADIMIR VISIT HIGH SEVERITY& THREAT FUN EMERGENCY [address] DEPARTMEN T VISIT MODERATE SEVERITY OFFICE 84278 IL[facility] CARABALLO OUTPATIEN 4 4 THEODORE THEODORE T VISIT 15 MINUTES OFFICE 38331 IL[facility] CARABALLO OUTPATIEN 4 4 THEODORE THEODORE T VISIT 15 MINUTES OFFICE 15660 [facility] TRA CONSULTAT 4 4 ION NEW/ESTAB PATIENT 40 MIN Emergency DIRK Magdaleno MD (ER) 3 18:30 3 19:10 [facility]
--- OUTSIDE RECORDS SUMMARY | 2017-08-24 03:33 | External Medical Summary Rpt | CCD ---
Author Author , RADHA GARCIA Address Unknown Phone Care Team Providers Care Curriculum Coordinator Name Role Phone [employer] Unavailable Unavailable [...] Unavailable [facility] Unavailable Unavailable [facility] Unavailable Unavailable [facility], Unavailable Unavailable [facility], Unavailable Unavailable [facility] CECILIA DENNIS, Unavailable Unavailable CECILIA DENNIS CECILIA DENNIS, Unavailable Unavailable CECILIA DENNIS TRISTEN HINDS PA-C Unavailable Unavailable TRISTEN RAMSEY PA-C DUFF FRED, DUFF FRED Unavailable Unavailable FRYMAN EUG, FRYMAN Unavailable Unavailable EUG JR MOREL FULLER, Unavailable Unavailable JR PRICE LAURENCE, PRICE Unavailable Unavailable LAURENCE [facility], Unavailable Unavailable [facility] GILISIS VELARDE, GILBERT Unavailable Unavailable SYD NI DAWSON, NI Unavailable Unavailable DAWSON [facility] Un[facility] Un[facility] INC, [facility] Unavailable Unavailable HOSPITAL P, [facility] P [facility], [facility]available Unavailable [facility] BELLO MADRID, BELLO Unavailable Unavailable JULIUS WOO, WOO Unavailable Unavailable DUKE TRA, DUKE TRA Unavailable Unavailable RADHA FRED, RADHA Unavailable Unavailable FRED KEDING, KEDING Unavailable Unavailable KEDING, KEDING Unavailable Unavailable KEDING FRED, KEDING Unavailable Unavailable FRED KEDING FRED, KEDING Unavailable Unavailable [facility]ED [facility] Unavailable GROUP PS, [facility] Unavailable [...] Unavailable Unavailable [facility]URG[facility], Unavailable Unavailable [facility] STONE, STONE Unavailable Unavailable STONE ROXY, [...] FIBROMYALGI 06-27-2017 [facility] [id number] OTHER LONG 06-27-2017 [facility] CURRENT INC DRUG THERAPY N764 ABSCESS OF 05-26-2017 [facility] Z4800 ENCOUNTER 05-26-2017 [facility] CHANGE/ALEJANDRO PHYSICIANS, ALISON NONSURG PLLC WOUND DRESSING L0291 CUTANEOUS 05-25-2017 [facility] ABSCESS PHYSICIANS UNSPECIFIED GROUP N739 FEMALE 05-24-2017 [facility] PELVIC PHYSICIANS INFLAMMATOR GROUP Y DISEASE UNSPECIFIED [id number] CUTANEOUS 05-19-2017 [facility] ABSCESS OF PHYSICIANS, ABDOMINAL PLLC WALL M545 LOW BACK 12-21-2016 [facility] PAIN E039 HYPOTHYROID 11-20-2016 [facility] UNSPECIFIED INC R05 COUGH 10-19-2016 [facility] R1030 LOWER 10-04-2016 [facility] PAIN UNSPECIFIED R109 UNSPECIFIED 10-04-2016 [facility] PS R197 DIARRHEA 10-04-2016 [place] UNSPECIFIED [facility]ESTHESIA GROUP PS R1032 LEFT LOWER 07-24-2016 [facility] QUADRANT PHYSICIANS PAIN GROUP K5909 OTHER 07-10-2016 [facility] N1330 UNSPECIFIED 06-30-2016 [facility] HYDRONEPHRO IMAGING ASS SIS N134 HYDROURETER 06-30-2016 [facility] N289 DISORDER OF 06-30-2016 [facility] KIDNEY AND PHYSICIANS, URETER PLLC UNSPECIFIED N3000 ACUTE 06-30-2016 [facility] CYSTITIS PHYSICIANS, WITHOUT PLLC HEMATURIA N390 URINARY 06-30-2016 [facility] TRACT PHYSICIANS, INFECTION PLLC SITE NOT SPECIFIED R1031 RIGHT LOWER 06-30-2016 [place] K529 NONINFECTIV 06-19-2016 ROB Adelia [facility] ITIS & COLITIS UNS K635 POLYP OF 06-19-2016 [facility] E118 TYPE 2 05-06-2016 [facility] [place] [facility] MELLITUS INC W/UNS COMPLICATIO NS E876 HYPOKALEMIA 05-06-2016 [facility] PHYSICIANS, PLLC R1012 LEFT UPPER 05-06-2016 [facility] QUADRANT PHYSICIANS, PAIN PLLC Z720 TOBACCO USE 05-06-2016 [facility] INC M5416 RADICULOPAT 04-25-2016 [place] FRED HY LUMBAR REGION R194 CHANGE IN 03-21-2016 [facility] BOWEL HABIT PHYSICIANS GROUP K50684 PERSONAL 03-21-2016 [facility] HISTORY OF PHYSICIANS COLONIC GROUP POLYPS K219 GASTRO-ESOP 03-14-2016 [facility] P WITHOUT ESOPHAGITIS R1084 GENERALIZED 03-14-2016 [facility] K5792 DIVERTICULI 03-12-2016 [facility] TIS PART PHYSICIANS, UNS W/O PLLC PERF/ABSC W/O BLEED R110 NAUSEA 03-12-2016 [facility] Z0100 ENCOUNTER 03-08-2016 ELIAS EXAM EYES & GRE VISION W/O ABNORMAL FIND B370 CANDIDAL 02-21-2016 [facility] STOMATITIS PHYSICIANS GROUP Z23 ENCOUNTER 02-21-2016 [facility] FOR [facility] IMMUNIZATIO GROUP N M542 CERVICALGIA 02-16-2016 [place] FRED R51 HEADACHE 02-02-2016 [facility] A45350 HEMIPLEGIC 01-05-2016 [facility] MIGRAINE PHYSICIANS INTRACT W/O GROUP STAT MIGRAINOSUS J70461 MIGRAINE 12-28-2015 [facility] UNS NOT [facility] INTRACT W/O INC STATUS MIGRAINOSUS I46563 MIGRAINE 12-20-2015 [facility] W/O AURA PHYSICIANS, NOT INTRACT PLLC W/STAT MIGRAINOSUS A43846 PAIN IN 12-08-2015 [facility] RIGHT KNEE PHYSICIANS GROUP Y05895 PAIN IN 12-08-2015 [facility] LEFT KNEE PHYSICIANS GROUP J0190 ACUTE 11-27-2015 [facility] SINUSITIS PHYSICIANS UNSPECIFIED GROUP R112 NAUSEA WITH 11-27-2015 [facility] VOMITING PHYSICIANS UNSPECIFIED GROUP M461 SACROILIITI 11-23-2015 Samantha ROLON NOT , PSC ELSEWHERE CLASSIFIED M5116 INTERVERTEB 11-23-2015 [facility] D/O INC W/RADICULOP ATHY LUMB RGN M5136 OTH 11-23-2015 ELLY WILKERSON INTERVERTEB , PSC RAL DISC DEGEN LUMBAR REGION 7231 CERVICALGIA 07-01-2015 [place] FRED 7242 LUMBAGO 07-01-2015 KECYN FRED 7246 DISORDERS 07-01-2015 WILLIAM FRED OF SACRUM 90796 DISPLCMT 06-28-2015 [facility] INTERVERT NEUROSURGIC DISC W/O AL MYELOPATHY 28981 DEGEN 06-28-2015 [facility] LUMBAR/LUMB BRAIN OSACRAL NEUROSURGIC INTERVERTEB AL RAL DISC 9532 INJURY TO 06-28-2015 [facility] [address] ALTERED 05-23-2015 [facility] MENTAL PHYSICIANS, STATUS PLLC 4019 UNSPECIFIED 05-17-2015 [facility]SSENTIAL [facility] HYPERTENSIO INC N 20629 PAIN IN 05-17-2015 [facility] JOINT, PHYSICIANS LOWER LEG GROUP V5869 LONG-TERM 05-17-2015 [facility] (CURRENT) [facility] USE OF INC OTHER MEDICATIONS 94645 OTHER 05-06-2015 [facility] ABNORMAL [facility] GLUCOSE INC 7243 SCIATICA 04-21-2015 KECYN FRED 9597 INJURY 02-23-2015 [facility] OTHER&UNSPE TECHNOLOGIE CIFIED KNEE S INC LEG ANKLE&FOOT 54434 UNSPECIFIED 02-11-2015 [facility] VAGINITIS PHYSICIANS AND GROUP VULVOVAGINI TIS V7231 ROUTINE 02-11-2015 [facility] AL EXAMINATION V7641 SCREENING 02-11-2015 [facility] FOR [facility] MALIGNANT GROUP NEOPLASM OF THE RECTUM 4610 ACUTE 01-23-2015 [facility] MAXILLARY PHYSICIANS SINUSITIS GROUP 4659 ACUTE URIS 01-23-2015 [facility] OF PHYSICIANS UNSPECIFIED GROUP SITE 08337 ABDOMINAL 12-22-2014 [place] PAIN, LEFT MEDICAL UPPER IMAGING ASS QUADRANT 83505 ABDOMINAL 12-22-2014 [facility] LEFT UPPER IMAGING ASS QUADRANT 4619 ACUTE 11-23-2014 [facility] SINUSITIS, PHYSICIANS UNSPECIFIED GROUP 53930 WHEEZING 11-23-2014 [facility] 7862 COUGH 11-23-2014 [facility] 4611 ACUTE 11-20-2014 [facility] FRONTAL PHYSICIANS SINUSITIS GROUP 4660 ACUTE 10-16-2014 [facility] BRONCHITIS PHYSICIANS GROUP 4240 MITRAL 10-02-2014 [facility] DISORDERS INC 7852 UNDIAGNOSED 10-02-2014 [facility]3] CARDIAC SERV [facility] 7244 THORACIC/EM 05-20-[address] MBOSACRAL SURGERY NEURITIS/RA CENTER DICULITIS UNSPEC 50229 GENERALIZED 04-05-2014 [facility]OSPITAL DISORDER 7291 UNSPECIFIED 04-05-2014 [facility] 7245 UNSPECIFIED 04-04-2014 [facility] BACKACHE 56033 PAIN IN 03-31-2014 [facility] JOINT PELVIC REGION AND THIGH 28823 SPINAL STEN 03-28-2014 [facility] LUMB REG DENNIS W/O NEUROGENIC CLAUDICATIO N 274.00 274.00 03-29-2013 [facility] Allergies, Adverse Reactions, Alerts [...] CY 02 NT 5 HI AN A CA 68 08 09 20 5 00 HO [...] 00 1- 5- 00 06 TO ve CA 51 20 20 08 WN [place] 80 17 17 53 -H [address] AR Z MA 10 CY -1 2. OF 5 MG CY NT TA HI B AN A ME 68 08 09 30 30 00 HO Ac TO 00 -1 -1 .0 00 ME ti CA 10 1- 5- 00 06 TO ve [...] 53 -1 -1 .0 00 ME ti NM 63 4- 5- 00 06 TO ve [...] 00 3- 8- 00 06 TO ve CA 51 20 20 08 WN IL 80 17 17 53 -H [address] AR Z MA 10 CY -1 2. OF 5 MG CY NT TA HI B AN A ME 68 07 08 30 30 00 HO Ac TO 00 -1 -1 .0 00 ME ti CA 10 3- 8- 00 06 TO ve [...] 2 39 PH CE AR TA MA NM CY NO PH OF EN CY 5- [...] 1 43 PH CE AR TA MA NM CY NO PH #5 EN 91 5- [...] 40 CE 0 02 PH TA AR NM MA NO CY PH EN OF 7. [...] 53 -2 -2 .0 00 ME ti NM 63 6- 8- 00 06 TO ve [...] 00 2- 4- 00 06 TO ve CA 51 20 20 08 WN IL 80 [...] 00 -1 -1 .0 00 ME ti CA 10 2- 4- 00 06 TO ve [...] CY CA NT P HI AN A CA 59 06 07 10 5 00 HO [...] PS NT UL HI E AN A CA 68 06 07 20 5 00 HO [...] 53 -2 -3 .0 00 ME ti NM 63 5- 0- 00 06 TO ve [...] 00 -1 -1 .0 00 ME ti CA 10 2- 6- 00 06 TO ve OL 11 20 20 08 WN OL 90 17 17 53 0 76 PH [place] AR CC MA CY ER OF 10 0 CY MG NT HI TA AN B A LI 68 05 06 30 30 00 HO Ac SI 18 -1 -1 .0 00 ME ti NO 00 2- 6- 00 06 TO ve CA 51 20 20 08 WN IL 80 [...] 53 -2 -2 .0 00 ME ti NM 63 6- 6- 00 06 TO ve [...] 00 -1 -1 .0 00 ME ti CA 10 0- 2- 00 06 TO ve OL 11 20 20 08 WN OL 90 17 17 47 0 04 PH [place] AR CC MA CY ER OF 10 0 CY MG NT HI TA AN B A LI 68 04 05 30 30 00 HO Ac SI 18 -1 -1 .0 00 ME ti NO 00 0- 2- 00 06 TO ve CA 51 20 20 08 WN IL 80 [...] 53 -2 -2 .0 00 ME ti NM 63 8- 8- 00 06 TO ve [...] 53 -2 -3 .0 00 ME ti NM 63 8- 1- 00 06 TO ve [...] 00 1- 3- 00 06 TO ve CA 51 20 20 07 WN IL 80 [...] 00 -0 -0 .0 00 ME ti CA 10 1- 3- 00 06 TO ve [...] 53 -1 -1 .0 00 ME ti NM 63 6- 7- 00 06 TO ve [...] 00 -0 -0 .0 00 ME ti CA 10 3- 3- 00 06 TO ve [...] 00 3- 3- 00 06 TO ve CA 51 20 20 07 WN IL 80 [...] MG NT HI TA AN B A CA 68 12 01 20 5 00 HO [...] BL CY ET NT HI AN A CA 59 12 01 10 5 00 HO Ac ED 74 -0 -1 .0 00 ME ti NI 60 8- 3- 00 06 TO ve SO 17 20 20 07 WN NE 50 16 17 71 9 94 PH 20 AR MA MG CY TA OF BL ET CY NT HI AN A CA 00 12 01 20 10 00 HO [...] 00 5- 9- 00 06 TO ve CA 51 20 20 07 WN IL 80 [...] 00 -0 -0 .0 00 ME ti CA 10 5- 9- 00 06 TO ve OL 11 20 20 07 WN OL 90 16 17 37 0 36 PH [place] AR CC MA CY ER OF 10 0 CY MG NT HI TA AN B A CA 68 12 01 20 5 00 HO [...] 00 90 30 CL 16 No Ac CA 76 -0 -2 .0 IN 44 t ti AZ 23 8- 6- 00 IC 53 Av ve OL 72 20 20 ai AM 00 08 08 PH la 3 AR bl 0. MA e 5 CY MG TA BL ET CA 68 02 03 00 15 2 CL [...] 00 90 30 CL 16 No Ac CA 76 -0 -2 .0 IN 20 t [...] Procedure DOS Code Location Performer Comment 25 46547 [facility] HYDROXY [facility] INCLUDES INC INC FRACTIONS IF PERFORMED CYANOCOBA 74008 [facility] RENUKA [facility] VITAMIN INC INC B-12 BLOOD 69045 [facility] COUNT 7 [facility] COMPLETE INC INC AUTO&[place] [address] [facility] FOLIC 7 [facility] ACID INC INC SERUM COMPREHEN 61528 [facility] SIVE 7 [facility] METABOLIC INC INC PANEL DRUG TEST 08081 [facility] PRSMV 7 [facility] QUAL DIR INC INC OPTICAL OBS PER DAY HEPATITIS 51466 [facility] A 7 [facility] ANTIBODY INC INC HAAB LIPID 13711 [facility] PANEL 7 [facility] INC INC HEPATITIS 79852 [facility] C 7 [facility] ANTIBODY INC INC HEPATITIS 68795 [facility] B CORE 7 [facility] [place] [address] [facility] HEPATITIS 7 [facility] B INC INC SURFACE ANTIGEN THERAPEUT 48488 [facility] IC 7 [facility] PROPHYLAC INC INC TIC/DX INJECTION SUBQ/IM INCISION 19525 MARCIA MOREL, & 7 PHYSICIAN JR DRAINAGE S, [facility] ABSCESS COMPLICAT ED/MULTIP LE DRUG TEST 87766 [facility] PRSMV 7 [facility] QUAL DIR INC INC OPTICAL OBS PER DAY DRUG TEST G0480 [facility] DEFINITV [address] ID INC INC METH P DAY 1-7 DRUG CL CHIROPRAC 85004 WILLIAM THOMAS TIC 7 MANIPULAT HORACIO [place] SPINAL 1-2 REGIONS DRUG TEST 74649 [facility] PRSMV 7 [facility] INSTRMNT INC INC CHEMISTRY ANALYZERS COMPREHEN 67993 [facility] SIVE 7 [facility] METABOLIC INC INC PANEL BLOOD 58300 [facility] COUNT 7 [facility] COMPLETE INC INC AUTO&[place] [address] [facility] FREE 7 [facility] [place] [address] [facility] THYROID 7 [facility] STIMULATI INC INC NG HORMONE TSH 25 29962 [facility] HYDROXY 7 [facility] INCLUDES INC INC FRACTIONS IF PERFORMED DRUG TEST G0480 [facility] DEFINITV [address] ID INC INC METH P DAY 1-7 DRUG CL THERAPEUT 73941 [facility] STONE [facility]OXY IC 6 PHYSICIAN PROPHYLAC S GROUP TIC/DX INJECTION SUBQ/IM RADIOLOGI 03826 [place] CECILIA C EXAM 6 MEDICAL DENNIS CHEST 2 IMAGING VIEWS ASS FRONTAL&L ATERAL INJECTION J1040 [facility] STONE [place]OXY 6 PHYSICIAN METHYLPRE S GROUP DNISOLONE ACETATE 80 MG INJECTION J0696 [facility] STONE [place]OXY 6 PHYSICIAN CEFTRIAXO S GROUP NE SODI[place] [address] [place] [address] [facility] SCALF ABDOMEN & 6 RADIOLOGY PELVIS W/O CONTRAST MATERIAL ANES 40246 [facility] LOWER 6 ANESTHESI INTESTINE A GROUP PS ENDOSCOPY DISTAL DUODENUM FLUORESCE 45510 [facility] NT 6 [facility] NONNFCT INC INC AGT ANTB SCREEN EA ANTIBODY IMMUNOASS 46242 [facility] AY 6 [facility] ANALYTE INC INC QUAL/SEMI QUAL MULTIPLE STEP BLOOD 75749 [facility] COUNT 6 [facility] COMPLETE INC INC AUTO&[place] [address] [facility] THYROID 6 [facility] STIMULATI INC INC NG HORMONE TSH COMPREHEN 96208 [facility] SIVE 6 [facility] METABOLIC INC INC PANEL RADEX 26740 [facility] [place] NI ABDOMEN 1 6 RADIOLOGY [place] ANTEROPOS TERIOR VIEW DRUG TST G0477 [facility] PRESUMP;C 6 [facility] PBL BEING [place] [address] [place] HOLA ABDOMEN & 6 MEDICAL PELVIS IMAGING W/[place] [address] [facility]IVAS ABDOMEN & 6 REGIONAL REGIONAL PELVIS MEDICAL MEDICAL W/CONTRAS CENTE CENTE T MATERIAL LOCM Q9967 ROB RIVAS [phone] REGIONAL REGIONAL MG/ML MEDICAL MEDICAL IODINE CENTE CENTE CONCENTRA TION PER ML HI OSM Q9963 ROB RIVAS CONTRST 6 REGIONAL REGIONAL MATL MEDICAL MEDICAL [phone] CENTE CENTE MG/ML IODINE CONC ML ANES 94774 [facility] LOWER 6 ANESTH INTESTINE OF THE BLUE ENDOSCOPY DISTAL DUODENUM COLONOSCO 54796 [facility] PY 6 [facility] W/BIOPSY INC INC SINGLE/[place] [address] [facility] SURG 6 [facility] PATHOLOGY GROSS&LAURENCE ROSCOPIC EXAM THERAPEUT 77067 [facility] IC 6 [facility] INJECTION INC INC IV PUSH EACH NEW DRUG COMPREHEN 93090 [facility] SIVE 6 [facility] METABOLIC INC INC PANEL INJECTION J2405 [facility] 6 [facility] ONDANSETR INC INC ON HCL PER 1 MG BLOOD 73289 [facility] COUNT 6 [facility] COMPLETE INC INC AUTO&[place] [address] [facility] AMYLASE 6 [place] [address] [facility] LIPASE 6 [facility] INC INC THER 05382 [facility] PROPH/DX 6 [facility] NJX IV INC INC PUSH SINGLE/1S T SBST/DRUG DRUG TST G0477 [facility] PRESUMP;C 6 [facility] PBL BEING INC INC READ DC OPT OBV ONLY UNCLASSIF J3490 [facility] IED DRUGS 6 [facility] INC INC CHIROPRAC 73512 [facility] TIC 6 FRED FRED MANIPULAT HORACIO TX SPINAL 1-2 REGIONS CHIROPRAC 01603 [facility] TIC 6 FRED FRED MANIPULAT HORACIO [place] SPINAL 1-2 REGIONS CHIROPRAC 18050 [facility] TIC 6 FRED FRED MANIPULAT HORACIO TX SPINAL 1-2 REGIONS CHIROPRAC 12638 [facility] TIC 6 FRED FRED MANIPULAT HORACIO TX SPINAL 1-2 REGIONS CHIROPRAC 22083 WILLIAM THOMAS TIC 6 FRED FRED MANIPULAT HORACIO TX SPINAL 1-2 REGIONS CHIROPRA 80459 WILLIAM THOMAS TIC 6 FRED FRED MANIPULAT [place]ORACIO [place] SPINAL 1-[address] [place] [address] [place] BELLA ALL ABDOMEN & 6 MEDICAL PELVIS IMAGING W/O ASS CONTRAST MATERIAL ECG 30414 [facility] BEDOYA JR ROUTINE 6 [facility] W/LEAST P 12 LDS I&[place] [address] [place] [facility] A[facility] & 6 MEDICAL PELVIS IMAGING W/O ASS CONTRAST MATERIAL OPHTH 69005 [facility] 6 GRE GRE XM&EVAL COMPRE NEW PT 1/> VST DETERMINA 65367 [facility] GRE REFRACTIV E STATE IM ADM 80860 [facility] PRICE PRQ ID 6 PHYSICIAN LAURENCE SUBQ/IM S GROUP NJXS 1 VACCINE TDAP 65205 [facility] VACCINE 7 6 PHYSICIAN LAURENCE YRS/> IM S GROUP CHIROPRAC 28159 WILLIAM THOMAS TIC 6 FRED FRED MANIPULAT HORACIO TX SPINAL 1-2 REGIONS CHIROPRA 03802 WILLIAM THOMAS TIC 6 FRED FRED MANIPULAT HORACIO TX SPINAL 1-2 [place] [address] [facility] INFUSION 6 [facility] THERAPY/P INC INC ROPHYLAXI S /DX 1ST TO 1 HR MRI BRAIN 03584 [facility] BRAIN 6 [facility] STEM W/O INC INC CONTRAST MATERIAL INJECTION J1885 [facility] PRICE 6 PHYSICIAN LAURENCE KETOROLAC S GROUP TROMETHAM INE PER 15 MG INJECTION J1040 [facility] PRICE 6 PHYSICIAN LAURENCE METHYLPRE S GROUP DNISOLONE ACETATE 80 MG CHIROPRA 36360 WILLIAM THOMAS TIC 6 FRED FRED MANIPULAT HORACIO [place] SPINAL 1-2 REGIONS INJECTION J2550 [facility] PRICE 6 PHYSICIAN LAURENCE PROMETHAZ S GROUP INE HCL UP TO 50 MG THERAPEUT 45709 [facility] PRICE IC 6 PHYSICIAN LAURENCE PROPHYLAC S GROUP TIC/DX INJECTION SUBQ/IM THERAPEUT 45277 [facility] IC 6 [facility] PROPHYLAC INC INC TIC/DX INJECTION SUBQ/IM UNCLASSIF J3490 [facility] IED DRUGS 6 [facility] INC INC INJECTION J1885 [facility] PRICE 6 PHYSICIAN LAURENCE KETOROLAC S GROUP TROMETHAM INE PER 15 MG THERAPEUT 92166 [facility] PRICE IC 6 PHYSICIAN LAURENCE PROPHYLAC S GROUP TIC/DX INJECTION SUBQ/IM INJECTION J2550 [facility] PRICE 6 PHYSICIAN LAURENCE PROMETHAZ S GROUP INE HCL UP TO 50 MG INJECTION J2550 [facility] TRISTEN 6 PHYSICIAN STONE PROMETHAZ S GROUP PA-C ROXY INE HCL UP TO 50 MG CHIROPRAC 22186 [place] TIC 6 FRED FRED MANIPULAT HORACIO [place] SPINAL 1-2 REGIONS INJECTION J1040 [facility] TRISTEN 6 PHYSICIAN STONE METHYLPRE S GROUP PA-C ROXY DNISOLONE ACETATE 80 MG THERAPEUT 08998 [facility] TRISTEN IC 6 PHYSICIAN STONE PROPHYLAC S GROUP PA-C ROXY TIC/DX INJECTION SUBQ/IM INJECTION J1885 [facility] TRISTEN 6 PHYSICIAN STONE KETOROLAC S GROUP PA-C ROXY TROMETHAM INE PER 15 MG INJECTION J1200 [facility] TRISTEN 6 PHYSICIAN STONE DIPHENHYD S GROUP PA-C ROXY RAMINE HCL UP TO 50 MG INJECTION J1885 [facility] PRICE 6 PHYSICIAN LAURENCE KETOROLAC S GROUP TROMETHAM INE PER 15 MG INJECTION J1200 [facility] PRICE 6 PHYSICIAN LAURENCE DIPHENHYD S GROUP RAMINE HCL UP TO 50 MG THERAPEUT 29804 [facility] PRICE IC 6 PHYSICIAN LAURENCE PROPHYLAC S GROUP TIC/DX INJECTION SUBQ/IM INJECTION J2550 [facility] PRICE 6 PHYSICIAN LAURENCE PROMETHAZ S GROUP INE HCL UP TO 50 MG CHIROPRAC 18707 [facility] [place] TIC 6 FRED FRED MANIPULAT HORACIO TX SPINAL 1-2 REGIONS THERAPEUT 45942 [facility] PRICE IC 6 PHYSICIAN LAURENCE PROPHYLAC S GROUP TIC/DX INJECTION SUBQ/IM INJECTION J1885 [facility] PRICE 6 PHYSICIAN LAURENCE KETOROLAC S GROUP TROMETHAM INE PER 15 MG THERAPEUT 07346 [facility] GARCIA TER IC 6 PHYSICIAN PROPHYLAC S GROUP TIC/DX INJECTION SUBQ/IM INJECTION J1040 [facility] GRACIA TER 6 PHYSICIAN METHYLPRE S GROUP DNISOLONE ACETATE 80 MG THERAPEUT 95579 [facility] PRICE IC 6 PHYSICIAN LAURENCE PROPHYLAC S GROUP TIC/DX INJECTION SUBQ/IM INJECTION J1885 [facility] PRICE 6 PHYSICIAN LAURENCE KETOROLAC S GROUP TROMETHAM INE PER 15 MG CHIROPRAC 68569 [facility] TIC 6 FRED FRED MANIPULAT HORACIO TX SPINAL 1-2 REGIONS RADIOLOGI 44853 [facility] Doherty EXAM 5 [facility] KNEE INC INC COMPLETE 4/MORE VIEWS THERAPEUT 65903 [facility] PRICE IC 5 PHYSICIAN LAURENCE PROPHYLAC S GROUP TIC/DX INJECTION SUBQ/IM INJECTION J1885 [facility] PRICE 5 PHYSICIAN LAURENCE KETOROLAC S GROUP TROMETHAM INE PER 15 MG CHIROPRAC 45622 [place] TIC 5 FRED FRED MANIPULAT HORACIO [place] SPINAL 1-2 REGIONS CHIROPRAC 47719 [place] TIC 5 FRED FRED MANIPULAT HORACIO [place] SPINAL 1-2 REGIONS CHIROPRA 98163 [place] TIC 5 FRED FRED MANIPULAT HORACIO [place] SPINAL 1-2 REGIONS CHIROPRAC 82725 [place] TIC 5 FRED FRED MANIPULAT HORACIO TX SPINAL 1-2 REGIONS CHIROPRAC 17829 [place] TIC 5 FRED FRED MANIPULAT HORACIO TX SPINAL 1-2 REGIONS CHIROPRAC 17733 [place] TIC 5 FRED FRED MANIPULAT HORACIO TX SPINAL 3-4 REGIONS CHIROPRAC 36351 [place] TIC 5 FRED FRED MANIPULAT HORACIO TX SPINAL 3-4 REGIONS CHIROPRAC 25908 [place] TIC 5 FRED FRED MANIPULAT HORACIO TX SPINAL 3-4 REGIONS CHIROPRAC 93833 [place] TIC 5 FRED FRED MANIPULAT HORACIO TX SPINAL 3-4 REGIONS THERAPEUT 11523 [place] IC PX 1/> 5 FRED FRED AREAS EACH 15 MIN EXERCISES APPL 19698 [place] MODALITY 5 FRED FRED 1/> AREAS TRACTION MECHANICA L APPL 39823 [place] MODALITY 5 FRED FRED 1/> AREAS TRACTION MECHANICA L THERAPEUT 44737 [place] PX 1/> 5 FRED FRED AREAS EACH 15 MIN EXERCISES CHIROPRAC 88108 [place] TIC 5 FRED FRED MANIPULAT HORACIO [place] SPINAL 3-4 REGIONS INJECTION [id number] [facility] PRICE 5 PHYSICIAN LAURENCE KETOROLAC S GROUP TROMETHAM INE PER 15 MG THERAPEUT 59377 [place] PX 1/> 5 FRED FRED AREAS EACH 15 MIN EXERCISES POTASSIUM 14364 LORA PAULINO SERUM 5 [facility] PLASMA/WH INC INC OLE BLOOD THERAPEUT 26146 [facility] PRICE IC 5 PHYSICIAN LAURENCE PROPHYLAC S GROUP TIC/DX INJECTION SUBQ/IM APPL 02588 [place] MODALITY 5 FRED FRED 1/> AREAS TRACTION MECHANICA L COLLECTIO 99565 LORA PAULINO N VENOUS 5 [facility] BLOOD INC INC VENIPUNCT URE APPL 84387 [place] MODALITY 5 FRED FRED 1/> AREAS TRACTION MECHANICA L CHIROPRAC 69491 [place] TIC 5 FRED FRED MANIPULAT HORACIO TX SPINAL 3-4 REGIONS THERAPEUT 79698 [place] IC PX 1/> 5 FRED FRED AREAS EACH 15 MIN EXERCISES THERAPEUT 03898 [place] PX 1/> 5 FRED FRED AREAS EACH 15 MIN EXERCISES CHIROPRAC 03289 [place] TIC 5 FRED FRED MANIPULAT HORACIO [place] SPINAL 3-4 REGIONS APPL 65369 [place] MODALITY 5 FRED FRED 1/> AREAS TRACTION MECHANICA L COMPREHEN 78247 [facility] SIVE 5 [facility] METABOLIC INC INC PANEL LIPID 06914 [facility]INO PANEL 5 [facility] INC INC BLOOD 65703 [facility] PAULINO COUNT 5 [facility] COMPLETE INC INC AUTO&AUTO DIFRNTL WBC HEMOGLOBI 37813 [facility] PAULINO N 5 [facility] GLYCOSYLA INC INC MEENA A1C THERAPEUT 71507 [place] PX 1/> 5 FRED FRED AREAS EACH 15 MIN EXERCISES APPL 49763 [place] MODALITY 5 FRED FRED 1/> AREAS TRACTION MECHANICA L CHIROPRAC 15684 [place] TIC 5 FRED FRED MANIPULAT HORACIO [place] SPINAL 3-4 REGIONS CHIROPRAC 65626 [place] TIC 5 FRED FRED MANIPULAT HORACIO [place] SPINAL 3-4 REGIONS THERAPEUT 02359 [place] IC PX 1/> 5 FRED FRED AREAS EACH 15 MIN EXERCISES APPL 75006 [place] MODALITY 5 FRED FRED 1/> AREAS TRACTION MECHANICA L THERAPEUT 61962 [place] PX 1/> 5 FRED FRED AREAS EACH 15 MIN EXERCISES APPL 86913 [place] MODALITY 5 FRED FRED 1/> AREAS TRACTION MECHANICA L APPL 51636 [place] MODALITY 5 FRED FRED 1/> AREAS TRACTION MECHANICA L THERAPEUT 84383 [place] [facility] IC PX 1/> 5 FRED FRED AREAS EACH 15 MIN EXERCISES THERAPEUT 89929 [facility] [place] IC PX 1/> 5 FRED FRED AREAS EACH 15 MIN EXERCISES APPL 28255 [place] MODALITY 5 FRED FRED 1/> AREAS TRACTION MECHANICA L CHIROPRAC 45165 [place] TIC 5 FRED FRED MANIPULAT HORACIO TX SPINAL 3-4 REGIONS CHIROPRAC 71887 [place] TIC 5 FRED FRED MANIPULAT HORACIO TX SPINAL 3-4 REGIONS CHIROPRAC 84868 [place] TIC 5 FRED FRED MANIPULAT HORACIO TX SPINAL 3-4 REGIONS CHIROPRA 78920 [place] TIC 5 FRED FRED MANIPULAT HORACIO TX SPINAL 3-4 REGIONS CHIROPRAC 68060 [place] TIC 5 FRED FRED MANIPULAT HORACIO TX SPINAL 3-4 REGIONS CHIROPRAC 48021 [place] TIC 5 FRED FRED MANIPULAT HORACIO TX SPINAL 3-4 REGIONS THERAPEUT 38173 [place] IC PX 1/> 5 FRED FRED AREAS EACH 15 MIN EXERCISES APPL 54467 [place] MODALITY 5 FRED FRED 1/> AREAS TRACTION MECHANICA L APPL 46341 [place] MODALITY 5 FRED FRED 1/> AREAS TRACTION MECHANICA L THERAPEUT 72083 [place] IC PX 1/> 5 FRED FRED AREAS EACH 15 MIN EXERCISES CHIROPRA 82175 [place] TIC 5 FRED FRED MANIPULAT HORACIO TX SPINAL 3-4 REGIONS CHIROPRA 58012 [place] TIC 5 FRED FRED MANIPULAT HORACIO TX SPINAL 3-4 REGIONS THERAPEUT 28912 [place] IC PX 1/> 5 FRED FRED AREAS EACH 15 MIN EXERCISES APPL 58513 [place] MODALITY 5 FRED FRED 1/> AREAS TRACTION MECHANICA L APPL 68227 [place] MODALITY 5 FRED FRED 1/> AREAS TRACTION MECHANICA L THERAPEUT 61668 [place] IC PX 1/> 5 FRED FRED AREAS EACH 15 MIN EXERCISES CHIROPRA 71736 [place] TIC 5 FRED FRED MANIPULAT HORACIO TX SPINAL 3-4 REGIONS CHIROPRAC 51997 [place] TIC 5 FRED FRED MANIPULAT HORACIO TX SPINAL 3-4 REGIONS THERAPEUT 06150 [place] IC PX 1/> 5 FRED FRED AREAS EACH 15 MIN EXERCISES APPL 07383 [place] MODALITY 5 FRED FRED 1/> AREAS TRACTION MECHANICA L APPL 75329 [place] MODALITY 5 FRED FRED 1/> AREAS TRACTION MECHANICA L CHIROPRAC 23127 [place] TIC 5 FRED FRED MANIPULAT HORACIO TX SPINAL 3-4 REGIONS THERAPEUT 22873 [place] IC PX 1/> 5 FRED FRED AREAS EACH 15 MIN EXERCISES THERAPEUT 17788 [place] IC PX 1/> 5 FRED FRED AREAS EACH 15 MIN EXERCISES CHIROPRAC 50306 [place] TIC 5 FRED FRED MANIPULAT HORACIO TX SPINAL 3-4 REGIONS APPL 73357 [place] MODALITY 5 FRED FRED 1/> AREAS TRACTION MECHANICA L APPL 47397 [place] MODALITY 5 FRED FRED 1/> AREAS TRACTION MECHANICA L CHIROPRAC 52272 [place] TIC 5 FRED FRED MANIPULAT HORACIO TX SPINAL 3-4 REGIONS THERAPEUT 96837 [place] IC PX 1/> 5 FRED FRED AREAS EACH 15 MIN EXERCISES BASIC 45053 [facility]OLIC [facility] PANEL INC INC CALCIUM TOTAL CHIROPRAC 26081 [place] TIC 5 FRED FERD MANIPULAT HORACIO TX SPINAL 3-4 REGIONS THERAPEUT 38485 [place] IC PX 1/> 5 FRED FRED AREAS EACH 15 MIN EXERCISES APPL 86967 [place] MODALITY 5 FRED FRED 1/> AREAS TRACTION MECHANICA L APPL 45651 [place] MODALITY 5 FRED FRED 1/> AREAS TRACTION MECHANICA L THERAPEUT 96497 [place] PX 1/> 5 FRED FRED AREAS EACH 15 MIN EXERCISES RADEX 16711 [place] SPINE 5 FRED FRED CERVICAL 2 OR 3 VIEWS CHIROPRAC 49652 [place] TIC 5 FRED FRED MANIPULAT HORACIO TX SPINAL 3-4 REGIONS INJECTION J1885 [facility] PRICE 5 PHYSICIAN [facility] KETOROLAC S GROUP TROMETHAM INE PER 15 MG THERAPEUT 39089 [facility] PRICE MANZANO 5 PHYSICIAN LAURENCE PROPHYLAC S GROUP TIC/DX INJECTION SUBQ/IM RADIOLOGI 70190 [place] [facility] 5 MEDICAL MAUREEN EXAMINATI IMAGING ON KNEE 3 ASS VIEWS KNEE L1830 [facility] 5 TECHNOLOG TECHNOLOG IMMOBLIZE IES INC IES INC R CANVAS LONGTUDNL PREFAB CYTP C/V 16479 [facility], PICKLESIM [facility]O [facility] 5 [facility] ER JR JOSSELINE LYR PREPJ SCR MNL RESCR PHYS BASIC 97079 [facility] PANEL INC INC CALCIUM TOTAL BLOOD 30715 [facility] OCCULT 5 PHYSICIAN PHYSICIAN PEROXIDAS S GROUP S GROUP E ACTV QUAL FECES 1-3 SPEC HEMOGLOBI 05004 [facility] N 5 [facility] GLYCOSYLA [place] [address] [facility] THYROID [facility] STIMULAT[place] [address] [facility] FREE [facility] THYROXINE INC INC THERAPEUT 93004 [facility] PRICE IC 5 PHYSICIAN LAUR[facility] PROPHYLAC S GROUP TIC/DX INJECTION SUBQ/IM INJECTION J1100 [facility] PRICE 5 PHYSICIAN LAUR[facility] DEXAMETHO S GROUP SONE SODIUM PHOSPHATE 1 MG HEPATITIS 48839 [facility] C [facility] ANTIBODY INC INC RADEX ABD 10037 [place] COMPL 5 MEDICAL DENNIS AQT ABD IMAGING W/S/E/D ASS VIEWS 1 [place] [address] [facility] HEPATITIS 5 [facility] B INC INC SURFACE ANTIGEN HEPATITIS 29782 [facility] B CORE 5 [facility] ANTIBODY INC INC HBCAB TOTAL HEPATITIS 79411 [facility] B SURF 5 [facility] ANTIBODY INC INC HBSAB 25 99095 [facility] HYDROXY [facility] [place] [address] [facility] THYROID 5 [facility] STIMULATI [place] [address] [facility] FREE 5 [facility] THYROXINE INC INC BLOOD 67294 [facility] COUNT 5 [facility] COMPLETE INC INC AUTO&AUTO DIFRNTL WBC RADIOLOGI 18217 [facility] C EXAM 5 [facility] CHEST 2 INC INC VIEWS FRONTAL&L ATERAL COMPREHEN 78700 [facility] SIVE 5 [facility] METABOLIC INC INC PANEL COLLECTIO 99932 [facility] N VENOUS 5 [facility] BLOOD INC INC VENIPUNCT URE HEPATITIS 03951 [facility] A 5 [facility] ANTIBODY INC INC HAAB IAADIADOO 70237 [facility] FRYMAN 5 PHYSICIAN EUG INFLUENZA S GROUP INJECTION J1040 [facility] PRICE 4 PHYSICIAN [facility]UR[facility] METHYLPRE S GROUP DNISOLONE ACETATE 80 MG THERAPEUT 52482 [facility] IC 4 PHYSICIAN PHYSICIAN PROPHYLAC S GROUP S GROUP TIC/DX INJECTION SUBQ/IM ECHO 09508 YURI TELLO [facility] R-T 4 MEDICAL 2D SERV W/WOM-MOD FOUNDATIO E COMPL N SPEC&COLR D NJX 95136 STONE STONE DX/THER [address] SBST SURGERY SURGERY EPIDURAL/ CENTER CENTER SUBARACH LUMBAR/SA CRAL FLUOR 88310 JUSTO KEMP NEEDLE/CA 4 BECK BECK TH SPINE/PAR ASPINAL DX/THER ADDON MRI 49308 [address] [address] DUKE TRA SPINAL 4 CANAL LUMBAR W/O CONTRAST MATERIAL THER 94428 [facility] PROPH/DX [address] [place] [address] NJX EA SEQL IV PUSH SBST/DRUG FAC INJECTION J1100 [address] DEXAMETHO SONE SODIUM PHOSPHATE 1 MG BASIC [address] PANEL CALCIUM TOTAL URNLS DIP [address] STICK/TAB LET REAGENT AUTO MICROSCOP Y INJECTION J2270 [address] SULFATE UP TO 10 MG THERAPEUT [address] INJECTION IV PUSH EACH NEW DRUG INJECTION J[address] METHOCARB JORGE UP TO 10 ML INJECTION J2550 [address] PROMETHAZ INE HCL UP TO 50 MG INJECTION J2405 [address] ONSHARYNETR [place] HCL [place] 1 [place] [address] THERAPY/P ROPHYLAXI S /DX 1ST TO 1 HR BLOOD [address] COMPLETE AUTOMATED RADEX 57218 [facility] C[facility] SPINE 4 DENNIS DENNIS LUMBOSACR AL MINIMUM 4 VIEWS RADEX HIP 06269 [facility] CECILIA 4 DENNIS DENNIS UNILATERA L 1 VIEW Encounters Encounter Start End Date Code Location Performer Type Date [facility]OSPITAL [facility] 7 7 [facility] OUTPATIEN INC T EMERGENCY 14694 [facility] 7 7 [facility] DEPARTMEN INC T VISIT LOW/MODER SEVERITY EMERGENCY 28080 MARCIA WOO 7 7 PHYSICIAN CHERYL S PLLC T VISIT HIGH/URGE NT SEVERITY [facility] 7 7 [facility] OUTPATIEN INC T OFFICE 67004 [facility] ALLRAN JR OUTPATIEN 7 7 PHYSICIAN T VISIT S GROUP 15 MINUTES OFFICE 65495 [facility] GUZMAN OUTPATIEN 7 7 PHYSICIAN T VISIT S GROUP 15 MINUTES EMERGENCY 15433 [facility] 7 7 [facility] DEPARTMEN INC T VISIT LOW/MODER SEVERITY EMERGENCY 24917 Tayler JAMES 7 PHYSICIAN JR LUNA S PLLC T VISIT MODERATE SEVERITY [facility] 7 7 [facility] OUTPATIEN INC T EMERGENCY 10930 Tayler JAMES 7 PHYSICIAN JR LUNA S PLLC T VISIT HIGH/URGE NT SEVERITY [facility] 7 7 [facility] OUTPATIEN INC T OFFICE 18928 WILLIAM THOMAS OUTRICKY 7 7 T VISIT 15 MINUTES [facility]OSP[facility] - 7 7 [facility]PATIEN [facility] OFFICE 41306 [facility] STONE ROXY OUTPATIEN 6 6 PHYSICIAN T VISIT S GROUP 25 MINUTES OFFICE 27772 GASTRO[facility] JUS OUTPATIEN 6 6 EROLOGY T VISIT AND 25 HEPATOL MINUTES [facility]OSPITAL [facility] - 6 6 [facility] OUTPATIEN CRITICAL ACCESS HOSPITAL [facility] - 6 6 N OUTPATIEN COMMUNTIY T HOSPITA OFFICE 23642 GASTROENT CASE JUS OUTPATIEN 6 6 EROLOGY T NEW 45 AND MINUTES HEPAT [facility]OSPITAL [facility] - 6 6 [facility] OUTPATIEN [facility] OFFICE 81753 [facility] ALLRAN JR OUTPATIEN 6 6 PHYSICIAN MAGO T VISIT S GROUP 10 MINUTES OFFICE 52412 ROB MONSALVE OUTPATIEN 6 6 DIGESTIVE CEC T VISIT CARE 15 CENTER MINUTES EMERGENCY 95523 MARCIA THRASHER 6 6 PHYSICIAN LAURENCE DEPARTMEN S, PLLC T VISIT MODERATE SEVERITY HOSPITAL ROB - 6 6 [facility] OUTPATIEN MEDICAL T CENTE OFFICE 99922 ROB MONSALVE OUTPATIEN 6 6 DIGESTIVE CEC T NEW 60 CARE MINUTES CENTER OFFICE 06260 [facility] STONE ROXY OUTPATIEN 6 6 PHYSICIAN T VISIT S GROUP 15 MINUTES HOSPITAL [facility] - 6 6 [facility] OUTPATIEN CRITICAL ACCESS HOSPITAL H[facility] - 6 6 [facility] OUTPATIEN INC T EMERGENCY 91854 MARCIA SOLIS 6 6 PHYSICIAN U MAUREEN DEPARTMEN S, PLLC T VISIT HIGH/URGE NT SEVERITY OFFICE 30434 [facility] ALLRAN JR OUTPATIEN 6 6 PHYSICIAN MAGO T NEW 30 S GROUP MINUTES OFFICE 08957 [facility] TRISTEN OUTPATIEN 6 6 PHYSICIAN STONE T VISIT S GROUP PA-C ROXY 15 MINUTES OFFICE 02793 [facility] RAMON OUTPATIEN 6 6 PHYSICIAN STONE T VISIT S GROUP PA-C ROXY 25 MINUTES OFFICE 32575 [facility] RAMON OUTPATIEN 6 6 PHYSICIAN STONE T VISIT S GROUP PA-C ROXY 15 MINUTES EMERGENCY 69541 MARCIA THRASHER DEPT 6 6 PHYSICIAN LAURENCE VISIT S, PLLC HIGH SEVERITY& THREAT FUNCJ EMERGENCY 44195 MARCIA MCKEE DEPT 6 6 PHYSICIAN SUMMER VISIT S, PLLC HIGH SEVERITY& THREAT FUNCJ OFFICE 84187 [facility] PRICE OUTPATIEN 6 6 PHYSICIAN LAURENCE T VISIT S GROUP 25 MINUTES OFFICE 34946 [facility] CONSULTAT 6 6 N ION NEUROLOGY NEW/ESTAB PATIENT 60 MIN [facility] - 6 6 [facility] OUTPATIEN INC T OFFICE 78730 [facility] PRICE OUTPATIEN 6 6 PHYSICIAN LAURENCE T VISIT S GROUP 10 MINUTES [facility] - 6 6 [facility] OUTPATIEN INC T OFFICE 20939 [facility] PRICE OUTPATIEN 6 6 PHYSICIAN LAURENCE T VISIT S GROUP 10 MINUTES [facility] - 6 6 [facility] OUTPATIEN INC T OFFICE 39343 [facility] PRICE OUTPATIEN 6 6 PHYSICIAN LAURENCE T VISIT S GROUP 15 MINUTES OFFICE 41006 [facility] RAMON OUTPATIEN 6 6 PHYSICIAN STONE T VISIT S GROUP PA-C ROXY 15 MINUTES EMERGENCY 51826 MARCIA CESPEDES DEPT 6 6 PHYSICIAN FOR VISIT S, PLLC HIGH SEVERITY& THREAT FUNCJ OFFICE 27222 [facility] RAMON OUTPATIEN 6 6 PHYSICIAN STONE T VISIT S GROUP PA-C ROXY 10 MINUTES OFFICE 31449 [facility] PRICE OUTPATIEN 6 6 PHYSICIAN LAURENCE T VISIT S GROUP 15 MINUTES OFFICE 82646 [facility] GARCIA TER OUTPATIEN 6 6 PHYSICIAN T VISIT S GROUP 15 MINUTES [facility] - 6 6 [facility] OUTPATIEN INC T OFFICE 59348 [facility] OUT[facility]IEN 6 6 [facility] T VISIT INC 10 MINUTES OFFICE 00809 ELLY TINY FRED OUTPATIEN 6 6 MD RHEA, T NEW 30 PSC MINUTES OFFICE 78735 [facility] PRICE OUTPATIEN 6 6 PHYSICIAN LAURENCE T VISIT S GROUP 15 MINUTES OFFICE 66179 [facility] [place] OUTPATIEN 6 6 FRED FRED T VISIT 15 MINUTES [facility] - 5 5 [facility] OUTPATIEN INC T OFFICE 43366 [facility] PRICE OUTPATIEN 5 5 PHYSICIAN LAURENCE T VISIT S GROUP 10 MINUTES OFFICE 85695 [facility] PRICE OUTPATIEN 5 5 PHYSICIAN LAURENCE T VISIT S GROUP 10 MINUTES OFFICE 60741 [facility] OUTPATIEN 5 5 BRAIN SYD T NEW 45 NEUROSURG MINUTES ICAL EMERGENCY 08323 MARC[facility] PRICE 5 5 PHYSICIAN LAURENCE [facility]URGE NT SEVERITY OFFICE 65841 [facility] PRICE OUTPATIEN 5 5 PHYSICIAN LAURENCE T VISIT S GROUP 15 MINUTES [facility] 5 [facility] OUTPATIEN INC T [facility] 5 5 [facility] OUTPATIEN INC T OFFICE 16123 [facility] [place] OUTPATIEN 5 5 FRED FRED T VISIT 15 MINUTES [facility] - 5 5 [facility] OUTPATIEN INC T OFFICE 14346 [place] OUTPATIEN 5 5 FRED FRED T NEW 30 MINUTES OFFICE 56714 [facility] PRICE OUTPATIEN 5 5 PHYSICIAN LAURENCE T VISIT S GROUP 15 MINUTES [facility] 5 [facility] OUTPATIEN INC T PERIODIC 31550 [facility] PRICE PREVENTIV 5 5 PHYSICIAN LAURENCE E MED EST S GROUP PATIENT 40-64YRS OFFICE 10431 [facility] PRICE OUTPATIEN 5 5 PHYSICIAN LAURENCE T VISIT S GROUP 15 MINUTES [facility] 5 5 [facility] OUTPATIEN INC T OFFICE 46461 [facility] RADHA OUTPATIEN 5 5 PHYSICIAN FRED T VISIT S GROUP 15 MINUTES OFFICE 42742 [facility] FRYMAN OUTPATIEN 5 5 PHYSICIAN EUG T VISIT S GROUP 15 MINUTES [facility] 4 4 [facility] OUTPATIEN INC T OFFICE 33186 [facility] DUKE TRA OUTPATIEN 4 4 T VISIT 15 MINUTES OFFICE 14721 [facility] TRA DUKE TRA OUTPATIEN 4 4 T VISIT 15 MIN[address]ES [address] OUTPATI T EMERGENCY 05086 EDMUND CHRISTIANSONPRESTON DEPT 4 4 VLADIMIR VLADIMIR VISIT HIGH SEVERITY& THREAT FUN EMERGENCY [address] DEPARTMEN T VISIT MODERATE SEVERITY OFFICE 99187 ILYA CARABALLO OUTPATIEN 4 4 THEODORE THEODORE T VISIT 15 MINUTES OFFICE 81889 ILYA CARABALLO OUTPATIEN 4 4 THEODORE THEODORE T VISIT 15 MINUTES OFFICE 15703 DUKE TRA DUKE TRA CONSULTAT 4 4 ION NEW/ESTAB PATIENT 40 MIN Emergency DIRK Magdaleno MD (ER) 3 18:30 3 19:10 [facility]
--- OUTSIDE RECORDS SUMMARY | 2017-08-24 03:41 | External Medical Summary Rpt | CCD ---
Author Author , RADHA Organization [employer] Address Unknown Phone [email or web address] Care Team Providers Care Baseball Coach Name Role Phone [employer] Unavailable Unavailable [...] Unavailable [facility] Unavailable Unavailable [place] Unavailable Unavailable [facility], Unavailable Unavailable [facility], Unavailable [facility]available [facility] CECILIA DENNIS, Unavailable Unavailable CECILIA DENNIS CECILIA DENNIS, Unavailable Unavailable CECILIA DENNIS [facility] Unavailable Unavailable [facility] RAMSEY DUFF FRED, DUFF FRED Unavailable Unavailable FRYMAN EUG, FRYMAN Unavailable Unavailable EUG JR MARIA TERESA, MOREL, Unavailable Unavailable JR PRICE LAURENCE, PRICE Unavailable Unavailable LAURENCE [facility], Unavailable Unavailable [facility] GILBERT SYD, GILBERT Unavailable Unavailable SYD NI DAWSON, NI Unavailable Unavailable DAWSON [facility] Unavailable Unavailable INC, [facility] Unavailable Unavailable HOSPITAL P, [facility], Unavailable Unavailable [facility] BELLO CEC, BELLO Unavailable Unavailable CEC WOO, WOO Unavailable Unavailable DUKE TRA, DUKE TRA Unavailable Unavailable RADHA FRED, RADHA Unavailable Unavailable FRED [facility], KEDING Unavailable Unavailable KEDING, KEDING Unavailable Unavailable KEDING FRED, KEDING Unavailable Unavailable FRED [place] FRED, KEDING Unavailable Unavailable FRED [facility] Un[facility] Unavailable GROUP PS, [facility] Un[facility] Unavailable [facility] Unavailable [...] Unavailable Unavailable NEUROSURGICAL, [facility], Unavailable Unavailable [facility] STONE, STONE Unavailable Unavailable STONE [...] FIBROMYALGI 06-27-2017 [facility] [id number] OTHER LONG 06-27-2017 [facility] CURRENT INC DRUG THERAPY N764 ABSCESS OF 05-26-2017 [facility] Z4800 ENCOUNTER 05-26-2017 [facility] CHANGE/ALEJANDRO PHYSICIANS, ALISON NONSURG PLLC WOUND DRESSING L0291 CUTANEOUS 05-25-2017 [facility] ABSCESS PHYSICIANS UNSPECIFIED GROUP N739 FEMALE 05-24-2017 [facility] PELVIC PHYSICIANS INFLAMMATOR GROUP Y DISEASE UNSPECIFIED [id number] CUTANEOUS 05-19-2017 [facility] ABSCESS OF PHYSICIANS, ABDOMINAL PLLC WALL M545 LOW BACK 12-21-2016 [facility] PAIN E039 HYPOTHYROID 11-20-2016 [facility] UNSPECIFIED INC R05 COUGH 10-19-2016 [facility] R1030 LOWER 10-04-2016 [facility] [place] [facility] PAIN UNSPECIFIED R109 UNSPECIFIED 10-04-2016 [facility] PS R197 DIARRHEA 10-04-2016 [facility] UNSPECIFIED [facility]ESTHESIA GROUP PS R1032 LEFT LOWER 07-24-2016 [facility] QUADRANT PHYSICIANS PAIN GROUP K5909 OTHER 07-10-2016 [facility] N1330 UNSPECIFIED 06-30-2016 [facility] HYDRONEPHRO [facility] ASS SIS N134 HYDROURETER 06-30-2016 [facility] N289 DISORDER OF 06-30-2016 [facility] KIDNEY AND PHYSICIANS, URETER PLLC UNSPECIFIED N3000 ACUTE 06-30-2016 [facility] CYSTITIS PHYSICIANS, WITHOUT PLLC HEMATURIA N390 URINARY 06-30-2016 [facility] TRACT PHYSICIANS, INFECTION PLLC SITE NOT SPECIFIED R1031 RIGHT LOWER 06-30-2016 [facility] K529 NONINFECTIV 06-19-2016 [facility] ITIS & COLITIS UNS K635 POLYP OF 06-19-2016 [facility] E118 TYPE 2 05-06-2016 [facility] MELLITUS INC W/UNS COMPLICATIO NS E876 HYPOKALEMIA 05-06-2016 [facility] PHYSICIANS, PLLC R1012 LEFT UPPER 05-06-2016 [facility]ANT PHYSICIANS, PAIN PLLC Z720 TOBACCO USE 05-06-2016 [facility] M5416 RADICULOPAT 04-25-2016 WILLIAM IBARRA HY LUMBAR REGION R194 CHANGE IN 03-21-2016 [facility] BOWEL HABIT PHYSICIANS GROUP M45107 PERSONAL 03-21-2016 [facility] HISTORY OF PHYSICIANS COLONIC GROUP POLYPS K219 GASTRO-ESOP 03-14-2016 [facility] P WITHOUT ESOPHAGITIS R1084 GENERALIZED 03-14-2016 [facility]AL [facility] K5792 DIVERTICULI 03-12-2016 [facility] TIS PART PHYSICIANS, UNS W/O PLLC PERF/ABSC W/O BLEED R110 NAUSEA 03-12-2016 [facility] Z0100 ENCOUNTER 03-08-2016 EL[facility] EXAM EYES & GRE VISION W/O ABNORMAL FIND B370 CANDIDAL 02-21-2016 [facility] STOMATITIS PHYSICIANS GROUP Z23 ENCOUNTER 02-21-2016 [facility] FOR [facility]ANS IMMUNIZATIO GROUP N M542 CERVICALGIA 02-16-2016 WILLIAM FRED R51 HEADACHE 02-02-2016 [facility] C13411 HEMIPLEGIC 01-05-2016 [facility] MIGRAINE PHYSICIANS INTRACT W/O GROUP STAT MIGRAINOSUS E22013 MIGRAINE 12-28-2015 [facility] UNS NOT [facility] INTRACT W/O INC STATUS MIGRAINOSUS [id number] MIGRAINE 12-20-2015 [facility] W/O AURA PHYSICIANS, NOT INTRACT PLLC W/STAT MIGRAINOSUS D44864 PAIN IN 12-08-2015 [facility] RIGHT KNEE PHYSICIANS GROUP [id number] PAIN IN 12-08-2015 [facility] LEFT KNEE PHYSICIANS GROUP J0190 ACUTE 11-27-2015 [facility] SINUSITIS PHYSICIANS UNSPECIFIED GROUP R112 NAUSEA WITH 11-27-2015 [facility] VOMITING PHYSICIANS UNSPECIFIED GROUP M461 SACROILIITI 11-23-2015 ELLY WILKERSON S NOT , PSC ELSEWHERE CLASSIFIED M5116 INTERVERTEB 11-23-2015 [facility] D/O INC W/RADICULOP ATHY LUMB RGN M5136 OT 11-23-2015 ELLY WILKERSON INTERVERTEB , PSC RAL DISC DEGEN LUMBAR REGION 7231 CERVICALGIA 07-01-2015 [facility] FRED 7242 LUMBAGO 07-01-2015 [facility] FRED 7246 DISORDERS 07-01-2015 [place] FRED OF SACRUM 20290 DISPLCMT 06-28-2015 [facility] INTERVERT NEUROSURGIC DISC W/O AL MYELOPATHY 27441 DEGEN 06-28-2015 [facility] LUMBAR/LUMB BRAIN OSACRAL NEUROSURGIC INTERVERTEB AL RAL DISC 9532 INJURY TO 06-28-2015 [facility] [place] [address] ALTERED 05-23-2015 [facility] MENTAL PHYSICIANS, STATUS PLLC 4019 UNSPECIFIED 05-17-2015 [facility]SSENTIAL [facility] [place]YPERT[place]SIO [place] N 45898 PAIN IN 05-17-2015 [facility] JOINT, PHYSICIANS LOWER LEG GROUP V5869 LONG-TERM 05-17-2015 [facility] (CURRENT) [facility] USE OF INC OTHER MEDICATIONS 83517 OTHER 05-06-2015 [facility] ABNORMAL [facility] GLUCOSE INC 7243 SCIATICA 04-21-2015 [place] FRED 9597 INJURY 02-23-2015 [facility] OTHER&UNSPE TECHNOLOGIE CIFIED KNEE S INC LEG ANKLE&FOOT 92846 UNSPECIFIED 02-11-2015 [facility] VAGINITIS PHYSICIANS AND GROUP VULVOVAGINI TIS V7231 ROUTINE 02-11-2015 [facility] AL EXAMINATION V7641 SCREENING 02-11-2015 [facility] MALIGNANT GROUP NEOPLASM OF THE RECTUM 4610 ACUTE 01-23-2015 [facility] MAXILLARY PHYSICIANS SINUSITIS GROUP 4659 ACUTE URIS 01-23-2015 [facility] OF PHYSICIANS UNSPECIFIED GROUP SITE 35933 ABDOMINAL 12-22-2014 [facility] PA[facility], LEFT MEDICAL UPPER IMAGING ASS QUADRANT 15889 ABDOMINAL 12-22-2014 [facility] MEDICAL LEFT UPPER IMAGING ASS QUADRANT 4619 ACUTE 11-23-2014 [facility] SINUSITIS, PHYSICIANS UNSPECIFIED GROUP 41349 WHEEZING 11-23-2014 [facility]ANS [facility] 7862 COUGH 11-23-2014 [facility] 4611 ACUTE 11-20-2014 [facility] FRONTAL PHYSICIANS SINUSITIS GROUP 4660 ACUTE 10-16-2014 [facility] BRONCHITIS PHYSICIANS GROUP 4240 MITRAL 10-02-2014 [facility] DISORDERS INC 7852 UNDIAGNOSED 10-02-2014 [facility] 7244 THORACIC/EM 05-20-[address] MBOSACRAL SURGERY NEURITIS/RA CENTER DICULITIS UNSPEC 71619 GENERALIZED 04-05-2014 [facility] DISORDER 7291 UNSPECIFIED 04-05-2014 [facility] 7245 UNSPECIFIED 04-04-2014 LIYA JAIMES BACKACHE 76114 PAIN IN 03-31-2014 [facility] JOINT PELVIC REGION AND THIGH 85176 SPINAL STEN 03-28-2014 CECILIA LUMB REG DENNIS [...] CY 02 NT 5 HI AN A ID 68 08 09 20 5 00 HO [...] 00 1- 5- 00 06 TO ve ID 51 20 20 08 WN IL 80 17 17 53 -H [address] AR Z MA 10 CY -1 2. OF 5 MG CY NT TA HI B AN A ME 68 08 09 30 30 00 HO Ac TO 00 -1 -1 .0 00 ME ti ID 10 1- 5- 00 06 TO ve [...] 53 -1 -1 .0 00 ME ti AR 63 4- 5- 00 06 TO ve [...] 00 3- 8- 00 06 TO ve ID 51 20 20 08 WN IL 80 17 17 53 -H [address] AR Z MA 10 CY -1 2. OF 5 MG CY NT TA HI B AN A ME 68 07 08 30 30 00 HO Ac TO 00 -1 -1 .0 00 ME ti ID 10 3- 8- 00 06 TO ve [...] 2 39 PH CE AR TA MA AR CY NO PH OF EN CY 5- [...] 1 43 PH CE AR TA MA AR CY NO PH #5 EN 91 5- [...] 40 CE 0 02 PH TA AR AR MA NO CY PH EN OF 7. [...] 00 ME ti TH 71 6- 8- 00 06 TO ve YR 34 20 20 08 WN OX 10 17 17 53 IN 1 78 PH E AR 25 MA CY MC G OF TA BL CY ET NT HI AN A 00 06 07 30 30 00 HO Ac TA 53 -2 -2 .0 00 ME ti AR 63 6- 8- 06 TO ve N 33 20 20 07 WN D3 40 17 17 95 1 31 PH 1, AR 00 MA 0 CY UN IT OF TA CY BL NT ET HI AN A TO 68 06 07 30 30 00 HO Ac PI 46 -2 -2 .0 00 ME ti RA 20 6- 8- 06 TO ve MA 10 20 20 08 WN TE 96 17 17 53 0 80 PH 10 AR 0 MA MG CY TA OF BL ET CY NT HI AN A DU 68 06 07 30 30 00 HO Ac LO 00 -2 -2 .0 00 ME ti XE 10 6- 8- 06 TO ve TI 25 20 20 [...] 00 ME ti EP 20 4- 4- 04 TO ve AM 06 20 20 02 WN 5 31 17 17 32 0 28 PH MG AR MA TA CY BL ET OF CY NT HI AN A LI 68 06 07 30 30 00 HO Ac SI 18 -1 -1 .0 00 ME ti NO 00 2- 4- 06 TO ve ID 51 20 20 08 WN IL 80 [...] 00 -1 -1 .0 00 ME ti ID 10 2- 4- 00 06 TO ve [...] CY CA NT P HI AN A ID 59 06 07 10 5 00 HO [...] PS NT UL HI E AN A ID 68 06 07 20 5 00 HO [...] 53 -2 -3 .0 00 ME ti AR 63 5- 0- 00 06 TO ve [...] 00 -1 -1 .0 00 ME ti ID 10 2- 6- 00 06 TO ve OL 11 20 20 08 WN OL 90 17 17 53 0 76 PH [place] AR CC MA CY ER OF 10 0 CY MG NT HI TA AN B A LI 68 05 06 30 30 00 HO Ac SI 18 -1 -1 .0 00 ME ti NO 00 2- 6- 00 06 TO ve ID 51 20 20 08 WN IL 80 17 17 53 -H [address] AR Z MA 10 CY -1 2. OF 5 MG CY NT TA HI B AN A GA 45 04 05 90 [...] 53 4 79 PH HC AR L ADELINE DR CY [...] 53 -2 -2 .0 00 ME ti AR 63 6- 6- 00 06 TO ve [...] SL NT HI AN A DI 51 04 [...] 00 -1 -1 .0 00 ME ti ID 10 0- 2- 00 06 TO ve OL 11 20 20 08 WN OL 90 17 17 47 0 04 PH [place] AR CC MA CY ER OF 10 0 CY MG NT HI TA AN B A LI 68 04 05 30 30 00 HO Ac SI 18 -1 -1 .0 00 ME ti NO 00 0- 2- 00 06 TO ve ID 51 20 20 08 WN IL 80 [...] 53 -2 -2 .0 00 ME ti AR 63 8- 8- 00 06 TO ve [...] SL NT HI AN A DI 51 03 04 [...] 53 -2 -3 .0 00 ME ti AR 63 8- 1- 00 06 TO ve [...] 00 1- 3- 00 06 TO ve ID 51 20 20 07 WN IL 80 [...] 00 -0 -0 .0 00 ME ti ID 10 1- 3- 00 06 TO ve [...] 53 -1 -1 .0 00 ME ti AR 63 6- 7- 00 06 TO ve [...] 00 -0 -0 .0 00 ME ti ID 10 3- 3- 00 06 TO ve [...] 00 3- 3- 00 06 TO ve ID 51 20 20 07 WN IL 80 [...] MG NT HI TA AN B A ID 68 12 01 20 5 00 HO [...] BL CY ET NT HI AN A ID 59 12 01 10 5 00 HO Ac ED 74 -0 -1 .0 00 ME ti NI 60 8- 3- 00 06 TO ve SO 17 20 20 07 WN NE 50 16 17 71 9 94 PH 20 AR MA MG CY TA OF BL ET CY NT HI AN A ID 00 12 01 20 10 00 HO [...] 00 ME ti RA 20 5- 9- 06 TO ve MA 10 20 20 07 WN TE 96 16 17 37 0 38 PH 10 AR 0 MA MG CY TA OF BL ET CY NT HI AN A LI 68 12 01 30 30 00 HO Ac SI 18 -0 -0 .0 00 ME ti NO 00 9- 06 TO ve ID 51 20 20 07 WN IL 80 16 17 37 -H [address] AR Z MA 10 CY -1 2. OF 5 MG CY NT TA HI B AN A LE 00 12 01 30 30 00 HO Ac VO 52 -0 -0 .0 00 ME ti TH 71 5- 9- 06 TO ve YR 34 20 20 07 WN OX 10 16 17 37 IN 1 43 PH E AR 25 MA CY MC G OF TA BL CY ET NT HI AN A DU 47 12 01 30 30 00 HO Ac LO 33 -0 -0 .0 00 ME ti XE 50 5- 9- 06 TO ve TI 38 20 20 07 WN NE 31 16 17 37 8 42 PH HC AR L MA DR CY 60 OF MG CY NT CA HI P AN A ME 68 12 01 30 30 00 HO Ac TO 00 -0 -0 .0 00 ME ti ID 10 5- 9- 06 TO ve OL 11 20 20 07 WN OL 90 16 17 37 0 36 PH [place] AR CC MA CY ER OF 10 0 CY MG NT HI TA AN B A ID 68 12 01 20 5 00 HO Ac OM 38 -0 -0 .0 00 ME ti ET 20 5- 9- 06 TO ve GARCIA 04 20 20 07 WN ZI 00 16 17 68 NE 1 43 PH AR 12 MA .5 CY MG OF TA CY BL NT ET HI AN A 00 02 04 00 60 [...] 00 90 30 CL 16 No Ac ID 76 -0 -2 .0 IN 44 t ti AZ 23 8- 6- 00 IC 53 Av ve OL 72 20 20 ai AM 00 08 08 PH la 3 AR bl 0. MA e 5 CY MG TA BL ET ID 68 02 03 00 15 2 CL [...] 00 90 30 CL 16 No Ac ID 76 -0 -2 .0 IN 20 t [...] Procedures Procedure DOS Code Location Performer Comment 77168 [facility] HYDROXY [facility] INCLUDES INC INC FRACTIONS IF PERFORMED CYANOCOBA 73922 [facility] RENUKA [facility] VITAMIN INC INC B-12 HEPATITIS 43463 [facility] B CORE 7 [facility] [place] [address] [facility] HEPATITIS 7 [facility] [place] [address] [facility] FOLIC 7 [facility] ACID INC INC SERUM BLOOD 65461 [facility] COUNT 7 [facility] COMPLETE INC INC AUTO&AUTO DIFRNTL WBC HEPATITIS 05480 [facility] A 7 [facility] ANTIBODY INC INC HAAB COMPREHEN 33550 [facility] SIVE [facility] METABOLIC INC INC PANEL DRUG TEST 32757 [facility] PRSMV [facility] QUAL DIR INC INC OPTICAL OBS PER DAY HEPATITIS 00097 [facility] C 7 [facility] ANTIBODY INC INC LIPID 00593 [facility] PANEL 7 [facility] INC INC THERAPEUT 82176 [facility] IC 7 [facility] PROPHYLAC INC INC TIC/DX INJECTION SUBQ/IM INCISION 95242 [facility] MOREL, & 7 PHYSICIAN JR DRAINAGE S, PLLC ABSCESS COMPLICAT ED/MULTIP LE DRUG TEST 45309 [facility] PRSMV 7 [facility] QUAL DIR INC INC OPTICAL OBS PER DAY DRUG TEST G0480 [facility] DEFINITV [address] ID INC INC METH P DAY 1-7 DRUG CL CHIROPRAC 30673 WILLIAM THOMAS TIC 7 MANIPULAT HORACIO [place] SPINAL 1-2 REGIONS DRUG TEST 08198 [facility] PRSMV 7 [facility] INSTRMNT INC INC CHEMISTRY ANALYZERS COMPREHEN 97866 [facility] SIVE 7 [facility] [address] [facility] FREE 7 [facility] THYROXINE INC INC DRUG TEST G0480 [facility] DEFINITV [address] ID INC INC METH P DAY 1-7 [place] [address] [facility] THYROID 7 [facility] STIMULATI INC INC NG HORMONE TSH BLOOD 56026 [facility] COUNT 7 [facility] COMPLETE INC INC AUTO&AUTO DIFRNTL WBC 25 24439 [facility] HYDROXY 7 [facility] INCLUDES INC INC FRACTIONS IF PERFORMED THERAPEUT 39569 [facility] STONE ROXY IC 6 PHYSICIAN PROPHYLAC S GROUP TIC/DX INJECTION SUBQ/IM RADIOLOGI 89035 [facility] C[facility] C EXAM 6 MEDICAL DENNIS CHEST 2 IMAGING VIEWS ASS FRONTAL&L ATERAL INJECTION J0696 [facility] STONE ROXY 6 PHYSICIAN CEFTRIAXO S GROUP NE SODIUM PER 250 MG INJECTION J1040 [facility] STONE ROXY 6 PHYSICIAN METHYLPRE S GROUP DNISOLONE ACETATE 80 MG ANES 70166 [facility] LOWER 6 ANESTHESI INTESTINE A [place] [address] [facility] [place] SCALF ABDOMEN & 6 RADIOLOGY PELVIS W/O CONTRAST MATERIAL IMMUNOASS 15449 [facility] AY 6 [facility] ANALYTE INC INC QUAL/SEMI QUAL MULTIPLE STEP FLUORESCE 12421 [facility] NT 6 [facility] NONNFCT INC INC AGT ANTB SCREEN EA ANTIBODY BLOOD 31652 [facility] COUNT 6 [facility] COMPLETE INC INC AUTO&[place] [address] [facility] THYROID 6 [facility] STIMULATI INC INC NG HORMONE TSH COMPREHEN 16705 [facility] SIVE 6 [facility] METABOLIC INC INC PANEL RADEX 21278 [facility] [place] NI ABDOMEN 1 6 RADIOLOGY DAWSON ANTEROPOS TERIOR VIEW DRUG TST G0477 L[facility] PRESUMP;C 6 [facility] PBL [place] [address] [place] [facility]INE ABDOMEN & 6 MEDICAL PELVIS IMAGING W/[place] [address] [facility] SETTLES ABDOMEN & 6 N II LAYO PELVIS RADIOLOGY W/CONTRAS GROUP P T MATERIAL LOCM Q9967 ROB RIVAS [phone] 6 REGIONAL REGIONAL MG/ML MEDICAL MEDICAL IODINE CENTE CENTE CONCENTRA TION PER ML HI OSM Q9963 ROB RIVAS CONTRST 6 REGIONAL REGIONAL MATL MEDICAL MEDICAL [phone] CENTE CENTE MG/[place] [address] [facility] SURG 6 [facility] PATHOLOGY GROSS&LAURENCE ROSCOPIC EXAM ANES 50863 [facility] LOWER 6 ANESTH INTESTINE OF THE BLUE ENDOSCOPY DISTAL DUOD[place]UM COLONOSCO 27164 [facility] PY 6 [facility] W/BIOPSY INC INC [place]INGLE/[place] [address] [facility] AMYLASE 6 [facility] INC INC DRUG TST G0477 L[facility] PRESUMP;C 6 [facility] PBL BEING INC INC READ DC OPT OBV ONLY UNCLASSIF J3490 [facility] IED DRUGS 6 [facility] INC INC BLOOD 01712 [facility] COUNT 6 [facility] COMPLETE INC INC AUTO&AUTO DIFRNTL WBC INJECTION J2405 [facility] 6 [facility] ONDANSETR INC INC ON HCL PER 1 [place] [address] [facility] LIPASE 6 [facility] INC INC THER 33314 [facility] PROPH/DX 6 [facility] NJX IV INC INC PUSH SINGLE/1S T SBST/DRUG COMPREHEN 98462 [facility] SIVE 6 [facility] METABOLIC INC INC PANEL THERAPEUT 61134 [facility] IC 6 [facility] INJECTION INC INC IV PUSH EACH NEW DRUG [facility] 77354 [facility] [place] TIC 6 FRED FRED MANIPULAT HORACIO [place] SPINAL 1-2 REGIONS CHIROPRA 91168 [facility] [place] TIC 6 FRED FRED MANIPULAT HORACIO [place] SPINAL 1-2 REGIONS CHIROPRA 88172 [facility] [place] TIC 6 FRED FRED MANIPULAT HORACIO TX SPINAL 1-2 REGIONS CHIROPRAC 85913 [facility] [place] TIC 6 FRED FRED MANIPULAT HORACIO TX SPINAL 1-2 REGIONS CHIROPRAC 19288 [facility] TIC 6 FRED FRED MANIPULAT HORACIO TX SPINAL 1-2 REGIONS CHIROPRA 58018 [facility] TIC 6 FRED FRED MANIPULAT HORACIO [place] SPINAL 1-[address] [place] [address] REI BELLA ALL ABDOMEN & 6 MEDICAL PELVIS IMAGING W/O ASS CONTRAST MATERIAL ECG 62257 [facility] BEDOYA JR ROUTINE [facility] W/LEAST P 12 LDS I&[place] [address] REI SIMENTALKE ABDOMEN & 6 MEDICAL PELVIS IMAGING W/O ASS CONTRAST MATERIAL OPHTH 93456 [facility] 6 GRE GRE XM&EVAL COMPRE NEW PT 1/> VST DETERMINA 42865 [facility] GRE GRE REFRACTIV E STATE IM ADM 44660 [facility] PRQ ID 6 PHYSICIAN LAURENCE SUBQ/IM S GROUP NJXS 1 VACCINE TDAP 02556 [facility] VACCINE 7 6 PHYSICIAN LAURENCE YRS/> IM S GROUP CHIROPRAC 88677 WILLIAM THOMAS TIC 6 FRED FRED MANIPULAT HORACIO TX SPINAL 1-2 REGIONS CHIROPRAC 24976 WILLIAM THOMAS TIC 6 FRED FRED MANIPULAT HORACIO [place] SPINAL 1-2 [place] [address] [facility] INFUSION 6 [facility] THERAPY/P INC INC ROPHYLAXI S /DX 1ST TO 1 HR MRI BRAIN 26767 [facility] BRAIN 6 [facility] STEM W/O INC INC CONTRAST MATERIAL INJECTION J1885 [facility] PRICE 6 PHYSICIAN LAURENCE KETOROLAC S GROUP TROMETHAM INE PER 15 MG THERAPEUT 88589 [facility] PRICE IC 6 PHYSICIAN LAURENCE PROPHYLAC S GROUP TIC/DX INJECTION SUBQ/IM INJECTION J2550 [facility] PRICE 6 PHYSICIAN LAURENCE PROMETHAZ S GROUP INE HCL UP TO [facility] 72269 [facility] TIC 6 FRED FRED MANIPULAT HORACIO [place] SPINAL 1-2 REGIONS INJECTION J1040 [facility] PRICE 6 PHYSICIAN LAURENCE METHYLPRE S GROUP DNISOLONE ACETATE 80 MG UNCLASSIF J3490 [facility] IED DRUGS 6 [facility] INC INC THERAPEUT 00244 [facility] IC 6 [facility] PROPHYLAC INC INC TIC/DX INJECTION SUBQ/IM THERAPEUT 59005 [facility] PRICE IC 6 PHYSICIAN LAURENCE PROPHYLAC S GROUP TIC/DX INJECTION SUBQ/IM INJECTION J1885 [facility] PRICE 6 PHYSICIAN LAURENCE KETOROLAC S GROUP TROMETHAM INE PER 15 MG INJECTION J2550 [facility] PRICE 6 PHYSICIAN LAURENCE PROMETHAZ S GROUP INE HCL UP TO 50 MG INJECTION J1200 [facility] TRISTEN 6 PHYSICIAN STONE DIPHENHYD S GROUP PA-C ROXY RAMINE HCL UP TO 50 MG INJECTION J1885 [facility] RAMON 6 PHYSICIAN STONE KETOROLAC S GROUP PA-C ROXY TROMETHAM INE PER 15 MG THERAPEUT 06363 [facility] TRISTEN IC 6 PHYSICIAN STONE PROPHYLAC S GROUP PA-C ROXY TIC/DX INJECTION SUBQ/IM INJECTION J1040 [facility] TRISTEN 6 PHYSICIAN STONE METHYLPRE S GROUP PA-C ROXY DNISOLONE ACETATE 80 MG CHIROPRAC 50526 [facility]IAM THOMAS TIC 6 FRED FRED MANIPULAT HORACIO TX SPINAL 1-2 REGIONS INJECTION J2550 [facility] TRISTEN 6 PHYSICIAN STONE PROMETHAZ S GROUP PA-C ROXY INE HCL UP TO 50 MG INJECTION J2550 [facility] PRICE 6 PHYSICIAN LAURENCE PROMETHAZ S GROUP INE HCL UP TO 50 MG THERAPEUT 83005 [facility] PRICE IC 6 PHYSICIAN LAURENCE PROPHYLAC S GROUP TIC/DX INJECTION SUBQ/IM INJECTION J1885 [facility] PRICE 6 PHYSICIAN LAURENCE KETOROLAC S GROUP TROMETHAM INE PER 15 MG INJECTION J1200 [facility] PRICE 6 PHYSICIAN LAURENCE DIPHENHYD S GROUP RAMINE HCL UP TO 50 MG CHIROPRAC [id number] [facility] [place] TIC 6 FRED FRED MANIPULAT HORACIO TX SPINAL 1-2 REGIONS INJECTION [id number] [facility] PRICE 6 PHYSICIAN LAURENCE KETOROLAC S GROUP TROMETHAM INE PER 15 MG THERAPEUT 81636 [facility] PRICE IC 6 PHYSICIAN LAURENCE PROPHYLAC S GROUP TIC/DX INJECTION SUBQ/IM THERAPEUT 27694 [facility] [address] IC 6 PHYSICIAN PROPHYLAC S GROUP TIC/DX INJECTION SUBQ/IM INJECTION [id number] [facility] [address] 6 PHYSICIAN METHYLPRE S GROUP DNISOLONE ACETATE 80 MG INJECTION J1885 [facility] PRICE 6 PHYSICIAN LAURENCE KETOROLAC S GROUP TROMETHAM INE PER 15 MG THERAPEUT 31373 [facility] PRICE IC 6 PHYSICIAN LAURENCE PROPHYLAC S GROUP TIC/DX INJECTION SUBQ/IM CHIROPRAC 30290 [facility] [place] TIC 6 FRED FRED MANIPULAT HORACIO TX SPINAL 1-2 REGIONS RADIOLOGI 85776 LORA Doherty EXAM 5 [facility] KNEE INC INC COMPLETE 4/MORE VIEWS THERAPEUT 51016 [facility] PRICE IC 5 PHYSICIAN LAURENCE PROPHYLAC S GROUP TIC/DX INJECTION SUBQ/IM INJECTION J1885 [facility] PRICE 5 PHYSICIAN LAURENCE KETOROLAC S GROUP TROMETHAM INE PER 15 MG CHIROPRAC 51422 [place] TIC 5 FRED FRED MANIPULAT HORACIO TX SPINAL 1-2 REGIONS CHIROPRAC 26553 [place] TIC 5 FRED FRED MANIPULAT HORACIO TX SPINAL 1-2 REGIONS CHIROPRAC 55274 [facility] TIC 5 FRED FRED MANIPULAT HORACIO TX SPINAL 1-2 REGIONS CHIROPRAC 20977 [facility] TIC 5 FRED FRED MANIPULAT HORACIO TX SPINAL 1-2 REGIONS CHIROPRA 86022 [place] TIC 5 FRED FRED MANIPULAT HORACIO TX SPINAL 1-2 REGIONS CHIROPRAC 82529 [place] TIC 5 FRED FRED MANIPULAT HORACIO TX SPINAL 3-4 REGIONS CHIROPRAC 27947 [place] TIC 5 FRED FRED MANIPULAT HORACIO TX SPINAL 3-4 REGIONS CHIROPRAC 42632 [place] TIC 5 FRED FRED MANIPULAT HORACIO TX SPINAL 3-4 REGIONS CHIROPRAC 15857 [place] TIC 5 FRED FRED MANIPULAT HORACIO TX SPINAL 3-4 REGIONS THERAPEUT 28732 [place] IC PX 1/> 5 FRED FRED AREAS EACH 15 MIN EXERCISES APPL 03454 [facility] [place] MODALITY 5 FRED FRED 1/> AREAS TRACTION MECHANICA L APPL 63307 [facility] MODALITY 5 FRED FRED 1/> AREAS TRACTION MECHANICA L THERAPEUT 54756 [facility] [place] IC PX 1/> 5 FRED FRED AREAS EACH 15 MIN EXERCISES CHIROPRAC 51843 [place] TIC 5 FRED FRED MANIPULAT HORACIO TX SPINAL 3-4 REGIONS COLLECTIO 58217 L[facility]A PAULINO N VENOUS 5 [facility] BLOOD INC INC VENIPUNCT URE THERAPEUT 16640 [place] IC PX 1/> 5 FRED FRED AREAS EACH 15 MIN EXERCISES INJECTION J1885 [facility] PRICE 5 PHYSICIAN LAURENCE KETOROLAC S GROUP TROMETHAM INE PER 15 MG POTASSIUM 93424 LORA PAULINO SERUM 5 [facility] PLASMA/WH INC INC OLE BLOOD THERAPEUT 77477 [facility]1983 IC 5 PHYSICIAN LAURENCE PROPHYLAC S GROUP TIC/DX INJECTION SUBQ/IM APPL 84598 [facility] [place] MODALITY 5 FRED FRED 1/> AREAS TRACTION MECHANICA L APPL 96409 [place] MODALITY 5 FRED FRED 1/> AREAS TRACTION MECHANICA L THERAPEUT 64659 [place] IC PX 1/> 5 FRED FRED AREAS EACH 15 MIN EXERCISES CHIROPRAC 49130 [facility] TIC 5 FRED FRED MANIPULAT HORACIO TX SPINAL 3-4 REGIONS CHIROPRAC 08490 [place] TIC 5 FRED FRED MANIPULAT HORACIO [place] SPINAL 3-4 REGIONS COMPREHEN 30065 [facility]A [facility] METABOLIC INC INC PANEL LIPID 94634 [facility] INC INC THERAPEUT 93816 [place] PX 1/> 5 FRED FRED AREAS EACH 15 MIN EXERCISES APPL 60196 [place] MODALITY 5 FRED FRED 1/> AREAS TRACTION MECHANICA L HEMOGLOBI 10492 [facility] LOAR N 5 [facility] GLYCOSYLA INC INC MEENA A1C BLOOD 32605 [facility] COUNT 5 [facility] COMPLETE INC INC AUTO&AUTO DIFRNTL WBC APPL 81051 [place] MODALITY 5 FRED FRED 1/> AREAS TRACTION MECHANICA L THERAPEUT 02445 [place] PX 1/> 5 FRED FRED AREAS EACH 15 MIN EXERCISES CHIROPRAC 81745 [place] TIC 5 FRED FRED MANIPULAT HORACIO TX SPINAL 3-4 REGIONS CHIROPRAC 96270 [place] TIC 5 FRED FRED MANIPULAT HORACIO TX SPINAL 3-4 REGIONS THERAPEUT 93642 [place] IC PX 1/> 5 FRED FRED AREAS EACH 15 MIN EXERCISES APPL 22046 [place] MODALITY 5 FRED FRED 1/> AREAS TRACTION MECHANICA L APPL 41564 [place] MODALITY 5 FRED FRED 1/> AREAS TRACTION MECHANICA L THERAPEUT 92985 [place] PX 1/> 5 FRED FRED AREAS EACH 15 MIN EXERCISES THERAPEUT 66731 [place] IC PX 1/> 5 FRED FRED AREAS EACH 15 MIN EXERCISES APPL 98300 [place] MODALITY 5 FRED FRED 1/> AREAS TRACTION MECHANICA L APPL 44733 [place] MODALITY 5 FRED FRED 1/> AREAS TRACTION MECHANICA L THERAPEUT 30011 [place] IC PX 1/> 5 FRED FRED AREAS EACH 15 MIN EXERCISES CHIROPRAC 56369 [place] TIC 5 FRED FRED MANIPULAT HORACIO TX SPINAL 3-4 REGIONS CHIROPRAC 90490 [place] TIC 5 FRED FRED MANIPULAT HORACIO TX SPINAL 3-4 REGIONS CHIROPRAC 58776 [place] TIC 5 FRED FRED MANIPULAT HORACIO TX SPINAL 3-4 REGIONS CHIROPRAC 17674 [place] TIC 5 FRED FRED MANIPULAT HORACIO TX SPINAL 3-4 REGIONS CHIROPRAC 85318 [place] TIC 5 FRED FRED MANIPULAT HORACIO TX SPINAL 3-4 REGIONS CHIROPRAC 94307 [place] TIC 5 FRED FRED MANIPULAT HORACIO TX SPINAL 3-4 REGIONS THERAPEUT 87061 [place] PX 1/> 5 FRED FRED AREAS EACH 15 MIN EXERCISES APPL 19197 [place] MODALITY 5 FRED FRED 1/> AREAS TRACTION MECHANICA L APPL 87418 [place] MODALITY 5 FRED FRED 1/> AREAS TRACTION MECHANICA L THERAPEUT 97156 [place] PX 1/> 5 FRED FRED AREAS EACH 15 MIN EXERCISES CHIROPRAC 47411 [place] TIC 5 FRED FRED MANIPULAT HORACIO TX SPINAL 3-4 REGIONS CHIROPRAC 96636 [place] TIC 5 FRED FRED MANIPULAT HORACIO TX SPINAL 3-4 REGIONS THERAPEUT 03196 [place] IC PX 1/> 5 FRED FRED AREAS EACH 15 MIN EXERCISES APPL 11945 [place] MODALITY 5 FRED FRED 1/> AREAS TRACTION MECHANICA L APPL 67875 [place] MODALITY 5 FRED FRED 1/> AREAS TRACTION MECHANICA L THERAPEUT 27415 [place] PX 1/> 5 FRED FRED AREAS EACH 15 MIN EXERCISES CHIROPRAC 59246 [place] TIC 5 FRED FRED MANIPULAT HORACIO TX SPINAL 3-4 REGIONS CHIROPRAC 29665 [place] TIC 5 FRED FRED MANIPULAT HORACIO TX SPINAL 3-4 REGIONS THERAPEUT 07529 [place] IC PX 1/> 5 FRED FRED AREAS EACH 15 MIN EXERCISES APPL 47255 [place] MODALITY 5 FRED FRED 1/> AREAS TRACTION MECHANICA L APPL 98800 [place] MODALITY 5 FRED FRED 1/> AREAS TRACTION MECHANICA L THERAPEUT 87176 [place] PX 1/> 5 FRED FRED AREAS EACH 15 MIN EXERCISES CHIROPRAC 52978 [place] TIC 5 FRED FRED MANIPULAT HORACIO TX SPINAL 3-4 REGIONS THERAPEUT 72185 [place] IC PX 1/> 5 FRED FRED AREAS EACH 15 MIN EXERCISES APPL 02640 [place] MODALITY 5 FRED FRED 1/> AREAS TRACTION MECHANICA L CHIROPRAC 63290 [place] TIC 5 FRED FRED MANIPULAT HORACIO TX SPINAL 3-4 REGIONS CHIROPRAC 07913 [place] TIC 5 FRED FRED MANIPULAT HORACIO TX SPINAL 3-4 REGIONS APPL 30320 [place] MODALITY 5 FRED FRED 1/> AREAS TRACTION MECHANICA L THERAPEUT 35371 [place] PX 1/> 5 FRED FRED AREAS EACH 15 MIN EXERCISES BASIC 15730 [facility] METABOLIC 5 [facility] PANEL INC INC CALCIUM TOTAL CHIROPRAC 78835 [place] TIC 5 FRED FRED MANIPULAT HORACIO TX SPINAL 3-4 REGIONS APPL 87551 [place] MODALITY 5 FRED FRED 1/> AREAS TRACTION MECHANICA L THERAPEUT 01328 [place] PX 1/> 5 FRED FRED AREAS EACH 15 MIN EXERCISES THERAPEUT 86529 [place] PX 1/> 5 FRED FRED AREAS EACH 15 MIN EXERCISES RADEX 36606 [place] SPINE 5 FRED FRED CERVICAL 2 OR 3 VIEWS APPL 07739 [place] MODALITY 5 FRED FRED 1/> AREAS TRACTION MECHANICA L CHIROPRAC 18320 [place] TIC 5 FRED FRED MANIPULAT HORACIO TX SPINAL 3-4 REGIONS INJECTION J1885 [facility] PRICE 5 PHYSICIAN [facility] KETOROLAC S GROUP TROMETHAM INE PER 15 MG THERAPEUT 69071 [facility] PRICE IC 5 PHYSICIAN LAURENCE PROPHYLAC S GROUP TIC/DX INJECTION SUBQ/IM RADIOLOGI 21450 REI [facility]ona MEDICAL MAUREEN EXAMINATI IMAGING ON KNEE 3 ASS VIEWS KNEE L1830 [facility] 5 TECHNOLOG TECHNOLOG IMMOBLIZE IES INC IES INC R CANVAS LONGTUDNL PREFAB BASIC 61861 [facility] METABOLIC 5 [facility] PANEL INC INC CALCIUM TOTAL BLOOD 45625 [facility] OCCULT 5 PHYSICIAN PHYSICIAN PEROXIDAS S GROUP S GROUP E ACTV QUAL FECES 1-3 SPEC HEMOGLOBI 25248 [facility] N [facility] GLYCOSY[place] [address] [facility] THYROID 5 [facility] STIMULATI INC INC NG HORMONE TSH CYTP C/V 65808 [facility], PICKLESIM AUTO THIN 5 LLC ER JR JOSSELINE LYR [place] [address] [facility] FREE 5 [facility] THYROXINE INC INC INJECTION J1100 [facility] PRICE 5 PHYSICIAN [place] DEXAMETHO S GROUP SONE SODIUM PHOSPHATE 1 MG THERAPEUT 29318 [facility] IC 5 PHYSICIAN LAURENCE PROPHYLAC S GROUP TIC/DX INJECTION SUBQ/IM 25 28546 [facility] HYDROXY 5 [facility] INCLUDES INC INC FRACTIONS IF PERFORMED RADEX ABD 62448 [facility] COMPL 5 MEDICAL DENNIS AQT ABD IMAGING W/S/E/D ASS VIEWS 1 VIEW CH HEPATITIS 33427 [facility] Stringer CORE 5 [facility] ANTIBODY INC INC HBCAB TOTAL HEPATITIS 42283 [facility] Stringer SURF 5 [facility] [place] [address] [facility] HEPATITIS [facility] [place] [address] [facility] FREE [facility] [place] [address] [facility] THYROID 5 [facility] STIMULATI INC INC NG HORMONE TSH BLOOD 34707 [facility] COUNT 5 [facility] COMPLETE INC INC AUTO&AUTO DIFRNTL WBC RADIOLOGI 41740 [facility] C EXAM 5 [facility] CHEST 2 INC INC VIEWS FRONTAL&L ATERAL COMPREHEN 34226 [facility] SIVE 5 [facility] METABOLIC INC INC PANEL COLLECTIO 03117 [facility] Dixon VENOUS 5 [facility] BLOOD INC INC VENIPUNCT URE HEPATITIS 81207 [facility] A 5 [facility] ANTIBODY INC INC HAAB HEPATITIS 03613 L[facility] PAULINO C 5 [facility] ANTIBODY INC INC IAADIADOO 23378 [facility] FRYMAN 5 PHYSICIAN EUG INFLUENZA S GROUP INJECTION J1040 [facility] PRICE 4 PHYSICIAN LAURENCE METHYLPRE S GROUP DNISOLONE ACETATE 80 MG THERAPEUT 23880 [facility] IC 4 PHYSICIAN PHYSICIAN PROPHYLAC S GROUP S GROUP TIC/DX INJECTION SUBQ/IM ECHO 49154 [facility] PAULINO TTHRC R-T 4 [facility]OSP 2D INC INC W/WOM-MOD E COMPL SPEC&COLR D FLUOR 27169 [facility] KEMP NEEDLE/CA 4 BECK BECK TH SPINE/PAR ASPINAL DX/THER ADDON NJX 50779 [facility]EM[facility] DX/THER 4 BECK BECK SBST EPIDURAL/ SUBARACH LUMBAR/SA CRAL MRI 75289 DUKE TRA DUKE TRA SPINAL 4 CANAL LUMBAR W/O CONTRAST MATERIAL THER 12951 [facility] PROPH/DX [address] [place] [address] NJX EA SEQL IV PUSH SBST/DRUG FAC INJECTION J1100 [address] DEXAMETHO SONE SODI[place] [address] THERAPY/P ROPHYLAXI S /DX 1ST TO 1 HR BASIC [address] PANEL CALCIUM TOTAL BLOOD [address] COMPLETE AUTOMATED INJECTION J2405 [address] ONDANSETR ON HCL PER 1 MG INJECTION J2550 [address] PROMETHAZ INE HCL UP TO 50 MG INJECTION J2270 [address] SULFATE UP TO 10 MG URNLS DIP [address] STICK/TAB LET REAGENT AUTO MICROSCOP Y THERAPEUT [address] INJECTION IV PUSH EACH NEW DRUG INJECTION J[address] METHOCARB JORGE UP TO 10 ML RADEX 62507 CECILIA CECILIA SPINE 4 DENNIS DENNIS LUMBOSACR AL MINIMUM 4 VIEWS RADEX HIP 36294 CECILIA CECILIA 4 DENNIS DENNIS UNILATERA L 1 VIEW Encounters Encounter Start End Date Code Location Performer Type Date HOSPITAL [facility] - 7 7 [facility] OUTPATIEN INC T EMERGENCY 41911 [facility] 7 7 [facility] DEPARTMEN INC T VISIT LOW/MODER SEVERITY [facility]OSPITAL [facility] Oliver 7 7 [facility] OUTPATIEN INC T EMERGENCY 65878 MARCIA WOO 7 7 PHYSICIAN DEPARTMEN S, PLLC T VISIT HIGH/URGE NT SEVERITY OFFICE 97050 [facility] MICHELLE RAMIRES OUTPATIEN 7 7 PHYSICIAN T VISIT S GROUP 15 MINUTES OFFICE 33033 [facility] GUZMAN OUTPATIEN 7 7 PHYSICIAN T VISIT S GROUP 15 MINUTES HOSPITAL [facility] - 7 7 [facility] OUTPATIEN INC T EMERGENCY 07001 [facility] 7 7 [facility] DEPARTMEN INC T VISIT LOW/MODER SEVERITY EMERGENCY 72019 Tayler JAMES 7 PHYSICIAN JR TURCIOSMEN S, PLLC T VISIT MODERATE SEVERITY EMERGENCY 41760 Tayler JAMES 7 PHYSICIAN DEPARTMEN S, PLLC T VISIT HIGH/URGE NT SEVERITY [facility]OSPITAL [facility] - 7 7 [facility] OUTPATIEN INC T OFFICE 57312 WILLIAM THOMAS OUTPATIEN 7 7 T VISIT 15 MINUTES HOSPITAL [facility] - 7 7 [facility] OUTPATIEN INC T OFFICE 77944 [facility] GUZMAN ROXY OUTPATIEN 6 6 PHYSICIAN T VISIT S GROUP 25 MINUTES OFFICE 29710 [facility]STRO[facility] CASE JUS OUTPATIEN 6 6 EROLOGY T VISIT AND 25 HEPATOL MINUTES [facility] T OFFICE 97260 GASTRO[facility] JUS OUTPATIEN 6 6 [facility] T NEW [facility] N OUTPATIEN COMMUNTIY T [facility] - 6 6 [facility] T OFFICE 30952 [facility] ALLRAN JR OUTPATIEN 6 6 PHYSICIAN MAGO T VISIT S GROUP 10 MINUTES OFFICE 99275 ROB MONSALVE OUTPATIEN 6 6 DIGESTIVE CEC T VISIT CARE 15 CENTER MINUTES EMERGENCY 08272 MARCIA THRASHER 6 6 PHYSICIAN [facility] DEPARTMEN S, PLLC T VISIT MODERATE SEVERITY HOSPITAL ROB - 6 6 [facility] 38113 ROB MONSALVE OUTPATIEN 6 6 DIGESTIVE CEC T NEW 60 CARE MINUTES CENTER OFFICE 74507 [facility] STONE ROXY OUTPATIEN 6 6 PHYSICIAN T VISIT S GROUP 15 MINUTES HOSPITAL [facility] - 6 6 [facility] - 6 6 [facility] OUT[facility]EN [facility] T EMERGENCY 84710 [facility] 6 6 [facility] T VISIT HIGH/URGE NT SEVERITY OFFICE 11343 [facility] ALLRAN JR OUTPATIEN 6 6 PHYSICIAN MAGO T NEW 30 S GROUP MINUTES OFFICE 97516 [facility] TRISTEN OUTPATIEN 6 6 PHYSICIAN STONE T VISIT S GROUP PA-C ROXY 15 MINUTES OFFICE 60335 [facility] RAMON OUTPATIEN 6 6 PHYSICIAN STONE T VISIT S GROUP PA-C ROXY 25 MINUTES OFFICE 95147 [facility] RAMON OUTPATIEN 6 6 PHYSICIAN STONE T VISIT S GROUP PA-C ROXY 15 MINUTES EMERGENCY 39254 MARCIA THRASHER DEPT 6 6 PHYSICIAN LAURENCE VISIT S, PLLC HIGH SEVERITY& THREAT FUNCJ EMERGENCY 38532 [facility] 6 6 PHYSICIAN SUMMER VISIT S, PLLC HIGH SEVERITY& THREAT FUNCJ OFFICE 08337 [facility] PRICE OUTPATIEN 6 6 PHYSICIAN LAURENCE T VISIT S GROUP 25 MINUTES OFFICE 24572 [facility] CONSULTAT 6 6 N ION NEUROLOGY NEW/ESTAB PATIENT 60 MIN OFFICE 06001 [facility] PRICE OUTPATIEN 6 6 PHYSICIAN LAURENCE T VISIT S GROUP 10 MINUTES [facility] - 6 6 [facility] OUTPATIEN INC T OFFICE 45912 [facility] PRICE OUTPATIEN 6 6 PHYSICIAN LAURENCE T VISIT S GROUP 10 MINUTES [facility]OSPITAL [facility] - 6 6 [facility] OUTPATIEN INC T OFFICE 97781 [facility] PRICE OUTPATIEN 6 6 PHYSICIAN LAURENCE T VISIT S GROUP 15 MINUTES OFFICE 79054 [facility] RAMON OUTPATIEN 6 6 PHYSICIAN STONE T VISIT S GROUP PA-C ROXY 15 MINUTES OFFICE 19088 [facility] RAMON OUTPATIEN 6 6 PHYSICIAN STONE T VISIT S GROUP PA-C ROXY 10 MINUTES EMERGENCY 52755 MARCIA CESPEDES DEPT 6 6 PHYSICIAN FOR VISIT S, PLLC HIGH SEVERITY& THREAT FUNCJ OFFICE 01601 [facility] PRICE OUTPATIEN 6 6 PHYSICIAN LAURENCE T VISIT S GROUP 15 MINUTES OFFICE 80164 [facility] JOSE TER OUTPATIEN 6 6 PHYSICIAN T VISIT S GROUP 15 MINUTES OFFICE 15548 [facility] PRICE OUTPATIEN 6 6 PHYSICIAN LAURENCE T VISIT S GROUP 15 MINUTES OFFICE 26438 [facility] OUTPATIEN 6 6 [facility] T VISIT INC 10 MINUTES [facility]PITAL [facility] - 6 6 [facility] OUTPATIEN INC T OFFICE 61140 ELLY FRANKS FRED OUTPATIEN 6 6 MD RHEA, T NEW 30 PSC MINUTES OFFICE 90798 [facility] OUTPATIEN 6 6 FRED FRED T VISIT 15 MINUTES [facility]OSPITAL [facility] - 5 5 [facility] OUTPATIEN INC T OFFICE 08075 [facility] PRICE OUTPATIEN 5 5 PHYSICIAN LAURENCE T VISIT S GROUP 10 MINUTES OFFICE 35505 [facility] PRICE OUTPATIEN 5 5 PHYSICIAN LAURENCE T VISIT S GROUP 10 MINUTES OFFICE 82578 [facility] OUTPATIEN 5 5 BRAIN SYD T NEW 45 NEUROSURG MINUTES ICAL EMERGENCY 74885 MARCIA PRICE 5 5 [facility]YSIC[facility]URGE NT SEVERITY OFFICE 50713 [facility] PRICE OUTPATIEN 5 5 PHYSICIAN LAURENCE T VISIT S GROUP 15 MINUTES [facility] - 5 5 [facility] OUTPATIEN INC T [facility] - 5 5 [facility] OUTPATIEN INC T OFFICE 13114 [facility] [facility] OUTPATIEN 5 5 FRED FRED T VISIT 15 MINUTES [facility]PITAL [facility] - 5 5 [facility] OUTPATIEN INC T OFFICE 08909 [facility] OUTPATIEN 5 5 FRED FRED T NEW 30 MINUTES OFFICE 52381 [facility] PRICE OUTPATIEN 5 5 PHYSICIAN LAURENCE T VISIT S GROUP 15 MINUTES [facility] - 5 5 [facility] OUTPATIEN INC T PERIODIC 35498 [facility] PRICE PREVENTIV 5 5 PHYSICIAN LAURENCE E MED EST S GROUP PATIENT 40-64YRS OFFICE 61778 [facility] PRICE OUTPATIEN 5 5 PHYSICIAN LAURENCE T VISIT S GROUP 15 MINUTES [facility] - 5 5 [facility] OUTPATIEN INC T OFFICE 76224 [facility] RADHA OUTPATIEN 5 5 PHYSICIAN FRED T VISIT S GROUP 15 MINUTES OFFICE 85121 [facility] YMSEGUNDO OUTPATIEN 5 5 PHYSICIAN EUG T VISIT S GROUP 15 MINUTES [facility] - 4 4 [facility] OUTPATIEN INC T OFFICE 03365 DUKE TRA DUKE TRA OUTPATIEN 4 4 T VISIT 15 MINUTES OFFICE 88606 DUKE TRA DUKE TRA OUTPATIEN 4 4 T VISIT 15 MINUTES EMERGENCY 03122 EDMUND SHAFFER DEPT 4 4 VLADIMIR VLADIMIR VISIT HIGH SEVERITY& [facility] [address] OUTPATIEN T EMERGENCY [address] DEPARTMEN T VISIT MODERATE SEVERITY OFFICE 20496 ILYA CARABALLO OUTPATIEN 4 4 THEODORE THEODORE T VISIT 15 MINUTES OFFICE 14327 ILYA CARABALLO OUTPATIEN 4 4 THEODORE THEODORE T VISIT 15 MINUTES OFFICE 45605 DUKE TRA DUKE TRA CONSULTAT 4 4 ION NEW/ESTAB PATIENT 40 MIN
--- OUTSIDE RECORDS SUMMARY | 2017-08-24 03:41 | External Medical Summary Rpt | CCD ---
Author Author , RADHA Organization [facility] Address Unknown Phone [email or web address] Care Team Providers Care Porter Sample Case Name Role Phone [employer] Unavailable Unavailable [...] Unavailable [facility] Unavailable Unavailable MALJAMAR, [place] [facility] Unavailable Unavailable [facility], Unavailable Unavailable [facility], Unavailable Unavailable [facility] CECILIA DENNIS, Unavailable Unavailable CECILIA DENNIS CECILIA DENNIS, Unavailable Unavailable CECILIA DENNIS [facility] Unavailable Unavailable [facility] RAMSEY DUFF FRED, DUFF FRED Unavailable Unavailable FRYMAN EUG, FRYMAN Unavailable Unavailable EUG JR MARIA TERESA, MOREL, Unavailable Unavailable JR PRICE LAURENCE, PRICE Unavailable Unavailable LAURENCE [facility], Unavailable Unavailable [facility] GILBERT SYD, GILBERT Unavailable Unavailable SYD NI DAWSON, NI Unavailable Unavailable DAWSON [facility] Unavailable Unavailable INC, [facility] Unavailable Unavailable HOSPITAL P, [facility], Unavailable Unavailable [facility] BELLO CEC, BELLO Unavailable Unavailable CEC WOO, WOO Unavailable Unavailable DUKE TRA, DUKE TRA Unavailable Unavailable RADHA FRED, RADHA Unavailable Unavailable FRED KEDING, KEDING Unavailable Unavailable KEDING, KEDING Unavailable Unavailable KEDING FRED, KEDING Unavailable Unavailable FRED KEDING FRED, KEDING Unavailable Unavailable FRED [facility] Un[facility] Unavailable GROUP PS, [facility] Unavailable Unavailable [facility] Unavailable [...] Unavailable NEUROSURGICAL, SPINE & BRAIN [facility]OS[facility]ICAL [facility], Unavailable Unavailable [facility] STONE, STONE Unavailable Unavailable STONE [...] FIBROMYALGI 06-27-2017 [facility] [id number] OTHER LONG 06-27-2017 [facility] CURRENT INC DRUG THERAPY N764 ABSCESS OF 05-26-2017 [facility] Z4800 ENCOUNTER 05-26-2017 [facility] CHANGE/ALEJANDRO PHYSICIANS, ALISON NONSURG PLLC WOUND DRESSING L0291 CUTANEOUS 05-25-2017 [facility] ABSCESS PHYSICIANS UNSPECIFIED GROUP N739 FEMALE 05-24-2017 [facility] PELVIC PHYSICIANS INFLAMMATOR GROUP Y DISEASE UNSPECIFIED H91219 CUTANEOUS 05-19-2017 [facility] ABSCESS OF PHYSICIANS, ABDOMINAL PLLC WALL M545 LOW BACK 12-21-2016 [facility] PAIN E039 HYPOTHYROID 11-20-2016 [facility] UNSPECIFIED INC R05 COUGH 10-19-2016 [facility] R1030 LOWER 10-04-2016 [facility] [place] [facility] PAIN UNSPECIFIED R109 UNSPECIFIED 10-04-2016 [facility] PAIN GROUP PS R197 DIARRHEA 10-04-2016 [facility] UNSPECIFIED ANESTHESIA GROUP PS R1032 LEFT LOWER 07-24-2016 [facility] QUADRANT PHYSICIANS PAIN GROUP K5909 OTHER 07-10-2016 [facility] N1330 UNSPECIFIED 06-30-2016 [facility] HYDRONEPHRO [facility] ASS SIS N134 HYDROURETER 06-30-2016 [facility] N289 DISORDER OF 06-30-2016 [facility] KIDNEY AND PHYSICIANS, URETER PLLC UNSPECIFIED N3000 ACUTE 06-30-2016 [facility] CYSTITIS PHYSICIANS, WITHOUT PLLC HEMATURIA N390 URINARY 06-30-2016 [facility] TRACT PHYSICIANS, INFECTION PLLC SITE NOT SPECIFIED R1031 RIGHT LOWER 06-30-2016 [facility] K529 NONINFECTIV 06-19-2016 [place] [facility] ITIS & COLITIS UNS K635 POLYP OF 06-19-2016 [place] [facility] E118 TYPE 2 05-06-2016 [facility] MELLITUS INC W/UNS COMPLICATIO NS E876 HYPOKALEMIA 05-06-2016 [facility] PHYSICIANS, PLLC R1012 LEFT UPPER 05-06-2016 [facility], PAIN PLLC Z720 TOBACCO USE 05-06-2016 [facility] M5416 RADICULOPAT 04-25-2016 WILLIAM IBARRA HY LUMBAR REGION R194 CHANGE IN 03-21-2016 [facility] BOWEL HABIT PHYSICIANS GROUP [id number] PERSONAL 03-21-2016 [facility] HISTORY OF PHYSICIANS COLONIC GROUP POLYPS K219 GASTRO-ESOP 03-14-2016 [facility] P WITHOUT ESOPHAGITIS R1084 GENERALIZED 03-14-2016 [facility] ABDOMINAL [facility]ICAL PAIN IMAGING ASS K5792 DIVERTICULI 03-12-2016 [facility] TIS PART PHYSICIANS, UNS W/O PLLC PERF/ABSC W/O BLEED R110 NAUSEA 03-12-2016 [facility] Z0100 ENCOUNTER 03-08-2016 ELIAS EXAM EYES & GRE VISION W/O ABNORMAL FIND B370 CANDIDAL 02-21-2016 [facility] STOMATITIS PHYSICIANS GROUP Z23 ENCOUNTER 02-21-2016 [facility] FOR PHYSICIANS IMMUNIZATIO GROUP N M542 CERVICALGIA 02-16-2016 WILLIAM FRED R51 HEADACHE 02-02-2016 [facility] C86233 HEMIPLEGIC 01-05-2016 [facility] MIGRAINE PHYSICIANS INTRACT W/O GROUP STAT MIGRAINOSUS M16517 MIGRAINE 12-28-2015 [facility] UNS NOT [facility] INTRACT W/O INC STATUS MIGRAINOSUS F78847 MIGRAINE 12-20-2015 M[facility] W/O AURA PHYSICIANS, NOT INTRACT PLLC W/STAT MIGRAINOSUS D04478 PAIN IN 12-08-2015 [facility] RIGHT KNEE PHYSICIANS GROUP I72985 PAIN IN 12-08-2015 [facility] LEFT KNEE PHYSICIANS GROUP J0190 ACUTE 11-27-2015 [facility] SINUSITIS PHYSICIANS UNSPECIFIED GROUP R112 NAUSEA WITH 11-27-2015 [facility] VOMITING PHYSICIANS UNSPECIFIED GROUP M461 SACROILIITI 11-23-2015 ELLY WILKERSON S NOT , PSC ELSEWHERE CLASSIFIED M5116 INTERVERTEB 11-23-2015 [facility]C [facility] D/O INC W/RADICULOP ATHY LUMB RGN M5136 OT 11-23-2015 ELLY WILKERSON INTERVERTEB , PSC RAL DISC DEGEN LUMBAR REGION 7231 CERVICALGIA 07-01-2015 [facility] FRED 7242 LUMBAGO 07-01-2015 [place] FRED 7246 DISORDERS 07-01-2015 [place] FRED OF SACRUM 38071 DISPLCMT 06-28-2015 [facility] INTERVERT NEUROSURGIC DISC W/O AL MYELOPATHY 28141 DEGEN 06-28-2015 [facility] LUMBAR/LUMB BRAIN OSACRAL NEUROSURGIC INTERVERTEB AL RAL DISC 9532 INJURY TO 06-28-2015 [facility] L[place] [address] ALTERED 05-23-2015 [facility] MENTAL PHYSICIANS, STATUS PLLC 4019 UNSPECIFIED 05-17-2015 [facility] ESSENTIAL [facility] [place]YPERT[place]SIO INC N 36075 PAIN IN 05-17-2015 [facility] JOINT, PHYSICIANS LOWER LEG GROUP V5869 LONG-TERM 05-17-2015 [facility] (CURRENT) [facility] USE OF INC OTHER MEDICATIONS 58935 OTHER 05-06-2015 [facility] ABNORMAL [facility] GLUCOSE INC 7243 SCIATICA 04-21-2015 [place] FRED 9597 INJURY 02-23-2015 [facility] OTHER&UNSPE TECHNOLOGIE CIFIED KNEE S INC LEG ANKLE&FOOT 39136 UNSPECIFIED 02-11-2015 [facility] VAGINITIS PHYSICIANS AND GROUP VULVOVAGINI TIS V7231 ROUTINE 02-11-2015 [facility] AL EXAMINATION V7641 SCREENING 02-11-2015 [facility] FOR PHYSICIANS MALIGNANT GROUP NEOPLASM OF THE RECTUM 4610 ACUTE 01-23-2015 [facility] MAXILLARY PHYSICIANS SINUSITIS GROUP 4659 ACUTE URIS 01-23-2015 [facility] OF PHYSICIANS UNSPECIFIED GROUP SITE 26595 ABDOMINAL 12-22-2014 [facility], LEFT MEDICAL UPPER IMAGING ASS QUADRANT 98357 ABDOMINAL 12-22-2014 [facility] TENDER[facility] MEDICAL LEFT UPPER IMAGING ASS QUADRANT 4619 ACUTE 11-23-2014 [facility] SINUSITIS, PHYSICIANS UNSPECIFIED GROUP 52490 WHEEZING 11-23-2014 [facility]ANS GROUP 7862 COUGH 11-23-2014 [facility] 4611 ACUTE 11-20-2014 [facility] FRONTAL PHYSICIANS SINUSITIS GROUP 4660 ACUTE 10-16-2014 [facility] BRONCHITIS PHYSICIANS GROUP 4240 MITRAL 10-02-2014 [facility] DISORDERS INC 7852 UNDIAGNOSED 10-02-2014 [facility]ARD[facility] SERV [facility] 7244 THORACIC/EM 05-20-[address] MBOSACRAL SURGERY NEURITIS/RA CENTER DICULITIS UNSPEC 79289 GENERALIZED 04-05-2014 [facility] DISORDER 7291 UNSPECIFIED 04-05-2014 [facility] 7245 UNSPECIFIED 04-04-2014 ILYA JAIMES BACKACHE 31822 PAIN IN 03-31-2014 [facility] JOINT PELVIC REGION AND THIGH 20768 SPINAL STEN 03-28-2014 CECILIA LUMB REG DENNIS [...] CY 02 NT 5 HI AN A NJ 68 08 09 20 5 00 HO [...] 00 1- 5- 00 06 TO ve NJ 51 20 20 08 WN IL 80 17 17 53 -H [address] AR Z MA 10 CY -1 2. OF 5 MG CY NT TA HI B AN A ME 68 08 09 30 30 00 HO Ac TO 00 -1 -1 .0 00 ME ti NJ 10 1- 5- 00 06 TO ve [...] 53 -1 -1 .0 00 ME ti MT 63 4- 5- 00 06 TO ve [...] 00 3- 8- 00 06 TO ve NJ 51 20 20 08 WN IL 80 17 17 53 -H [address] AR Z MA 10 CY -1 2. OF 5 MG CY NT TA HI B AN A ME 68 07 08 30 30 00 HO Ac TO 00 -1 -1 .0 00 ME ti NJ 10 3- 8- 00 06 TO ve [...] 2 39 PH CE AR TA MA MT CY NO PH OF EN CY 5- [...] 1 43 PH CE AR TA MA MT CY NO PH #5 EN 91 5- [...] 40 CE 0 02 PH TA AR MT MA NO CY PH EN OF 7. [...] 53 -2 -2 .0 00 ME ti MT 63 6- 8- 06 TO ve N [...] NO 00 2- 4- 06 TO ve NJ 51 20 20 08 WN IL 80 [...] 00 -1 -1 .0 00 ME ti NJ 10 2- 4- 00 06 TO ve [...] CY CA NT P HI AN A NJ 59 06 07 10 5 00 HO [...] PS NT UL HI E AN A NJ 68 06 07 20 5 00 HO [...] 53 -2 -3 .0 00 ME ti MT 63 5- 0- 00 06 TO ve [...] 00 -1 -1 .0 00 ME ti NJ 10 2- 6- 00 06 TO ve OL 11 20 20 08 WN OL 90 17 17 53 0 76 PH [place] AR CC MA CY ER OF 10 0 CY MG NT HI TA AN B A LI 68 05 06 30 30 00 HO Ac SI 18 -1 -1 .0 00 ME ti NO 00 2- 6- 00 06 TO ve NJ 51 20 20 08 WN IL 80 [...] 53 -2 -2 .0 00 ME ti MT 63 6- 6- 00 06 TO ve [...] 00 -1 -1 .0 00 ME ti NJ 10 0- 2- 00 06 TO ve OL 11 20 20 08 WN OL 90 17 17 47 0 04 PH [place] AR CC MA CY ER OF 10 0 CY MG NT HI TA AN B A LI 68 04 05 30 30 00 HO Ac SI 18 -1 -1 .0 00 ME ti NO 00 0- 2- 00 06 TO ve NJ 51 20 20 08 WN IL 80 [...] 53 -2 -2 .0 00 ME ti MT 63 8- 8- 00 06 TO ve [...] 53 -2 -3 .0 00 ME ti MT 63 8- 1- 00 06 TO ve [...] 00 1- 3- 00 06 TO ve NJ 51 20 20 07 WN IL 80 [...] 00 -0 -0 .0 00 ME ti NJ 10 1- 3- 00 06 TO ve [...] 53 -1 -1 .0 00 ME ti MT 63 6- 7- 00 06 TO ve [...] 00 -0 -0 .0 00 ME ti NJ 10 3- 3- 00 06 TO ve [...] 00 3- 3- 00 06 TO ve NJ 51 20 20 07 WN IL 80 [...] MG NT HI TA AN B A NJ 68 12 01 20 5 00 HO [...] BL CY ET NT HI AN A NJ 59 12 01 10 5 00 HO Ac ED 74 -0 -1 .0 00 ME ti NI 60 8- 3- 00 06 TO ve SO 17 20 20 07 WN NE 50 16 17 71 9 94 PH 20 AR MA MG CY TA OF BL ET CY NT HI AN A NJ 00 12 01 20 10 00 HO [...] ti NO 00 9- 06 TO ve NJ 51 20 20 07 WN IL 80 [...] 00 -0 -0 .0 00 ME ti NJ 10 5- 9- 06 TO ve OL 11 20 20 07 WN OL 90 16 17 37 0 36 PH [place] AR CC MA CY ER OF 10 0 CY MG NT HI TA AN B A NJ 68 12 01 20 5 00 HO [...] 00 90 30 CL 16 No Ac NJ 76 -0 -2 .0 IN 44 t ti AZ 23 8- 6- 00 IC 53 Av ve OL 72 20 20 ai AM 00 08 08 PH la 3 AR bl 0. MA e 5 CY MG TA BL ET NJ 68 02 03 00 15 2 CL [...] 00 90 30 CL 16 No Ac NJ 76 -0 -2 .0 IN 20 t [...] Procedures Procedure DOS Code Location Performer Comment 72849 [facility] HYDROXY 7 [facility] INCLUDES INC INC FRACTIONS IF PERFORMED CYANOCOBA 65267 [facility] RENUKA 7 [facility] VITAMIN INC INC B-12 HEPATITIS 77185 L[facility] B CORE 7 [facility] [place] [address] [facility] HEPATITIS 7 [facility] [place] [address] [facility] FOLIC 7 [facility] ACID INC INC SERUM BLOOD 49729 [facility] COUNT 7 [facility] COMPLETE INC INC AUTO&AUTO DIFRNTL WBC HEPATITIS 81027 [facility] A 7 [facility] ANTIBODY INC INC HAAB COMPREHEN 10922 [facility] SIVE 7 [facility] METABOLIC INC INC PANEL DRUG TEST 32704 [facility] PRSMV 7 [facility] QUAL DIR INC INC OPTICAL OBS PER DAY HEPATITIS 71014 [facility] C 7 [facility] ANTIBODY INC INC LIPID 70809 [facility] PANEL 7 [facility] INC INC THERAPEUT 24712 [facility] IC 7 [facility] PROPHYLAC INC INC TIC/DX INJECTION SUBQ/IM INCISION 01764 MARCIA MOREL, & 7 PHYSICIAN JR DRAINAGE S, PLLC ABSCESS COMPLICAT ED/MULTIP LE DRUG TEST 65126 [facility] PRSMV 7 [facility] QUAL DIR INC INC OPTICAL OBS PER DAY DRUG TEST G0480 [facility] DEFINITV [address] ID INC INC METH P DAY 1-7 DRUG CL CHIROPRAC 08817 WILLIAM THOMAS TIC 7 MANIPULAT HORACIO [place] SPINAL 1-2 REGIONS DRUG TEST 57383 [facility] PRSMV 7 [facility] INSTRMNT INC INC CHEMISTRY ANALYZERS COMPREHEN 42692 [facility] SIVE 7 [facility] [address] [facility] FREE 7 [facility] THYROXINE INC INC DRUG TEST G0480 L[facility] DEFINITV [address] ID INC INC METH P DAY 1-7 [place] [address] [facility] THYROID 7 [facility] STIMULATI INC INC NG HORMONE TSH BLOOD 22270 [facility] COUNT 7 [facility] COMPLETE INC INC AUTO&AUTO DIFRNTL WBC 25 13038 [facility] HYDROXY 7 [facility] INCLUDES INC INC FRACTIONS IF PERFORMED THERAPEUT 69430 [facility] STONE ROXY IC 6 PHYSICIAN PROPHYLAC S GROUP TIC/DX INJECTION SUBQ/IM RADIOLOGI 85881 [facility] CECILIA C EXAM 6 MEDICAL DENNIS CHEST 2 IMAGING VIEWS ASS FRONTAL&L ATERAL INJECTION J0696 [facility] STONE ROXY 6 PHYSICIAN CEFTRIAXO S GROUP NE SODIUM PER 250 MG INJECTION J1040 [facility] STONE ROXY 6 PHYSICIAN METHYLPRE S GROUP DNISOLONE ACETATE 80 MG ANES 44758 [facility] AARON LOWER 6 ANESTHESI INTESTINE A [place] [address] [facility] [place] SCALF ABDOMEN & 6 RADIOLOGY PELVIS W/O CONTRAST MATERIAL IMMUNOASS 69125 [facility] AY 6 [facility] ANALYTE INC INC QUAL/SEMI QUAL MULTIPLE STEP FLUORESCE 97999 [facility] NT 6 [facility] NONNFCT INC INC AGT ANTB SCREEN EA ANTIBODY BLOOD 72395 [facility] COUNT 6 [facility] COMPLETE INC INC AUTO&[place] [address] [facility] THYROID 6 [facility] STIMULATI INC INC NG HORMONE TSH COMPREHEN 61133 [facility] SIVE 6 [facility] METABOLIC INC INC PANEL RADEX 92132 [facility] [place] NI ABDOMEN 1 6 RADIOLOGY DAWSON ANTEROPOS TERIOR VIEW DRUG TST G0477 L[facility] PRESUMP;C 6 [facility] PBL [place] [address] [facility] BEINE ABDOMEN & 6 MEDICAL PELVIS IMAGING W/[place] [address] [facility] ABDOMEN & 6 N II LAYO PELVIS RADIOLOGY W/CONTRAS GROUP P T MATERIAL LOCM Q9967 ROB RIVAS [phone] 6 REGIONAL REGIONAL MG/ML MEDICAL MEDICAL IODINE CENTE CENTE CONCENTRA TION PER ML HI OSM Q9963 ROB RIVAS CONTRST 6 REGIONAL REGIONAL MATL MEDICAL MEDICAL [phone] CENTE CENTE MG/[place] [address] [facility] SURG 6 [facility] PATHOLOGY GROSS&LAURENCE ROSCOPIC EXAM ANES 01030 [facility] LOWER 6 ANESTH INTESTINE OF THE BLUE ENDOSCOPY DISTAL [place] COLONOSCO 94055 [facility] PY 6 [facility] W/BIOPSY INC INC [place]INGLE/[place] [address] [facility] AMYLASE 6 [facility] INC INC DRUG TST G0477 L[facility] PRESUMP;C 6 [facility] PBL BEING INC INC READ DC OPT OBV ONLY UNCLASSIF J3490 [facility] IED DRUGS 6 [facility] INC INC BLOOD 87197 [facility] COUNT 6 [facility] COMPLETE INC INC AUTO&AUTO DIFRNTL WBC INJECTION J2405 [facility] 6 [facility] ONDANSETR INC INC ON HCL [place] 1 [place] [address] [facility] LIPASE 6 [facility] INC INC THER 92857 [facility] PROPH/DX 6 [facility] NJX IV INC INC PUSH SINGLE/1S T SBST/DRUG COMPREHEN 87668 [facility] SIVE 6 [facility] METABOLIC INC INC PANEL THERAPEUT 91690 L[facility] IC 6 [facility] INJECTION INC INC IV PUSH EACH NEW DRUG [facility] 41434 [facility] [place] TIC 6 FRED FRED MANIPULAT HORACIO TX SPINAL 1-2 REGIONS CHIROPRA 13482 [facility] [place] TIC 6 FRED FRED MANIPULAT HORACIO TX SPINAL 1-2 REGIONS CHIROPRA 93901 [facility] [place] TIC 6 FRED FRED MANIPULAT HORACIO TX SPINAL 1-2 REGIONS CHIROPRAC 75027 [facility] [place] TIC 6 FRED FRED MANIPULAT HORACIO TX SPINAL 1-2 REGIONS CHIROPRAC 71544 [facility] [place] TIC 6 FRED FRED MANIPULAT HORACIO TX SPINAL 1-2 REGIONS CHIROPRA 48812 [facility] TIC 6 FRED FRED MANIPULAT HORACIO TX SPINAL 1-[address] [place] [address] REI BELLA ALL ABDOMEN & 6 MEDICAL PELVIS IMAGING W/O ASS CONTRAST MATERIAL ECG 82064 [facility] BEDOYA JR ROUTINE 6 [facility] W/LEAST P 12 LDS I&[place] [address] REI SIMENTALKE ABDOMEN & 6 MEDICAL PELVIS IMAGING W/O ASS CONTRAST MATERIAL OPHTH 54510 [facility] 6 GRE GRE XM&EVAL COMPRE NEW PT 1/> VST DETERMINA 91631 [facility] 6 GRE GRE REFRACTIV E STATE IM ADM [address] [facility] PRQ ID 6 PHYSICIAN LAURENCE SUBQ/IM S GROUP NJXS 1 VACCINE TDAP 22459 [facility] VACCINE 7 6 PHYSICIAN LAURENCE YRS/> IM S GROUP CHIROPRAC 42767 WILLIAM THOMAS TIC 6 FRED FRED MANIPULAT HORACIO TX SPINAL 1-2 REGIONS CHIROPRAC 85510 WILLIAM THOMAS TIC 6 FRED FRED MANIPULAT HORACIO TX SPINAL 1-2 [place] [address] [facility] INFUSION 6 [facility] THERAPY/P INC INC ROPHYLAXI S /DX 1ST TO 1 HR MRI BRAIN 15089 [facility] BRAIN 6 [facility] STEM W/O INC INC CONTRAST MATERIAL INJECTION J1885 [facility] PRICE 6 PHYSICIAN LAURENCE KETOROLAC S GROUP TROMETHAM INE PER 15 MG THERAPEUT 86054 [facility] PRICE IC 6 PHYSICIAN LAURENCE PROPHYLAC S GROUP TIC/DX INJECTION SUBQ/IM INJECTION J2550 [facility] PRICE 6 PHYSICIAN LAURENCE PROMETHAZ S GROUP INE HCL UP TO 50 [facility] 85287 WILLIAM THOMAS TIC 6 FRED FRED MANIPULAT HORACIO TX SPINAL 1-2 REGIONS INJECTION J1040 [facility] PRICE 6 PHYSICIAN LAURENCE METHYLPRE S GROUP DNISOLONE ACETATE 80 MG UNCLASSIF J3490 [facility] IED DRUGS 6 [facility] INC INC THERAPEUT 52683 [facility] IC 6 [facility] PROPHYLAC INC INC TIC/DX INJECTION SUBQ/IM THERAPEUT 47822 [facility] PRICE IC 6 PHYSICIAN LAURENCE PROPHYLAC S GROUP TIC/DX INJECTION SUBQ/IM INJECTION J1885 [facility] PRICE 6 PHYSICIAN LAURENCE KETOROLAC S GROUP TROMETHAM INE PER 15 MG INJECTION J2550 [facility] PRICE 6 PHYSICIAN LAURENCE PROMETHAZ S GROUP INE HCL UP TO 50 MG INJECTION J1200 [facility] TRISTEN 6 PHYSICIAN STONE DIPHENHYD S GROUP PA-C ROXY RAMINE HCL UP TO 50 MG INJECTION J1885 [facility] RAMON 6 PHYSICIAN STONE KETOROLAC S GROUP PA-C ROXY TROMETHAM INE PER 15 MG THERAPEUT 11569 [facility] TRISTEN IC 6 PHYSICIAN STONE PROPHYLAC S GROUP PA-C ROXY TIC/DX INJECTION SUBQ/IM INJECTION J1040 [facility] TRISTEN 6 PHYSICIAN STONE METHYLPRE S GROUP PA-C ROXY DNISOLONE ACETATE 80 MG CHIROPRAC 83200 WILLIAM THOMAS TIC 6 FRED FRED MANIPULAT HORACIO TX SPINAL 1-2 REGIONS INJECTION J2550 [facility] TRISTEN 6 PHYSICIAN STONE PROMETHAZ S GROUP PA-C ROXY INE HCL UP TO 50 MG INJECTION J2550 [facility] PRICE 6 PHYSICIAN LAURENCE PROMETHAZ S GROUP INE HCL UP TO 50 MG THERAPEUT 94545 [facility] PRICE IC 6 PHYSICIAN LAURENCE PROPHYLAC S GROUP TIC/DX INJECTION SUBQ/IM INJECTION J1885 [facility] PRICE 6 PHYSICIAN LAURENCE KETOROLAC S GROUP TROMETHAM INE PER 15 MG INJECTION J1200 [facility] PRICE 6 PHYSICIAN LAURENCE DIPHENHYD S GROUP RAMINE HCL UP TO 50 MG CHIROPRAC 62080 [facility] [place] TIC 6 FRED FRED MANIPULAT HORACIO TX SPINAL 1-2 REGIONS INJECTION J1885 [facility] PRICE 6 PHYSICIAN LAURENCE KETOROLAC S GROUP TROMETHAM INE PER 15 MG THERAPEUT 67983 [facility] PRICE IC 6 PHYSICIAN LAURENCE PROPHYLAC S GROUP TIC/DX INJECTION SUBQ/IM THERAPEUT 29263 [facility] GARCIA TER IC 6 PHYSICIAN PROPHYLAC S GROUP TIC/DX INJECTION SUBQ/IM INJECTION J1040 [facility] GARCIA TER 6 PHYSICIAN METHYLPRE S GROUP DNISOLONE ACETATE 80 MG INJECTION J1885 [facility] PRICE 6 PHYSICIAN LAURENCE KETOROLAC S GROUP TROMETHAM INE PER 15 MG THERAPEUT 90691 [facility] PRICE IC 6 PHYSICIAN LAURENCE PROPHYLAC S GROUP TIC/DX INJECTION SUBQ/IM CHIROPRAC 18032 [facility] [place] TIC 6 FRDE FRED MANIPULAT HORACIO TX SPINAL 1-2 REGIONS RADIOLOGI 98860 [facility] Doherty EXAM 5 [facility] KNEE INC INC COMPLETE 4/MORE VIEWS THERAPEUT 40990 [facility] PRICE IC 5 PHYSICIAN LAURENCE PROPHYLAC S GROUP TIC/DX INJECTION SUBQ/IM INJECTION [id number] [facility] PRICE 5 PHYSICIAN LAURENCE KETOROLAC S GROUP TROMETHAM INE PER 15 MG CHIROPRAC 09868 [place] TIC 5 FRED FRED MANIPULAT HORACIO TX SPINAL 1-2 REGIONS CHIROPRAC 54037 [place] TIC 5 FRED FRED MANIPULAT HORACIO TX SPINAL 1-2 REGIONS CHIROPRAC 05379 [place] TIC 5 FRED FRED MANIPULAT HORACIO TX SPINAL 1-2 REGIONS CHIROPRAC 32307 [place] TIC 5 FRED FRED MANIPULAT HORACIO TX SPINAL 1-2 REGIONS CHIROPRA 17208 [place] TIC 5 FRED FRED MANIPULAT HORACIO TX SPINAL 1-2 REGIONS CHIROPRAC 39501 [place] TIC 5 FRED FRED MANIPULAT HORACIO TX SPINAL 3-4 REGIONS CHIROPRAC 40127 [place] TIC 5 FRED FRED MANIPULAT HORACIO TX SPINAL 3-4 REGIONS CHIROPRAC 06661 [place] TIC 5 FRED FRED MANIPULAT HORACIO TX SPINAL 3-4 REGIONS CHIROPRAC 17064 [place] TIC 5 FRED FRED MANIPULAT HORACIO TX SPINAL 3-4 REGIONS THERAPEUT 73612 [place] IC PX 1/> 5 FRED FRED AREAS EACH 15 MIN EXERCISES APPL 93526 [place] MODALITY 5 FRED FRED 1/> AREAS TRACTION MECHANICA L APPL 83870 [place] MODALITY 5 FRED FRED 1/> AREAS TRACTION MECHANICA L THERAPEUT 36469 [place] IC PX 1/> 5 FRED FRED AREAS EACH 15 MIN EXERCISES CHIROPRAC 48738 [place] TIC 5 FRED FRED MANIPULAT HORACIO TX SPINAL 3-4 REGIONS COLLECTIO 55512 L[facility]A PAULINO N VENOUS 5 [facility] BLOOD INC INC VENIPUNCT URE THERAPEUT 64427 [place] IC PX 1/> 5 FRED FRED AREAS EACH 15 MIN EXERCISES INJECTION [id number] [facility] PRICE 5 PHYSICIAN LAURENCE KETOROLAC S GROUP TROMETHAM INE PER 15 MG POTASSIUM 65095 [facility] PAULINO SERUM 5 [facility]WH INC INC OLE BLOOD THERAPEUT 88679 [facility] IC 5 PHYSICIAN LAURENCE PROPHYLAC S GROUP TIC/DX INJECTION SUBQ/IM APPL 86713 [place] MODALITY 5 FRED FRED 1/> AREAS TRACTION MECHANICA L APPL 09164 [place] MODALITY 5 FRED FRED 1/> AREAS TRACTION MECHANICA L THERAPEUT 85234 [place] IC PX 1/> 5 FRED FRED AREAS EACH 15 MIN EXERCISES CHIROPRAC 73597 [place] TIC 5 FRED FRED MANIPULAT HORACIO TX SPINAL 3-4 REGIONS CHIROPRAC 41751 [place] TIC 5 FRED FRED MANIPULAT HORACIO TX SPINAL 3-4 REGIONS COMPREHEN 80309 [facility] SIVE 5 [facility] METABOLIC INC INC PANEL LIPID 05051 [facility] PANEL 5 [facility] INC INC THERAPEUT 64934 [place] IC PX 1/> 5 FRED FRED AREAS EACH 15 MIN EXERCISES APPL 63091 [place] MODALITY 5 FRED FRED 1/> AREAS TRACTION MECHANICA L HEMOGLOBI 90335 [facility] N 5 [facility] GLYCOSYLA INC INC MEENA A1C BLOOD 21343 [facility]INO COUNT 5 [facility] COMPLETE INC INC AUTO&AUTO DIFRNTL WBC APPL 37550 [place] MODALITY 5 FRED FRED 1/> AREAS TRACTION MECHANICA L THERAPEUT 53615 [place] IC PX 1/> 5 FRED FRED AREAS EACH 15 MIN EXERCISES CHIROPRAC 40198 [place] TIC 5 FRED FRED MANIPULAT HORACIO TX SPINAL 3-4 REGIONS CHIROPRAC 56173 [place] TIC 5 FRED FRED MANIPULAT HORACIO TX SPINAL 3-4 REGIONS THERAPEUT 74158 [place] IC PX 1/> 5 FRDE FRED AREAS EACH 15 MIN EXERCISES APPL 44494 [place] MODALITY 5 FRED FRED 1/> AREAS TRACTION MECHANICA L APPL 87948 [facility] MODALITY 5 FRED FRED 1/> AREAS TRACTION MECHANICA L THERAPEUT 17290 [place] IC PX 1/> 5 FRED FRED AREAS EACH 15 MIN EXERCISES THERAPEUT 26449 [place] IC PX 1/> 5 FRED FRED AREAS EACH 15 MIN EXERCISES APPL 47122 [place] MODALITY 5 FRED FRED 1/> AREAS TRACTION MECHANICA L APPL 15074 [place] MODALITY 5 FRED FRED 1/> AREAS TRACTION MECHANICA L THERAPEUT 08407 [place] IC PX 1/> 5 FRED FRED AREAS EACH 15 MIN EXERCISES CHIROPRAC 62397 [place] TIC 5 FRED FRED MANIPULAT HORACIO TX SPINAL 3-4 REGIONS CHIROPRAC 02943 [place] TIC 5 FRED FRED MANIPULAT HORACIO TX SPINAL 3-4 REGIONS CHIROPRAC 87471 [place] TIC 5 FRED FRED MANIPULAT HORACIO TX SPINAL 3-4 REGIONS CHIROPRAC 99937 [place] TIC 5 FRED FRED MANIPULAT HORACIO TX SPINAL 3-4 REGIONS CHIROPRAC 78293 [place] TIC 5 FRED FRED MANIPULAT HORACIO TX SPINAL 3-4 REGIONS CHIROPRAC 78783 [place] TIC 5 FRED FRED MANIPULAT HORACIO TX SPINAL 3-4 REGIONS THERAPEUT 64898 [place] IC PX 1/> 5 FRED FRED AREAS EACH 15 MIN EXERCISES APPL 75101 [place] MODALITY 5 FRED FRED 1/> AREAS TRACTION MECHANICA L APPL 72016 [place] MODALITY 5 FRED FRED 1/> AREAS TRACTION MECHANICA L THERAPEUT 87717 [place] IC PX 1/> 5 FRED FRED AREAS EACH 15 MIN EXERCISES CHIROPRAC 36358 [place] TIC 5 FRED FRED MANIPULAT HORACIO TX SPINAL 3-4 REGIONS CHIROPRAC 69814 [place] TIC 5 FRED FRED MANIPULAT HORACIO TX SPINAL 3-4 REGIONS THERAPEUT 94396 [place] IC PX 1/> 5 FRED FRED AREAS EACH 15 MIN EXERCISES APPL 93001 [place] MODALITY 5 FRED FRED 1/> AREAS TRACTION MECHANICA L APPL 57846 [place] MODALITY 5 FRED FRED 1/> AREAS TRACTION MECHANICA L THERAPEUT 32715 [place] IC PX 1/> 5 FRED FRED AREAS EACH 15 MIN EXERCISES CHIROPRAC 02830 [place] TIC 5 FRED FRED MANIPULAT HORACIO TX SPINAL 3-4 REGIONS CHIROPRAC 15536 [place] TIC 5 FRED RFED MANIPULAT HORACIO TX SPINAL 3-4 REGIONS THERAPEUT 03130 [place] IC PX 1/> 5 FRED FRED AREAS EACH 15 MIN EXERCISES APPL 93535 [place] MODALITY 5 FRED FRED 1/> AREAS TRACTION MECHANICA L APPL 06343 [place] MODALITY 5 FRED FRED 1/> AREAS TRACTION MECHANICA L THERAPEUT 02024 [place] IC PX 1/> 5 FRED FRED AREAS EACH 15 MIN EXERCISES CHIROPRAC 32815 [place] TIC 5 FRED FRED MANIPULAT HORACIO TX SPINAL 3-4 REGIONS THERAPEUT 49129 [place] IC PX 1/> 5 FRED FRED AREAS EACH 15 MIN EXERCISES APPL 75580 [place] MODALITY 5 FRED FRED 1/> AREAS TRACTION MECHANICA L CHIROPRAC 41704 [place] TIC 5 FRED FRED MANIPULAT HORACIO TX SPINAL 3-4 REGIONS CHIROPRAC 09479 [place] TIC 5 FRED FRED MANIPULAT HORACIO TX SPINAL 3-4 REGIONS APPL 09721 [place] MODALITY 5 FRED FRED 1/> AREAS TRACTION MECHANICA L THERAPEUT 54664 [place] PX 1/> 5 FRED FRED AREAS EACH 15 MIN EXERCISES BASIC 46746 [facility] METABOLIC 5 [facility] PANEL INC INC CALCIUM TOTAL CHIROPRAC 33015 [place] TIC 5 FRED FRED MANIPULAT HORACIO TX SPINAL 3-4 REGIONS APPL 57300 [place] MODALITY 5 FRED FRED 1/> AREAS TRACTION MECHANICA L THERAPEUT 75486 [facility] IC PX 1/> 5 FRED FRED AREAS EACH 15 MIN EXERCISES THERAPEUT 00770 [place] IC PX 1/> 5 FRED FRED AREAS EACH 15 MIN EXERCISES RADEX 95638 [facility] SPINE 5 FRED FRED CERVICAL 2 OR 3 VIEWS APPL 25926 [place] MODALITY 5 FRED FRED 1/> AREAS TRACTION MECHANICA L CHIROPRAC 66307 [place] TIC 5 FRED FRED MANIPULAT HORACIO TX SPINAL 3-4 REGIONS INJECTION J1885 [facility] PRICE 5 PHYSICIAN LAUR[facility] KETOROLAC S GROUP TROMETHAM INE PER 15 MG THERAPEUT 38482 [facility] PRICE IC 5 PHYSICIAN LAURENCE PROPHYLAC S GROUP TIC/DX INJECTION SUBQ/IM RADIOLOGI 93340 REI Cardona MEDICAL MAUREEN EXAMINATI IMAGING ON KNEE 3 ASS VIEWS KNEE L1830 [facility] 5 TECHNOLOG TECHNOLOG IMMOBLIZE IES INC IES INC R CANVAS LONGTUDNL PREFAB BASIC 92054 [facility]ABOLIC 5 [facility] PANEL INC INC CALCIUM TOTAL BLOOD 25640 [facility] OCCULT 5 PHYSICIAN PHYSICIAN PEROXIDAS S GROUP S GROUP E ACTV QUAL FECES 1-3 SPEC HEMOGLOBI 40636 [facility] N [facility] GLYCOSY[place] [address] [facility] THYROID 5 [facility] STIMULATI INC INC NG HORMONE TSH CYTP C/V 01193 [facility], PICKLESIM AUTO THIN 5 LLC ER JR JOSSELINE LYR [place] [address] [facility] FREE 5 [facility] THYROXINE INC INC INJECTION J1100 [facility] PRICE 5 PHYSICIAN [place]URENCE DEXAMETHO S GROUP SONE SODIUM PHOSPHATE 1 MG THERAPEUT 29764 [facility] IC 5 PHYSICIAN LAURENCE PROPHYLAC S GROUP TIC/DX INJECTION SUBQ/IM 25 52957 [facility] HYDROXY 5 [facility] INCLUDES INC INC FRACTIONS IF PERFORMED RADEX ABD 97289 [facility] COMPL 5 MEDICAL DENNIS AQT ABD IMAGING W/S/E/D ASS VIEWS 1 VIEW CH HEPATITIS 94817 [facility] Stringer CORE 5 [facility] ANTIBODY INC INC HBCAB TOTAL HEPATITIS 33058 [facility] Stringer SURF 5 [facility] [place] [address] [facility] HEPATITIS 5 [facility] [place] [address] [facility] FREE 5 [facility] [place] [address] [facility] THYROID 5 [facility] STIMULATI INC INC NG HORMONE TSH BLOOD 14861 [facility] COUNT 5 [facility] COMPLETE INC INC AUTO&AUTO DIFRNTL WBC RADIOLOGI 30076 [facility] C EXAM 5 [facility] CHEST 2 INC INC VIEWS FRONTAL&L ATERAL COMPREHEN 13175 [facility] SIVE 5 [facility] METABOLIC INC INC PANEL COLLECTIO 76539 [facility] Dixon VENOUS 5 [facility] BLOOD INC INC VENIPUNCT URE HEPATITIS 26914 [facility] A 5 [facility] ANTIBODY INC INC HAAB HEPATITIS 74090 [facility] PA[facility] C 5 [facility] ANTIBODY INC INC IAADIADOO 30058 [facility] FRYMAN 5 PHYSICIAN EUG INFLUENZA S GROUP INJECTION J1040 [facility] PRICE 4 PHYSICIAN LAURENCE METHYLPRE S GROUP DNISOLONE ACETATE 80 MG THERAPEUT 58235 [facility] IC 4 PHYSICIAN PHYSICIAN PROPHYLAC S GROUP S GROUP TIC/DX INJECTION SUBQ/IM ECHO 19936 [facility] TTHRC R-T 4 [facility] 2D INC INC W/WOM-MOD E COMPL SPEC&COLR D FLUOR 49052 [facility] KEMP NEEDLE/CA 4 BECK BECK TH SPINE/PAR ASPINAL DX/[place] 7[address]62 [facility] KEMP DX/THER 4 BECK BECK SBST EPIDURAL/ SUBARACH LUMBAR/SA CRAL MRI 89296 [facility] TRA SPINAL 4 CANAL LUMBAR W/O CONTRAST MATERIAL THER 87041 [facility] PROPH/DX [address] [place] [address] NJX EA SEQL IV PUSH SBST/DRUG FAC INJECTION J1100 [address] DEXAMETHO SONE SODI[place] [address] THERAPY/P ROPHYLAXI S /DX 1ST TO 1 HR BASIC [address] PANEL CALCIUM TOTAL BLOOD [address] COMPLETE AUTOMATED INJECTION J2405 [address] ONDANSETR ON HCL PER 1 MG INJECTION J2550 [address] PROMETHAZ INE HCL UP TO 50 MG INJECTION J2270 [address] SULFATE UP TO 10 MG URNLS DIP [address] STICK/TAB LET REAGENT AUTO MICROSCOP Y THERAPEUT [address] INJECTION IV PUSH EACH NEW DRUG INJECTION J[address] METHOCARB JORGE UP TO 10 ML RADEX 47284 CECILIA CECILIA SPINE 4 DENNIS DENNIS LUMBOSACR AL MINIMUM 4 VIEWS RADEX HIP 20524 CECILIA CECILIA 4 DENNIS DENNIS UNILATERA L 1 VIEW Encounters Encounter Start End Date Code Location Performer Type Date [facility] 7 7 [facility] T EMERGENCY 56256 [facility] 7 7 [facility] INC T VISIT LOW/MODER SEVERITY [facility] Oliver 7 7 [facility] T EMERGENCY 17974 MARCIA WOO 7 7 PHYSICIAN DEPARTMEN S, PLLC T VISIT HIGH/URGE NT SEVERITY OFFICE 21561 [facility] MICHELLE RAMIRES OUTPATIEN 7 7 PHYSICIAN T VISIT S GROUP 15 MINUTES OFFICE 14641 [facility] GUZMAN OUTPATIEN 7 7 PHYSICIAN T VISIT S GROUP 15 MINUTES [facility] - 7 7 [facility] T EMERGENCY 40529 [facility] 7 7 [facility] DEPARTMEN INC T VISIT LOW/MODER SEVERITY EMERGENCY 77048 Tayler JAMES 7 PHYSICIAN JR TURCIOSMEN S, PLLC T VISIT MODERATE SEVERITY EMERGENCY 01363 Tayler JAMES 7 PHYSICIAN DEPARTMEN S, PLLC T VISIT HIGH/URGE NT SEVERITY [facility] - 7 7 [facility] T OFFICE 81233 WILLIAM THOMAS OUTPATIEN 7 7 T VISIT 15 MINUTES [facility] - 7 7 [facility] INC T OFFICE 32125 [facility] GUZMAN ROXY OUTPATIEN 6 6 PHYSICIAN T VISIT S GROUP 25 MINUTES OFFICE 34622 GASTROENT CASE JUS OUTPATIEN 6 6 EROLOGY T VISIT AND 25 HEPATOL MINUTES [facility] - 6 6 [facility] OUTPATIEN [facility] T OFFICE 96778 GASTROENT CASE JUS OUTPATIEN 6 6 EROLOGY T NEW 45 AND [facility] N OUTPATIEN COMMUNTIY T [facility] - 6 6 [facility] OUTPATIEN [facility] T OFFICE 83427 [facility] ALLRAN JR OUTPATIEN 6 6 PHYSICIAN MAGO T VISIT S GROUP 10 MINUTES OFFICE 92453 ROB MONSALVE OUTPATIEN 6 6 DIGESTIVE CEC T VISIT CARE 15 CENTER MINUTES EMERGENCY 09560 MARCIA THRASHER 6 6 PHYSICIAN [facility] DEPARTMEN S, PLLC T VISIT MODERATE SEVERITY HOSPITAL ROB - 6 6 [facility]IONAL OUTPATIEN MEDICAL T [facility] OFF[facility] 43283 ROB MONSALVE OUTPATIEN 6 6 DIGESTIVE CEC T NEW 60 CARE MINUTES CENTER OFFICE 15207 [facility] STONE ROXY OUTPATIEN 6 6 PHYSICIAN T VISIT S GROUP 15 MINUTES HOSPITAL [facility] - 6 6 [facility] OUTPATIEN [facility] - 6 6 [facility] OUTPATIEN [facility] T EMERGENCY 71426 [facility] 6 6 [facility] T VISIT HIGH/URGE NT SEVERITY OFFICE 13192 [facility] ALLRAN JR OUTPATIEN 6 6 PHYSICIAN MAGO T NEW 30 S GROUP MINUTES OFFICE 96138 [facility] TRISTEN OUTPATIEN 6 6 PHYSICIAN STONE T VISIT S GROUP PA-C ROXY 15 MINUTES OFFICE 16976 [facility] RAMON OUTPATIEN 6 6 PHYSICIAN STONE T VISIT S GROUP PA-C ROXY 25 MINUTES OFFICE 17186 [facility] RAMON OUTPATIEN 6 6 PHYSICIAN STONE T VISIT S GROUP PA-C ROXY 15 MINUTES EMERGENCY 70024 MARCIA THRASHER DEPT 6 6 PHYSICIAN LAURENCE VISIT S, PLLC HIGH SEVERITY& THREAT FUNCJ EMERGENCY 75204 [facility] 6 6 PHYSICIAN SUMMER VISIT S, PLLC HIGH SEVERITY& THREAT FUNCJ OFFICE 65414 [facility] PRICE OUTPATIEN 6 6 PHYSICIAN LAURENCE T VISIT S GROUP 25 MINUTES OFFICE 72571 [facility] CONSULTAT 6 6 N ION NEUROLOGY NEW/ESTAB PATIENT 60 MIN OFFICE 35589 [facility] PRICE OUTPATIEN 6 6 PHYSICIAN LAURENCE T VISIT S GROUP 10 MINUTES [facility]OSP[facility] - 6 6 [facility] OUTPATIEN INC T [facility] - 6 6 [facility] OUTPATIEN INC T OFFICE 11300 [facility] PRICE OUTPATIEN 6 6 PHYSICIAN LAURENCE T VISIT S GROUP 10 MINUTES [facility]OSPITAL [facility] - 6 6 [facility] OUTPATIEN INC T OFFICE 06025 [facility] PRICE OUTPATIEN 6 6 PHYSICIAN LAURENCE T VISIT S GROUP 15 MINUTES OFFICE 63418 [facility] RAMON OUTPATIEN 6 6 PHYSICIAN STONE T VISIT S GROUP PA-C ROXY 15 MINUTES OFFICE 58030 [facility] RAMON OUTPATIEN 6 6 PHYSICIAN STONE T VISIT S GROUP PA-C ROXY 10 MINUTES EMERGENCY 50625 MARCIA CESPEDES DEPT 6 6 PHYSICIAN FOR VISIT S, PLLC HIGH SEVERITY& THREAT FUNCJ OFFICE 58461 [facility] PRICE OUTPATIEN 6 6 PHYSICIAN LAURENCE T VISIT S GROUP 15 MINUTES OFFICE 47218 [facility] JOSE TER OUTPATIEN 6 6 PHYSICIAN T VISIT S GROUP 15 MINUTES OFFICE 72826 [facility] PRICE OUTPATIEN 6 6 PHYSICIAN LAURENCE T VISIT S GROUP 15 MINUTES OFFICE 09100 [facility] OUT[facility]IEN 6 6 [facility] T VISIT INC 10 MINUTES [facility] - 6 6 [facility] OUTPATIEN INC T OFFICE 60838 ELYL FRANKS FRED OUTPATIEN 6 6 MD RHEA, T NEW 30 PSC MINUTES OFFICE 12470 [facility] OUTPATIEN 6 6 FRED FRED T VISIT 15 MINUTES [facility]PITAL [facility] - 5 5 [facility] OUTPATIEN INC T OFFICE 60341 [facility] PRICE OUTPATIEN 5 5 PHYSICIAN LAURENCE T VISIT S GROUP 10 MINUTES OFFICE 85689 [facility] PRICE OUTPATIEN 5 5 PHYSICIAN LAURENCE T VISIT S GROUP 10 MINUTES OFFICE 43186 [facility] OUTPATIEN 5 5 BRAIN SYD T NEW 45 NEUROSURG MINUTES ICAL EMERGENCY 08682 MARCIA PRICE 5 5 PHYSICIAN LAURENCE [facility] T VISIT HIGH/URGE NT SEVERITY OFFICE 46471 [facility] PRICE OUTPATIEN 5 5 PHYSICIAN LAURENCE T VISIT S GROUP 15 MINUTES [facility] - 5 5 [facility] OUTPATIEN INC T [facility] - 5 5 [facility] OUTPATIEN INC T OFFICE 50307 [facility] OUTPATIEN 5 5 FRED FRED T VISIT 15 MINUTES [facility] - 5 5 [facility] OUTPATIEN INC T OFFICE 84360 [facility] OUTPATIEN 5 5 FRED FRED T NEW 30 MINUTES OFFICE 09968 [facility] PRICE OUTPATIEN 5 5 PHYSICIAN LAURENCE T VISIT S GROUP 15 MINUTES [facility] - 5 5 [facility] OUTPATIEN INC T PERIODIC 88688 [facility] PRICE PREVENTIV 5 5 PHYSICIAN LAURENCE E MED EST S GROUP PATIENT 40-64YRS OFFICE 60683 [facility] PRICE OUTPATIEN 5 5 PHYSICIAN LAURENCE T VISIT S GROUP 15 MINUTES [facility] - 5 5 [facility] OUTPATIEN INC T OFFICE 81907 [facility] RADHA OUTPATIEN 5 5 PHYSICIAN FRED T VISIT S GROUP 15 MINUTES OFFICE 18560 [facility] YMSEGUNDO OUTPATIEN 5 5 PHYSICIAN EUG T VISIT S GROUP 15 MINUTES [facility] - 4 4 [facility] OUTPATIEN INC T OFFICE 02626 [facility] OUTPATIEN 4 4 T VISIT 15 MINUTES OFFICE 81962 [facility] TRA DUKE TRA OUTPATIEN 4 4 T VISIT 15 MINUTES EMERGENCY 44743 EDMUND SHAFFER DEPT 4 4 VLADIMIR VLADIMIR VISIT HIGH SEVERITY& THREAT [facility] [address] OUTPATIEN T EMERGENCY [address] DEPARTMEN T VISIT MODERATE SEVERITY OFFICE 27470 ILYA CARABALLO OUTPATIEN 4 4 THEODORE THEODORE T VISIT 15 MINUTES OFFICE 78020 ILYA CARABALLO OUTPATIEN 4 4 THEODORE THEODORE T VISIT 15 MINUTES OFFICE 44891 [facility] CONSULTAT 4 4 ION NEW/ESTAB PATIENT 40 MIN
--- OUTSIDE RECORDS SUMMARY | 2017-08-24 03:43 | External Medical Summary Rpt | CCD ---
Demographics Preferred Language Yakut Marital Status Unknown [employer] Affiliation Unknown Race Unknown Ethnic Group Unknown Author Author , RADHA GARCIA Address Unknown Phone Immunization No patient found.
--- OUTSIDE RECORDS SUMMARY | 2017-08-24 03:43 | External Medical Summary Rpt ---
Author Author RADHA Carlota, [facility] [employer] Organization [employer] [employer] Address Unknown Phone Unavailable Results Comprehensive metabolic 2000 panel in Serum or Plasma Observa Value Referen Units Interpr Notes Date tion ce etation Range Albumin/G 1.1 - 1.8 No Low No Oct 6 lobulin informati informati 2017 [Mass on in on in 10:46 AM ratio] in source source Serum or data data Plasma Albumin 3.4 - 5.0 gm/dL Normal No Oct 6 [Mass/vol informati 2017 ume] in on in 10:46 AM Serum or source Plasma data Alkaline 46 - 116 U/L Normal No Oct 6 phosphata informati 2017 se on in 10:46 AM [Enzymati source c data activity/ volume] in Serum or Plasma Bilirubin 0.2 - 1.0 mg/dL Normal No Oct 6 .total informati 2017 [Mass/vol on in 10:46 AM ume] in source Serum or data Plasma Urea 7 - 18 mg/dL Normal No Oct 6 nitrogen informati 2017 [Mass/vol on in 10:46 AM ume] in source Serum or data Plasma Calcium 8.5 - mg/dL Normal No Oct 6 [Mass/vol 10.1 informati 2017 ume] in on in 10:46 AM Serum or source Plasma data Chloride 98 - 107 mmoL/L Normal No Oct 6 [Moles/vo informati 2017 lume] in on in 10:46 AM Serum or source Plasma data Carbon 21.0 - mmoL/L Normal No Oct 6 dioxide, 32.0 informati 2017 total on in 10:46 AM [Moles/vo source lume] in data Serum or Plasma Creatinin 0.55 - mg/dL High No Oct 6 e 1.02 informati 2017 [Mass/vol on in 10:46 AM ume] in source Serum or data Plasma Creatinin 50 - 200 ML/MIN Normal No Oct 6 e renal informati 2017 clearance on in 10:46 AM source predicted data by Cockcroft -Gault formula Estimated 59- ML/MIN Low REFERENCE Oct 6 RANGE: 2017 glomerula >60 10:46 AM r ML/MIN/1. filtratio 73 SQUARE n rate METERSIf (GF this patient is -A merican, then multiply theresult by 1.210. Globulin 1.3 - 3.2 gm/dL High No Aug 17 [Mass/vol informati 2016 ume] in on in 10:46 AM Serum source data Glucose 74 - 106 mg/dL High No Aug 17 [Mass/vol informati 2016 ume] in on in 10:46 AM Serum or source Plasma data Potassium 3.5 - 5.1 mmoL/L Normal No Aug 172016 [Moles/vo on in 10:46 AM lume] in source Serum or data Plasma Sodium 136 - 145 mmoL/L Normal No Aug 17 [Moles/vo informati 2016 lume] in on in 10:46 AM Serum or source Plasma data Aspartate 15 - 37 U/L Normal No Aug 172016 aminotran on in 10:46 AM sferase source [Enzymati data c activity/ volume] in Serum or Plasma Alanine 12 - 78 U/L Normal No Aug 17 aminotran 2016 sferase on in 10:46 AM [Enzymati source c data activity/ volume] in Serum or Plasma Protein 6.4 - 8.2 gm/dL Normal No Aug 17 [Mass/vol informati 2016 ume] in on in 10:46 AM Serum or source Plasma data CBC W Auto Differential panel in Blood Observa Value Referen Units Interpr Notes Date tion ce etation Range Basophils 0 - 0.2 K/MM3 Normal No Aug 172016 [#/volume on in 10:46 AM ] in source Blood by data Automated count Basophils 0.1 - 2.0 % Normal No Aug 172016 leukocyte on in 10:46 AM s in source Blood by data Automated count Eosinophi 0.0 - 0.4 K/mm3 Normal No Aug 17 ls 2016 [#/volume on in 10:46 AM ] in source Blood by data Automated count Eosinophi 0.1 - % Normal No Aug 17 ls/100 12.0 2016 leukocyte on in 10:46 AM s in source Blood by data Automated count Granulocy 1.8 - 7.8 K/mm3 High No Aug 17 jennifer 2016 [#/volume on in 10:46 AM ] in source Blood by data Automated count Granulocy 37.0 - % Normal No Aug 17 jennifer/100 80.0 informati 2016 leukocyte on in 10:46 AM s in source Blood by data Automated count Hematocri 37.0 - % Normal No Aug 17 t [Volume 47.0 informati 2016 on in 10:46 AM Fraction] source of Blood data Hemoglobi 12.2 - g/dL Normal No Aug 17 n 16.2 informati 2016 [Mass/vol on in 10:46 AM ume] in source Blood data Lymphocyt 0.7 - 4.5 K/mm3 Normal No Aug 17 es informati 2016 [#/volume on in 10:46 AM ] in source Unspecifi data ed specimen by Automated count Lymphocyt 10 - 50.0 % Normal No Aug 17 es informati 2016 [#/volume on in 10:46 AM ] in source Unspecifi data ed specimen by Automated count Erythrocy 27 - 31.2 pg Normal No Aug 17 te mean inform2016 corpuscul on in 10:46 AM ar source hemoglobi data n [Entitic mass] Erythrocy 31.8 - g/dl Normal No Aug 17 te mean 35.4 inform2016 corpuscul on in 10:46 AM ar source hemoglobi data n concentra tion [Mass/vol ume] by Automated count Erythrocy 82.2 - fl Normal No Aug 17 te mean 97.8 inform2016 corpuscul on in 10:46 AM ar volume source [Entitic data volume] by Automated count Monocytes 0.1 - 1.0 K/mm3 Normal No Aug 17 inform2016 [#/volume on in 10:46 AM ] in source Blood by data Automated count Monocytes 1.7 - 9.3 % Normal No Aug 17 / inform 2017 leukocyte on in 10:46 AM s in source Blood by data Automated count Platelet 7.4 - fl Normal No Aug 17 mean 10.4 informati 2016 volume on in 10:46 AM [Entitic source volume] data in Blood by Automated count Platelets 142 - 424 K/mm3 Normal No Aug 17 informati 2016 [#/volume on in 10:46 AM ] in source Blood data Erythrocy 4.2 - 5.4 M/mm3 Normal No Aug 17 jennifer informati 2016 [#/volume on in 10:46 AM ] in source Amniotic data fluid Erythrocy 11.5 - % Normal No Aug 17 te 17.5 informati 2016 distribut on in 10:46 AM ion width source [Entitic data volume] by Automated count Leukocyte 4.8 - K/MM3 High No Aug 17 s 10.8 informati 2016 [#/volume on in 10:46 AM ] in source Blood data Drugs identified in Urine by Screen method Observa Value Referen Units Interpr Notes Date tion ce etation Range Positive urine drug screen samples are stored for 7 days. Contact the Lab if confirmation of positives is needed. Ampheta NEGATIV <1000 ng/mL No No Jun 27 mine E informa informa 2017 [Presen tion in tion in 11:00 ce] in source source AM Urine data data by Screen method Barbitura <200 ng/mL No No Jun 27 jennifer informati informati 2016 [Mass/vol on in on in 11:00 AM ume] in source source Urine by data data Screen method Benzodiaz 200 ng/mL ng/mL High This is Jun 27 epines an 2016 [Mass/vol UNCONFIRM 11:00 AM ume] in ED Serum or result. Plasma by This Screen result is method for medicalpu rposes and/or treatment only. Cocaine <300 ng/g No No Jun 27 [Mass/vol informati informati 2016 ume] in on in on in 11:00 AM Unspecifi source source ed data data specimen Methadone <300 ng/mL No No Jun 27 informati informati 2016 [Mass/vol on in on in 11:00 AM ume] in source source Unspecifi data data ed specimen Opiates <300 ng/mL No No Jun 27 [Mass/vol informati informati 2016 ume] in on in on in 11:00 AM Unspecifi source source ed data data specimen Phencycli <25 ng/mL No No Jun 27 dine informati informati 2017 [Mass/vol on in on in 11:00 AM ume] in source source Unspecifi data data ed specimen 11-Hydr NEGATIV <50 ng/mL No No Jun 27 oxy E informa informa 2017 delta-9 tion in tion in 11:00 source source AM tetrahy data data drocann abinol [Presen ce] in Unspeci fied specime n Comprehensive metabolic 2000 panel in Serum or Plasma Observa Value Referen Units Interpr Notes Date tion ce etation Range Albumin/G 1.1 - 1.8 No Normal No Jun 27 lobulin informati informati 2017 [Mass on in on in 11:00 AM ratio] in source source Serum or data data Plasma Albumin 3.4 - 5.0 gm/dL Normal No Jun 27 [Mass/vol informati 2017 ume] in on in 11:00 AM Serum or source Plasma data Alkaline 46 - 116 U/L Normal No Jun 27 phosphata informati 2016 se on in 11:00 AM [Enzymati source c data activity/ volume] in Serum or Plasma Bilirubin 0.2 - 1.0 mg/dL Normal No Jun 27 .total informati 2016 [Mass/vol on in 11:00 AM ume] in source Serum or data Plasma Urea 7 - 18 mg/dL High No Jun 27 nitrogen informati 2016 [Mass/vol on in 11:00 AM ume] in source Serum or data Plasma Calcium 8.5 - mg/dL Normal No Jun 27 [Mass/vol 10.1 informati 2016 ume] in on in 11:00 AM Serum or source Plasma data Chloride 98 - 107 mmoL/L Low No Jun 27 [Moles/vo informati 2017 lume] in on in 11:00 AM Serum or source Plasma data Carbon 21.0 - mmoL/L Normal No Jun 27 dioxide, 32.0 informati 2017 total on in 11:00 AM [Moles/vo source lume] in data Serum or Plasma Creatinin 0.55 - mg/dL High No Jun 27 e 1.02 informati 2016 [Mass/vol on in 11:00 AM ume] in source Serum or data Plasma Estimated 59- ML/MIN Low REFERENCE Jun 27 RANGE: 2017 glomerula >60 11:00 AM r ML/MIN/1. filtratio 73 SQUARE n rate METERSIf (GF this patient is -A merican, then multiply theresult by 1.210. Globulin 1.3 - 3.2 gm/dL High No Jun 27 [Mass/vol informati 2017 ume] in on in 11:00 AM Serum source data Glucose 74 - 106 mg/dL High No Jun 27 [Mass/vol informati 2016 ume] in on in 11:00 AM Serum or source Plasma data Potassium 3.5 - 5.1 mmoL/L Normal No Jun 27 informati 2017 [Moles/vo on in 11:00 AM lume] in source Serum or data Plasma Sodium 136 - 145 mmoL/L Low No Jun 27 [Moles/vo 2016 lume] in on in 11:00 AM Serum or source Plasma data Aspartate 15 - 37 U/L Normal No Jun 272016 aminotran on in 11:00 AM sferase source [Enzymati data c activity/ volume] in Serum or Plasma Alanine 12 - 78 U/L Normal No Jun 27 aminotran 2016 sferase on in 11:00 AM [Enzymati source c data activity/ volume] in Serum or Plasma Protein 6.4 - 8.2 gm/dL Normal No Jun 27 [Mass/vol informati 2016 ume] in on in 11:00 AM Serum or source Plasma data Lipid 1996 panel in Serum or Plasma Observa Value Referen Units Interpr Notes Date tion ce etation Range Cholester < 200 mg/dL High No Jun 27 ol 2016 [Moles/vo on in 11:00 AM lume] in source Unspecifi data ed specimen Cholester 40 - 60 MG/DL Low No Jun 27 ol in HDL 2016 on in 11:00 AM [Mass/vol source ume] in data Serum or Plasma Cholester 0 - 130 mg/dL High No Jun 27 ol in LDL 2016 on in 11:00 AM [Mass/vol source ume] in data Serum or Plasma by calculati on Triglycer 30 - 200 mg/dL High No Jun 27 tor 2016 [Moles/vo on in 11:00 AM lume] in source Serum or data Plasma Cholester 0 - 40 No High No Jun 27 ol in informati 2016 VLDL on in on in 11:00 AM [Mass/vol source source ume] in data data Serum or Plasma CBC W Auto Differential panel in Blood Observa Value Referen Units Interpr Notes Date tion ce etation Range Basophils 0 - 0.2 K/MM3 Normal No Jun 272016 [#/volume on in 11:00 AM ] in source Blood by data Automated count Basophils 0.1 - 2.0 % Normal No Jun 27 /100 2016 leukocyte on in 11:00 AM s in source Blood by data Automated count Eosinophi 0.0 - 0.4 K/mm3 Normal No Jun 27 ls 2016 [#/volume on in 11:00 AM ] in source Blood by data Automated count Eosinophi 0.1 - % Normal No Jun 27 ls/100 12.0 informati 2016 leukocyte on in 11:00 AM s in source Blood by data Automated count Granulocy 1.8 - 7.8 K/mm3 High No Jun 27 jennifer informati 2016 [#/volume on in 11:00 AM ] in source Blood by data Automated count Granulocy 37.0 - % Normal No Jun 27 jennifer/100 80.0 informati 2016 leukocyte on in 11:00 AM s in source Blood by data Automated count Hematocri 37.0 - % Normal No Jun 27 t [Volume 47.0 informati 2016 on in 11:00 AM Fraction] source of Blood data Hemoglobi 12.2 - g/dL Normal No Jun 27 n 16.2 informati 2016 [Mass/vol on in 11:00 AM ume] in source Blood data Lymphocyt 0.7 - 4.5 K/mm3 Normal No Jun 27 es informati 2016 [#/volume on in 11:00 AM ] in source Unspecifi data ed specimen by Automated count Lymphocyt 10 - 50.0 % Normal No Jun 27 es informati 2016 [#/volume on in 11:00 AM ] in source Unspecifi data ed specimen by Automated count Erythrocy 27 - 31.2 pg Normal No Jun 27 te mean inform2016 corpuscul on in 11:00 AM ar source hemoglobi data n [Entitic mass] Erythrocy 31.8 - g/dl Normal No Jun 27 te mean 35.4 informati 2016 corpuscul on in 11:00 AM ar source hemoglobi data n concentra tion [Mass/vol ume] by Automated count Erythrocy 82.2 - fl Normal No Jun 27 te mean 97.8 informati 2016 corpuscul on in 11:00 AM ar volume source [Entitic data volume] by Automated count Monocytes 0.1 - 1.0 K/mm3 Normal No Jun 27 informati 2016 [#/volume on in 11:00 AM ] in source Blood by data Automated count Monocytes 1.7 - 9.3 % Normal No Jun 27 /100 informati 2017 leukocyte on in 11:00 AM s in source Blood by data Automated count Platelet 7.4 - fl Normal No Jun 27 mean 10.4 informati 2016 volume on in 11:00 AM [Entitic source volume] data in Blood by Automated count Platelets 142 - 424 K/mm3 Normal No Jun 27 informati 2016 [#/volume on in 11:00 AM ] in source Blood data Erythrocy 4.2 - 5.4 M/mm3 Low No Jun 27 jennifer informati 2016 [#/volume on in 11:00 AM ] in source Amniotic data fluid Erythrocy 11.5 - % Normal No Jun 27 te 17.5 informati 2016 distribut on in 11:00 AM ion width source [Entitic data volume] by Automated count Leukocyte 4.8 - K/MM3 High No Jun 27 s 10.8 informati 2016 [#/volume on in 11:00 AM ] in source Blood data Bacteria identified in Wound by Culture Observa Value Referen Units Interpr Notes Date tion ce etation Range Bacteri Staphyl No No No No May 19 a ococcus informa informa informa informa 2017 identif tion in tion in tion in tion in 8:10 PM ied in epiderm source source source source Wound idis data data data data by Culture
--- OUTSIDE RECORDS SUMMARY | 2017-08-24 03:43 | External Medical Summary Rpt ---
Author Author RAD[facility] Carlota, [facility] [employer] Organization [employer] [employer] Address Unknown Phone Unavailable [...]
--- OUTSIDE RECORDS SUMMARY | 2017-08-24 03:43 | External Medical Summary Rpt | CCD ---
Demographics Preferred Language Albanian Marital Status Unknown Sikhism Affiliation Unknown Race Unknown Ethnic Group Unknown Author Author , RADHA GARCIA Address Unknown Phone Immunization No patient found.
== END ==
LOC: ER 10:30
PROVIDERS: Emergency Medicine
DX: L03.311 Cellulitis of abdominal wall (principal); F17.210 Nicotine dependence, cigarettes, uncomplicated; Z85.41 Personal history of malignant neoplasm of cervix uteri; I10 Essential (primary) hypertension; K21.9 Gastro-esophageal reflux disease without esophagitis; F41.9 Anxiety disorder, unspecified; F32.9 Major depressive disorder, single episode, unspecified; Z79.899 Other long term (current) drug therapy

== ENCOUNTER → 2017-10-02 | Outpatient (CLI) | payer MEDICAID ==
[~2017-10-02] MED LIST changes: +BACTRIM DS 8001 TA1 PO; +CLINDAMYCIN HC300 MG PO; +HYDROCODONE-APA1 TA1 PO; +SEPTRA DS 800 M1 TAB PO; +ZOFRAN ODT4 MG PO
[2017-10-02 21:14] LABS: GFR (ESTIMATED) 54 ML/MIN (59-)
== END ==
LOC: LAB 18:49
PROVIDERS: Nurse Practitioner Family
DX: F41.9 Anxiety disorder, unspecified (principal); R53.83 Other fatigue

== ENCOUNTER → 2017-10-18 | Outpatient (CLI) | payer MEDICAID ==
--- NOTE | 2017-10-18 15:40 | RADIOLOGY REPORT PS360 ---
PROCEDURE: 2-D M-mode and color Doppler study INDICATIONS FOR THE TEST: Chest pain X COPD Heart Murmur Tobacco SmokingX Palpitations FatigueX Syncope EdemaX HypertensionXDiabetes Mellitus Rheumatic Fever SOBXDOE ObesityXHyperlipidemiaX Family History HDX Additional History MVP PATIENT INFORMATION HEIGHT: 66 WEIGHT:210 GENDER: Female B/P:120/70 2-D/M-MODE INTERPRETATION: 2-D MEASUREMENTS OBSERVED VALUES IN CMS Right Ventricular Dimension (RVDd) 2.6 Interventricular Septum (Thickness)(IVsd) 1.1 Left Ventricular Internal Dimensions(LVIDd) 4.1 Left Ventricular Posterior Wall (Thickness)(LVPWd) 1.2 Aortic Root 2.9 Aortic Cusp Separation 2.0 Left Atrial Dimensions (LAD) 2.9 2D 1. Left atrium is normal size, left ventricle is normal size, there is no concentric left ventricular hypertrophy, visually estimated ejection fraction 55% with no obvious regional wall motion abnormality. 2. The right atrium and right ventricle are normal size and contractility. 3. The aortic, mitral and tricuspid valves are grossly normal, there is no obvious mitral valve prolapse seen. 4. The pulmonic valve is poorly visualized. 5. No significant pericardial effusion noted. DOPPLER INTERROGATION: Doppler interrogation of the aortic mitral and tricuspid valvular presence of trace mitral and tricuspid regurgitation, tricuspid regurgitant jet velocity is insufficient for calculation of the right ventricular systolic pressure, grade 1 diastolic dysfunction seen without tissue Doppler evidence of raised left atrial pressure. CONCLUSION: 1. Normal left ventricular size, preserved left ventricular systolic function, visually estimated ejection fraction 55% with no obvious regional wall motion abnormality, grade 1 diastolic dysfunction seen without tissue Doppler evidence of raised left atrial pressure. 2. Trace mitral and tricuspid regurgitation, there is no obvious mitral valve prolapse seen. 3. No significant pericardial effusion noted.
--- NOTE | 2017-10-18 16:40 | RADIOLOGY REPORT PS360 ---
US URINARY BLADDER HISTORY: ELEVATED SERUM CREATININE, FHX KID DISEASE ORDERING PHYSICIAN: AWILDA LAI PATIENT AGE: 42 years COMPARISON: None FINDINGS: Images are somewhat limited technically due to patient's body habitus. The full urinary bladder volume only measures 110 mL's. Post void volume is 20 mL's. Ureter jets are not identified. No obvious bladder mass. IMPRESSION: Somewhat low full bladder volume with mild amount of post for residual urine
--- NOTE | 2017-10-18 16:44 | RADIOLOGY REPORT PS360 ---
US [id number] HISTORY: ELEVATED SERUM CREATININE, FHX KID DISEASE ORDERING PHYSICIAN: AWILDA LAI PATIENT AGE: 42 years COMPARISON: None FINDINGS: RIGHT KIDNEY:Unremarkable. Normal size and echogenicity. No hydronephrosis 8 point 4 x 4 x 6.3 cm LEFT KIDNEY:Unremarkable. No hydronephrosis. Normal size and echogenicity. 9.7 x 5.3 x 5 cm OTHER FINDINGS: No other pertinent findings IMPRESSION: Unremarkable bilateral renal ultrasound
== END ==
LOC: RT 14:14
DX: I34.1 Nonrheumatic mitral (valve) prolapse (principal); R79.89 Other specified abnormal findings of blood chemistry; Z84.1 Family history of disorders of kidney and ureter

== ENCOUNTER → 2017-10-24 | Day surgery (SDC) | payer MEDICAID ==
[2017-10-24 08:06] LABS: HEMOGLOBIN 13.1 g/dL (12.2-16.2); LYMPH # 4.1 K/mm3 (0.7-4.5)
[2017-10-24 08:11] LABS: BUN 19 mg/dL (7-18); GFR (ESTIMATED) 45 ML/MIN (59-)
--- NOTE | 2017-10-24 12:32 | RADIOLOGY REPORT PS360 ---
CARDIAC CATHETERIZATION DATE OF CATHETERIZATION:10/24/2017 9:10 AM PROCEDURES: 1. Left heart catheterization 2. Left ventriculogram 3. Selective coronary angiogram INDICATION FOR TEST: 1. Accelerated angina pectoris 2. Numerous risk factors for coronary artery disease 3. 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 COMPLICATIONS: None ESTIMATED BLOOD LOSS: Less than 10 ml. TECHNIQUE: One percent lidocaine used to anesthetize the right anterior aspect of the wrist. The right radial artery was accessed via the Seldinger technique. A 6 [place] sheath was placed in the right radial artery. 2.5 mg of verapamil, 800 mcg of nitroglycerin and 5000 U Heparin were given through the arterial sheath. The trap catheter was also used to perform left heart catheterization and left ventriculography. At the end of the procedure the patient was transferred to the post-op holding area in stable condition for arterial sheath removal. ANGIOGRAPHIC RESULTS: 1. The left main artery normal 2. The left anterior descending artery normal 3. The circumflex artery normal 4. The right coronary artery dominant normal 5. The BENJAMIN ventriculogram reveals normal 65% 6. The left ventricular end-diastolic pressure elevated at 25 mmHg IMPRESSION: 1. Normal coronary arteries. 2. Normal ejection fraction 3. Elevated LVEDP consistent with diastolic dysfunction PLAN: 1. Risk factor modification 2. Low-dose diuretics to decrease EDP 3. Weight-loss 4. Medical management 5. Anxiolysis to help with supratentorial component of patient's chest pain etc.
[2017-10-24 13:15] VITALS: BP 99/52
== END ==
LOC: CATHLAB 07:31
PROVIDERS: Internal Medicine
PROC: B2111ZZ Fluoroscopy of Multiple Coronary Arteries using Low Osmolar Contrast (ICD-10-PCS; 2017-10-24)
PROC: B2151ZZ Fluoroscopy of Left Heart using Low Osmolar Contrast (ICD-10-PCS; 2017-10-24)
PROC: 4A023N7 Measurement of Cardiac Sampling and Pressure, Left Heart, Percutaneous Approach (ICD-10-PCS; principal; 2017-10-24 11:00)
DX: R07.9 Chest pain, unspecified (principal); R06.09 Other forms of dyspnea; I10 Essential (primary) hypertension; R94.01 Abnormal electroencephalogram [EEG]; F11.11 Opioid abuse, in remission; Z82.49 Family history of ischemic heart disease and other diseases of the circulatory system
CPT/HCPCS: C1725; C1769; J1644; Q9967